=== PATIENT | female | born 1975 | race Caucasian/White ===

== ENCOUNTER 2017-04-05 15:36 | Inpatient (IN) | payer MEDICARE, MEDICAID ==
[2017-04-05 17:21] LABS: #Eosinphils 0.3 thou/uL (0.0-0.7); #Lymphocytes 1.7 thou/uL (1.20-3.40); #Monocytes 0.5 thou/uL (0.11-0.59); #Neutrophils 3.6 thou/uL (1.40-6.50); %Basophils 0.7 % (0.0-1.0); %Eosinophils 5.6 % (0.0-10.0); %Lymphocytes 27.2 % (21.0-51.0); %Neutrophils 58.5 % (42.0-75.0); Hemoglobin 10.1 g/dL (12.0-16.0); Mean Corpuscular HGB CONC 33.6 g/dL (32.0-36.0); Mean Corpuscular Volume 83.3 fl (81.0-99.0); Mean Platelet Volume 7.6 fL (7.4-10.4); Platelet Count 176 thou/uL (130-400); Red Blood Cell (RBC) Count 3.62 mill/uL (4.20-5.40); White Blood Cell (WBC) Count 6.2 thou/uL (4.8-10.8)
[2017-04-05 17:36] LABS: ALT (SGPT) 16 U/L (8-55); AST (SGOT) 27 U/L (5-34); Albumin 2.2 g/dL (3.5-5.0); Alcohol Less than 10 mg/dL (Less than 10); Alkaline Phosphatase 120 U/L (40-150); Anion Gap 14 mmol/L (10-20); BUN (Urea Nitrogen) 16 mg/dL (7.0-18.7); Bilirubin, Total 0.3 mg/dL (0.2-1.2); Calc. Creatinine Clearance 0 mL/min (70-130); Calcium 8.5 mg/dL (7.8-10.44); Carbon Dioxide 30 mmol/L (22-29); Chloride 96 mmol/L (98-107); Estimated GFR-MDRD 29; Globulin 3.2 g/dL (2.4-3.5); Glucose 334 mg/dL (70-105); Protein, Total 5.4 g/dL (6.0-8.3); Sodium 137 mmol/L (136-145)
[2017-04-05 17:37] LABS: BHCG - Serum Negative (NEGATIVE); Pregs Control Background? CLEAR/WHITE (CLR/WHITE); Pregs Control Bar Appear? YES (CONTROL BAR)
[2017-04-05 17:40] LABS: CKMB 5.4 ng/mL (0-6.6); Troponin I 0.031 ng/mL (< 0.028)
[2017-04-05 17:42] LABS: Potassium 2.5 mmol/L (3.5-5.1)
[2017-04-05 19:15] LABS: Acetaminophen Less than 6.0 mcg/mL (10.0-30.0); Alcohol Less than 10 mg/dL (Less than 10); Salicylate Less than 8.0 mg/dL (15.0-30.0)
[2017-04-05] MEDS ORDERED: Potassium Chloride 20 MEQ/100 ML PREMIX BAG ONE (19:17)
[2017-04-05] MEDS ORDERED: Magnesium Sulfate 2 GM/NS 0.9% 50 ML BAG ONE (19:17)
--- NOTE | 2017-04-05 19:24 | CT ---
CT THORACIC SPINE WITHOUT CONTRAST: Indication: Fall from standing. Back pain. FINDINGS: No acute fracture or subluxation is evident. There is mild multilevel disc degenerative disease of th e thoracic spine. Osseous central canal is preserved. IMPRESSION: No acute osseous abnormality. POS: [facility]
--- NOTE | 2017-04-05 20:31 | CT ---
CT BRAIN WITHOUT CONTRAST: Indication: Fall, hit back of head. Comparison: 08-14-16 FINDINGS: No acute intracranial hemorrhage or hydrocephalus is present. Septum pellucidum and third ventricle a re midline. Skull and extracranial soft tissues appear within normal limits. IMPRESSION: No intracranial abnormality. POS: [facility]
--- NOTE | 2017-04-05 20:33 | CT ---
CT OF THE CERVICAL SPINE WITHOUT CONTRAST: Indication: History of fall, neck pain. Comparison: 08-14-16 FINDINGS: No acute fracture or subluxation are present. Craniocervical junction is within normal limits. Prever tebral soft tissues are within normal limits. Lung apices are clear. IMPRESSION: No acute osseous abnormality. POS: [facility]
--- NOTE | 2017-04-05 20:37 | CT ---
CT LUMBAR SPINE WITHOUT CONTRAST: Indication: History of fall with back pain. FINDINGS: There is mild degenerative changes involving the SI joints, right greater than left. No acute fractur e or subluxation is evident involving the lumbar spine. There is partial visualization of a bicornate uterus. Visualized retroperitoneum appears within normal limits. IMPRESSION: No acute osseous abnormality. POS: [facility]
--- NOTE | 2017-04-05 20:39 | CT ---
CT PELVIS WITHOUT CONTRAST: Indication: Fall with pelvic pain. FINDINGS: No acute fracture or subluxation is evident. There is a bicornuate uterus. No free fluid is evident i n the pelvis. Unopacified small and large bowel appear within normal limits. There is mild diffuse an asarca. There are shoddy appearing lymph nodes within the inguinal region. IMPRESSION: No acute osseous abnormality. POS: [facility]
[2017-04-05 20:44] LABS: Bilirubin Negative (Negative); Blood, Urine Large (Negative); Clarity CLOUDY (Clear); Glucose, Urine (Dipstick) 250 mg/dL (Negative); Leukocyte Negative (Negative); Nitrite Negative (Negative); Protein, Urine (Dipstick) > or equal to 300 mg/dL (Neg-Trace); Specific Gravity, Urine 1.014 (1.002-1.036)
[2017-04-05 20:47] LABS: Bacteria/HPF 4+ HPF (None Seen); Hyaline Casts/LPF 7-10 HYALINE CAST LPF (0-3 Hyaline); Pathc Cast-AUWi Flag 1.62 (0-2.49); Yeast-AUWi Flag 199.8 (0-25.0)
[2017-04-05] MEDS ORDERED: Potassium Chloride 20 MEQ TAB ONE ×2 (20:48→23:25)
[2017-04-05 20:51] LABS: Amphetamine Not Detected (NotDetected); Barbiturates Screen Not Detected (NotDetected); Benzodiazepine Screen Not Detected (NotDetected); Cocaine Metabolite Screen Not Detected (NotDetected); Medtox Control Line Valid? VALID (VALID); Medtox Reader # READER 4; Methadone Not Detected (NotDetected); Methamphetamine Not Detected (NotDetected); Opiate Screen Not Detected (NotDetected); Oxycodone Screen Not Detected (NotDetected); Phencyclidine (PCP) Not Detected (NotDetected); THC/Cannabinoid Screen Not Detected (NotDetected); Tricyclic Screen Not Detected (NotDetected)
[2017-04-05 20:51] LABS: Troponin I 0.044 ng/mL (< 0.028)
[2017-04-05 20:54] LABS: RBC/HPF 21-50 HPF (0-3)
[2017-04-05] MEDS ORDERED: Dextrose 5% in Water 1,000 ML IV PRN (22:27)
[2017-04-05] MEDS ORDERED: HYDROcodone/Acetaminophen 5/325 mg Tablet PO PRN (22:27)
[2017-04-05] MEDS ORDERED: Acetaminophen 325 MG TAB PO PRN (22:27)
[2017-04-05] MEDS ORDERED: Calcium Carbonate 500 MG ChewTAB PO PRN (22:27)
[2017-04-05] MEDS ORDERED: HYDROcodone/Acetaminophen 10/325 mg Tablet PO PRN (22:27)
[2017-04-05] MEDS ORDERED: Dextrose 50% Abboject 50 ML SYRINGE SLOW IVP PRN (22:27)
[2017-04-05] MEDS ORDERED: Enoxaparin Sodium 40 MG/0.4 ML SYRINGE SC SCH (22:30)
[2017-04-05] MEDS ORDERED: Insulin Detemir 100 UNITS/ML 20 UNITS in Pre-Filled Syringe 1 EACH SC SCH (22:30)
[2017-04-05] MEDS ORDERED: Magnesium 2 GM/NS 0.9% 50 ML 2 GM in Premix Bag 1 BAG IVPB SCH (22:45)
[2017-04-05 23:04] LABS: Anion Gap 17 mmol/L (10-20); BUN (Urea Nitrogen) 16 mg/dL (7.0-18.7); Calc. Creatinine Clearance 0 mL/min (70-130); Calcium 8.9 mg/dL (7.8-10.44); Carbon Dioxide 29 mmol/L (22-29); Chloride 95 mmol/L (98-107); Estimated GFR-MDRD 28; Glucose 245 mg/dL (70-105); Sodium 139 mmol/L (136-145)
[2017-04-05 23:12] LABS: Potassium 2.3 mmol/L (3.5-5.1)
[2017-04-05] MEDS ORDERED: Acetaminophen 325 MG TAB ONE (23:25)
--- NOTE | 2017-04-05 23:48 | HP ---
PRIMARY CARE PHYSICIAN: Eric. DATE OF ADMISSION: 04/05/2017 TIME OF SERVICE: 2129. CHIEF COMPLAINT: Fall. HISTORY OF PRESENT ILLNESS: Ms. Snow is a 41-year-old obese female with history of diabetes and hypertension, who presents to the emergency department today after an episode where she fell. Per ER notes, family is at bedside said she actually lost consciousness. There are not currently at the bedside. She states that they told her she was out for about 30 minutes, but she does not think it was that long, but really cannot remember. When she fell, she did hit her head on the computer table, prompting her presentation here. Workup h ere showed no acute fracture, but she did have a potassium of 2.5 with a magnesium of 1.1 and a creat inine of 1.92. Review of her chart shows her baseline creatinine somewhere around 1.3 as of 09/2016. The patient states she was drinking last night for new years', and thinks on arrival here told the [facility] that she thought she might have to be drunk and passed out from that. No fevers or chills, no chest pain or shortness of breath, no nausea and vomiting, no diarrhea. PAST MEDICAL HISTORY: 1. Diabetes mellitus type 2 on insulin chronically and unsure of her control. 2. Hypertension. 3. Anxiety/depression. 4. Schizophrenia. 5. Bipolar disorder. 6. Hypothyroidism. PAST SURGICAL HISTORY: Include, 1. Cholecystectomy. 2. Tympanostomy tubes remotely. 3. x2. HOME MEDICATIONS: 1. Levothyroxine 100 mcg daily. 2. Lisinopril 2.5 mg daily. 3. Metformin 500 mg p.o. b.i.d. 4. Lantus or Levemir 20 units subcutaneous at bedtime, but she is not sure. 5. No short long-acting insulin. ALLERGIES: 1. PENICILLIN caused her face to swell, but she says she tolerated AMOXICILLIN fine. 2. ADHESIVE TAPE. FAMILY HISTORY: Negative for clotting or bleeding disorder, immune dysfunction. SOCIAL HISTORY: Negative for habits regularly. She does drink socially. No IV drug use or tobacco use. REVIEW OF SYSTEMS: A 10-point review of systems was performed, negative for all other systems except listed as per HPI. PHYSICAL EXAMINATION: VITAL SIGNS: Temperature 97.5, pulse 89, blood pressure 164/101 but down to 107/69 now, respiratory 18, and 95% on room air. GENERAL: She is awake. She is alert. She is oriented x3. She is an obese white female, appears to be in no distress. HEENT: She is normocephalic, atraumatic. Her pupils are equal and reactive to light bilaterally, mu cous membranes moist. She has no visible lesions or thrush. NECK: Supple. She has no lymphadenopathy, JVD, or thyromegaly. She had normal carotid upstrokes. There were no bruits. LUNGS: Clear to auscultation bilaterally. She has no wheezes, no rales, no rhonchi. She has good a ir movements. Symmetrical chest excursion. CARDIOVASCULAR: She is regular with normal rate. She has normal S1 and S2. No murmurs. ABDOMEN: Obese is nontender, nondistended. She has good bowel sounds. There are no rebound, rigidi ty, or guarding. EXTREMITIES: Show no cyanosis or clubbing and no edema. She has 2+ peripheral pulses in dorsalis pe dis, posterior tibial, and radial arteries bilaterally. SKIN: Warm and well perfused. She has no rashes or lesions. NEUROLOGIC: Cranial nerves II-XII are grossly intact. She has normal speech pattern, she has 5/5 st rength in all 4 extremities. She has normal sensation, no focal deficits. MUSCULOSKELETAL: She is normal to inspection. She has no inflamed joints. No palpable effusions. She does have a swelling over her left posterior neck and also put from her fall. It looks to be as subdermal hematoma. LABORATORY EVALUATION: Sodium 137, potassium on arrival 2.5, magnesium 1.1, chloride 196, bicarbonat e 30, BUN 16, creatinine 1.92 after her baseline at 1.3, calcium is 7.5, and glucose of 334. Total protein of 5.4 and albumin 2.2. CBC showed a white count of 6.2, hemoglobin 10.1, hematocrit o f 30.1, and platelet count 176,000. RADIOGRAPHIC STUDIES: She has CT of the cervical, thoracic, and lumbar spine, CT of the brain and pe lvis CT, all negative for fracture. ASSESSMENT AND PLAN: 1. Syncopal episode. Etiology not clear. She is significantly dehydrated enough to cause acute kid raegan injury and elevated lactate. We will check serial cardiac biomarkers and watch her on telemetry to make sure there is no other cardiac component. Her baseline troponin was 0.03 and 0.044. Her uri ne drug screen was negative for alcohol or any other illicit drugs, so I cannot say that was the caus e. She did say that when she sat up in bed early she got lightheaded, so I think she mostly maybe pr esyncopal. We will get orthostatics now and in the morning. She received 2 liters of IV fluids in [facility] emergency department as well as some electrolyte replacement. We will continue IV fluids at 150 m L per hour. 2. Diabetes mellitus, type 2, insulin-dependent. She is really unsure of her doses. We will start her on Levemir 20 units subcutaneous at bedtime, first dose now and sliding-scale insulin with low do se. We will follow her sugars and check morning A1c. 3. Hypertension on lisinopril. She is on 2.5 a day and has been on higher doses per the chart. We will hold for now in the setting of acute kidney injury and watch her blood pressure. 4. Anxiety/depression/schizophrenia/bipolar. She is not on any treatments. 5. Hypothyroidism on levothyroxine. I will check morning TSH. I suspect the patient has just got d ehydrated and has electrolyte depletion. We will work on replacing her potassium and magnesium. 6. Hypokalemia as above. 7. Hypomagnesemia as above.
[2017-04-05 23:53] LABS: CKMB 4.3 ng/mL (0-6.6); Troponin I 0.038 ng/mL (< 0.028)
[2017-04-06 04:47] LABS: #Eosinphils 0.3 thou/uL (0.0-0.7); #Lymphocytes 1.2 thou/uL (1.20-3.40); #Monocytes 0.3 thou/uL (0.11-0.59); #Neutrophils 3.1 thou/uL (1.40-6.50); %Basophils 0.3 % (0.0-1.0); %Eosinophils 5.3 % (0.0-10.0); %Lymphocytes 24.3 % (21.0-51.0); %Monocytes 5.6 % (0.0-10.0); %Neutrophils 64.4 % (42.0-75.0); Hemoglobin 9.1 g/dL (12.0-16.0); Mean Corpuscular HGB CONC 34.1 g/dL (32.0-36.0); Mean Corpuscular Hemoglobin 28.6 pg (27.0-31.0); Mean Corpuscular Volume 83.9 fl (81.0-99.0); Mean Platelet Volume 8.5 fL (7.4-10.4); Platelet Count 171 thou/uL (130-400); RBC Distribution Width 14.4 % (11.5-14.5); Red Blood Cell (RBC) Count 3.17 mill/uL (4.20-5.40); White Blood Cell (WBC) Count 4.9 thou/uL (4.8-10.8)
[2017-04-06 04:58] LABS: Hemoglobin A1c 10.3 % (4.0-6.0)
[2017-04-06 05:04] LABS: Anion Gap 14 mmol/L (10-20); BUN (Urea Nitrogen) 17 mg/dL (7.0-18.7); Calc. Creatinine Clearance 0 mL/min (70-130); Calcium 7.9 mg/dL (7.8-10.44); Carbon Dioxide 30 mmol/L (22-29); Chloride 95 mmol/L (98-107); Estimated GFR-MDRD 25; Glucose 357 mg/dL (70-105); Magnesium 1.9 mg/dL (1.6-2.6); Sodium 136 mmol/L (136-145)
[2017-04-06 05:05] LABS: Potassium 2.6 mmol/L (3.5-5.1)
[2017-04-06] MEDS ORDERED: Potassium Chloride 20 MEQ TAB ONE ×2 (05:21→09:12)
[2017-04-06 08:09] LABS: CKMB 2.7 ng/mL (0-6.6); Troponin I 0.022 ng/mL (< 0.028)
[2017-04-06] MEDS ORDERED: Enoxaparin Sodium 40 MG/0.4 ML SYRINGE ONE (09:12)
[2017-04-06] MEDS ORDERED: Famotidine 20 MG TAB ONE (09:12)
[2017-04-06] MEDS ORDERED: Insulin Regular 300 UNITS/3 ML VIAL ONE (09:26)
[2017-04-06] MEDS ORDERED: HYDROcodone/Acetaminophen 5/325 mg Tablet ONE (09:26)
[2017-04-06] MEDS ORDERED: Sodium Chloride 0.9% 1,000 ML IV SCH (12:49)
--- NOTE | 2017-04-06 13:01 | PDOC.PN ---
- Subjective Encounter Start Date: 04/06/17 Encounter Start Time: 12:59 c/o headache no cp no sob no n/v - Objective Resuscitation Status: Resuscitation Status FULL:Full Resuscitation MAR Reviewed: Yes Result Diagrams: 04/06/17 03:16 04/06/17 03:16 Additional Labs: Accuchecks 04/06/17 04/06/17 04/05/17 11:20 09:20 23:44 POC Glucose 258 H 214 H 366 H Phys Exam - Physical Examination Constitutional: NAD HEENT: PERRLA Neck: no JVD Respiratory: no wheezing Cardiovascular: no significant murmur Gastrointestinal: non-tender Musculoskeletal: pulses present e/o erythema of rt leg. some tenderness Neurological: moves all 4 limbs Psychiatric: A&O x 3 Dx/Plan (1) Nqukw-ed-jcdffnf kidney injury Code(s): N17.9 - ACUTE KIDNEY FAILURE, UNSPECIFIED; N18.9 - CHRONIC KIDNEY DISEASE, UNSPECIFIED Status: Acute Qualifiers: (2) Dehydration Code(s): E86.0 - DEHYDRATION Status: Acute (3) Hypertension Code(s): I10 - ESSENTIAL (PRIMARY) HYPERTENSION Status: Acute Qualifiers: (4) Diabetes mellitus type 2, insulin dependent Code(s): E11.9 - TYPE 2 DIABETES MELLITUS WITHOUT COMPLICATIONS; Z79.4 - HALF-WAY (CURRENT) USE OF INSULIN Status: Chronic (5) Dyslipidemia Code(s): E78.5 - HYPERLIPIDEMIA, UNSPECIFIED Status: Chronic (6) Hypothyroidism Code(s): E03.9 - HYPOTHYROIDISM, UNSPECIFIED Status: Chronic (7) Hypomagnesemia Code(s): E83.42 - HYPOMAGNESEMIA Status: Resolved (8) Syncope Code(s): R55 - SYNCOPE AND COLLAPSE Status: Acute (9) Hypokalemia Code(s): E87.6 - HYPOKALEMIA Status: Acute (10) Cellulitis Code(s): L03.90 - CELLULITIS, UNSPECIFIED Status: Acute Comment: rt dnun - Plan * .
[2017-04-06] MEDS ORDERED: Vancomycin HCl 1 GM in Premix Bag 1 BAG IVPB SCH (13:15)
--- NOTE | 2017-04-06 14:26 | ULT ---
ULTRASOUND WITH DOPPLER DUPLEX CAROTID: Date: 04-06-2017 History: 41-year-old female status post near syncope. Technique: Grayscale, color flow, and spectral analysis of major arteries of the neck. FINDINGS: Little or no plaque is identified in the carotid arteries. The vertebral artery flow is antegrade humberto aterally. The highest peak systolic velocities in the internal carotid arteries are 95 cm/s on the ri ght, and 110 cm/s on the left. The ICA/CCA ratios are bilaterally 0.9. IMPRESSION: No hemodynamically significant stenosis. POS: [facility]
--- NOTE | 2017-04-06 14:27 | ULT ---
ULTRASOUND RETROPERITONEUM COMPLETE: (RENAL) HISTORY: 41-year-old female with acute renal failure. FINDINGS: The right kidney measures 12 x 5 x 5 cm. The left kidney measures 11 x 5.5 x 5.5 cm. Both kidneys h ave normal cortical thickness and normal cortical echogenicity. There is no hydronephrosis. Cursory images of the urinary bladder demonstrate no gross abnormality. IMPRESSION: Normal jn POS: [facility]
[2017-04-06] MEDS ORDERED: Acetaminophen 325 MG TAB ONE (14:30)
[2017-04-06 17:33] LABS: CKMB 2.5 ng/mL (0-6.6); Troponin I 0.022 ng/mL (< 0.028)
[2017-04-06 17:56] VITALS: BMI 44.2
[2017-04-06] MEDS: Potassium Chloride 20 MEQ TAB PO SCH ×3 (21:48→22:57)
[2017-04-06] MEDS: Famotidine 20 MG TAB PO SCH ×2 (21:49→22:10)
[2017-04-06] MEDS: Enoxaparin Sodium 40 MG/0.4 ML SYRINGE SC SCH (21:49)
[2017-04-06] MEDS: Sodium Chloride 0.9% 1,000 ML IV SCH ×3 (21:52→22:57)
[2017-04-06] MEDS: Vancomycin HCl 1.75 GM in Sodium Chloride 0.9% 500 ML IVPB SCH (22:09)
[2017-04-06] MEDS: Insulin Detemir 100 UNITS/ML 20 UNITS in Pre-Filled Syringe 1 EACH SC SCH (22:10)
[2017-04-06] MEDS: HumaLOG 300 UNITS/3 ML VIAL SC PRN (22:11)
[2017-04-07 05:32] LABS: #Eosinphils 0.1 thou/uL (0.0-0.7); #Lymphocytes 0.9 thou/uL (1.20-3.40); #Monocytes 0.4 thou/uL (0.11-0.59); #Neutrophils 1.7 thou/uL (1.40-6.50); %Basophils 0.4 % (0.0-1.0); %Eosinophils 3.5 % (0.0-10.0); %Lymphocytes 29.4 % (21.0-51.0); %Monocytes 13.9 % (0.0-10.0); %Neutrophils 52.7 % (42.0-75.0); Hemoglobin 9.4 g/dL (12.0-16.0); Mean Corpuscular Hemoglobin 28.1 pg (27.0-31.0); Mean Corpuscular Volume 85.3 fl (81.0-99.0); Mean Platelet Volume 7.4 fL (7.4-10.4); Platelet Count 168 thou/uL (130-400); RBC Distribution Width 14.3 % (11.5-14.5); Red Blood Cell (RBC) Count 3.35 mill/uL (4.20-5.40); White Blood Cell (WBC) Count 3.2 thou/uL (4.8-10.8)
[2017-04-07 05:40] LABS: Albumin 2.2 g/dL (3.5-5.0); Anion Gap 10 mmol/L (10-20); BUN (Urea Nitrogen) 14 mg/dL (7.0-18.7); BUN/Creatinine Ratio 7.57; Calc. Creatinine Clearance 85 mL/min (70-130); Calcium 8.1 mg/dL (7.8-10.44); Carbon Dioxide 30 mmol/L (22-29); Chloride 101 mmol/L (98-107); Estimated GFR-MDRD 30; Glucose 200 mg/dL (70-105); Phosphorus 2.6 mg/dL (2.3-4.7); Potassium 3.1 mmol/L (3.5-5.1); Sodium 138 mmol/L (136-145)
[2017-04-07] MEDS: HumaLOG 300 UNITS/3 ML VIAL SC PRN ×3 (06:20→20:55)
[2017-04-07] MEDS: Ondansetron ODT 4 MG TAB PO PRN ×2 (09:09→18:00)
[2017-04-07] MEDS: Potassium Chloride 20 MEQ TAB PO SCH ×2 (09:10→17:59)
[2017-04-07] MEDS: Famotidine 20 MG TAB PO SCH ×2 (09:10→20:53)
[2017-04-07] MEDS: Enoxaparin Sodium 40 MG/0.4 ML SYRINGE SC SCH (09:10)
[2017-04-07] MEDS ORDERED: Promethazine HCl 25 MG SUPP PR PRN (10:13)
--- NOTE | 2017-04-07 16:54 | PDOC.PN ---
- Subjective Encounter Start Date: 04/07/17 Encounter Start Time: 16:52 c/o n/v no f/c no sob - Objective Resuscitation Status: Resuscitation Status FULL:Full Resuscitation MAR Reviewed: Yes Vital Signs & Weight: Vital Signs (12 hours) Temp Pulse Pulse Pulse Resp BP BP 04/07/17 15:20 97.7 F 77 18 04/07/17 13:55 76 82 176/108 H 178/106 H 04/07/17 11:25 98.7 F 80 20 04/07/17 07:25 99.2 F 85 20 BP Pulse Ox 04/07/17 15:20 95 04/07/17 13:55 04/07/17 11:25 156/87 H 96 04/07/17 07:25 161/85 H 96 I&O: 04/06/17 04/07/17 04/08/17 06:59 06:59 06:59 Intake Total 600 500 Balance 600 500 Result Diagrams: 04/07/17 05:11 04/07/17 05:11 Additional Labs: Accuchecks 04/07/17 04/06/17 05:11 21:50 POC Glucose 199 H 355 H Phys Exam - Physical Examination Constitutional: NAD HEENT: PERRLA Neck: no JVD Respiratory: no wheezing Cardiovascular: no significant murmur Gastrointestinal: non-tender Musculoskeletal: pulses present Neurological: moves all 4 limbs Psychiatric: A&O x 3 Dx/Plan (1) Iuxyc-go-vuzlfcn kidney injury Code(s): N17.9 - ACUTE KIDNEY FAILURE, UNSPECIFIED; N18.9 - CHRONIC KIDNEY DISEASE, UNSPECIFIED Status: Acute Qualifiers: (2) Dehydration Code(s): E86.0 - DEHYDRATION Status: Acute (3) Hypertension Code(s): I10 - ESSENTIAL (PRIMARY) HYPERTENSION Status: Acute Qualifiers: (4) Diabetes mellitus type 2, insulin dependent Code(s): E11.9 - TYPE 2 DIABETES MELLITUS WITHOUT COMPLICATIONS; Z79.4 - LONG-TERM (CURRENT) USE OF INSULIN Status: Chronic (5) Dyslipidemia Code(s): E78.5 - HYPERLIPIDEMIA, UNSPECIFIED Status: Chronic (6) Hypothyroidism Code(s): E03.9 - HYPOTHYROIDISM, UNSPECIFIED Status: Chronic (7) Hypomagnesemia Code(s): E83.42 - HYPOMAGNESEMIA Status: Resolved (8) Syncope Code(s): R55 - SYNCOPE AND COLLAPSE Status: Acute (9) Hypokalemia Code(s): E87.6 - HYPOKALEMIA Status: Acute (10) Cellulitis Code(s): L03.90 - CELLULITIS, UNSPECIFIED Status: Acute Comment: rt dunn - Plan * continue current care * d/c in am if clinically better * ef-60% * carotid dop - no hdss * replace potassium
[2017-04-07] MEDS: hydrALAZINE 20 MG/ML VIAL SLOW IVP PRN (20:54)
[2017-04-07] MEDS: Vancomycin HCl 1.75 GM in Sodium Chloride 0.9% 500 ML IVPB SCH (20:54)
[2017-04-07] MEDS: Insulin Detemir 100 UNITS/ML 20 UNITS in Pre-Filled Syringe 1 EACH SC SCH (20:55)
[2017-04-07] MEDS ORDERED: Pantoprazole 40 MG VIAL IVP SCH (21:00)
[2017-04-08 06:21] LABS: Albumin 1.9 g/dL (3.5-5.0); Anion Gap 12 mmol/L (10-20); BUN (Urea Nitrogen) 12 mg/dL (7.0-18.7); BUN/Creatinine Ratio 6.98; Calc. Creatinine Clearance 91 mL/min (70-130); Calcium 8.3 mg/dL (7.8-10.44); Carbon Dioxide 24 mmol/L (22-29); Chloride 106 mmol/L (98-107); Estimated GFR-MDRD 33; Glucose 232 mg/dL (70-105); Phosphorus 2.8 mg/dL (2.3-4.7); Potassium 3.5 mmol/L (3.5-5.1); Sodium 138 mmol/L (136-145)
[2017-04-08 06:33] LABS: Band 6 % (5-11); Eosinophils 10 % (0-10); Hemoglobin 9.4 g/dL (12.0-16.0); Lymphocytes 48 % (21-51); MDiff Complete? YES; Mean Corpuscular HGB CONC 32.3 g/dL (32.0-36.0); Mean Corpuscular Hemoglobin 27.9 pg (27.0-31.0); Mean Corpuscular Volume 86.3 fl (81.0-99.0); Mean Platelet Volume 8.5 fL (7.4-10.4); Monocytes 10 % (0-10); Neutrophil 26 % (42-75); Platelet Count 151 thou/uL (130-400); RBC Distribution Width 14.2 % (11.5-14.5); Red Blood Cell (RBC) Count 3.37 mill/uL (4.20-5.40); White Blood Cell (WBC) Count 3.2 thou/uL (4.8-10.8)
[2017-04-08] MEDS: Enoxaparin Sodium 40 MG/0.4 ML SYRINGE SC SCH (09:54)
[2017-04-08] MEDS: Potassium Chloride 20 MEQ TAB PO SCH ×2 (09:54→16:07)
[2017-04-08] MEDS: Famotidine 20 MG TAB PO SCH (09:54)
--- NOTE | 2017-04-08 11:24 | PDOC.PN ---
- Subjective Encounter Start Date: 04/08/17 Encounter Start Time: 11:22 Patient seen and examined. No new complaints. No overnight events - Objective Resuscitation Status: Resuscitation Status FULL:Full Resuscitation MAR Reviewed: Yes Vital Signs & Weight: Vital Signs (12 hours) Temp Pulse Resp BP Pulse Ox 04/08/17 08:18 97.9 F 76 18 142/69 H 96 04/08/17 04:00 98.1 F 80 20 164/79 H 96 04/08/17 00:00 99.2 F 76 16 98 I&O: 04/07/17 04/08/17 04/09/17 06:59 06:59 06:59 Intake Total 600 990 Balance 600 990 Result Diagrams: 04/08/17 04:38 04/08/17 04:38 Additional Labs: Accuchecks 04/08/17 04/07/17 04/07/17 06:16 20:52 16:30 POC Glucose 243 H 304 H 264 H Phys Exam - Physical Examination Constitutional: NAD HEENT: PERRLA Neck: no JVD Respiratory: no wheezing Cardiovascular: no significant murmur Gastrointestinal: non-tender Musculoskeletal: pulses present, edema present erythema resolved Neurological: moves all 4 limbs Psychiatric: A&O x 3 Dx/Plan (1) Hlckw-rd-tgjtdpp kidney injury Code(s): N17.9 - ACUTE KIDNEY FAILURE, UNSPECIFIED; N18.9 - CHRONIC KIDNEY DISEASE, UNSPECIFIED Status: Acute Qualifiers: (2) Dehydration Code(s): E86.0 - DEHYDRATION Status: Acute (3) Hypertension Code(s): I10 - ESSENTIAL (PRIMARY) HYPERTENSION Status: Acute Qualifiers: (4) Diabetes mellitus type 2, insulin dependent Code(s): E11.9 - TYPE 2 DIABETES MELLITUS WITHOUT COMPLICATIONS; 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
[2017-04-08] MEDS: Ondansetron ODT 4 MG TAB PO PRN (13:43)
[2017-04-08] MEDS: HumaLOG 300 UNITS/3 ML VIAL SC PRN ×2 (13:44→18:37)
[2017-04-08] MEDS ORDERED: Metoclopramide HCl 10 MG/2 ML VIAL IVP PRN (14:33)
[2017-04-08] MEDS: hydrALAZINE 20 MG/ML VIAL SLOW IVP PRN (16:41)
[2017-04-08 20:28] VITALS: BP 163/86; TEMP 97.4
--- NOTE | 2017-04-08 22:30 | DIS ---
DATE OF ADMISSION: 04/05/2017 DATE OF DISCHARGE: 04/08/2017 DISCHARGE DIAGNOSES: Syncopal episode, possibly secondary to dehydration, resolved. Diabetes mellit us, stable. Hypertension, stable. Acute renal failure on chronic kidney disease, stable. Anxiety, depression, schizophrenia, bipolar, stable. Hypothyroidism, stable. Hypokalemia, resolved. Hypomag nesemia, resolved. DISCHARGE MEDICATIONS: Include all home medications except lisinopril dose has been changed from 20 mg p.o. daily to 2.5 mg p.o. daily, metformin has been discontinued and she is going to be discharged on Metoprolol 25 mg p.o. daily. BRIEF HOSPITAL COURSE: This is a 41-year-old pleasant lady who as per family came into the hospital because of loss of consciousness. Please refer to the admitting physician's H&P for further details. The patient had multiple CT scans of the cervical, thoracic, lumbar spine and CT scan of the brain and pelvis all were negative for pathology and fracture. Orthostatics were done, which were normal. Echocardiogram showed EF of 60%. Carotid Doppler showed no hemodynamically significant stenosis. H er syncopal episode was thought to be secondary to dehydration caused by excessive alcohol intake, wh ich resolved with IV hydration. She was also found to be in acute renal failure on chronic kidney di sease, possibly secondary to combination of dehydration and superimposed with lisinopril use. The manoj barboza's lisinopril was stopped. She was gently hydrated. Kidney function started improving nicely. Renal ultrasound was done, which was normal. Right now, patient is doing much better. She is medic ally stable to be discharged with outpatient follow up with PCP. She is asked to stop taking pain me dications in the form of Levaquin and Advil and hydrate herself. She understands all this. She is a sked to come back to the emergency room in case symptoms recur. She is asked to have diet control fo r diabetes. She understands all this. Right now, she is medically stable to be discharged. Total time for this discharge took 35 minutes.
== END 2017-04-08 20:34 | disposition home or self-care (01) | DRG 683 ==
LOC: ERS 15:36 → ERHOLD 20:00 → 2SE 04-06 16:04 → 2NO 04-07 22:40
PROVIDERS: ADMIT Internal Medicine; ATTEND Internal Medicine
DX: N17.9 Acute kidney failure, unspecified (principal); L03.115 Cellulitis of right lower limb; E11.22 Type 2 diabetes mellitus with diabetic chronic kidney disease; E83.42 Hypomagnesemia; F20.9 Schizophrenia, unspecified; Z68.41 Body mass index [BMI] 40.0-44.9, adult; E86.0 Dehydration; Z79.4 Long term (current) use of insulin; W18.30XA Fall on same level, unspecified, initial encounter; Y92.019 Unspecified place in single-family (private) house as the place of occurrence of the external cause; F41.9 Anxiety disorder, unspecified; F32.9 Major depressive disorder, single episode, unspecified; F31.9 Bipolar disorder, unspecified; E03.9 Hypothyroidism, unspecified; Z88.0 Allergy status to penicillin; Z91.048 Other nonmedicinal substance allergy status; R55 Syncope and collapse; I12.9 Hypertensive chronic kidney disease with stage 1 through stage 4 chronic kidney disease, or unspecified chronic kidney disease; N18.9 Chronic kidney disease, unspecified; E87.6 Hypokalemia; E66.9 Obesity, unspecified; T46.4X5A Adverse effect of angiotensin-converting-enzyme inhibitors, initial encounter
CPT/HCPCS: 36415; 36416; 70450; 72125; 72128; 72131; 72192; 76770; 80048; 80053; 80069; 80306; 80307; 81003; 81015; 82553; 83036; 83735; 84484; 84703; 85025; 87040; 93005; 93306; 93880; 96361; 96365; 96366; 96367; 96368; 96372; A4216; C9113; G8978-GP-CJ; G8979-GP-CJ; G8980-GP-CJ; J0360; J1650; J1815; J2765; J3370; J3475; J3480; J7050; Q0162

== ENCOUNTER 2017-07-14 13:59 | Outpatient (CLI) | payer MEDICARE, OTHER ==
[~2017-07-14 13:59] MED LIST: Sodium Chloride 0.9% 15 ML NEB ONE
--- NOTE | 2017-07-15 20:28 | PRG ---
DATE OF SERVICE: 07/14/2017 HISTORY: Ms. Roxy Snow is a very pleasant 42-year-old who presents to the [facility] Center fo r evaluation of multiple ulcerations of the right and left lower legs. 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 The patient was administered a course of steroids afte r her biopsy returned leukocytoclastic vasculitis. Today, Ms. Snow presents to the Wound Center with her ulcerations open to air. The patient denies any fever or chills. PHYSICAL EXAMINATION: VITAL SIGNS: Temperature 97.5, pulse 98, respirations 18, blood pressure 131/76, Accu-Chek 197. EXTREMITIES: Multiple ulcerations are present over the right and left lower legs. No purulent drain age is associated with any of the wounds. No maceration of the skin of the periwound of any of the w ounds is noted. Edema of the right and left lower extremities is present on exam today. ASSESSMENT AND PLAN: 1. Chronic ulcerations of right and left lower extremities. 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 Dressing changes of Multidex powder followed by Mukul are to be performed on a daily basis after cleansing and irrigation. The patient will continue to perform her own dressing changes. I will see Ms. Snow again in two weeks. 2. Diabetes mellitus. The patient's Accu-Chek in clinic today is 197. The patient has been reminde d that for optimal wound healing, her blood glucoses should remain below 150. 2. Hypothyroidism. 3. Hypertension. 4. Migraine headaches. 5. Chronic kidney disease. 6. Carpal tunnel syndrome. 7. Anemia.
== END 2017-07-14 14:00 | disposition home or self-care (01) ==
LOC: WCC 13:59
PROVIDERS: ATTEND Family Medicine
DX: E11.622 Type 2 diabetes mellitus with other skin ulcer (principal); L97.819 Non-pressure chronic ulcer of other part of right lower leg with unspecified severity; L97.829 Non-pressure chronic ulcer of other part of left lower leg with unspecified severity; E11.22 Type 2 diabetes mellitus with diabetic chronic kidney disease; N18.9 Chronic kidney disease, unspecified; D63.1 Anemia in chronic kidney disease; E03.9 Hypothyroidism, unspecified; I10 Essential (primary) hypertension; G43.909 Migraine, unspecified, not intractable, without status migrainosus; G56.00 Carpal tunnel syndrome, unspecified upper limb
CPT/HCPCS: 82962; 87070; 87075; 87077; 87186; 87205; 97139; 97602; G0463; 36416; 99213; A4218

== ENCOUNTER 2018-03-30 21:01 | Inpatient (IN) | payer MEDICARE, MEDICAID ==
[2018-03-30 22:26] LABS: #Eosinphils 0.1 thou/uL (0.0-0.7); #Lymphocytes 0.8 thou/uL (1.20-3.40); #Neutrophils 11.5 thou/uL (1.40-6.50); %Basophils 0.3 % (0.0-1.0); %Eosinophils 0.8 % (0.0-10.0); %Lymphocytes 5.6 % (21.0-51.0); %Monocytes 7.5 % (0.0-10.0); %Neutrophils 85.8 % (42.0-75.0); Hemoglobin 7.9 g/dL (12.0-16.0); Mean Corpuscular HGB CONC 32.7 g/dL (32.0-36.0); Mean Corpuscular Hemoglobin 27.9 pg (27.0-31.0); Mean Corpuscular Volume 85.2 fL (78.0-98.0); Mean Platelet Volume 6.6 fL (7.4-10.4); Platelet Count 432 thou/uL (130-400); RBC Distribution Width 13.1 % (11.5-14.5); Red Blood Cell (RBC) Count 2.81 mill/uL (4.20-5.40); White Blood Cell (WBC) Count 13.4 thou/uL (4.8-10.8)
--- NOTE | 2018-03-30 22:27 | RAD ---
SINGLE VIEW OF THE CHEST: 03/30/18 COMPARISON: 08/14/16 HISTORY: Sepsis and cough. FINDINGS: Single view of the chest shows a normal sized cardiomediastinal silhouette. There is no evidence of c onsolidation, mass, or pleural effusion. The bones are unremarkable. IMPRESSION: No evidence of acute cardiopulmonary disease. POS: [facility]
--- NOTE | 2018-03-30 22:30 | RAD ---
THREE VIEWS OF THE LEFT FOOT: 03/30/18 COMPARISON: None. HISTORY: Sepsis. Necrotic ulcers. FINDINGS: Three views left foot shows a wound along the lateral aspect of the foot near the metatarsophalangeal joint region. Osteopenia is seen surrounding the metatarsophalangeal joints of the third, fourth, an d fifth fingers. There may also be a small amount of osteopenia surrounding the second metatarsophala ngeal joint. This osteopenia could potentially represent osteomyelitis. No wesley destruction of the b ones is seen in any of these locations. IMPRESSION: Osteopenia surrounding the metatarsophalangeal joints could potentially be secondary to osteomyelitis . POS: [facility]
[2018-03-30 22:47] LABS: ALT (SGPT) 8 U/L (8-55); AST (SGOT) 22 U/L (5-34); Albumin 2.7 g/dL (3.5-5.0); Alkaline Phosphatase 126 U/L (40-150); BUN (Urea Nitrogen) 87 mg/dL (7.0-18.7); Bilirubin, Total 0.3 mg/dL (0.2-1.2); Calc. Creatinine Clearance 0 mL/min (70-130); Calcium 9.3 mg/dL (7.8-10.44); Chloride 117 mmol/L (98-107); Estimated GFR-MDRD 8; Globulin 4.5 g/dL (2.4-3.5); Glucose 124 mg/dL (70-105); Protein, Total 7.2 g/dL (6.0-8.3); Sodium 133 mmol/L (136-145)
[2018-03-30 22:54] LABS: Carbon Dioxide Less than 8 mmol/L (22-29); Potassium 7.2 mmol/L (3.5-5.1)
--- NOTE | 2018-03-30 23:36 | CT ---
CT ABDOMEN AND PELVIS WITHOUT CONTRAST 03/30/18 COMPARISON: 09/11/16 HISTORY: Shortness of breath and cough. Abdominal pain with diarrhea. TECHNIQUE: Multiple contiguous axial images were obtained in a CT of the abdomen and pelvis without contrast. Co jessica reformats were performed. FINDINGS: The patient is status post cholecystectomy. The patient has a uterine didelphys. The liver, kidneys, adrenal glands, spleen, and pancreas are unremarkable although evaluation is limited without IV contr ast. No free air, free fluid, or stranding changes are seen in the abdomen or pelvis. The large and small bowel are unremarkable. The appendix is unremarkable. No abdominal or pelvic lymphadenopathy are seen . There are prominent bilateral inguinal lymph nodes. The osseous structures, visualized inferior thorax and abdominal wall soft tissues are unremarkable. IMPRESSION: 1. No evidence of acute intra-abdominal/pelvic abnormality. 2. Uterine didelphys. POS: [facility]
[2018-03-30] MEDS ORDERED: Albuterol Sulfate 2.5 mg/3 ml Neb ONE (23:52)
[2018-03-31 00:11] LABS: INR-International Normal Ratio 1.5; PTT 32.6 SEC (22.9-36.1); Prothrombin Time 18.5 SEC (12.0-14.7)
[2018-03-31] MEDS ORDERED: Calcium Gluc 4.6 MEQ/10 ML (100 MG/ML) ONE (00:11)
[2018-03-31] MEDS ORDERED: Sodium Bicarb 50 MEQ/50 ML VIAL ONE (00:11)
[2018-03-31] MEDS ORDERED: Dextrose 50% Abboject 50 ML SYRINGE ONE (00:19)
[2018-03-31] MEDS ORDERED: Insulin Regular 300 UNITS/3 ML VIAL ONE (00:19)
--- NOTE | 2018-03-31 00:35 | PDOC.FPRHP ---
- History of Present Illness Chief Complaint: foot wound History of Present Illness: Mrs. Snow presents to the ED with foot wounds The patient is somnolent and unable to answer questions appropriately, the following history has been obtained from medical records and EMS reports. who is present in room seems to have a poor undertanding of the situation. She has had these wounds for a long time and her reports that he has been telling her to go get them checked out, but has been unable to take her to the ED 2/2 working all the time. She has been treated by wound care in the past but has stopped going for quite a while now, her reports she will not ever take her shoes off. ER staff reports pt arrived covered in feces with very foul odor present. Pt has been admitted in the past with sepsis 2/2 cellulitis of foot wounds. ED Course: albuterol neb, 1 L NS, 3 amp NaHCO3, Calcium gluconate, D50W, novlin, cefepime and vanc PT/PTT/INR, CMP, CBC, LA, XRay foot, CT ab/pelv - Allergies/Adverse Reactions Allergies Allergy/AdvReac Type Severity Reaction Status Date / Time adhesive tape Allergy Mild Verified 09/12/16 04:35 Penicillins Allergy Verified 09/12/16 04:35 - Home Medications Medication Instructions Recorded Confirmed Type Fenofibrate 54 mg PO DAILY #30 tab 07/01/14 09/12/16 Rx Acetaminophen [Tylenol Regular 650 mg PO Q4H PRN #60 tab 08/15/16 04/06/17 Rx Strength] Clindamycin [Cleocin] 300 mg PO Q6H #24 cap 09/15/16 Rx Ferrous Sulfate [Feosol] 325 mg PO BID-WM #60 tab 09/15/16 Rx Insulin Glargine,Hum.Rec.Anlog 25 unit SQ QPM #1 pen 09/15/16 Rx [Lantus Solostar] Gabapentin [Neurontin] 300 mg PO BID 04/06/17 04/06/17 History Lisinopril [Zestril] 2.5 mg PO DAILY #30 tab 04/08/17 Rx Metoclopramide HCl [Reglan] 10 mg PO TID #30 tab 04/08/17 Rx Metoprolol Tartrate [Lopressor] 25 mg PO BID #60 tab 04/08/17 Rx Ondansetron [Zofran ODT] 4 mg PO Q6HR PRN #30 tab 04/08/17 Rx - History PMHx: CKDIII, DMII, HTN, leukocytoclastic vasculitis, PSHx: unknown FHx: unknown Social: lives at home with her - Review of Systems ROS unobtainable: due to mental status - Vital signs BP: 124/88 HR: 120 RR: 32 Tmax: 98 Pox: 100% on RA Wt: 104.33kg - Physical Exam Constitutional: other (somnolent, not answering questions appropriately) HEENT: normocephalic and atraumatic, grossly normal vision, grossly normal hearing, other (poor dentition) Neck: supple, trachea midline Chest: no-tender to palpation Heart: RRR, normal S1/S2 Lungs: CTAB, no respiratory distress Abdomen: soft, non-tender Musculoskeletal: normal structure, normal tone Neurological: no focal deficit, CN II-XII intact Skin: other (diffuse necrotic tissue on b/l LE, malodorous, maggot infested, erythema extending proximal to knee) Heme/Lymphatic: no unusual bruising or bleeding -Psychiatric: lacks judgement and insight into situation FMR H&P: Results - Labs Result Diagrams: 03/30/18 22:22 03/30/18 22:22 Lab results: WBC 13.4 thou/uL (4.8-10.8) H 03/30/18 22:22 Hgb 7.9 g/dL (12.0-16.0) L 03/30/18 22:22 Hct 24.0 % (36.0-47.0) L 03/30/18 22:22 MCV 85.2 fL (78.0-98.0) 03/30/18 22:22 Plt Count 432 thou/uL (130-400) H 03/30/18 22:22 Neutrophils % 85.8 % (42.0-75.0) H 03/30/18 22:22 Sodium 133 mmol/L (136-145) L 03/30/18 22:22 Potassium 7.2 mmol/L (3.5-5.1) H* 03/30/18 22:22 Chloride 117 mmol/L (98-107) H 03/30/18 22:22 Carbon Dioxide Less than 8 mmol/L (22-29) L* 03/30/18 22:22 BUN 87 mg/dL (7.0-18.7) H 03/30/18 22:22 Creatinine 5.75 mg/dL (0.6-1.1) H 03/30/18 22:22 Glucose 124 mg/dL (70-105) H 03/30/18 22:22 Lactic Acid 1.2 mmol/L (0.5-2.2) 03/30/18 22:22 Calcium 9.3 mg/dL (7.8-10.44) 03/30/18 22:22 Total Bilirubin 0.3 mg/dL (0.2-1.2) 03/30/18 22:22 AST 22 U/L (5-34) 03/30/18 22:22 ALT 8 U/L (8-55) 03/30/18 22:22 Alkaline Phosphatase 126 U/L (40-150) 03/30/18 22:22 Serum Total Protein 7.2 g/dL (6.0-8.3) 03/30/18 22:22 Albumin 2.7 g/dL (3.5-5.0) L 03/30/18 22:22 FMR H&P: A/P - Problem List (1) Sepsis due to cellulitis Current Visit: No Status: Acute Code(s): L03.90 - CELLULITIS, UNSPECIFIED; A41.9 - SEPSIS, UNSPECIFIED ORGANISM (2) Hyperkalemia Current Visit: Yes Status: Acute Code(s): E87.5 - HYPERKALEMIA (3) Wlwxb-wm-wievngi kidney injury Current Visit: No Status: Acute Code(s): N17.9 - ACUTE KIDNEY FAILURE, UNSPECIFIED; N18.9 - CHRONIC KIDNEY DISEASE, UNSPECIFIED Qualifiers: (4) Diabetes mellitus type 2, insulin dependent Current Visit: No Status: Chronic Code(s): E11.9 - TYPE 2 DIABETES MELLITUS WITHOUT COMPLICATIONS; Z79.4 - ALF (CURRENT) USE OF INSULIN (5) 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: Chronic Code(s): M31.0 - HYPERSENSITIVITY ANGIITIS - Plan Sepsis - WBC elevated, tachycardic, tachypneic in ED - potential source of leg wounds - cefepime and vanc given in ED - additional 30 ml/kg bolus ordered - continue broad spectrum abx - repeat CBC in AM hyperkalemia - K elevated in ED, EKG changes present - emergent dialysis - nephrology consulted appreciate recommendations - repeat CMP in AM SHERWIN on CKD - 5.75 cr on admission - IVF resuc, emergent dialysis Leukocytoclastic vasculitis - aware, possible initial insult to legs DMII - aware, continue home meds - mild SSI FMR H&P: Upper Level - Pertinent history 42F p/w to ED for bilateral foot wounds. EMS called for productive cough , abdominal pain, and diarrhea. Per EMS, the patient and her home were covered in feces upon their arrival. Patient unable to provide full history. Patient lives with . He cannot answer why he has not taken his to the doctor, but insinuates that this is a new problem and he is bringing her in now. When confronted with the fact this likely osteomyelitis is a chronic disease process, he has no explanantion for the situation. - Pertinent findings H/H: 7.9/24 WBC: 13.5 BUN/Cr: 87/5.75 Na: 133 K: 7.2 Chl: 117 bicarb: <8 Hep panel: negative EKG: sinus tachycardia with peaked T waves CT abd/pelvis: no acute abnormalities CXR: no acute cardiopulmonary disease Left foot XR: osteopenia of MTP joints possibly due to osteomyelitis - Plan Date/Time: 03/31/18 0034 IPankaj, have evaluated this patient and agree with findings/plan as outlined by sports marketing internship resident. Pertinent changes/additions are listed here. Sepsis 2/2 bilateral necrotic leg wounds/diabetic foot ulcer/possible osteomyelitis: -s/p 2L NS in ED with normal BP's but persistent tachycardia and tachypnea -pt afebrile but with leukocytosis -imaging concerning for possible osteomyelitis -recommend MRI tomorrow to confirm -hx of IDDM in the setting of foot ulcers -Vanc, cefepime, and flagyl to cover MRSA and Pseudomonas -consult would care in AM -has been seen by them in the past -admit to IMCU Hyperkalemia: -K of 7.2 -given temporizing treatments along with calcium gluconate -EKG with slightly peaked T waves -nephrology consulted from ED and patient is going for emergent dialysis -recheck after dialysis Acute renal failure: -Cr of 5.75, going for dialysis -continue IVF -Nephrology following Normocytic anemia: -appears to be close to patients baseline -mild depression likely 2/2 chronic inflammatory state
[2018-03-31] MEDS ORDERED: Cefepime 2 GM VIAL ONE (01:30)
[2018-03-31 01:43] LABS: HBSAB Concentration 1.12 mIU/mL; HBSAg Index 0.24 S/CO (0-0.99); Hep B Core Total Ab Non-Reactive (NonReactive); Hep B Core Total Index 0.12 S/CO (0-0.79); Hep B Surf AB Non-Reactive (NonReactive); Hep B Surf Ag Non-Reactive S/CO (NonReactive); Hep C IgG Ab Non-Reactive (NonReactive); Hep C Index 0.18 S/CO (0-0.79)
[2018-03-31] MEDS ORDERED: Dextrose 50% Abboject 50 ML SYRINGE SLOW IVP PRN (03:48)
[2018-03-31] MEDS ORDERED: Ondansetron ODT 4 MG TAB PO PRN (03:48)
[2018-03-31] MEDS ORDERED: HumaLOG 300 UNITS/3 ML VIAL SC PRN ×2 (03:48)
[2018-03-31] MEDS ORDERED: Ondansetron PF 4 MG/2 ML Vial IVP PRN (03:48)
[2018-03-31] MEDS ORDERED: Dextrose 5% in Water 1,000 ML IV PRN (03:48)
[2018-03-31] MEDS: Sodium Chloride 0.9% 1,000 ML IV SCH ×2 (05:02→06:10)
[2018-03-31] MEDS: metroNIDAZOLE 500 MG in Premix Bag 1 BAG IVPB SCH ×3 (06:54→21:51)
--- NOTE | 2018-03-31 07:51 | RAD ---
CHEST 1 VIEW: Date: 03/31/18 HISTORY: Hemodialysis catheter placement. COMPARISON: Radiograph dated 03/30/18. FINDINGS: Dialysis catheter tip sits at the inferior SVC. No pneumothorax. Calcified granulomas right mid lung. IMPRESSION: Uncomplicated placement of dialysis catheter. POS: PAULINE
[2018-03-31 08:16] LABS: Hemoglobin 5.8 g/dL (12.0-16.0)
[2018-03-31 08:38] LABS: Anion Gap 15 mmol/L (10-20); BUN (Urea Nitrogen) 43 mg/dL (7.0-18.7); Calc. Creatinine Clearance 41 mL/min (70-130); Calcium 7.7 mg/dL (7.8-10.44); Carbon Dioxide 17 mmol/L (22-29); Chloride 112 mmol/L (98-107); Estimated GFR-MDRD 17; Glucose 96 mg/dL (70-105); Potassium 3.9 mmol/L (3.5-5.1); Sodium 140 mmol/L (136-145)
[2018-03-31 09:13] LABS: #Eosinphils 0.1 thou/uL (0.0-0.7); #Lymphocytes 0.9 thou/uL (1.20-3.40); #Monocytes 0.7 thou/uL (0.11-0.59); #Neutrophils 5.3 thou/uL (1.40-6.50); %Basophils 0.1 % (0.0-1.0); %Eosinophils 1.8 % (0.0-10.0); %Lymphocytes 12.5 % (21.0-51.0); %Monocytes 10.4 % (0.0-10.0); %Neutrophils 75.3 % (42.0-75.0); Hemoglobin 5.9 g/dL (12.0-16.0); Mean Corpuscular HGB CONC 34.5 g/dL (32.0-36.0); Mean Corpuscular Hemoglobin 28.2 pg (27.0-31.0); Mean Corpuscular Volume 81.8 fL (78.0-98.0); Mean Platelet Volume 6.5 fL (7.4-10.4); Platelet Count 294 thou/uL (130-400); RBC Distribution Width 12.7 % (11.5-14.5); Red Blood Cell (RBC) Count 2.09 mill/uL (4.20-5.40); White Blood Cell (WBC) Count 7.1 thou/uL (4.8-10.8)
--- NOTE | 2018-03-31 10:14 | CON ---
DATE OF CONSULTATION: 03/30/2018 TIME OF SERVICE: 11:00 p.m. in the emergency room. REASON FOR CONSULTATION: Hyperkalemia. HISTORY OF PRESENT ILLNESS: This is a very pleasant 42-year-old female, who had a history of leg wound and a baseline creatinine anywhere from 1.5 to 2, presented to the hospital with a potassium of 7.2 and a creatinine of more than 5. The patient also had severe acidosis. The patient has not seen a proced tech and did not seek any emergency medical attention. The patient was given bicarbonate, insulin, D50, and antibiotic therapy was initiated. The patient was on an GRAHAM inhibitor. The patient did have EKG changes. PAST MEDICAL HISTORY: CKD, 2; diabetes mellitus; hypertension; vasculitis; and foot ulcers. PAST SURGICAL HISTORY: Unknown. FAMILY HISTORY: Unknown. SOCIAL HISTORY: No tobacco. no alcohol or drug use. FAMILY HISTORY: Negative for ESRD. REVIEW OF SYSTEMS: Fifteen-point review of systems was performed and negative, except for positives noted above. NECK: No swelling or lumps. NOSE: No epistaxis or discharge. EYES: No diplopia or pain. MUSCULOSKELETAL: No joint pain. NEUROPSYCHIATIC SYSTEMS: No suicidal ideation. No ideation. SKIN: Denies any rash or ulcer. CONSTITUTIONAL: No fever or chills. PHYSICAL EXAMINATION: CONSTITUTIONAL: The patient was awake, alert. VITAL SIGNS: Afebrile, pulse 120, blood pressure 124/88. GENERAL APPEARANCE AND MENTAL STATUS: Fair. HEAD/NECK: Normocephalic. Atraumatic. EYES: EOMI. No deformity. EARS: Clear. No ulcers. NOSE: Intact. No lesions. MOUTH: Clear. No discharge. THROAT: Clear. No exudate. LUNGS: Clear. No crackles. CARDIAC: S1, S2. No rub. ABDOMEN: Benign. Bowel sounds positive. GENITALIA/RECTUM: Olvera absent. BACK/EXTREMITIES: Edema 0+. Ulcers on bilateral lower extremities NEUROLOGICAL: Alert and motor intact. LABORATORY DATA: Labs show potassium 7.2, . ASSESSMENT AND RECOMMENDATIONS: 1. Acute kidney injury with chronic kidney disease. Plan urgent hemodialysis. 2. Hyperkalemia, plan dialysis . Risks versus benefits of dialysis were discussed and the patient agreed. Prognosis is poor. Job ID: [id number]
--- NOTE | 2018-03-31 10:29 | PDOC.FM ---
- Subjective Subjective: Had large melenotic bowel movement x1. Tachypneic and tachycardic on examination this morning. Protecting airway but mildly stuporous. - Objective MAR Reviewed: Yes Vital Signs & Weight: Vital Signs (12 hours) Temp Pulse Resp BP Pulse Ox 03/31/18 07:22 108 H 18 145/73 H 96 03/31/18 06:10 112 H 20 119/68 98 03/31/18 05:08 99.1 F 108 H 20 106/71 99 03/31/18 04:17 117 H 20 138/64 98 03/31/18 03:00 122 H 20 111/61 99 03/31/18 02:45 98.7 F 126 H 22 H 123/69 100 Weight Weight 107.955 kg I&O: 03/30/18 03/31/18 04/01/18 06:59 06:59 06:59 Intake Total 1999 Balance 1999 Result Diagrams: 03/31/18 08:40 03/31/18 07:59 Phys Exam - Physical Examination jaundiced, does not follow commands. awake but not alert Respiratory: clear to auscultation bilateral tachypneic tachycardic Gastrointestinal: soft Musculoskeletal: pulses present 3+ edema in BLE up to mid anterior dunn. Multiple necrotic foot ulcers erythematous & edemtaous swelling of feet, pulses palpable Deviation from normal: unable to obtain Dx/Plan (1) Symptomatic anemia Code(s): D64.9 - ANEMIA, UNSPECIFIED Status: Acute (2) Hyperkalemia Code(s): E87.5 - HYPERKALEMIA Status: Acute (3) SHERWIN (acute kidney injury) Code(s): N17.9 - ACUTE KIDNEY FAILURE, UNSPECIFIED Status: Acute (4) Sepsis due to cellulitis Code(s): L03.90 - CELLULITIS, UNSPECIFIED; A41.9 - SEPSIS, UNSPECIFIED ORGANISM Status: Acute (5) Diabetes mellitus type 2, insulin dependent Code(s): E11.9 - TYPE 2 DIABETES MELLITUS WITHOUT COMPLICATIONS; Z79.4 - PRISON (CURRENT) USE OF INSULIN Status: Chronic - Plan Plan: 42 yo F with sepsis 2/2 cellulitis vs. osteomyelitis; symptomatic anemia 2/2 upper GI bleed, SHERWIN Sepsis 2/2 lower extremity cellulitis vs. osteomyelitis -BLE MRI without contrast due to kidney fx -Continue empiric abx with vanc, cefepime, flagyl -Pending blood cultures -Trend WBC with AM labs -Currently afebrile, tylenol for fever -General surgery consulted for cellulitis/osteomyelitis-will remove tunnel cath and possibly place hemosplit Symptomatic anemia -tachycardic & tachypenic today -Hb 5.8 with melenetic stool -FOBT pending -PRBC x1, 3 more units in HD today -Consulted Dr. Mcmillan, recs appreciated -NPO for now, continuef luids SHERWIN -s/p HD yesterday due to hyperkalemia -electrolytes stable this AM, Cr improved 5-> 3 -Dr. Rivera following, plan for HD today IDDM2 -monitor with POC -sliding scale Dispo: HD today, EGD today. PRBC x1 now, x3 in HD today. Discussed w/ Dr. Milner Addendum - Attending - Attending Attestation Date/Time: 03/31/18 [id number] I personally evaluated the patient and discussed the management with Dr. Ambrocio I agree with the History, Examination, Assessment and Plan documented above with any addition or exceptions noted below -Patient sleepy but mumbles to tactile stimuli and localizes to pain. Afebrile P 108. A/P: 1) Diabetic, necrotic foot ulcers- continue IV abx; plan for MRI today. Consult surgery for debridement. 2) Acute on chronic kidney failure - s/p emergent dialysis last night. Plan for dialysis again today. Monitor urine output and lytes. 3) Hyperkalemia- resolved. 4) Anemia- melanotic stool today- will transfuse 1 unit pRBCs now and more with dialysis. GI consulted; plan for EGD tomorrow. 5) DM- monitor accuchecks. SSI.
--- NOTE | 2018-03-31 12:04 | PRG ---
DATE OF SERVICE: 03/31/2018 SUBJECTIVE: A 42-year-old female, being seen for end-stage renal disease. The patient denies any nausea, vomiting, or chest pain. OBJECTIVE: CONSTITUTIONAL: Awake, alert, in no acute distress. VITAL SIGNS: Afebrile. Pulse 73, breathing is 18, blood pressure is 119/68. GENERAL APPEARANCE AND MENTAL STATUS: Fair. HEAD/NECK: Normocephalic. Atraumatic. EYES: EOMI. No deformity. EARS: Clear. No ulcers. NOSE: Intact. No lesions. MOUTH: Clear. No discharge. THROAT: Clear. No exudate. LUNGS: Clear. No crackles. CARDIAC: S1, S2. No rub. ABDOMEN: Benign. Bowel sounds positive. GENITALIA/RECTUM: Olvera absent. BACK/EXTREMITIES: Edema 0+. NEUROLOGICAL: Alert and motor intact. LABORATORY DATA: Hemoglobin is 5.9. Potassium is 3.9. ASSESSMENT AND RECOMMENDATION: 1. Acute kidney injury with chronic kidney disease, plan dialysis. 2. Metabolic acidosis, plan dialysis. 3. Hyperkalemia, improved. 4. Anemia, would recommend three units of packed red blood cells transfusion. Job ID: [id number]
--- NOTE | 2018-03-31 13:08 | MRI ---
MRI LEFT FOOT WITHOUT CONTRAST: HISTORY: Osteomyelitis. COMPARISON: Foot radiographs from the prior day. FINDINGS: BONES: There is loss of normal marrow signal of the 5th metatarsal head and neck, which would indica te osteomyelitis. The 2nd, 3rd, 4th, and 1st metatarsal heads and necks are intact. The proximal ph alanx bone marrow signal is normal. Midfoot signal is without marrow signal replacement. MUSCLES: Extensive T2 signal hyperintensity, suggesting diabetic myopathy. SOFT TISSUES: Moderate dorsal edema of the midfoot. There appears to be a soft tissue ulcer adjacent to the 5th metatarsal head. IMPRESSION: Osteomyelitis of the small toe metatarsal head with adjacent underlying ulcer. POS: JAMAAL
--- NOTE | 2018-03-31 13:50 | HP ---
HISTORY OF PRESENT ILLNESS: Roxy Snow is a 42-year-old female, who is brought in and admitted to [facility]. I have been asked by Dr. Rivera to see her. Unfortunately, she has had a Trialysis catheter placed in her right IJ and antecubital IV in her left arm. The patient apparently is poorly kept, poor hygiene, and was found to have open wounds, venous stasis ulcers, and diabetic foot ulcers, feet and lower legs and these had been cleaned of stool and other debris. She was noted to have hyperkalemia, osteomyelitis, dyspnea, poor hygiene. The patient's hemoglobin this morning is 5.5. It was felt she might have a GI bleed. She is going to dialysis. The patient has necrotic heel ulcers, multiple wounds over both feet with necrotic tissue. Plan at this time is to transfuse her today, dialyze her, GI consult and Dr. Castaneda tomorrow (I will be out of town). We will plan placement of a hemodialysis catheter, central line, and debridement of foot and leg ulcers. It is possible the next week, she may need a primary fistula that I can place. We will obtain ultrasound vein mapping in both arms and save her veins for dialysis access. On admission, the patient had a CAT scan of the abdomen and pelvis without abnormalities. Chest x-ray without acute disease. Left foot x-ray revealing osteopenia around the metatarsophalangeal joints and subsequently has had MRI results pending. ALLERGIES: ADHESIVE TAPES AND PENICILLINS. SOCIAL HISTORY: Tobacco, reportedly none. Alcohol, none. I cannot get a history from the patient. MEDICATIONS: Current medications include cefepime and vancomycin. Home medications are listed as; 1. Zofran. 2. Metoprolol. 3. Reglan. 4. Lisinopril. 5. Insulin. 6. Gabapentin. 7. Ferrous sulfate. 8. Fenofibrate. 9. Clindamycin. 10. Acetaminophen. Medications listed as outpatient on previous admission, 1. Levothyroxine. 2. Lisinopril. 3. Metformin. 4. Lantus insulin. PAST MEDICAL HISTORY: Diabetes mellitus type 2, hypertension, anxiety, schizophrenia, bipolar illness, hypothyroidism. PAST SURGICAL HISTORY: Cholecystectomy, tympanoplasty, . PHYSICAL EXAMINATION: VITAL SIGNS: Height 5 feet 6 inches, 238 pounds, 38 BMI, 99.9 degrees, respiratory rate 14, and blood pressure 131/73. GENERAL: The patient does not communicate with me. LUNGS: Clear to auscultation. CARDIAC: Regular rate and rhythm without murmur or gallop. ABDOMEN: Soft, obese, nontender. Dressings, foot to knee. Pictures reviewed of her lower extremities revealing necrotic heel ulcers, necrotic wounds in both feet and ankles with venous stasis ulcers and diabetic wounds on feet. Dressings just placed by wound care and they were not taken down. Right IJ Trialysis catheter and antecubital left IV, which was taken out. LABORATORY DATA: White count 7, hemoglobin 5.9, after admission hemoglobin 7.9 yesterday. Sodium 140, potassium 3.9, BUN 43, creatinine 3. ASSESSMENT AND PLAN: 1. Acute renal failure, possibly end-stage renal disease. Plan, placement of cuffed dialysis catheter. We will remove the IJ Trialysis catheter, which is inappropriately placed. Dr. Castaneda will place hemodialysis catheter and central line, debride the foot and leg ulcers and wounds tomorrow. We will see if she needs further dialysis access in the future pending her clinical course. 2. Diabetes mellitus. 3. Hypertension. 4. Schizophrenia. 5. Bipolar illness. 6. Poor hygiene. Job ID: [id number]
[2018-03-31] MEDS: Dicyclomine 10 MG CAP PO SCH ×4 (14:31→21:52)
[2018-03-31] MEDS: Cefepime 1 GM in Sodium Chloride 0.9% 100 ML IVPB SCH (14:51)
[2018-03-31] MEDS ORDERED: Heparin 1,000 UNITS/ML VIAL ONE ×2 (15:00)
[2018-03-31] MEDS ORDERED: Pantoprazole 40 MG VIAL IVP SCH (15:15)
[2018-03-31 16:07] LABS: CO2 Tension (PvCO2) 16.9 mmHg (41.0-51.0); pH (Venous) 7.029 (7.35-7.45)
[2018-03-31 16:08] LABS: Base Excess-Venous -24.3 mmol/L (0 (+/- 2.5)); Bicarbonate (HCO3v) 4.5 mmol/L (22.0-29.0)
[2018-03-31 16:09] LABS: Hemoglobin - Calc 7.6 g/dL (12.0-18.0)
[2018-03-31 16:10] LABS: Calcium, Ionized 1.38 mmol/L (1.12-1.32); T. Carbon Dioxide Less than 5.0 mmol/L (1.0-85.0)
[2018-03-31 16:11] LABS: vO2 Saturation-calc 82.8 % (94-98)
[2018-03-31 16:16] LABS: Potassium 7.6 mmol/L (3.4-4.7)
--- NOTE | 2018-03-31 16:37 | CON ---
DATE OF CONSULTATION: HISTORY OF PRESENT ILLNESS: Roxy Snow is a 42-year-old morbidly obese female, 5 feet 6 inches, 238 pounds, BMI 38, was admitted to the hospital yesterday on MICU associated care. is at bedside, who states that ever since the patient's mother six months ago, she has been depressed, has not been doing any kind of activity. She presented to the ER with cough, sputum production, abdominal pain, diarrhea, profuse sores involving both legs. No fever or chills. An emergency chest x-ray was ordered by me, which shows no acute infiltrates. She has a dialysis access catheter, right IJ. Former smoker, none recently. Severe limitation to activity because of chronic stasis, but she can walk 30 feet without getting markedly short of breath. PAST MEDICAL HISTORY: Diabetes, hypertension, hypothyroidism, and chronic pain. PAST SURGICAL HISTORY: Cholecystectomy and . ALCOHOL: None. HOME MEDICATIONS: 1. Lopressor 25 b.i.d. 2. Reglan 10 t.i.d. 3. Zestril 2.5. 4. Insulin 25. 5. Neurontin 300. 6. Iron. 7. Tylenol. ALLERGIES: PENICILLIN. SOCIAL HISTORY: She is presently disabled, drives a bus. As noted, no alcohol or tobacco at this time. REVIEW OF SYSTEMS: Ten-point negative. PHYSICAL EXAMINATION: GENERAL: Foul smelling odor in the room from her extensive necrotic ulcerative lesion on the leg. An MRI of the leg was ordered as noted. She has evidence of osteomyelitis. She has been dialyzed. VITAL SIGNS: Saturations are 99% on room air, respirations 14, temperature 99, blood pressure 140/73. CHEST: No wheezing or crackles. CARDIAC: Normal S1 and S2. No gallops. ABDOMEN: No masses. EXTREMITIES: Edema. Multiple ulceration. LABORATORY DATA: Creatinine is 3, BUN is 43, white count is 7000, hemoglobin and hematocrit are 5 and 17. She has received 2 units of packed cells. IMPRESSION: 1. Extensive cellulitis, osteomyelitis, multiple leg ulceration. 2. Renal failure with diabetes. 3. Morbid obesity. 4. She will be started on broad-spectrum antibiotics including Maxipime, Flagyl, Levaquin, and vancomycin. I would deescalate once we have cultures back. PLAN: She is to go to surgery for debridement of her ulcers and wound along with the treatment of her gangrenous toes. Pulmonary will follow while in the MICU. Aggressive PT and supportive Care. Consultation note, 70 minutes, 50% direct patient care. Job ID: [id number]
--- NOTE | 2018-03-31 19:09 | ULT ---
BILATERAL UPPER EXTREMITY VENOUS ULTRASOUND: 03/31/18 HISTORY: Dialysis patient with renal failure. Vein mapping for dialysis access. TECHNIQUE: Multiplanar doherty scale and color doppler images were obtained in a bilateral upper extremity venous u ltrasound. Spectral analysis of the doppler waveforms were performed. FINDINGS: Both subclavian veins are patent without evidence of thrombus. The internal jugular veins cannot be a ssessed secondary to bandages and the patient's neck. The right brachial, radial and ulnar arteries m easure 4.1, 1.8 and 1.8 mm in size respectively. The left brachial, radial and ulnar arteries measure 4.6, 1.9, and 1.7 mm in size, respectively. RIGHT UPPER EXTREMITY CEPHALIC VEIN Shoulder: 4.2 mm Upper Arm: 3.6 mm Mid Upper Arm: Not visualized Just proximal to elbow: Not visualized Just distal to elbow: 3.3 mm Mid Forearm: 4.4 mm Wrist: 3.8 mm BASILIC VEIN Shoulder: 3.6 mm Upper Arm: 4.1 mm Mid Upper Arm: 4.9 mm Just proximal to elbow: 4.0 mm Just distal to elbow: 2.7 mm Mid Forearm: 2.1 mm Wrist: 1.9 mm LEFT UPPER EXTREMITY CEPHALIC VEIN Shoulder: 4.9 mm Upper Arm: 3.0 mm Mid Upper Arm: 4.2 mm Just proximal to elbow: 3.1 mm Just distal to elbow: 3.8 mm Mid Forearm: 3.7 mm Wrist: 2.8 mm BASILIC VEIN Shoulder: 4.3 mm Upper Arm: 5.0 mm Mid Upper Arm: 5.2 mm Just proximal to elbow: 5.1 mm Just distal to elbow: 2.3 mm Mid Forearm: 2.3 mm Wrist: 1.5 mm IMPRESSION: Vein mapping for dialysis access as above. POS: [facility]
[2018-03-31] MEDS: Acetaminophen 325 MG TAB PO PRN (19:55)
[2018-03-31 20:11] LABS: Hemoglobin 9.1 g/dL (12.0-16.0)
[2018-03-31] MEDS: Pantoprazole 40 MG VIAL IVP SCH (21:50)
[2018-03-31] MEDS ORDERED: Vancomycin HCl 1.5 GM in Premix Bag 1 BAG IVPB SCH (23:00)
[2018-03-31] MEDS ORDERED: Vancomycin HCl 1 GM in Premix Bag 1 BAG IVPB SCH (23:00)
[2018-03-31] MEDS: Vancomycin HCl 1.5 GM in Sodium Chloride 0.9% 250 ML 300 ML IVPB SCH (23:26)
[2018-04-01] MEDS ORDERED: Lorazepam 2 MG/ML VIAL SLOW IVP PRN (00:29)
[2018-04-01] MEDS ORDERED: Morphine 4 MG/ML VIAL SLOW IVP SCH (02:00)
--- NOTE | 2018-04-01 05:25 | CON ---
DATE OF CONSULTATION: 03/31/2018 REASON FOR CONSULTATION: Possible melena/upper GI bleed. CONSULTING PHYSICIAN: Mary Ambrocio MD HISTORY OF PRESENT ILLNESS: The patient is a 42-year-old female with past medical history of chronic kidney disease stage 3, diabetes, hypertension, leukocytoclastic vasculitis, schizophrenia, hypothyroidism, and nonhealing leg wounds, who was initially brought to the hospital for altered mental status and somnolence. On initial evaluation here in the hospital, she was noted to have nonhealing wounds on her bilateral legs with necrotic tissue on her legs as well as her heels and toes. She was initially diagnosed with sepsis and possible septic shock secondary to cellulitis of her foot wounds. She was ultimately placed on antibiotic therapy and has been improving in terms of her clinical status and mental status over the last few days. When she was initially admitted to the hospital, she was noted to have a modest anemia that dropped even further with IV fluid administration to a hemoglobin of 5.8. During this period of time, the patient exhibited increased black semisolid stools concerning for melena and a possible upper GI bleed. Upon interview the patient tonight, the patient is doing better in terms of her mental status and was alert and oriented x3 with sometimes tangential thought processes, but answered questions appropriately. She states that she has been having approximately 1 to 2 semi-solid bowel movements per day over the last 2 months that have been black in coloration since starting iron supplementation. Given her multiple medical comorbidities and these nonhealing ulcerations, she was told by her primary care physician that she was anemic and placed on iron supplementation by her as an outpatient. During this time period, she was not taking anything for pain including NSAIDs. However, during this admission she was noted to have a melenic type stool earlier today per nursing staff in the IMCU, but with repeat H and H consistent with the infusion of 3 units of PRBCs. Currently, she denies any nausea, vomiting, fevers, chills, shortness of breath, hematemesis, hematochezia, dysphagia, or odynophagia. REVIEW OF SYSTEMS: A 10-category review of systems was obtained with all responses negative except for the pertinent positives as listed in the HPI. PAST MEDICAL HISTORY: As per HPI. PAST SURGICAL HISTORY: Cholecystectomy, bilateral tubal ligation, and x2. FAMILY HISTORY: Denies any GI malignancy. SOCIAL HISTORY: Denies any tobacco, alcohol, or illicit drug use. OUTPATIENT MEDICATIONS: Reviewed. ALLERGIES: 1. ADHESIVE TAPE. 2. PENICILLIN. PHYSICAL EXAMINATION: VITAL SIGNS: Temperature 98.7, pulse 103, blood pressure 159/85, respiratory rate 23, saturating 96% on room air. GENERAL: The patient was lying in bed, in no acute distress. Alert and oriented x3. HEENT: Normocephalic, atraumatic. NECK: Supple. No JVD noted. CARDIOVASCULAR: Tachycardic rate, but regular rhythm. No discernible murmurs, gallops, or rubs. RESPIRATORY: Clear to auscultation bilaterally with no discernible wheezes or rales. ABDOMEN: Normoactive bowel sounds. Soft and nondistended. No tenderness to palpation. EXTREMITIES: Her bilateral lower extremities were currently wrapped in dressing up to about mid thigh with further evaluation not undertaken. LABORATORY DATA: CBC with a white blood cell count of 7.1, hemoglobin 5.9, hematocrit 17.1, platelets 294. INR 1.5. Chemistry with a sodium of 140, potassium 3.9, chloride 112, CO2 of 17, BUN 43, creatinine 3.03, glucose 96. AST 22, ALT 8, alkaline phosphatase 126, total bilirubin 0.3, albumin 2.7. IMAGING DATA: CT of the abdomen and pelvis obtained on March 30, 2018, showed that the patient was status post cholecystectomy and the patient has uterine didelphys. The liver, kidneys, spleen, and pancreas were unremarkable without any presence of free air, free fluid, or stranding changes in the abdomen or pelvis. However, there were prominent bilateral inguinal lymph nodes noted. ASSESSMENT AND PLAN: The patient is a 42-year-old female with past medical history of chronic kidney disease, diabetes, hypertension, leukocytoclastic vasculitis, schizophrenia, hypothyroidism, and nonhealing ulceration to the bilateral lower extremities, presenting with anemia and melenic type stools concerning for possible upper gastrointestinal bleed. Melena/upper gastrointestinal bleedin. The patient states that she has been having semi-solid black stools that have been present from the last 1 to 2 months after being placed on iron supplementation as an outpatient in line with her anemia. On admission, she was noted to be moderately anemic with a hemoglobin of approximately 8, that decreased to 5.8 over the course of 9 hours, and that was accompanied with the appearance of black semi-solid stools consistent with melena per nursing staff. She was subsequently transfused approximately 3 units of PRBCs and has over responded to the transfusion thus far. She did have one additional episode of melenic type stool earlier today per nursing staff again, but has not had any additional episodes since. Based on her current other medical comorbidities, our plans to take the patient tomorrow for debridement and washout of her bilateral lower extremities nonhealing wounds. At this time, the patient has had an elevated white blood cell count on admission concerning for sepsis and possible septic shock given the likelihood of lower extremity cellulitis, and while she did not exhibit any hypotension per chart review, currently has a poor clinical status. Given her stable H and H at the current point in time and the only one episode of melenic type stools which could be confounded with iron administration as an outpatient, monitoring her H and H over the next 24 hours would be prudent. If she continues to drop, then endoscopic evaluation may be indicated at this time with differential including esophagitis, gastritis, duodenitis, arteriovenous malformation, Dieulafoy lesion, peptic ulcer disease and/or gastrointestinal neoplasm (less likely). Recommendations: 1. Would continue to trend H and H and transfuse as necessary to maintain H and H of 7/. 2. Continue to monitor clinically for signs of gastrointestinal bleeding (melena). 3. We will confer with General Surgery service about timing of possible upper endoscopy in light of debridement/washout of the lower extremity wounds. 4. We will plan for upper endoscopy when the patient is more stable or unless the patient exhibits significant worsening of her H and H requiring more urgent evaluation. We will continue to follow. Please call with any questions. Job ID: [id number]
[2018-04-01 05:46] LABS: #Eosinphils 0.2 thou/uL (0.0-0.7); #Lymphocytes 0.8 thou/uL (1.20-3.40); #Neutrophils 6.3 thou/uL (1.40-6.50); %Basophils 0.5 % (0.0-1.0); %Lymphocytes 10.1 % (21.0-51.0); %Monocytes 11.9 % (0.0-10.0); %Neutrophils 75.6 % (42.0-75.0); Mean Corpuscular HGB CONC 33.5 g/dL (32.0-36.0); Mean Corpuscular Hemoglobin 28.6 pg (27.0-31.0); Mean Corpuscular Volume 85.4 fL (78.0-98.0); Mean Platelet Volume 6.3 fL (7.4-10.4); Platelet Count 255 thou/uL (130-400); RBC Distribution Width 13.1 % (11.5-14.5); Red Blood Cell (RBC) Count 3.14 mill/uL (4.20-5.40); White Blood Cell (WBC) Count 8.3 thou/uL (4.8-10.8)
[2018-04-01 06:12] LABS: ALT (SGPT) 7 U/L (8-55); AST (SGOT) 21 U/L (5-34); Alkaline Phosphatase 121 U/L (40-150); Anion Gap 11 mmol/L (10-20); BUN (Urea Nitrogen) 25 mg/dL (7.0-18.7); Bilirubin, Total 0.5 mg/dL (0.2-1.2); Calc. Creatinine Clearance 48 mL/min (70-130); Carbon Dioxide 27 mmol/L (22-29); Chloride 107 mmol/L (98-107); Estimated GFR-MDRD 20; Globulin 3.3 g/dL (2.4-3.5); Glucose 103 mg/dL (70-105); Potassium 4.3 mmol/L (3.5-5.1); Protein, Total 5.3 g/dL (6.0-8.3); Sodium 141 mmol/L (136-145)
[2018-04-01] MEDS: metroNIDAZOLE 500 MG in Premix Bag 1 BAG IVPB SCH ×3 (06:32→22:01)
[2018-04-01] MEDS ORDERED: Pantoprazole 40 MG VIAL IVP SCH (09:00)
--- NOTE | 2018-04-01 09:11 | PDOC.FM ---
- Subjective Subjective: Pt reported emesis x1 this AM with no blood. Endorses feeling better, mildly depressed. Difficult to obtain information since patient did not want to engage. However, A&O x3. No melena or blood in stool. - Objective MAR Reviewed: Yes Vital Signs & Weight: Vital Signs (12 hours) Temp Pulse Resp BP Pulse Ox 04/01/18 07:59 97 04/01/18 07:32 98.8 F 92 23 H 159/82 H 96 04/01/18 04:00 99.1 F 87 26 H 149/85 H 96 04/01/18 00:00 98.7 F 103 H 23 H 159/85 H 96 Weight Admit Weight 107.955 kg Weight 107.955 kg I&O: 03/31/18 04/01/18 04/02/18 06:59 06:59 06:59 Intake Total 1999 2400 Output Total 1575 Balance 1999 825 Result Diagrams: 04/01/18 05:30 04/01/18 03:30 Phys Exam - Physical Examination Constitutional: NAD HEENT: moist MMs trialysis in place in R neck Respiratory: no wheezing, no rales, no rhonchi Cardiovascular: RRR, no significant murmur Gastrointestinal: soft, no distention Psychiatric: A&O x 3 Deviation from normal: depressed affect Deviation from normal: BLE: warmth, erythema, edema, necrotic ulcers bandaged. Dx/Plan (1) Symptomatic anemia Code(s): D64.9 - ANEMIA, UNSPECIFIED Status: Acute (2) Hyperkalemia Code(s): E87.5 - HYPERKALEMIA Status: Acute (3) SHERWIN (acute kidney injury) Code(s): N17.9 - ACUTE KIDNEY FAILURE, UNSPECIFIED Status: Acute (4) Sepsis due to cellulitis Code(s): L03.90 - CELLULITIS, UNSPECIFIED; A41.9 - SEPSIS, UNSPECIFIED ORGANISM Status: Acute (5) Diabetes mellitus type 2, insulin dependent Code(s): E11.9 - TYPE 2 DIABETES MELLITUS WITHOUT COMPLICATIONS; Z79.4 - HOUSEKEEPING AID (CURRENT) USE OF INSULIN Status: Chronic - Plan Plan: 42 yo F with sepsis 2/2 osteomyelitis; symptomatic anemia 2/2 upper GI bleed, SHERWIN Sepsis 2/2 LLE osteomyelitis -LLE MRI positive for osteomyelitis -Trend WBC with AM labs -Currently afebrile, tylenol for fever -Plan for lower extremity debridement and washout this afternoon -UO appropriate, rod in place -Continue current abx regimen until cultures finalize. Can consider desescalation -General surgery following -Consulted Dr. Metcalf, recs much appreciated MSSA bacteremia -Positive blood cx 1/2 -Continue vanc, renally dosed, trough 04/01 -Pending S/S Symptomatic anemia 2/2 suspected UGB -tachycardia resolved s/p PRBC x3 -H/H stable at 9 -Continue to monitor for GI bleeds -Dr. Mcmillan following SHERWIN -Improved s/p bedside HD on 03/31 -Cr improved from 3.05-> 2.57 -Electrolytes stable -R Trialysis cath in place -Dr. Rivera following IDDM2 -monitor with POC -sliding scale Dispo: Stable. Washout and debridement with central line placement this afternoon. Need to med rec. Discussed w/ Dr. Milner Addendum - Attending - Attending Attestation Date/Time: 04/01/18 1154 I personally evaluated the patient and discussed the management with Dr. Ambrocio I agree with the History, Examination, Assessment and Plan documented above with any addition or exceptions noted below- Patient c/o TONY today. Afebrile VSS. A/P: 1) Osteomyelitis left foot - plan for debridement of leg today with surgery; continue abx. Appreciate surgery, ID recommendations. 2) Acute on chronic renal failure - improving; continue to monitor appreciate nephrology assistance. 3) DM- stable; continue to monitor. 4) Anemia- stable; monitor serial H/Hs; appreciate GI assistance.
[2018-04-01] MEDS: Dicyclomine 10 MG CAP PO SCH ×4 (09:22→21:57)
[2018-04-01] MEDS: Pantoprazole 40 MG VIAL IVP SCH ×2 (09:26→22:00)
--- NOTE | 2018-04-01 09:38 | PRG ---
DATE OF SERVICE: 04/01/2018 SUBJECTIVE: This morning, she is moaning and groaning from pain. OBJECTIVE: VITAL SIGNS: Saturations are 96% on room air, respiration 23, temperature 98, and blood pressure 159/82. GENERAL: She is awake and responsive. CHEST: Decreased breath sounds. No wheezing. CARDIAC: Sinus tach. ABDOMEN: No masses. EXTREMITIES: Foul-smelling ulcers, gangrenous toes. LABORATORY DATA: White count 8000, hemoglobin and hematocrit of 9 and 26, platelet count is normal. Creatinine 2.57. Blood cultures growing Staph aureus. IMPRESSION: Cellulitis, diabetes, severe deconditioning, and renal failure. PLAN: Continue antibiotics. Continue supportive care. Surgery to do debridement of her multiple ulcers. Pulmonary will follow while in the MICU. Job ID: [id number]
[2018-04-01] MEDS ORDERED: metroNIDAZOLE 500 MG/100 ML BAG ONE (13:42)
[2018-04-01] MEDS: Cefepime 1 GM in Sodium Chloride 0.9% 100 ML IVPB SCH (15:38)
--- NOTE | 2018-04-01 15:48 | EKG ---
Test Reason : Blood Pressure : / mmHG Vent. Rate : 118 BPM Atrial Rate : 119 BPM P-R Int : 162 ms QRS Dur : 080 ms QT Int : 304 ms P-R-T Axes : 044 022 084 degrees QTc Int : 426 ms Sinus tachycardia Septal infarct , age undetermined Abnormal ECG Confirmed by MARIE LOCKE DO ([id number]), book or script editor ALFREDO CRUZ ([id number] on 04/01/2018 3:48:03 PM Referred By: Confirmed By:MARIE LOCKE DO
[2018-04-01] MEDS ORDERED: Fentanyl 100 MCG/2 ML VIAL ONE (16:46)
[2018-04-01] MEDS ORDERED: Heparin 10,000 UNITS/1 ML VIAL ONE (17:05)
[2018-04-01] MEDS ORDERED: Lidocaine 2% PF 5 ML VIAL ONE ×2 (17:05→17:16)
[2018-04-01] MEDS ORDERED: Sodium Chloride 0.9% 0 ML ONE (17:05)
[2018-04-01] MEDS ORDERED: Bupivacaine/Epinephrine 0.25% 30 ML VIAL ONE (17:05)
[2018-04-01] MEDS ORDERED: Heparin 0 ML ONE (17:05)
[2018-04-01] MEDS ORDERED: PHENYLEPHRINE-NS 100 MCG/ML 10 ML SYRINGE ONE ×2 (19:44→20:24)
[2018-04-01] MEDS ORDERED: Bacitracin Zinc Ointment 30 gm TUBE ONE (20:11)
[2018-04-01] MEDS ORDERED: Promethazine HCl 25 MG/ML VIAL SLOW IVP PRN (20:16)
[2018-04-01] MEDS ORDERED: Promethazine HCl 25 MG/ML VIAL IM PRN (20:16)
[2018-04-01] MEDS ORDERED: Ondansetron HCl/PF 4 MG/2 ML Vial IVP PRN (20:16)
[2018-04-01] MEDS ORDERED: Sterile Water 10 ML VIAL ONE (20:24)
[2018-04-01] MEDS ORDERED: PROPOFOL 200 MG/20 ML VIAL ONE (20:24)
[2018-04-01] MEDS ORDERED: Ondansetron PF 4 MG/2 ML Vial ONE (20:24)
[2018-04-01] MEDS ORDERED: Vecuronium 10 MG VIAL ONE (20:24)
[2018-04-01] MEDS ORDERED: Lidocaine 1% PF 5 ML VIAL ONE (20:24)
[2018-04-01] MEDS ORDERED: Promethazine HCl 25 MG/ML VIAL ONE (20:37)
--- NOTE | 2018-04-01 21:24 | RAD ---
CHEST ONE VIEW: 04/01/18 COMPARISON: 11/01/14, 03/31/18. HISTORY: Status post hemodialysis catheter placement. FINDINGS: There is evidence of a right sided hemosplit dialysis catheter with the distal tip projecting over th e superior vena cava. There is also evidence of a left sided central venous catheter which also appea rs to terminate over the region of the superior vena cava. There is no pneumothorax. Heart size is wi thin normal limits. There is mild pulmonary vascular and interstitial prominence. There is opacificat ion of the left lung base which obscures the left hemidiaphragm due to pleural effusion and parenchym al changes. IMPRESSION: 1. Vascular catheters as above. No pneumothorax. 2. Findings suggesting volume overload with interstitial and vascular prominence. 3. Left sided pleural effusion with parenchymal changes as suspected. POS: PAULINE
[2018-04-01 23:00] LABS: Vancomycin, Trough 24.6 ug/mL
[2018-04-01] MEDS: Vancomycin HCl 1.5 GM in Sodium Chloride 0.9% 250 ML 300 ML IVPB SCH (23:41)
--- NOTE | 2018-04-02 00:25 | PRG ---
DATE OF SERVICE: 04/01/2018 REASON FOR CONSULTATION: Possible melena/upper GI bleed. SUBJECTIVE: The patient was not in the room at the time of evaluation with the patient downstairs in the operating room for debridement and possible amputation of elements of her bilateral lower extremities due to nonhealing foot ulcers and establishment of gangrene. Per nursing staff, she did not have any additional melenic type bowel movements today and has not exhibited any signs of overt GI bleeding contributing to blood loss. OBJECTIVE: VITAL SIGNS: Temperature 97, pulse 105, blood pressure 165/73, respiratory rate 18 and saturating 93% on room air. PHYSICAL EXAMINATION: The remainder of the physical examination could not be performed due to the patient being in the operating room at the time of this evaluation. LABORATORY DATA: CBC with a white blood cell count of 8.3, hemoglobin 9, hematocrit 26.8, platelets 255. Chemistry with a sodium of 141, potassium 4.3, chloride 107, CO2 27, BUN 25, creatinine 2.57, glucose 103, AST 21, ALT 7, alkaline phosphatase 121, and total bilirubin 0.5. IMAGING DATA: No current GI imaging is available for review. ASSESSMENT AND PLAN: The patient is a 42-year-old female with past medical history of chronic kidney disease, diabetes, hypertension, leukocytoclastic vasculitis, schizophrenia, hypothyroidism and nonhealing ulcerations to the bilateral lower extremities, presenting with anemia and darker colored stools concerning for an upper gastrointestinal bleed. 1. Melena/upper gastrointestinal bleed. The patient initially presented with complaints of semi solid black stools that have been present almost daily for the last 1 to 2 months after being placed on iron supplementation as an outpatient. On admission, she was noted to be moderately anemic with a hemoglobin of approximately 8 and it decreased to 5.8 over the course of the next 9 hours. Around the same time, the patient was seen to have a semi-solid black/possible melenic stool and did have one yesterday as well, but no evidence of melena today nor has she had a decrease in her H and H consistent with active GI bleeding. At this time, based on her current clinical status and the current labs we have available, she has many different reasons to be anemic, but has some additional reasons for her to have black stools concerning for an upper GI bleed including recent administration of iron supplementation as an outpatient. However, that has a working diagnosis at this time and cannot be proven until upper endoscopy is performed. At this point, her clinical status may be stabilized enough to tolerate upper endoscopy for further evaluation, but we will monitor patient and decide on that in the morning. RECOMMENDATIONS: 1. Would continue to trend H and H and transfuse as necessary to maintain an H and H of 10/23. 2. Continue to monitor clinically for signs of active GI bleeding. 3. We will hold on upper endoscopy at this point, given appropriate resuscitation with 3 units of PRBCs and no further episodes of melena consistent with active GI bleeding. We will continue to follow. Dr. Ferreira will be covering this weekend to review her case. Please call with any questions. Job ID: [id number] [facility] CENTERBhargavi
[2018-04-02] MEDS: Morphine 4 MG/ML VIAL SLOW IVP PRN ×2 (04:47→17:31)
[2018-04-02 05:40] LABS: #Eosinphils 0.3 thou/uL (0.0-0.7); #Lymphocytes 0.9 thou/uL (1.20-3.40); #Monocytes 0.8 thou/uL (0.11-0.59); #Neutrophils 7.1 thou/uL (1.40-6.50); %Basophils 0.4 % (0.0-1.0); %Eosinophils 3.4 % (0.0-10.0); %Lymphocytes 10.2 % (21.0-51.0); %Monocytes 8.6 % (0.0-10.0); %Neutrophils 77.4 % (42.0-75.0); Hemoglobin 8.9 g/dL (12.0-16.0); Mean Corpuscular Hemoglobin 28.7 pg (27.0-31.0); Mean Platelet Volume 6.4 fL (7.4-10.4); Platelet Count 263 thou/uL (130-400); RBC Distribution Width 12.8 % (11.5-14.5); Red Blood Cell (RBC) Count 3.09 mill/uL (4.20-5.40); White Blood Cell (WBC) Count 9.2 thou/uL (4.8-10.8)
[2018-04-02] MEDS: metroNIDAZOLE 500 MG in Premix Bag 1 BAG IVPB SCH (06:06)
[2018-04-02] MEDS: Levothyroxine Sodium 125 MCG TAB PO SCH (06:09)
[2018-04-02 06:10] LABS: Anion Gap 14 mmol/L (10-20); BUN (Urea Nitrogen) 32 mg/dL (7.0-18.7); Calc. Creatinine Clearance 40 mL/min (70-130); Calcium 8.1 mg/dL (7.8-10.44); Carbon Dioxide 22 mmol/L (22-29); Chloride 108 mmol/L (98-107); Estimated GFR-MDRD 16; Glucose 85 mg/dL (70-105); Sodium 140 mmol/L (136-145)
--- NOTE | 2018-04-02 06:24 | PDOC.FM ---
- Subjective Subjective: Left foot 5th digit removal. Complains of headache this morning. No other complaints at this time. - Objective MAR Reviewed: Yes Vital Signs & Weight: Vital Signs (12 hours) Temp Pulse Resp BP Pulse Ox 04/02/18 03:55 99.5 F 85 16 157/77 H 97 04/02/18 00:00 98.0 F 87 20 171/82 H 99 04/01/18 21:10 97 F L 105 H 18 165/73 H 93 L Weight Admit Weight 107.955 kg Weight 110.5 kg I&O: 03/31/18 04/01/18 04/02/18 06:59 06:59 06:59 Intake Total 1999 2400 1510 Output Total 1575 250 Balance 1999 825 1260 Result Diagrams: 04/02/18 05:25 04/02/18 05:25 Phys Exam - Physical Examination difficult to obtain answers, not wanting to engage central line in place Respiratory: no wheezing, clear to auscultation bilateral Cardiovascular: RRR, no significant murmur Gastrointestinal: soft, non-tender BLE feet bandaged, blood. Neurological: moves all 4 limbs Psychiatric: A&O x 3 Deviation from normal: depressed affect Dx/Plan (1) Symptomatic anemia Code(s): D64.9 - ANEMIA, UNSPECIFIED Status: Acute (2) Hyperkalemia Code(s): E87.5 - HYPERKALEMIA Status: Acute (3) SHERWIN (acute kidney injury) Code(s): N17.9 - ACUTE KIDNEY FAILURE, UNSPECIFIED Status: Acute (4) Sepsis due to cellulitis Code(s): L03.90 - CELLULITIS, UNSPECIFIED; A41.9 - SEPSIS, UNSPECIFIED ORGANISM Status: Acute (5) Diabetes mellitus type 2, insulin dependent Code(s): E11.9 - TYPE 2 DIABETES MELLITUS WITHOUT COMPLICATIONS; Z79.4 - BEAN SNIPPER (CURRENT) USE OF INSULIN Status: Chronic (6) Hypokalemia Code(s): E87.6 - HYPOKALEMIA Status: Resolved - Plan Plan: 42 yo F with sepsis 2/2 osteomyelitis; symptomatic anemia 2/2 suspected upper GI bleed, SHERWIN Sepsis 2/2 LLE osteomyelitis -LLE MRI positive for osteomyelitis, s/p debridement & washout on 04/01 -Toe wound & bone cultures pending -Currently afebrile, tylenol for fever. White count resolved. -Wound care plans to place wound vac on RLE -UO appropriate, rod in place -D/c flagyl on 04/02 -Continue vanc & cefepime -General surgery following -Consulted Dr. Metcalf, recs much appreciated MSSA bacteremia -Positive blood cx 1/2 -Continue vanc, renally dosed, trough 04/01 -Pending S/S Symptomatic anemia 2/2 suspected UGB -s/p PRBC x3 -H/H stable at 9 -Continue to monitor for GI bleeds -Continue protonix -Dr. Deyanira almonte SHERWIN -Cr worsened today 3.05-> 2.57 -> 3.10 -Electrolytes stable -R Trialysis cath in place -Dr. Miguel almonte, assistance appreciated Hx of DM2 -monitor with POC, all stable -sliding scale Malnourishment -Albumin 2.0 -Vladimir & nepro supplements added -Diet restarted -Albumin monitoring Q2day Dispo: Stable. Need to screen for psychiatric conditions since inconsistent med rec with documented history. Discussed w/ Dr. Millan Addendum - Attending - Attending Attestation Date/Time: 04/02/18 9375 I personally evaluated the patient and discussed the management with Dr. Ambrocio I agree with the History, Examination, Assessment and Plan documented above with any addition or exceptions noted below. Note Proteus in wound and stool with Pseudomonas review AB coverage de-escalate accordingly POD # 1 patient with good progress wound care consulted for wound vac placement. Will continue trend H/H,RFT dialysis prn appreciate rec from consultants.
[2018-04-02] MEDS: Pantoprazole 40 MG VIAL IVP SCH ×2 (08:53→20:32)
[2018-04-02] MEDS: Amlodipine 5 MG TAB PO SCH (08:54)
[2018-04-02] MEDS: Dicyclomine 10 MG CAP PO SCH ×4 (08:54→20:32)
[2018-04-02] MEDS: Acetaminophen 325 MG TAB PO PRN (10:46)
[2018-04-02] MEDS ORDERED: Heparin 1,000 UNITS/ML VIAL ONE (11:11)
--- NOTE | 2018-04-02 11:22 | PRG ---
DATE OF SERVICE: 04/02/2018 SUBJECTIVE: A 42-year-old lady, being seen for acute kidney injury. The patient denied any nausea, vomiting, or chest pain. OBJECTIVE: CONSTITUTIONAL: On examination, the patient is awake, alert. VITAL SIGNS: Afebrile, pulse 84, breathing 16, and blood pressure 169/89. GENERAL APPEARANCE AND MENTAL STATUS: Fair. HEAD/NECK: Normocephalic. Atraumatic. EYES: EOMI. No deformity. EARS: Clear. No ulcers. NOSE: Intact. No lesions. MOUTH: Clear. No discharge. THROAT: Clear. No exudate. LUNGS: Clear. No crackles. CARDIAC: S1, S2. No rub. ABDOMEN: Benign. Bowel sounds positive. GENITALIA/RECTUM: Olvera absent. BACK/EXTREMITIES: Edema 0+. NEUROLOGICAL: Alert and motor intact. LABORATORY DATA: Labs show hemoglobin 8.9. Creatinine 3.1. ASSESSMENT AND PLAN: 1. Acute kidney injury, progressive rise in creatinine. We will plan dialysis. 2. Hypertension, stable. 3. Anemia, stable. 4. Medications based on glomerular filtration rate are appropriate. Job ID: [id number]
[2018-04-02 11:25] LABS: Hemoglobin A1c 4.8 % (4.0-6.0)
[2018-04-02] MEDS: Cefepime 1 GM in Sodium Chloride 0.9% 100 ML IVPB SCH (13:00)
[2018-04-02 14:21] LABS: Bilirubin Small (Negative); Blood, Urine Large (Negative); Clarity CLOUDY (Clear); Glucose, Urine (Dipstick) 100 mg/dL (Negative); Leukocyte Trace (Negative); Nitrite Negative (Negative); Protein, Urine (Dipstick) 300 mg/dL (Neg-Trace); Specific Gravity, Urine 1.019 (1.002-1.036)
[2018-04-02 14:22] LABS: Bacteria/HPF None Seen HPF (None Seen)
[2018-04-02 14:24] LABS: Pathc Cast-AUWi Flag 5.37 (0-2.49); Yeast-AUWi Flag 1737.1 (0-25.0)
[2018-04-02 14:36] LABS: Hyaline Casts/LPF 0-3 HYALINE CAST LPF (0-3 Hyaline); Other Casts/LPF None Seen LPF (0-3 Hyaline); Yeast-All Forms 4+ HPF (None Seen)
[2018-04-02 14:37] LABS: Transitional Epithelial 0-3 HPF (0-3)
--- NOTE | 2018-04-02 15:14 | PRG ---
DATE OF SERVICE: 04/01/2018 SUBJECTIVE: A 42-year-old female being seen for acute kidney injury. The patient denied nausea, vomiting, or chest pain. OBJECTIVE: VITAL SIGNS: , breathing 16, blood pressure 150/83. GENERAL APPEARANCE AND MENTAL STATUS: Fair. HEAD/NECK: Normocephalic. Atraumatic. EYES: EOMI. No deformity. EARS: Clear. No ulcers. NOSE: Intact. No lesions. MOUTH: Clear. No discharge. THROAT: Clear. No exudate. LUNGS: Clear. No crackles. CARDIAC: S1, S2. No rub. ABDOMEN: Benign. Bowel sounds positive. GENITALIA/RECTUM: Olvera absent. BACK/EXTREMITIES: Edema 0+. NEUROLOGICAL: Alert and motor intact. LABORATORY DATA: Hemoglobin 9. Creatinine 2.5. ASSESSMENT AND PLAN: 1. Acute kidney injury, chronic kidney disease, nonoliguric . 2. Hypertension, stable. 3. Hyperkalemia, stable. 4. Medication based on GFR appropriate. No urgent indication for dialysis today. We will follow closely with you. Job ID: [id number]
--- NOTE | 2018-04-02 17:30 | PRG ---
DATE OF SERVICE: 04/02/2018 SERVICE: Pulmonary Medicine. INTERVAL HISTORY: The patient is doing fine from respiratory standpoint. She is progressing just fine. Denies any current chest pain, fevers, chills, nausea, or vomiting. Otherwise, there has been no interval change to her condition. Nursing reports no overnight events. Her pain is under better control today. PHYSICAL EXAMINATION: VITAL SIGNS: Afebrile, pulse 90, blood pressure 139/68, respirations 20, saturation 96% on 1 L nasal cannula. GENERAL: The patient is awake and alert, in no apparent distress. LUNGS: Decent air entry. There is no prolonged expiratory phase or wheezing present. HEART: Normal rate and regular. ABDOMEN: Soft, nontender, and nondistended. Bowel sounds are positive. MUSCULOSKELETAL: No cyanosis or clubbing. There is diffuse pitting throughout. NEUROLOGIC: Grossly nonfocal. LABORATORY DATA: WBC 9.2 and stable, hemoglobin 8.9 and stable, platelets 263,000. Creatinine 3.10. Basic metabolic profile is otherwise unremarkable. CK is normal. Calcium 8.1. Left toe is growing Proteus. Stool cultures growing Pseudomonas, and Staph aureus is growing in 1 out of 2 blood cultures. C. diff antigen and toxin is unremarkable. IMAGING: Chest x-ray demonstrates tunneled right IJ vascular catheter is in good position. Minimal volume overload is noted with pulmonary vascular congestion. Left-sided pleural effusion is likely present. ASSESSMENT: 1. Severe sepsis. 2. Cellulitis. 3. Type 2 diabetes mellitus. 4. Acute kidney injury on chronic kidney disease. 5. Deconditioning. DISCUSSION AND PLAN: Supportive measures will be continued including antibiotics and dialysis. At this point, she has a very high nursing requirement. As such, we will keep her in the IMCU. Pulmonary will continue to follow. We will wean away oxygen as tolerated. Job ID: [id number]
--- NOTE | 2018-04-02 20:59 | CON ---
DATE OF CONSULTATION: 04/02/2018 REASON FOR CONSULTATION: Bacteremia, inflammatory process, lower extremities; acute renal failure. HISTORY OF PRESENT ILLNESS: A 42-year-old who has a history of type 2 diabetes mellitus, chronic renal insufficiency, hypertension, neuropathy, and previous admissions to [facility] for complications related to her chronic illnesses. She has had UTIs, uncontrolled hyperglycemia, episodes of fall associated with myopathy, probably related to neuropathy. She has had gluteal ulcerations from mobility impairment. In 2016, she had an episode of ulcerations in the lower extremities, which were biopsied and reportedly diagnosis of leukocytoclastic vasculitis was made. The patient was seen pretty much every month during 2016 to manage the lower extremity ulcerations, and the notes from Dr. Howard, it is stated that the patient had a biopsy-proven diagnosis of leukocytoclastic vasculitis, she has never been able to be referred to Rheumatology because of insurance issues and it is not clear if she was ever treated with corticosteroids for this diagnosis. Over the course of 2015 and 2016, there was a progressive improvement of the ulcerations with granulation tissue development. The last admission in the record was at the beginning of April 2017, when she presented with syncopal event, felt to be due to volume depletion. She had hypomagnesemia associated with it. Renal function improved after IV fluids. This time she presented with multiple foot wounds, somnolent, and acute renal failure. The patient had stopped going to wound care for a while and nobody had reviewed the status of her feet for quite a while because reportedly she would not let anybody to remove her shoes. Upon arrival, she was unkept and had disheveled appearance with feces and full of foul odor in the perineal area and lower extremities. Initial BP 120/80, heart rate 120, temperature 98, pulse ox 100, and she appeared somnolent. The lungs appeared clear to auscultation. Heart exam is normal, and the abdomen is soft, not tender. There was a pressure ulceration unstageable in the left heel region with the appearance of necrotic bullae. There was evidence of erythema with maggot infestation in the wounds below the left leg. There is circumferential erythema below the knee all the way to the foot. Erythema in the presacral and gluteal region. There is some early deep tissue injury in the right heel, but no necrosis. There are thick hyperkeratotic scales at the calf region, right and left side and ankles as well. Initial labs, white cell count 13.4, hemoglobin 7.9, platelets 242, with 85% neutrophils. Admit creatinine was 5.75, carbon dioxide less than 8, potassium 7.2, AST 22, ALT 8, and alkaline phosphatase 126 with albumin 2.7. Urinalysis with 4 to 6 wbc's. Hepatitis serology nonreactive. Thus far, we have one set of blood cultures obtained on admission with Staphylococcus aureus, which was methicillin-susceptible, Proteus species from the left small toe and from stool cultures, C diff antigen, and toxin was negative. Currently, Ms. Snow is drowsy. She understands my questions, but is not very willing to answer them. She does not want to be examined. Her is in the room with her. According to the nurse, she has not complained of headaches, has not have much respiratory symptoms. Some loose stools intermittently. The patient had a Olvera catheter inserted on admission. 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 PAST SURGICAL HISTORY: Includes cholecystectomy, tympanostomy tube, x2. ALLERGIES: PENICILLIN WITH RASH. MEDICATIONS: Currently receiving, 1. Tylenol. 2. Norvasc. 3. Cefepime. 4. Dextrose. 5. Dicyclomine. 6. Bentyl. 7. Levofloxacin. 8. Pantoprazole. 9. Vancomycin. FAMILY HISTORY: Includes type 2 diabetes. SOCIAL HISTORY: Former smoker. No alcoholic beverage use or other illicit drug use. PHYSICAL EXAMINATION: VITAL SIGNS: Temperature max 100.3. She is currently 98.4, blood pressure 140/60, pulse 82, respirations 16, O2 saturation 98% on nasal cannula O2. SKIN: Skin exam with a presacral and gluteal erythema with this round 1 cm ulceration in the left side, shallow. She has areas of hyperkeratotic plaques in the lower extremities, right and left sides with hypertrophic scars in the lower extremities from prior ulcerations that had been managed by Wound Care. She has a nonstageable necrotic deep tissue injury in the left heel area and early deep tissue injury in the right heel region, erythema encompassing the left foot all the way to the distal ankle. Necrotic ulcer measuring about 1 cm at the medial aspect of the left MPJ. Skin site, onycholysis is noted. She has a right tunneled hemodialysis catheter in the IJ position and the left triple-lumen catheter for IV access and a Olvera catheter. Urinary output has been 875 mL over the past 24 hours and now 250 thus far. HEENT: Ocular movements are conjugate. Pupils are equal. Oral cavity with no new [place] teeth remaining in place. Oral mucosa appears normal and it is moist. No jugular vein distention. LUNGS: Symmetric, clear breath sounds. S1 and S2. Regular rate. Diminished heart sounds. ABDOMEN: Mildly distended. No ascites. No bladder distention. No organomegaly noted. No joint inflammatory activity. EXTREMITIES: Pulses are 1+ in popliteal, right and left side. I could not check the dorsalis pedis pulses at this time. NEUROLOGIC: She did not cooperate with a neurological examination. She seems to be drowsy, but arousable. She knows her name and knows where she is. LABORATORY DATA: White cell count is down to 9.2, hemoglobin 8.9, MCV 87, platelets 263. Sodium 140, creatinine 3.10, bilirubin was 0.5, AST 21, ALT 8, and alkaline phosphatase 121, albumin 2.7 and now 2.0, globulin was 4.5 and now 3.3, TSH 5.19. INR was 1.5. Urinalysis has been discussed above as well as the serology. RADIOLOGY REPORTS: We have an abdomen and pelvis CT scan from admission with no acute intraabdominal pelvic abnormality. She has a foot x-ray with some osteoporosis in distal aspect of toes, and MRI of the foot with osteomyelitis of the small toe metatarsal head with adjacent underlying ulcer. Looks like she had a resection of the left 5th toe, but I did not note yet that effect. Chest x-ray from yesterday with volume overload and left-sided pleural effusion and some early parenchymal changes. Microbiology as noted above. ASSESSMENT: 1. Type 2 diabetes. 2. Myopathy, neuropathy. 3. Chronic ulcers in lower extremities, which had been previously biopsied. I do not have a copy of the pathology report, but according to Dr. Howard's notes, it included the diagnosis of leukocytoclastic vasculitis. It is not clear that she ever was treated with corticosteroids for it, but it seem to have healed at this point in time. 4. Poor self-care with inappropriate foot care and footwear and injury to the right and left feet pressure areas which have resulted in the lesions described above. 5. Staphylococcus aureus bacteremia, likely due to the above inflammatory process. 6. Acute renal failure in the aftermath of the infectious process with bacteremia. Other sites of involvement including spine, lungs, heart, other joints not apparent at this point in time. We will have to wait for the surgical report regarding the amputation of the left fifth toe. If the margin is cleared, then we will have to concentrate on continuation of treatment for the cellulitis and bacteremia. I would advise at least 4 weeks of intravenous Rocephin in view of the Staphylococcus aureus bacteremia. She is immunosuppressed and probably had been bacteremic for a few days before arrival in the hospital. She is at high risk for recurrence of complications related to the Staphylococcus aureus bacteremia. We could treat this via dialysis if her kidneys do not improve, but we will see in the next few days, she may need IV access depending on the course of her kidney function. If her kidneys do not improve, I will advise a vancomycin sliding scale with a trough around 15 mcg. If they do improve, then we will have to see if she would be a candidate for PICC line or not. Formal vascular evaluation of the left lower extremity is recommended regarding the left heel, but she has a non-stageable pressure ulceration that may progress, may need debridement. The onset of the whole set of problems that led to this admission is the poor social personal care conditions that have led to the complications noted above. She will be at risk for catheter-associated bacteremia and fungemia as usual, and she will also be at risk for invasive urinary tract infections until the urinary catheter is eligible for removal. Job ID: [id number]
--- NOTE | 2018-04-02 21:45 | PDOC.GSPN ---
Surgery Progress Note: Subj - Subjective Narrative: Saw patient today with wound care team. VAC dressings were placed to the wounds on her left foot which are stable. The patient is complaining of some stiffness and pain in her neck. This was not present immediately after the operation but has been present for most of the day today. She states that it hurts to turn her head too much in either direction. Central line and tunneled catheters are in place without evidence of hematoma or cellulitis. I expect that the neck stiffness is simply soreness from having catheters on both side and I encouraged the patient to slowly increase her neck turning to work the stiffness out. The patient was also encouraged to keep her calves up on pillows to keep her heels off the bed. Due to her diabetes and neuropathy she is a very high risk for continued pressure ulceration. Surgery Progress Note: Obj - Vital signs Vital signs: Vital Signs - Most Recent Temp Pulse Resp BP Pulse Ox 98.7 F 85 24 H 143/74 H 98 04/02/18 19:46 04/02/18 19:46 04/02/18 19:46 04/02/18 19:46 04/02/18 19:46 Surgery Progress Note: Results - Labs Result Diagrams: 04/08/18 05:22 04/08/18 03:30 Lab results: Laboratory Results - last 24 hr 04/02/18 04/02/18 04/02/18 05:25 05:25 10:57 POC Glucose 103 Hemoglobin A1c 4.8 Creatine Kinase 123 Urine Color Urine Clarity Urine pH Ur Specific [place] Urine Protein Urine Glucose (UA) Urine Ketones Urine Blood Urine Nitrite Urine Bilirubin Urine Urobilinogen Ur Leukocyte Esterase Urine RBC Urine WBC Ur Squamous Epith Cells Ur Transition Epith Cell Urine Bacteria Hyaline Casts Other Casts Urine Yeast 04/02/18 04/02/18 04/02/18 13:41 17:13 20:15 POC Glucose 103 117 H Hemoglobin A1c Creatine Kinase Urine Color YELLOW Urine Clarity CLOUDY Urine pH 6.0 Ur Specific [place] 1.019 Urine Protein 300 H Urine Glucose (UA) 100 H Urine Ketones 15 H Urine Blood Large H Urine Nitrite Negative Urine Bilirubin Small H Urine Urobilinogen 1.0 Ur Leukocyte Esterase Trace H Urine RBC 4-6 Urine WBC 4-6 H Ur Squamous Epith Cells 4-6 H Ur Transition Epith Cell 0-3 Urine Bacteria None Seen Hyaline Casts 0-3 HYALINE CAST Other Casts None Seen Urine Yeast 4+ H
[2018-04-02] MEDS: Vancomycin HCl 1.5 GM in Sodium Chloride 0.9% 250 ML 300 ML IVPB SCH (23:34)
[2018-04-03 05:24] LABS: #Eosinphils 0.6 thou/uL (0.0-0.7); #Lymphocytes 1.1 thou/uL (1.20-3.40); #Monocytes 0.8 thou/uL (0.11-0.59); #Neutrophils 6.2 thou/uL (1.40-6.50); %Eosinophils 6.7 % (0.0-10.0); %Lymphocytes 12.4 % (21.0-51.0); %Monocytes 8.7 % (0.0-10.0); %Neutrophils 72.2 % (42.0-75.0); Hemoglobin 8.6 g/dL (12.0-16.0); Mean Corpuscular HGB CONC 32.9 g/dL (32.0-36.0); Mean Corpuscular Hemoglobin 28.4 pg (27.0-31.0); Mean Corpuscular Volume 86.4 fL (78.0-98.0); Mean Platelet Volume 6.1 fL (7.4-10.4); Platelet Count 208 thou/uL (130-400); RBC Distribution Width 12.4 % (11.5-14.5); Red Blood Cell (RBC) Count 3.03 mill/uL (4.20-5.40); White Blood Cell (WBC) Count 8.6 thou/uL (4.8-10.8)
[2018-04-03 05:50] LABS: Albumin 1.8 g/dL (3.5-5.0); Anion Gap 12 mmol/L (10-20); BUN (Urea Nitrogen) 25 mg/dL (7.0-18.7); Calc. Creatinine Clearance 48 mL/min (70-130); Carbon Dioxide 24 mmol/L (22-29); Chloride 105 mmol/L (98-107); Estimated GFR-MDRD 20; Glucose 94 mg/dL (70-105); Potassium 3.9 mmol/L (3.5-5.1); Sodium 137 mmol/L (136-145)
[2018-04-03] MEDS: Levothyroxine Sodium 125 MCG TAB PO SCH (06:37)
--- NOTE | 2018-04-03 07:58 | PDOC.FM ---
- Subjective Subjective: No acute events overnight. Complains of neck pain, somewhat improved. HD yesterday. Denies s/s of bipolar disorder, anxiety, depression - Objective MAR Reviewed: Yes Vital Signs & Weight: Vital Signs (12 hours) Temp Pulse Resp BP Pulse Ox 04/03/18 07:29 98.2 F 88 16 125/64 96 04/03/18 04:00 98.4 F 83 20 130/67 98 04/03/18 00:00 98.3 F 80 21 H 138/80 97 Weight Admit Weight 107.955 kg Weight 110.5 kg I&O: 04/02/18 04/03/18 04/04/18 06:59 06:59 06:59 Intake Total 1510 1600 Output Total 250 3500 Balance 1260 -1900 Result Diagrams: 04/03/18 05:22 04/03/18 05:22 Phys Exam - Physical Examination Constitutional: NAD mildly dry mucosal membranes JVD, no signs of hematoma at line sites Respiratory: no wheezing, clear to auscultation bilateral Cardiovascular: RRR, no significant murmur Gastrointestinal: soft Neurological: non-focal, moves all 4 limbs Psychiatric: A&O x 3 Deviation from normal: bandaged BLE with wound vac of left foot Dx/Plan (1) SHERWIN (acute kidney injury) Code(s): N17.9 - ACUTE KIDNEY FAILURE, UNSPECIFIED Status: Acute (2) Sepsis due to cellulitis Code(s): L03.90 - CELLULITIS, UNSPECIFIED; A41.9 - SEPSIS, UNSPECIFIED ORGANISM Status: Acute (3) Symptomatic anemia Code(s): D64.9 - ANEMIA, UNSPECIFIED Status: Acute (4) Hyperkalemia Code(s): E87.5 - HYPERKALEMIA Status: Resolved (5) Diabetes mellitus type 2, insulin dependent Code(s): E11.9 - TYPE 2 DIABETES MELLITUS WITHOUT COMPLICATIONS; Z79.4 - SKILLED NURSING (CURRENT) USE OF INSULIN Status: Chronic (6) Osteomyelitis Code(s): M86.9 - OSTEOMYELITIS, UNSPECIFIED Status: Acute - Plan Plan: 42 yo F with sepsis 2/2 osteomyelitis; symptomatic anemia 2/2 suspected upper GI bleed, SHERWIN Sepsis 2/2 LLE osteomyelitis s/p left foot 5th digit amputation -LLE MRI positive for osteomyelitis, s/p debridement & washout on 04/01 -Proteus positive wound cultures, covered with cefepime -Currently afebrile, tylenol for fever. White count resolved. -Wound care plans to place wound vac on LLE -UO appropriate, rod in place -D/c flagyl on 04/02 -Continue vanc & cefepime -Float heels, wound care -General surgery following, appreciate recs SHERWIN on CKD -Cr improved at 2.65 after HD yesterday -Electrolytes stable -R temporary catheter in place -Dr. Rivera following, further recs appreciated MSSA bacteremia -Positive blood cx 1/2 -Continue vanc, renally dosed, adjust trough for goal of 15 -Dr. Metcalf on board HTN -Stable, continue amlodipine Symptomatic anemia 2/2 suspected UGB -s/p PRBC x3 -H/H stable at 9 -Continue to monitor for GI bleeds -Continue protonix -Dr. Mcmillan following Hx of DM2 -monitor with POC, all stable -A1c 4.8 -sliding scale Malnourishment -Albumin 2.0 -Vladimir & nepro supplements added -Diet restarted -Albumin monitoring Q2day Dispo: Stable. Continue IMCU care due to high requirement for nursing help. Continue management of chronic conditions. Appreciate specialist recs. Discussed w/ Dr. Millan Addendum - Attending - Attending Attestation Date/Time: 04/03/18 1200 I personally evaluated the patient and discussed the management with Dr. Ambrocio I agree with the History, Examination, Assessment and Plan documented above with any addition or exceptions noted below. Patient with daily progress ok to transfer to lower level of care. senior living will need to address her current living situation.
[2018-04-03] MEDS: Dicyclomine 10 MG CAP PO SCH (09:10)
[2018-04-03] MEDS: Amlodipine 5 MG TAB PO SCH (09:10)
[2018-04-03] MEDS: Pantoprazole 40 MG VIAL IVP SCH ×2 (09:10→20:26)
[2018-04-03] MEDS: Morphine 4 MG/ML VIAL SLOW IVP PRN (09:32)
--- NOTE | 2018-04-03 11:32 | PRG ---
DATE OF SERVICE: 04/03/2018 SERVICE: Pulmonary Medicine. INTERVAL HISTORY: The patient is doing really well from respiratory standpoint. She is breathing comfortably. She has no complaints of chest pain, fevers, or chills. Otherwise, there has been no interval change to her condition. OBJECTIVE: VITAL SIGNS: Afebrile, pulse 88, blood pressure 125/64, respirations 16, and saturation 96% on room air. GENERAL: The patient is awake and alert, in no apparent distress. LUNGS: Decent air entry. There is no prolonged expiratory phase or wheezing appreciated. HEART: Normal rate, regular. ABDOMEN: Soft, nontender, and nondistended. Bowel sounds are positive. MUSCULOSKELETAL: No cyanosis or clubbing. There is no pitting with bilateral lower extremities. They are wrapped. : No Olvera. NEUROLOGIC: Grossly nonfocal. LABORATORY DATA: WBC 8.6, hemoglobin 8.6, platelets 208,000. Basic metabolic profile is essentially unremarkable except for creatinine of 2.65, which is downtrending with dialysis. Albumin 1.8, magnesium 1.2. Different cultures are growing multiple things. She has Pseudomonas in her stool; Proteus in her left toe, which is pansensitive; and Staph aureus in her one of two blood cultures, which is also pansensitive. ASSESSMENT: 1. Severe sepsis. 2. Cellulitis. 3. Bacteremia secondary to methicillin-susceptible Staphylococcus aureus. 4. Type 2 diabetes mellitus. 5. Acute kidney injury on chronic kidney disease. 6. Deconditioning. 7. History of myopathy, neuropathy. 8. History of biopsy-proven leukocytoclastic vasculitis. DISCUSSION AND PLAN: The patient is doing fine from respiratory standpoint. At this point, she is stable for transition out of the IMCU to the medical unit. Magnesium will be replaced today. Pulmonary will follow along, intermittently for the duration of the hospital stay. If the patient gets any difficulties, please give us a phone call sooner. Job ID: [id number]
[2018-04-03] MEDS ORDERED: Magnesium Sulfate 4 GM in Sodium Chloride 0.9% 250 ML 250 ML IVPB SCH (11:45)
--- NOTE | 2018-04-03 14:03 | PRG ---
DATE OF SERVICE: 04/03/2018 SUBJECTIVE: A 42-year-old female being seen for acute kidney injury. The patient denies any nausea, vomiting, or chest pain. OBJECTIVE: CONSTITUTIONAL: The patient is awake and alert. VITAL SIGNS: Afebrile, pulse 95, breathing 16, and blood pressure 125/64. GENERAL APPEARANCE AND MENTAL STATUS: Fair. HEAD/NECK: Normocephalic. Atraumatic. EYES: EOMI. No deformity. EARS: Clear. No ulcers. NOSE: Intact. No lesions. MOUTH: Clear. No discharge. THROAT: Clear. No exudate. LUNGS: Clear. No crackles. CARDIAC: S1, S2. No rub. ABDOMEN: Benign. Bowel sounds positive. GENITALIA/RECTUM: Olvera absent. BACK/EXTREMITIES: Edema 0+. NEUROLOGICAL: Alert and motor intact. LABORATORY DATA: Lab showed hemoglobin 8.6, creatinine 2.6. ASSESSMENT: 1. Chronic kidney disease, stage 5 with acute kidney injury, dialysis dependent. We will hold off on dialysis today. 2. Anemia, stable. 3. Medication based on GFR appropriate. The patient remains anuric. Job ID: [id number]
[2018-04-03] MEDS: Cefepime 1 GM in Sodium Chloride 0.9% 100 ML IVPB SCH (14:48)
--- NOTE | 2018-04-03 20:51 | PRG ---
DATE OF SERVICE: 04/03/2018 SUBJECTIVE: Ms. Snow is now on the telemetry floor (transferred earlier today from the intermediate care unit). She had operative procedure performed by Dr. Castaneda yesterday, which involved toe amputation of the left fifth toe and dialysis catheter placement. She has a VAC dressing on the left foot. She has no complaints today. On examination, she is afebrile. Pulse is 83, blood pressure 160/64. Dialysis catheter site, right neck and chest were clean. VAC is intact on the left foot. ASSESSMENT: Doing well following recent toe amputation and dialysis catheter placement. She will continue with hemodialysis and wound care. We will follow up with her in a few days. Please contact if any problems prior to then. Job ID: [id number]
[2018-04-04] MEDS: Levothyroxine Sodium 125 MCG TAB PO SCH (05:29)
[2018-04-04 05:43] LABS: #Eosinphils 0.8 thou/uL (0.0-0.7); #Lymphocytes 1.2 thou/uL (1.20-3.40); #Monocytes 0.9 thou/uL (0.11-0.59); #Neutrophils 6.9 thou/uL (1.40-6.50); %Basophils 0.1 % (0.0-1.0); %Eosinophils 8.6 % (0.0-10.0); %Lymphocytes 12.2 % (21.0-51.0); %Monocytes 8.7 % (0.0-10.0); %Neutrophils 70.4 % (42.0-75.0); Hemoglobin 9.2 g/dL (12.0-16.0); Mean Corpuscular HGB CONC 32.9 g/dL (32.0-36.0); Mean Corpuscular Hemoglobin 28.5 pg (27.0-31.0); Mean Corpuscular Volume 86.6 fL (78.0-98.0); Mean Platelet Volume 6.7 fL (7.4-10.4); Platelet Count 233 thou/uL (130-400); RBC Distribution Width 12.3 % (11.5-14.5); Red Blood Cell (RBC) Count 3.21 mill/uL (4.20-5.40); White Blood Cell (WBC) Count 9.8 thou/uL (4.8-10.8)
[2018-04-04 05:58] LABS: Anion Gap 13 mmol/L (10-20); BUN (Urea Nitrogen) 29 mg/dL (7.0-18.7); Calc. Creatinine Clearance 43 mL/min (70-130); Calcium 7.9 mg/dL (7.8-10.44); Carbon Dioxide 24 mmol/L (22-29); Chloride 103 mmol/L (98-107); Estimated GFR-MDRD 17; Glucose 113 mg/dL (70-105); Magnesium 1.9 mg/dL (1.6-2.6); Potassium 3.9 mmol/L (3.5-5.1); Sodium 136 mmol/L (136-145)
--- NOTE | 2018-04-04 07:28 | PDOC.FM ---
- Subjective Subjective: NAEO. Still complaints of neck soreness - Objective MAR Reviewed: Yes Vital Signs & Weight: Vital Signs (12 hours) Temp Pulse Resp BP Pulse Ox 04/04/18 03:40 98.9 F 81 12 156/74 H 92 L 04/04/18 00:00 98.1 F 80 14 146/69 H 95 04/03/18 20:00 93 L 04/03/18 19:30 98.3 F 83 16 160/64 H 94 L Weight Admit Weight 107.955 kg Weight 110.631 kg I&O: 04/03/18 04/04/18 04/05/18 06:59 06:59 06:59 Intake Total 1600 1090 Output Total 3500 800 Balance -1900 290 Result Diagrams: 04/04/18 05:13 04/04/18 05:13 Phys Exam - Physical Examination Constitutional: NAD HEENT: moist MMs limited ROM, no hematoma or fluid collection Respiratory: no wheezing, clear to auscultation bilateral Gastrointestinal: soft, non-tender Neurological: non-focal, moves all 4 limbs Psychiatric: normal affect, A&O x 3 Deviation from normal: presence of R trialysis HD cath, L IJ central line Dx/Plan (1) SHERWIN (acute kidney injury) Code(s): N17.9 - ACUTE KIDNEY FAILURE, UNSPECIFIED Status: Acute (2) Sepsis due to cellulitis Code(s): L03.90 - CELLULITIS, UNSPECIFIED; A41.9 - SEPSIS, UNSPECIFIED ORGANISM Status: Acute (3) Symptomatic anemia Code(s): D64.9 - ANEMIA, UNSPECIFIED Status: Acute (4) Hyperkalemia Code(s): E87.5 - HYPERKALEMIA Status: Resolved (5) Diabetes mellitus type 2, insulin dependent Code(s): E11.9 - TYPE 2 DIABETES MELLITUS WITHOUT COMPLICATIONS; Z79.4 - [employer] (CURRENT) USE OF INSULIN Status: Chronic (6) Osteomyelitis Code(s): M86.9 - OSTEOMYELITIS, UNSPECIFIED Status: Acute - Plan Plan: 42 yo F with sepsis 2/2 osteomyelitis; symptomatic anemia 2/2 suspected upper GI bleed, SHERWIN Sepsis 2/2 LLE osteomyelitis s/p left foot 5th digit amputation -LLE MRI positive for osteomyelitis, s/p debridement & washout on 04/01 -Proteus positive wound cultures, covered with cefepime -Currently afebrile, tylenol for fever. White count resolved. -Wound care plans to place wound vac on LLE -Will try rod clamp/voiding trial -D/c flagyl on 04/02 -Float heels, wound care -General surgery following, appreciate recs SHERWIN on CKD -Cr improved at 2.95 -Electrolytes stable -R temporary catheter in place -Dr. Rivera following, further recs appreciated MSSA bacteremia -Positive blood cx / -Vancomycin discontinued, trough on 04/04 HTN -Stable, continue amlodipine Symptomatic anemia 2/2 suspected UGB -s/p PRBC x3 -H/H stable at 9 -Continue to monitor for GI bleeds -Continue protonix -Dr. Mcmillan following Hx of DM2 -monitor with POC, all stable -A1c 4.8 -sliding scale Malnourishment -Albumin 2.0 -Vladimir & nepro supplements added -Diet restarted -Albumin monitoring Q2day DVT ppx: contraindicated Dispo: Stable. Continue cefepime for MSSA bacteremia, psuedomonas stool, proteus wound. Continue management of chronic conditions. Appreciate specialist recs. Discussed w/ Dr. Millan Addendum - Attending - Attending Attestation Date/Time: 04/04/18 6837 I personally evaluated the patient and discussed the management with Dr. Ambrocio I agree with the History, Examination, Assessment and Plan documented above with any addition or exceptions noted below. Noted de-escalation antibiotic with bladder train increase activity . Significant nausea with pain meds . Patient seems overmedicated at present will adjust appreciate need for pain control with wound changes.
[2018-04-04] MEDS: Morphine 4 MG/ML VIAL SLOW IVP PRN ×2 (08:08→23:29)
--- NOTE | 2018-04-04 08:33 | PRG ---
DATE OF SERVICE: 04/03/2018 SUBJECTIVE: Ms. Snow is much more alert. She looks around and is able to reply to questions. She is oriented, better mood than previously, little bit of cough. No abdominal pain. Pain in the lower extremities as previously noted. OBJECTIVE: VITAL SIGNS: Essentially normal. GENERAL: She still has a Olvera catheter, output is picking up. She has the dialysis catheter in the right side and a triple-lumen in the left side. HEENT: Ocular movements conjugate. LUNGS: Symmetric air entry. HEART: S1 and S2, regular rate. ABDOMEN: Soft. Not distended or tender. EXTREMITIES: Lower extremities with bulky dressing, which was not removed. NEUROLOGIC: She is awake, follows commands. LABORATORY DATA: White cell count 8.6, hemoglobin 8.6, and platelets are 208 with 72% neutrophils. Creatinine is at 2.65. Microbiology with Proteus mirabilis, toe, amputated toe, Staph aureus in venous sample. ASSESSMENT AND DISCUSSION: 1. Type 2 diabetes; myopathy; neuropathy; chronic ulcers, lower extremities with previous diagnosis of leukocytoclastic vasculitis, although it seems that the patient never received prednisone and they improved with wound care only. Then, poor self-care with inappropriate foot care and footwear, injury to right and left feet pressure areas are quite serious left heel pressure blister with evidence of least superficial necrosis. 2. Staphylococcus aureus bacteremia, methicillin-susceptible secondary to the above inflammatory process and acute renal failure in the aftermath of the above infectious process. It looks like she will steadily improve in her renal function and the subsequent care will require continuation of complex wound care and nutritional input. Hopefully, eventually will be able to discontinue dialysis and remove the catheters, will need continuation of staphylococcal antimicrobial therapy given intravenously and while she is on dialysis, this can be administered using a sliding scale vancomycin after that, then she would need venous access such as a PICC line. Job ID: [id number] [facility]
[2018-04-04] MEDS: Pantoprazole 40 MG VIAL IVP SCH (09:16)
[2018-04-04] MEDS: Amlodipine 5 MG TAB PO SCH (09:16)
--- NOTE | 2018-04-04 10:03 | PRG ---
DATE OF SERVICE: 04/04/2018 SUBJECTIVE: A 42-year-old female, being seen for acute kidney injury. The patient denies any nausea, vomiting, or chest pain. OBJECTIVE: GENERAL: The patient is awake and alert. VITAL SIGNS: Afebrile, pulse 81, breathing 16, blood pressure 156/74. GENERAL APPEARANCE AND MENTAL STATUS: Fair. HEAD/NECK: Normocephalic. Atraumatic. EYES: EOMI. No deformity. EARS: Clear. No ulcers. NOSE: Intact. No lesions. MOUTH: Clear. No discharge. THROAT: Clear. No exudate. LUNGS: Clear. No crackles. CARDIAC: S1, S2. No rub. ABDOMEN: Benign. Bowel sounds positive. GENITALIA/RECTUM: Olvera absent. BACK/EXTREMITIES: Edema 0+. NEUROLOGICAL: Alert and motor intact. SKIN: LYMPHATICS: LABORATORY DATA: Labs show hemoglobin 9.2. Creatinine is 2.9. ASSESSMENT AND PLAN: 1. Chronic kidney disease, stage 6. Plan dialysis per schedule. 2. Edema, plan dialysis. 3. Hypertension, stable. 4. Anemia, stable. Job ID: [id number]
[2018-04-04] MEDS: Cefepime 1 GM in Sodium Chloride 0.9% 100 ML IVPB SCH (13:40)
[2018-04-04] MEDS ORDERED: Amlodipine 5 MG TAB PO SCH (14:00)
--- NOTE | 2018-04-04 14:56 | PRG ---
DATE OF SERVICE: 04/02/2018 This is a cross coverage for Dr. Eugenio Mcmillan. SUBJECTIVE: Ms. Roxy Snow is a very pleasant 42-year-old female with acute kidney injury, anemia, history of black tarry stool; however, the stool test came back negative for fecal occult blood. She has anemia, mostly anemia of chronic disease. She has been transfused. Her blood count is stable. She has no abdominal pain. No nausea or vomiting. The patient had been seen by Dr. Reynaga in the past and she has had debridement of the leg infection, cellulitis recently. The patient is on IV antibiotics. The patient's blood count has remained stable. Today, hemoglobin is around 8.9 and 26.9, yesterday it was 9 and 27.5, drop for the last 48 hours. On 03/31, had hemoglobin of 9.1 and hematocrit 26.6. Chemistry panel; BUN is slightly high at 32, creatinine 3.10, glucose is 108, potassium 4. She had a stool for occult blood, came back negative. PHYSICAL EXAMINATION: GENERAL: Appears comfortable. VITAL SIGNS: Stable. Afebrile. Pulse is 90, blood pressure 120/60. CVS, RS_- within normal limits. ABDOMEN: Soft. No organomegaly. No tenderness. No masses. Anemia, mostly multifactorial. Mostly, she has anemia of chronic disease, possibly because of renal insufficiency. She has no overt GI bleeding. We will sign off from today and if there is any problem, please call us back. Job ID: [id number] MTDD
--- NOTE | 2018-04-05 05:44 | PDOC.FM ---
- Subjective Subjective: No acute events overnight. Patient did was not able to void with rod trial yesterday. Will attempt again today after PT sees her. - Objective MAR Reviewed: Yes Vital Signs & Weight: Vital Signs (12 hours) Temp Pulse Resp BP Pulse Ox 04/05/18 04:00 98.5 F 77 14 134/66 96 04/05/18 00:00 98.3 F 83 20 143/73 H 04/04/18 20:00 99.5 F 81 20 137/64 95 Weight Admit Weight 107.955 kg Weight 110.631 kg I&O: 04/03/18 04/04/18 04/05/18 06:59 06:59 06:59 Intake Total 1600 1090 Output Total 3500 800 425 Balance -1900 290 -425 Result Diagrams: 04/05/18 08:05 04/05/18 08:05 Phys Exam - Physical Examination Constitutional: NAD HEENT: PERRLA, sclera anicteric Cardiovascular: RRR, no significant murmur Gastrointestinal: soft, non-tender, positive bowel sounds BLE wounds bandaged Neurological: non-focal, moves all 4 limbs Psychiatric: A&O x 3 Dx/Plan (1) SHERWIN (acute kidney injury) Code(s): N17.9 - ACUTE KIDNEY FAILURE, UNSPECIFIED Status: Acute (2) Sepsis due to cellulitis Code(s): L03.90 - CELLULITIS, UNSPECIFIED; A41.9 - SEPSIS, UNSPECIFIED ORGANISM Status: Acute (3) Symptomatic anemia Code(s): D64.9 - ANEMIA, UNSPECIFIED Status: Acute (4) Hyperkalemia Code(s): E87.5 - HYPERKALEMIA Status: Resolved (5) Diabetes mellitus type 2, insulin dependent Code(s): E11.9 - TYPE 2 DIABETES MELLITUS WITHOUT COMPLICATIONS; Z79.4 - PRISON (CURRENT) USE OF INSULIN Status: Chronic (6) Osteomyelitis Code(s): M86.9 - OSTEOMYELITIS, UNSPECIFIED Status: Acute - Plan Plan: 42 yo F with sepsis 2/2 osteomyelitis; symptomatic anemia 2/2 suspected upper GI bleed, SHERWIN Sepsis 2/2 LLE osteomyelitis s/p left foot 5th digit amputation -LLE MRI positive for osteomyelitis, s/p debridement & washout on 04/01 -Currently afebrile, tylenol for fever. White count resolved. -BLE dressings with LLE wound vac, float heels, wound care -General surgery following, appreciate recs -Toe bone cultures positive for proteus, b fragilis, will discuss adding anaerobic coverage -Will try rod clamp/voiding trial later today SHERWIN on CKD -Cr improved at 2.95 -Electrolytes stable -R temporary catheter in place -Dr. Rivera following, further recs appreciated MSSA bacteremia -Positive blood cx 04/06 -Trough 04/04 high at 36, Vancomycin discontinued 04/03 HTN -Stable, continue amlodipine Symptomatic anemia 2/2 suspected UGB -s/p PRBC x3 -H/H stable at 9 -Continue to monitor for GI bleeds -Continue protonix -Dr. Mcmillan following Hx of DM2 -monitor with POC, all stable -A1c 4.8 -sliding scale Malnourishment -Albumin 2.0 -Vladimir & nepro supplements added -Diet restarted -Albumin monitoring Q2day Physical deconditioning -PT/OT consulted, pending recs DVT ppx: contraindicated Dispo: Stable. Continue cefepime for MSSA bacteremia, psuedomonas stool, proteus wound. Add flagyl for b. fragilis. Monitor renal function, may need outpt HD, pending specialist recs. Working with CM for placement for appropriate care. Discussed w/ Dr. Millan Addendum - Attending - Attending Attestation Date/Time: 04/05/18 3148 I personally evaluated the patient and discussed the management with Dr. Ambrocio I agree with the History, Examination, Assessment and Plan documented above with any addition or exceptions noted below.
[2018-04-05] MEDS: Levothyroxine Sodium 125 MCG TAB PO SCH (05:53)
[2018-04-05 08:22] LABS: #Eosinphils 1.2 thou/uL (0.0-0.7); #Lymphocytes 1.5 thou/uL (1.20-3.40); #Neutrophils 7.6 thou/uL (1.40-6.50); %Basophils 0.2 % (0.0-1.0); %Lymphocytes 13.2 % (21.0-51.0); %Monocytes 8.9 % (0.0-10.0); %Neutrophils 66.8 % (42.0-75.0); Hemoglobin 8.7 g/dL (12.0-16.0); Mean Corpuscular HGB CONC 34.1 g/dL (32.0-36.0); Mean Corpuscular Hemoglobin 29.3 pg (27.0-31.0); Mean Corpuscular Volume 86.1 fL (78.0-98.0); Mean Platelet Volume 6.9 fL (7.4-10.4); Platelet Count 240 thou/uL (130-400); RBC Distribution Width 12.1 % (11.5-14.5); Red Blood Cell (RBC) Count 2.95 mill/uL (4.20-5.40); White Blood Cell (WBC) Count 11.3 thou/uL (4.8-10.8)
[2018-04-05 08:40] LABS: Magnesium 1.5 mg/dL (1.6-2.6); Phosphorus 4.3 mg/dL (2.3-4.7)
[2018-04-05 08:42] LABS: Anion Gap 11 mmol/L (10-20); BUN (Urea Nitrogen) 32 mg/dL (7.0-18.7); Calc. Creatinine Clearance 44 mL/min (70-130); Calcium 7.9 mg/dL (7.8-10.44); Carbon Dioxide 23 mmol/L (22-29); Chloride 101 mmol/L (98-107); Estimated GFR-MDRD 17; Glucose 106 mg/dL (70-105); Potassium 3.9 mmol/L (3.5-5.1); Sodium 131 mmol/L (136-145)
[2018-04-05] MEDS ORDERED: Clindamycin 150 MG CAP PO SCH (09:00)
[2018-04-05] MEDS: Amlodipine 10 MG TAB PO SCH (10:08)
[2018-04-05] MEDS: Senokot S 8.6-50 MG TAB PO SCH ×2 (10:08→22:05)
[2018-04-05] MEDS: Morphine 4 MG/ML VIAL SLOW IVP PRN (10:10)
[2018-04-05] MEDS ORDERED: Cyclobenzaprine 10 MG TAB PO PRN (10:29)
--- NOTE | 2018-04-05 12:22 | PRG ---
DATE OF SERVICE: 04/05/2018 SUBJECTIVE: A 42-year-old female, being seen for acute kidney injury. The patient denies any nausea, vomiting, or chest pain. OBJECTIVE: See above. CONSTITUTIONAL: The patient is awake and alert, in no acute distress. VITAL SIGNS: Afebrile. Pulse 70, breathing 16, blood pressure 153/73. GENERAL APPEARANCE AND MENTAL STATUS: Fair. HEAD/NECK: Normocephalic. Atraumatic. EYES: EOMI. No deformity. EARS: Clear. No ulcers. NOSE: Intact. No lesions. MOUTH: Clear. No discharge. THROAT: Clear. No exudate. LUNGS: Clear. No crackles. CARDIAC: S1, S2. No rub. ABDOMEN: Benign. Bowel sounds positive. GENITALIA/RECTUM: Olvera absent. BACK/EXTREMITIES: Edema 0+. NEUROLOGICAL: Alert and motor intact. SKIN: LYMPHATICS: LABORATORY DATA: Lab showed hemoglobin 8.7. Creatinine 2.9. ASSESSMENT AND PLAN: 1. Chronic kidney disease stage 4 with acute kidney injury, nonoliguric. No urgent indication for dialysis. 2. Edema. Start Lasix 40 mg IV. 3. Hypertension, stable. Medication based on GFR as appropriate. We will follow renal function closely. Job ID: [id number]
[2018-04-05] MEDS ORDERED: Furosemide 40 MG/4 ML VIAL SLOW IVP SCH (12:30)
[2018-04-05] MEDS: cefTRIAXone\\ROCEPHIN 2 GM in Sodium Chloride 0.9% 100 ML IVPB SCH (12:49)
[2018-04-05] MEDS: Acetaminophen 325 MG TAB PO PRN (12:50)
[2018-04-05] MEDS: metroNIDAZOLE 500 MG in Premix Bag 1 BAG IVPB SCH ×2 (14:30→22:04)
[2018-04-05] MEDS: Magnesium Chloride 64 MG TAB PO SCH (22:05)
[2018-04-06] MEDS: Levothyroxine Sodium 125 MCG TAB PO SCH (05:44)
[2018-04-06] MEDS: metroNIDAZOLE 500 MG in Premix Bag 1 BAG IVPB SCH ×3 (05:44→21:37)
[2018-04-06] MEDS: Morphine 4 MG/ML VIAL SLOW IVP PRN (05:47)
[2018-04-06 07:46] LABS: #Eosinphils 0.9 thou/uL (0.0-0.7); #Lymphocytes 1.1 thou/uL (1.20-3.40); #Monocytes 1.1 thou/uL (0.11-0.59); %Basophils 0.1 % (0.0-1.0); %Eosinophils 8.9 % (0.0-10.0); %Lymphocytes 11.2 % (21.0-51.0); %Monocytes 10.8 % (0.0-10.0); %Neutrophils 68.9 % (42.0-75.0); Hemoglobin 8.5 g/dL (12.0-16.0); Mean Corpuscular HGB CONC 32.9 g/dL (32.0-36.0); Mean Corpuscular Hemoglobin 28.2 pg (27.0-31.0); Mean Corpuscular Volume 85.8 fL (78.0-98.0); Platelet Count 251 thou/uL (130-400); RBC Distribution Width 12.2 % (11.5-14.5); Red Blood Cell (RBC) Count 3.02 mill/uL (4.20-5.40); White Blood Cell (WBC) Count 10.1 thou/uL (4.8-10.8)
[2018-04-06 08:04] LABS: Anion Gap 11 mmol/L (10-20); BUN (Urea Nitrogen) 35 mg/dL (7.0-18.7); Calc. Creatinine Clearance 41 mL/min (70-130); Calcium 8.3 mg/dL (7.8-10.44); Carbon Dioxide 24 mmol/L (22-29); Chloride 103 mmol/L (98-107); Estimated GFR-MDRD 16; Glucose 111 mg/dL (70-105); Magnesium 1.3 mg/dL (1.6-2.6); Potassium 3.8 mmol/L (3.5-5.1); Sodium 134 mmol/L (136-145)
--- NOTE | 2018-04-06 08:04 | PDOC.FM ---
- Subjective Subjective: No acute events overnight. - Objective MAR Reviewed: Yes Vital Signs & Weight: Vital Signs (12 hours) Temp Pulse Resp BP Pulse Ox 04/06/18 04:00 98.8 F 74 20 130/60 93 L 04/06/18 00:00 18 Weight Admit Weight 107.955 kg Weight 112.945 kg I&O: 04/05/18 04/06/18 04/07/18 06:59 06:59 06:59 Intake Total 500 621 Output Total 850 2009 Balance -550 -1386 Result Diagrams: 04/06/18 07:35 04/06/18 07:35 Phys Exam - Physical Examination Constitutional: NAD difficult to perform exam due to patient non-compliance HEENT: moist MMs limited ROM of neck due to pain. no nuchal rigidity Respiratory: no wheezing Cardiovascular: RRR, no significant murmur Gastrointestinal: soft, non-tender edema, bandaged BLE from surgery Neurological: non-focal, moves all 4 limbs Psychiatric: A&O x 3 Deviation from normal: R HD port in place, L IJ central line -: Rod in Dx/Plan (1) SHERWIN (acute kidney injury) Code(s): N17.9 - ACUTE KIDNEY FAILURE, UNSPECIFIED Status: Acute (2) Sepsis due to cellulitis Code(s): L03.90 - CELLULITIS, UNSPECIFIED; A41.9 - SEPSIS, UNSPECIFIED ORGANISM Status: Acute (3) Osteomyelitis Code(s): M86.9 - OSTEOMYELITIS, UNSPECIFIED Status: Acute (4) MSSA bacteremia Code(s): R78.81 - BACTEREMIA Status: Acute (5) Proteus infection Code(s): A49.8 - OTHER BACTERIAL INFECTIONS OF UNSPECIFIED SITE Status: Acute (6) Bacillus fragilis infection Code(s): B96.6 - BACTEROIDES FRAGILIS THE CAUSE OF DISEASES CLASSD ELSWHR Status: Acute (7) Hypomagnesemia Code(s): E83.42 - HYPOMAGNESEMIA Status: Resolved (8) Hypokalemia Code(s): E87.6 - HYPOKALEMIA Status: Resolved (9) Diabetes mellitus type 2, insulin dependent Code(s): E11.9 - TYPE 2 DIABETES MELLITUS WITHOUT COMPLICATIONS; Z79.4 - GLASSWARE FINISHER (CURRENT) USE OF INSULIN Status: Chronic (10) Hyperkalemia Code(s): E87.5 - HYPERKALEMIA Status: Resolved (11) Symptomatic anemia Code(s): D64.9 - ANEMIA, UNSPECIFIED Status: Resolved - Plan Plan: 42 yo F with sepsis 2/2 proteus & b.fragilis osteomyelitis; symptomatic anemia 2 /2 suspected upper GI bleed, SHERWIN on CKD, MSSA bacteremia Sepsis 2/2 LLE osteomyelitis s/p left foot 5th digit amputation -LLE MRI positive for osteomyelitis, s/p debridement & washout on 04/01 -Currently afebrile, tylenol for fever. White count resolved. -Ceftriaxone & flagyl for proteus and pseudomonas coverage -BLE dressings with LLE wound vac, float heels, wound care -Toe bone cultures positive for proteus, b fragilis, will discuss adding anaerobic coverage -Continue rod since surgery today SHERWIN on CKD 6 -Cr stable -Electrolytes stable -Having surgery for fistula placement 04/06/18 -Dr. Rivera following MSSA bacteremia -Positive blood cx 04/06 -Trough 04/04 high at 36, Vancomycin discontinued 04/03 L neck muscle spasm -PT work with ROM -flexeril Constipation -DARYN senekot BID -will try for BM today -deescalate morhpine -If no BM today, will add miralax HTN -Stable, continue amlodipine Symptomatic anemia 2/2 suspected UGB -s/p PRBC x3 -H/H stable at 9 -Continue to monitor for GI bleeds -Continue protonix -Dr. Mcmillan following Hx of DM2 -monitor with POC, all stable -A1c 4.8 -sliding scale Malnourishment -Albumin 2.0 -Vladimir & nepro supplements added -Diet restarted -Albumin monitoring Q2day Physical deconditioning -PT/OT consulted, pending recs DVT ppx: contraindicated Dispo: Stable. Continue ceftriaxone for MSSA bacteremia, psuedomonas stool, proteus wound. Add flagyl for b. fragilis. Graft today with Dr. Reynaga. Working with CM for placement for inpt. rehab at [facility]. Deescalate pain medications. Will try for BM today. Discussed w/ Dr. Millan Addendum - Attending - Attending Attestation Date/Time: 04/06/18 1042 I personally evaluated the patient and discussed the management with Dr. Ambrocio I agree with the History, Examination, Assessment and Plan documented above with any addition or exceptions noted below.Patient for fistula today consider d /c central line when peripheral access available and discussed need for VTE prophylaxis verse GI bleed risk.
[2018-04-06] MEDS ORDERED: Morphine 4 MG/ML VIAL SLOW IVP PRN ×2 (08:17→15:52)
[2018-04-06] MEDS ORDERED: Ondansetron PF 4 MG/2 ML Vial ONE ×2 (09:47→20:55)
[2018-04-06] MEDS ORDERED: Fentanyl 100 MCG/2 ML VIAL ONE ×2 (09:55→12:10)
[2018-04-06] MEDS ORDERED: Midazolam HCl 2 mg/2 ml Vial ONE (09:55)
[2018-04-06] MEDS ORDERED: Furosemide 40 MG/4 ML VIAL SLOW IVP SCH (10:00)
[2018-04-06] MEDS ORDERED: Lidocaine 2% PF 5 ML VIAL ONE (10:01)
[2018-04-06] MEDS ORDERED: Protamine Sulfate 250 MG/25 ML VIAL ONE (10:01)
[2018-04-06] MEDS ORDERED: Bupivacaine HCl 0.5%/Epinephrine 1:200,000/PF 30 ml Vial ONE (10:01)
[2018-04-06] MEDS ORDERED: Heparin 10,000 UNITS/1 ML VIAL ONE (10:01)
[2018-04-06] MEDS ORDERED: Protamine Sulfate 50 MG/5 ML VIAL ONE (10:40)
--- NOTE | 2018-04-06 11:26 | PRG ---
DATE OF SERVICE: 04/06/2018 SUBJECTIVE: A 42-year-old female, being seen for end-stage renal disease. The patient denies any nausea, vomiting, or chest pain. OBJECTIVE: CONSTITUTIONAL: The patient is awake, alert. VITAL SIGNS: Afebrile. Pulse 95, breathing is 16, blood pressure is 130/60. GENERAL APPEARANCE AND MENTAL STATUS: Fair. HEAD/NECK: Normocephalic. Atraumatic. EYES: EOMI. No deformity. EARS: Clear. No ulcers. NOSE: Intact. No lesions. MOUTH: Clear. No discharge. THROAT: Clear. No exudate. LUNGS: Clear. No crackles. CARDIAC: S1, S2. No rub. ABDOMEN: Benign. Bowel sounds positive. GENITALIA/RECTUM: Olvera absent. BACK/EXTREMITIES: Lower extremities have 4+ edema and multiple skin ulcers. NEUROLOGICAL: Alert and motor intact. SKIN: LYMPHATICS: LABORATORY DATA: Labs show hemoglobin of 8.5. Creatinine 3.1. ASSESSMENT: 1. Acute kidney injury with chronic kidney disease, stage 5. We will plan dialysis. 2. Hypomagnesemia. Recommend 1 g of Mag sulfate. 3. Anemia stable. We will hold off on dialysis today and evaluate labs in the morning. Job ID: [id number]
[2018-04-06] MEDS ORDERED: traMADol HCl 50 MG TAB PO PRN (11:33)
[2018-04-06] MEDS ORDERED: Acetaminophen 500 MG TAB PO PRN (11:33)
[2018-04-06] MEDS ORDERED: Ondansetron HCl/PF 4 MG/2 ML Vial IVP PRN (11:40)
[2018-04-06] MEDS ORDERED: Promethazine HCl 25 MG/ML VIAL SLOW IVP PRN (11:40)
[2018-04-06] MEDS ORDERED: Promethazine HCl 25 MG/ML VIAL IM PRN (11:40)
[2018-04-06] MEDS ORDERED: Promethazine HCl 25 MG/ML VIAL ONE (11:55)
--- NOTE | 2018-04-06 12:23 | OP ---
DATE OF PROCEDURE: 04/06/2018 PREOPERATIVE DIAGNOSES: 1. End-stage renal disease. 2. Morbid obesity. POSTOPERATIVE DIAGNOSES: 1. End-stage renal disease. 2. Morbid obesity. PROCEDURE: Left arm primary arteriovenous fistula, perforating branch of the antecubital vein to the proximal radial artery cephalic vein and upper arm. ANESTHESIA: General (the patient refused regional), local of 0.5% Marcaine with epinephrine 30 mL mixed with 2% Xylocaine 10 mL mixture used. DESCRIPTION OF PROCEDURE: The patient was taken to the operating room, where under general anesthesia, left upper extremity was prepared with ChloraPrep and draped in routine fashion. Local anesthetic was infiltrated in the skin and subcutaneous tissue about the operative site. A longitudinal incision was made below the antecubital fossa on the proximal volar forearm, carried down through the skin, subcutaneous tissue, identifying the cephalic vein, dissecting the antecubital vein perforating branch and proximal radial artery. The patient was given 6000 units of heparin intravenously. The perforating branch of the antecubital vein was dissected free, branches were divided between clips and 4-0 silk ties and spatulated over branch points and interrogated with coronary dilators from a 2 mm to a 3.5 mm coronary dilator cephalic vein outflow without obstruction. The proximal radial artery was clamped proximally and distally. Longitudinal arteriotomy was made sharply for a 2.5 cm anastomosis between the end of the perforating branch of the antecubital vein to the proximal artery with continuous suture of 6-0 Prolene used for the anastomosis. After completing the anastomosis, vascular clamps were released, and there was a good Doppler signal in the cephalic vein outflow. Good hemostasis was noted. Subcutaneous tissue was approximated with 3-0 Monocryl, skin with subdermal 4-0 Monocryl, and [place] glue applied. The patient tolerated the procedure well. Job ID: [id number]
[2018-04-06] MEDS: Senokot S 8.6-50 MG TAB PO SCH ×2 (12:33→21:40)
[2018-04-06] MEDS: Magnesium Chloride 64 MG TAB PO SCH ×2 (12:34→21:37)
[2018-04-06] MEDS: Magnesium Oxide 400 MG TAB PO SCH ×2 (12:34→21:39)
[2018-04-06] MEDS: Amlodipine 10 MG TAB PO SCH (12:34)
[2018-04-06 12:44] VITALS: BMI 40.1
[2018-04-06] MEDS: cefTRIAXone\\ROCEPHIN 2 GM in Sodium Chloride 0.9% 100 ML IVPB SCH (13:09)
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
[2018-04-06] MEDS ORDERED: Polyethylene Glycol 3350 17 GM Packet PO PRN (14:36)
[2018-04-06] MEDS: HYDROcodone/Acetaminophen 5/325 mg Tablet PO PRN ×2 (15:52→21:39)
[2018-04-06] MEDS ORDERED: Morphine 4 MG/ML VIAL SLOW IVP SCH (16:00)
[2018-04-06] MEDS ORDERED: Glycopyrrolate 0.2 MG/ML 5 ML SYRINGE ONE (20:55)
[2018-04-06] MEDS ORDERED: PROPOFOL 200 MG/20 ML VIAL ONE (20:55)
[2018-04-06] MEDS ORDERED: Heparin 10,000 UNITS/ 10 ML VIAL ONE (20:55)
[2018-04-06] MEDS ORDERED: Dexamethasone 20 MG/5 ML VIAL ONE (20:55)
[2018-04-06] MEDS ORDERED: Lidocaine 1% PF 5 ML VIAL ONE (20:55)
[2018-04-07 04:13] LABS: #Eosinphils 0.5 thou/uL (0.0-0.7); #Lymphocytes 1.1 thou/uL (1.20-3.40); #Monocytes 0.9 thou/uL (0.11-0.59); #Neutrophils 9.7 thou/uL (1.40-6.50); %Basophils 0.3 % (0.0-1.0); %Eosinophils 4.3 % (0.0-10.0); %Monocytes 7.1 % (0.0-10.0); %Neutrophils 79.2 % (42.0-75.0); Hemoglobin 9.1 g/dL (12.0-16.0); Mean Corpuscular HGB CONC 33.6 g/dL (32.0-36.0); Mean Corpuscular Hemoglobin 28.8 pg (27.0-31.0); Mean Corpuscular Volume 85.8 fL (78.0-98.0); Mean Platelet Volume 7.2 fL (7.4-10.4); Platelet Count 274 thou/uL (130-400); RBC Distribution Width 12.1 % (11.5-14.5); Red Blood Cell (RBC) Count 3.17 mill/uL (4.20-5.40); White Blood Cell (WBC) Count 12.2 thou/uL (4.8-10.8)
[2018-04-07] MEDS: traMADol HCl 50 MG TAB PO PRN (04:15)
[2018-04-07 04:27] LABS: Anion Gap 13 mmol/L (10-20); BUN (Urea Nitrogen) 37 mg/dL (7.0-18.7); Calc. Creatinine Clearance 42 mL/min (70-130); Calcium 8.1 mg/dL (7.8-10.44); Carbon Dioxide 22 mmol/L (22-29); Chloride 103 mmol/L (98-107); Estimated GFR-MDRD 17; Glucose 122 mg/dL (70-105); Potassium 4.1 mmol/L (3.5-5.1); Sodium 134 mmol/L (136-145)
[2018-04-07] MEDS: Levothyroxine Sodium 125 MCG TAB PO SCH (05:50)
[2018-04-07] MEDS: metroNIDAZOLE 500 MG in Premix Bag 1 BAG IVPB SCH ×3 (05:50→21:00)
--- NOTE | 2018-04-07 08:25 | PDOC.FM ---
- Subjective Subjective: Pt reports decent rest overnight, no new problems. complains of continued L neck discomfort and no BM. no fever/chills, no cp no palpitations - Objective MAR Reviewed: Yes Vital Signs & Weight: Vital Signs (12 hours) Temp Pulse Resp BP Pulse Ox 04/07/18 08:00 98.4 F 80 12 145/81 H 96 04/07/18 04:50 98.6 F 80 18 125/74 96 04/07/18 00:00 98.4 F 83 19 137/74 95 Weight Admit Weight 107.955 kg Weight 112.945 kg I&O: 04/06/18 04/07/18 04/08/18 06:59 06:59 06:59 Intake Total 62 1925 Output Total 2009 Balance -1389 1375 Result Diagrams: 04/07/18 04:00 04/07/18 04:00 Phys Exam - Physical Examination Constitutional: NAD HEENT: moist MMs, sclera anicteric Neck: no JVD, supple Respiratory: no wheezing, clear to auscultation bilateral Cardiovascular: RRR, no significant murmur Gastrointestinal: soft, non-tender Musculoskeletal: pulses present Neurological: moves all 4 limbs Psychiatric: normal affect, A&O x 3 Skin: no rash, normal turgor Dx/Plan (1) Osteomyelitis Code(s): M86.9 - OSTEOMYELITIS, UNSPECIFIED Status: Acute (2) Bacillus fragilis infection Code(s): B96.6 - BACTEROIDES FRAGILIS THE CAUSE OF DISEASES CLASSD ELSWHR Status: Acute (3) MSSA bacteremia Code(s): R78.81 - BACTEREMIA Status: Acute (4) Proteus infection Code(s): A49.8 - OTHER BACTERIAL INFECTIONS OF UNSPECIFIED SITE Status: Acute (5) Symptomatic anemia Code(s): D64.9 - ANEMIA, UNSPECIFIED Status: Resolved (6) Rwvsz-wo-dgezgal kidney injury Code(s): N17.9 - ACUTE KIDNEY FAILURE, UNSPECIFIED; N18.9 - CHRONIC KIDNEY DISEASE, UNSPECIFIED Status: Acute Qualifiers: (7) Hypertension Code(s): I10 - ESSENTIAL (PRIMARY) HYPERTENSION Status: Acute Qualifiers: - Plan Plan: 42 yo F with sepsis 2/2 proteus & b.fragilis osteomyelitis; symptomatic anemia 2 /2 suspected upper GI bleed, SHERWIN on CKD, MSSA bacteremia Sepsis 2/2 LLE osteomyelitis s/p left foot 5th digit amputation A-s/p debridement & washout on 04/01. Remains afebrile, White count resolved. Toe bone cultures positive for proteus, b fragilis P-Ceftriaxone & flagyl for proteus per Dr. Metcalf recs -wound care -f/u ID recs SHERWIN on CKD 6 A- Cr stable, electrolytes stable. s/p hemodialysis with Dr. Rivera following. P- f/u on nephro recs MSSA bacteremia A- Positive blood cx 04/06. Trough 04/04 high at 36, Vancomycin discontinued 04/03 P- continue ABX as listed above L neck muscle spasm A- PT work with ROM, continue flexeril Constipation A- DARYN senekot BID P- de-escalate morhpine -miralax this AM HTN -Stable, continue amlodipine Symptomatic anemia 2/2 suspected UGB A- s/p PRBC x3. H/H stable. P-Continue to monitor for GI bleeds -Continue protonix -Dr. Mcmillan following, appreciate recs Hx of DM2 A- monitor with POC, all stable. A1c 4.8 P- sliding scale insulin Malnourishment -Albumin 2.0 -Vladimir & nepro supplements added -Albumin monitoring Q2day Physical deconditioning -PT/OT consulted, pending recs DVT ppx: will consider adding heparin with caution considering hx of melanotic stool. Pt is at risk for DVT Addendum - Attending - Attending Attestation Date/Time: 04/07/18 4697 I personally evaluated the patient and discussed the management with Dr. Blackmon I agree with the History, Examination, Assessment and Plan documented above with any addition or exceptions noted below.POD 1 s/p fistula LUE for HD will rec heparin for VTE prophylaxis watch S/S GI blled, work on compliance with treatment rec and need to increase activity!
[2018-04-07] MEDS: HYDROcodone/Acetaminophen 5/325 mg Tablet PO PRN (08:59)
[2018-04-07] MEDS: Amlodipine 10 MG TAB PO SCH (09:00)
[2018-04-07] MEDS: Magnesium Oxide 400 MG TAB PO SCH ×2 (09:00→20:16)
[2018-04-07] MEDS: Senokot S 8.6-50 MG TAB PO SCH ×2 (09:01→20:16)
[2018-04-07] MEDS: Magnesium Chloride 64 MG TAB PO SCH ×2 (09:01→20:15)
[2018-04-07] MEDS ORDERED: Furosemide 40 MG/4 ML VIAL SLOW IVP SCH (12:00)
--- NOTE | 2018-04-07 12:17 | PRG ---
DATE OF SERVICE: 04/07/2018 SUBJECTIVE: A 42-year-old female, being seen for acute kidney injury. The patient denies any nausea, vomiting, or chest pain. OBJECTIVE: CONSTITUTIONAL: The patient is awake, alert. VITAL SIGNS: Afebrile. Pulse 80, breathing 16, and blood pressure 125/74. GENERAL APPEARANCE AND MENTAL STATUS: Fair. HEAD/NECK: Normocephalic. Atraumatic. EYES: EOMI. No deformity. EARS: Clear. No ulcers. NOSE: Intact. No lesions. MOUTH: Clear. No discharge. THROAT: Clear. No exudate. LUNGS: Clear. No crackles. CARDIAC: S1, S2. No rub. ABDOMEN: Benign. Bowel sounds positive. GENITALIA/RECTUM: Olvera absent. BACK/EXTREMITIES: Edema 0+. NEUROLOGICAL: Alert and motor intact. SKIN: LYMPHATICS: LABORATORY DATA: Hemoglobin 9.1, creatinine 3.06. ASSESSMENT AND PLAN: 1. Chronic kidney disease stage 4 with acute kidney injury. We will hold off on dialysis. Continue Lasix. 2. Edema, improved. 3. Hypertension, stable. 4. Medication based on GFR appropriate. 5. No indication for dialysis today. Job ID: [id number]
[2018-04-07] MEDS: cefTRIAXone\\ROCEPHIN 2 GM in Sodium Chloride 0.9% 100 ML IVPB SCH (13:04)
[2018-04-07] MEDS: Heparin 5,000 UNITS/ML VIAL SC SCH ×2 (15:08→20:15)
[2018-04-08] MEDS: Levothyroxine Sodium 125 MCG TAB PO SCH (05:23)
[2018-04-08] MEDS: metroNIDAZOLE 500 MG in Premix Bag 1 BAG IVPB SCH ×2 (05:23→13:05)
[2018-04-08 05:33] LABS: #Eosinphils 0.5 thou/uL (0.0-0.7); #Lymphocytes 1.2 thou/uL (1.20-3.40); #Monocytes 0.9 thou/uL (0.11-0.59); %Basophils 0.3 % (0.0-1.0); %Eosinophils 5.8 % (0.0-10.0); Hemoglobin 8.8 g/dL (12.0-16.0); Mean Corpuscular HGB CONC 32.4 g/dL (32.0-36.0); Mean Corpuscular Hemoglobin 28.2 pg (27.0-31.0); Mean Platelet Volume 6.9 fL (7.4-10.4); Platelet Count 265 thou/uL (130-400); RBC Distribution Width 12.3 % (11.5-14.5); Red Blood Cell (RBC) Count 3.12 mill/uL (4.20-5.40); White Blood Cell (WBC) Count 8.6 thou/uL (4.8-10.8)
[2018-04-08 05:54] LABS: Anion Gap 12 mmol/L (10-20); BUN (Urea Nitrogen) 39 mg/dL (7.0-18.7); Calc. Creatinine Clearance 42 mL/min (70-130); Calcium 8.1 mg/dL (7.8-10.44); Carbon Dioxide 24 mmol/L (22-29); Chloride 102 mmol/L (98-107); Estimated GFR-MDRD 16; Glucose 86 mg/dL (70-105); Potassium 4.1 mmol/L (3.5-5.1); Sodium 134 mmol/L (136-145)
[2018-04-08] MEDS ORDERED: Furosemide 40 MG/4 ML VIAL SLOW IVP SCH (09:00)
[2018-04-08] MEDS: Magnesium Chloride 64 MG TAB PO SCH (10:06)
[2018-04-08] MEDS: HYDROcodone/Acetaminophen 5/325 mg Tablet PO PRN (10:06)
[2018-04-08] MEDS: Magnesium Oxide 400 MG TAB PO SCH (10:07)
[2018-04-08] MEDS: Senokot S 8.6-50 MG TAB PO SCH (10:07)
[2018-04-08] MEDS: Amlodipine 10 MG TAB PO SCH (10:08)
[2018-04-08] MEDS: Heparin 5,000 UNITS/ML VIAL SC SCH ×2 (10:08→15:49)
[2018-04-08 11:54] VITALS: TEMP 98.4
--- NOTE | 2018-04-08 11:58 | PDOC.FM ---
- Subjective Subjective: Pt reports continued neck discomfort and L arm discomfort. Otherwise she reports 2 BMs overnight that were loose and dark green but not bloody or melanotic. Pt has some associated abdominal discomfort. no fever/chills, no cp no sob - Objective MAR Reviewed: Yes Vital Signs & Weight: Vital Signs (12 hours) Temp Pulse Resp BP Pulse Ox 04/08/18 11:17 98.4 F 79 20 132/79 95 04/08/18 10:08 76 04/08/18 07:40 98.3 F 76 20 123/78 95 04/08/18 05:09 98.0 F 74 20 136/79 96 04/08/18 00:42 98.0 F 74 20 132/77 96 Weight Admit Weight 107.955 kg Weight 112.945 kg I&O: 04/07/18 04/08/18 04/09/18 06:59 06:59 06:59 Intake Total 1925 1250 Output Total 550 2000 Balance 1375 -750 Result Diagrams: 04/08/18 05:22 04/08/18 03:30 Phys Exam - Physical Examination Constitutional: NAD HEENT: moist MMs, sclera anicteric Neck: no JVD, supple Respiratory: no wheezing, clear to auscultation bilateral Cardiovascular: RRR, no significant murmur Gastrointestinal: soft, non-tender Musculoskeletal: pulses present Neurological: non-focal, normal sensation Psychiatric: normal affect, A&O x 3 Skin: no rash, normal turgor Dx/Plan (1) Osteomyelitis Code(s): M86.9 - OSTEOMYELITIS, UNSPECIFIED Status: Acute (2) Bacillus fragilis infection Code(s): B96.6 - BACTEROIDES FRAGILIS THE CAUSE OF DISEASES CLASSD ELSWHR Status: Acute (3) MSSA bacteremia Code(s): R78.81 - BACTEREMIA Status: Acute (4) Proteus infection Code(s): A49.8 - OTHER BACTERIAL INFECTIONS OF UNSPECIFIED SITE Status: Acute (5) Symptomatic anemia Code(s): D64.9 - ANEMIA, UNSPECIFIED Status: Resolved (6) Froia-jh-erbpnsq kidney injury Code(s): N17.9 - ACUTE KIDNEY FAILURE, UNSPECIFIED; N18.9 - CHRONIC KIDNEY DISEASE, UNSPECIFIED Status: Acute Qualifiers: (7) Hypertension Code(s): I10 - ESSENTIAL (PRIMARY) HYPERTENSION Status: Acute Qualifiers: - Plan Plan: 42 yo F with sepsis 2/2 proteus & b.fragilis osteomyelitis; symptomatic anemia 2 /2 suspected upper GI bleed, SHERWIN on CKD, MSSA bacteremia Sepsis 2/2 LLE osteomyelitis s/p left foot 5th digit amputation A-s/p debridement & washout on 04/01. Remains afebrile, White count resolved. Toe bone cultures positive for proteus, b fragilis P-Ceftriaxone & flagyl for proteus per Dr. Metcalf recs -wound care SHERWIN on CKD 6 A- Cr stable, electrolytes stable. s/p hemodialysis with Dr. Rivera following. P- f/u on nephro recs MSSA bacteremia A- Positive blood cx 04/06. Trough 04/04 high at 36, Vancomycin discontinued 04/03 P- continue ABX as listed above L neck muscle spasm A- PT work with ROM, continue flexeril Constipation A- DARYN senekot BID P- de-escalate morhpine -miralax prn - will de-escalate bowel regimen with descalation of opiates HTN -Stable, continue amlodipine Symptomatic anemia 2/2 suspected UGB A- s/p PRBC x3. H/H stable. P-Continue to monitor for GI bleeds -Continue protonix -Dr. Mcmillan following, appreciate recs Hx of DM2 A- monitor with POC, all stable. A1c 4.8 P- sliding scale insulin Malnourishment -Albumin 2.0 -Vladimir & nepro supplements added -Albumin monitoring Q2day Physical deconditioning -PT/OT consulted, pending recs DVT ppx: heparin Addendum - Attending - Attending Attestation Date/Time: 04/08/18 1242 I personally evaluated the patient and discussed the management with I agree with the History, Examination, Assessment and Plan documented above with any addition or exceptions noted below. Patient with fistula EDWARD for HD fci should be ok to dismiss to lower level of care will need to coordinate care with Nephrology.
--- NOTE | 2018-04-08 12:37 | PRG ---
DATE OF SERVICE: 04/08/2018 SUBJECTIVE: Awake, still a little bit drowsy, but more oriented than previously. Still with pain in the lower extremities intermittently. No respiratory symptoms. No abdominal pain and she still has an indwelling Olvera catheter. OBJECTIVE: LUNGS: Symmetric air entry. HEART: S1 and S2, regular rate. ABDOMEN: Nondistended. No bladder distention. EXTREMITIES: Lower extremities are dressed, and the last wound photo note is about 4 days ago with lateral left foot ulcer with necrotic base, which has not much improved from prior evaluations. She also has a heel ulceration on the left side, which has an unstageable base necrotic tissue covering pretty much 100% of the area. VITAL SIGNS: Temperature 98. Other vital signs are not remarkable. LABORATORY DATA: White cell count is down to 8.6, hemoglobin 8.8, platelets 265. Chemistry with sodium 134, creatinine is stable at 3.10. Microbiology data: We have the amputation cultures with polymicrobial aramis with anaerobes, Streptococci, and fairly sensitive strain of Proteus mirabilis. In addition to that, there is a one set of blood cultures on admission with Staphylococcus aureus. The patient is currently receiving ceftriaxone and Flagyl, which would cover all the organisms retrieved. The pathology results from the amputation specimen showed an ischemic ulceration, acute osteomyelitis with margins appearing viable at the amputation site. ASSESSMENT AND DISCUSSION: Type 2 diabetes; myopathy; neuropathy; chronic ulcers of lower extremities with peripheral vascular disease; history of leukocytoclastic vasculitis, which is not well documented; now with Staph aureus bacteremia, gangrene, ischemic necrosis of the left fifth toe status post amputation with apparent viability at the amputation margin. The renal function is still suffering and we do have not seen much improvement of late. Still being dialyzed. Overall, a very high barrier to functional improvements. She probably will end up in a retirement with continuation of wound care. She is at risk for amputation of particularly the left lower extremity at the BKA level. She will continue receiving Rocephin and oral Flagyl for a protracted period of time. End date of therapy is calculated around the end of April. Job ID: [id number]
[2018-04-08] MEDS: cefTRIAXone\\ROCEPHIN 2 GM in Sodium Chloride 0.9% 100 ML IVPB SCH (13:04)
[2018-04-08] MEDS ORDERED: Morphine 4 MG/ML VIAL SLOW IVP SCH (13:45)
[2018-04-08 16:18] VITALS: BP 124/76
--- NOTE | 2018-04-08 17:27 | PRG ---
DATE OF SERVICE: 04/08/2018 SUBJECTIVE: A 42-year-old female, being seen for acute kidney injury. The patient denies nausea, vomiting, or chest pain. OBJECTIVE: CONSTITUTIONAL: The patient was awake and alert. VITAL SIGNS: Afebrile. Pulse 79, breathing 16, and blood pressure 132/79. GENERAL APPEARANCE AND MENTAL STATUS: Fair. HEAD/NECK: Normocephalic. Atraumatic. EYES: EOMI. No deformity. EARS: Clear. No ulcers. NOSE: Intact. No lesions. MOUTH: Clear. No discharge. THROAT: Clear. No exudate. LUNGS: Clear. No crackles. CARDIAC: S1, S2. No rub. ABDOMEN: Benign. Bowel sounds positive. GENITALIA/RECTUM: Olvera absent. BACK/EXTREMITIES: Edema 0+. NEUROLOGICAL: Alert and motor intact. SKIN: LYMPHATICS: LABORATORY DATA: Lab showed hemoglobin 8.8. Creatinine 3.1. ASSESSMENT: 1. Stage 4 chronic kidney disease, stable. 2. Hypertension, stable. 3. Anemia, stable. 4. Medication based on GFR appropriate. Job ID: [id number]
[2018-04-08] MEDS: traMADol HCl 50 MG TAB PO PRN (17:52)
[2018-04-08] MEDS: Acetaminophen 325 MG TAB PO PRN (17:53)
--- NOTE | 2018-04-08 19:14 | PRG ---
DATE OF SERVICE: 04/08/2018 Roxy Snow is doing fairly well today. She has a heel ulcer left that has slough and wound care had asked me to look at this. Her AV fistula left arm has a good thrill and bruit. She has quite a bit of pain, but she has a warm hand and good hand movement. Evaluation of her left plantar heel reveals a large open wound extending down to the calcaneus. MRI on 03/31/2018 of the left foot reveals osteomyelitis of small toe metatarsal. No evidence of calcaneal osteomyelitis. At the bedside, this slough was debrided sharply as able, but she had too much pain and was discontinued. There was healthy granulating bleeding tissue under the slough. I have recommended the wound care, they adjust the dressings and obtain dressing changes will tend to this, they should continue either wound VAC or enzymatic debridement mechanical at this time. We will view the wound next week. She should keep her weight off the heel. The patient has renal failure and the patients with chronic kidney disease and end-stage renal disease should not have PICC lines and I have discontinued PICC line orders for this patient. We will continue to use her central line. If she needs outpatient antibiotics, we would need to place a Munoz catheter in the OR and avoid subclavian vein access and plan Munoz catheter placement IJ access in OR under sedation. The patient has at risk for losing her left leg. She has severe chronic venous stasis changes and large ulceration of her plantar heel and diabetic wound left foot for amputation of her toe due to osteomyelitis and diabetic ulceration. She has combination of problems and overall prognosis is poor. We will see her as needed this weekend. We will view her wound on Wednesday during dressing changes. She has exaggerated pain response and her wound in left arm looks good. This fistula will take a while to mature and she may even need a transposition due to her morbid obesity, 5 feet 6 inches, 249 pounds, and 40 BMI. She will need to follow up in my office as an outpatient in about 3 to 4 weeks. Job ID: [id number]
--- NOTE | 2018-04-11 08:10 | DIS ---
DATE OF ADMISSION: 03/31/2018 DATE OF DISCHARGE: 04/08/2018 RESIDENT: Troy Blackmon MD DISCHARGE ATTENDING: Dr. Compa Millan. CONSULTS: 1. Gastroenterology, Dr. Osei. 2. General Surgery, Ronnell Good. 3. Infectious Disease, Dr. Keith Metcalf. 4. Nephrology, Dr. Chad Rivera. 5. Pulmonology, Dr. Deshaun Clemons. 6. Wound Care. PROCEDURES: No significant procedures or new imaging since the transition of care notes as signed by Dr. Mary Ambrocio, on 04/06/2018. PRIMARY DIAGNOSIS: Sepsis secondary to osteomyelitis of left lower extremity digit. SECONDARY DIAGNOSES: 1. Acute kidney injury on chronic kidney disease. 2. Anemia. 3. Constipation. 4. Methicillin-sensitive Staphylococcus aureus bacteremia. 5. Type 2 diabetes. 6. Hypertension. DISCHARGE MEDICATIONS: 1. Ranitidine 150 mg p.o. b.i.d. p.r.n. 2. Humalog 10 units subcutaneous t.i.d. with meals. 3. Levothyroxine 125 mcg p.o. daily. 4. Ferrous sulfate 325 mg p.o. b.i.d. 5. Furosemide 120 mg p.o. daily. 6. Tylenol 1000 mg p.o. q.6 hours p.r.n. 7. Amlodipine 10 mg p.o. daily. 8. Rocephin 2 mg IV q. 24 hours. 9. Flexeril 10 mg p.o. t.i.d. p.r.n. 10. Magnesium chloride 64 mg p.o. b.i.d. 11. Magnesium oxide 400 mg p.o. b.i.d. 12. Pantoprazole 40 mg p.o. q.12 hours. 13. MiraLAX 17 g packet p.o. daily p.r.n. 14. Tramadol 100 mg p.o. q.6 hours p.r.n. 15. Tramadol 50 mg p.o. q. 6 hours p.r.n. 16. Metronidazole 500 mg p.o. q.8 hours. DISCONTINUED MEDICATIONS: 1. Lisinopril 20 mg p.o. daily. 2. Gabapentin 300 mg p.o. b.i.d. HISTORY OF PRESENT ILLNESS AND HOSPITAL COURSE: Please refer to Dr. Mary Ambrocio's transition of care note on 04/06/2018 for the majority of details regarding this patient's medical care. I assumed service of her care on the 07 of April on which date until discharge, the patient was stable on current medications and antibiotics were continued per Dr. Metcalf' recommendations and as the patient showed improvement with physical therapy and placement was made with inpatient rehab, the patient was discharged to inpatient rehab on April 08, 2018 with plans for continuing Rocephin and Flagyl for osteomyelitis, for followup with Dr. Metcalf regarding osteomyelitis, follow up with Dr. Rivera regarding her kidney disease and will follow up with General Surgery regarding her wounds/amputation DISPOSITION: Stable. DISCHARGE INSTRUCTIONS: Location: Inpatient rehab, [facility]. Diet: Diabetic diet, renal diet. ACTIVITY: As tolerated. Ambulate with assist. Recommended follow up with Dr. Zhou Reynaga in 3-4 weeks, with Dr. Chad Rivera in 3 days, with Dr. Rose Castellon in [address] Metcalf in two weeks. Job ID: [id number] [facility]
--- NOTE | 2018-04-15 16:36 | PDOC.OP ---
Operative Note - Operative Note Operative Note: PROCEDURE: Placement of right internal jugular tunneled hemodialysis catheter with ultrasound and fluoroscopic guidance, placement of left internal jugular central venous catheter with ultrasound and fluoroscopic guidance, debridement of left heel and first metatarsal head eschars and multiple superficial wounds of both feet and left fifth toe ray amputation. SURGEON: Ariel Castaneda M.D. DATE OF PROCEDURE: 04/01/2018 PREOPERATIVE DIAGNOSIS: Renal failure, poor peripheral IV access, osteomyelitis of the left fifth toe and multiple wounds of both feet. POSTOPERATIVE DIAGNOSIS: Renal failure, poor peripheral IV access, osteomyelitis of the left fifth toe and multiple wounds of both feet. HISTORY: Patient who presented in renal failure and has been undergoing hemodialysis via a trial dialysis catheter in the right internal jugular vein which has since been removed. 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 She also has a left diabetic foot infection with osteomyelitis of the left fifth toe and cellulitis of the entire foot, and several full-thickness eschars of the left foot with partial thickness or unstageable wounds and chronic open wounds of both legs. PROCEDURE: After informed consent was obtained and appropriate preoperative antibiotics were administered, the patient was taken to the Operating Room, placed in the supine position and monitored anesthesia care was administered. The neck and chest were prepped and draped in a standard sterile fashion and the patient placed in Trendelenburg position. A sterile ultrasound probe was used to identify the patent compressible right IJ vein which was accessed under direct ultrasound guidance. A wire was threaded through the needle and confirmed by ultrasound to be within the patent compressible vessel with the tip in the vena cava by fluoroscopy. Local anesthesia was infused to the skin and subcutaneous tissues of the right neck and chest. An infraclavicular incision was made and a catheter tunneled from the infraclavicular to the right IJ access site. The right IJ was sequentially dilated over the wire following which a dilator and sheath were placed over the wire and the dilator and wire removed leaving the sheath in place. The catheter was tunneled through the sheath which was then split and removed leaving the catheter in place. This was confirmed by fluoroscopy to be in good position in the superior vena cava with no kinking of the course of the catheter. Both ports easily aspirated dark venous nonpulsatile blood and easily flushed without resistance. Heparin was instilled to the quantity specified on the hub, and the hub was secured to the skin with 3-0 nylon sutures. The skin incision at the neck was closed in two layers with 4-0 Monocryl suture and Dermabond dressings were placed. The skin at the exit site was snugged up around the catheter with 4-0 Monocryl suture and Dermabond was placed there as well. Once the Dermabond was dry, a Biopatch and Tegaderm dressing was placed at the exit site. Attention was then turned to placement of the left internal jugular central venous catheter.A sterile ultrasound probe was used to identify the patent compressible left IJ vein which was accessed under direct ultrasound guidance. A wire was threaded through the needle and confirmed by ultrasound to be within the patent compressible vessel with the tip in the vena cava by fluoroscopy. Local anesthesia was infused to the skin and subcutaneous tissues of the left neck and chest. The left IJ was dilated over the wire following which a dilator and sheath were placed over the wire and the dilator and wire removed leaving the sheath in place. The catheter was tunneled through the sheath which was then split and removed leaving the catheter in place. This was confirmed by fluoroscopy to be in good position in the superior vena cava with no kinking of the course of the catheter. This was secured to the skin in 2 locations and all 3 ports easily aspirated dark venous nonpulsatile blood and easily flushed without resistance. A Biopatch and Tegaderm dressing was placed at the exit site and attention turned to debridement of bilateral feet and left fifth toe amputation. Both legs were prepped and draped circumferentially and local anesthesia infused around the base of the left fifth toe. A paddle incision was made and dissection carried down to the left fifth toe. This was transected and debridement carried down to the mid metatarsal level using the rongeur. At this level the bone appeared to be healthy with normal consistency. Bone chips were sent for bone culture. Swabs of the adjacent soft tissue ulcer were also sent for culture. The wound was debrided back to healthy appearing subcutaneous tissues circumferentially and hemostasis obtained using Bovie electrocautery. Attention was then turned to the full thickness eschars on the left medial first metatarsal head and the left heel. These eschars were sharply excised down to potentially viable appearing subcutaneous tissues. The resulting left heel wound was 5 x 4 cm and the first metatarsal head wound was 1.5 x 1 cm. The heel wound was down to the level of the periosteum, and some muscle and tendon were also debrided, but no bone. The metatarsal ulcer involved only the skin and subcutaneous tissues. There was no odor or purulence encountered. The patient had several partial thickness or unstageable ulcerations of both legs specifically involving the posterior calf and the right heel, as well as many chronic open wounds. Excess skin was debrided using curettes down to more healthy appearing skin at all of the superficial and unstageable wounds were dressed with antibiotic ointment and gauze. The left heel, metatarsal head and toe wounds were dressed by the wound care team with VAC dressings and the patient was extubated and taken to recovery in good condition. The patient was taken to Recovery in good condition. Estimated blood loss was minimal. There were no complications. Specimens are left fifth toe, bone and soft tissue cultures.
== END 2018-04-08 20:50 | DRG 853 ==
LOC: ERS 21:01 → IMCU/EMU 03-31 00:06 → 2NO 04-03 11:24 → SURG A 04-06 12:44
PROVIDERS: ADMIT Family Medicine; ATTEND Family Medicine
PROC: 30233N1 Transfusion of Nonautologous Red Blood Cells into Peripheral Vein, Percutaneous Approach (ICD-10-PCS; 2018-03-31)
PROC: 0Y6Y0Z0 Detachment at Left 5th Toe, Complete, Open Approach (ICD-10-PCS; principal; 2018-04-01)
PROC: 05HM33Z Insertion of Infusion Device into Right Internal Jugular Vein, Percutaneous Approach (ICD-10-PCS; 2018-04-01)
PROC: 031C0ZF Bypass Left Radial Artery to Lower Arm Vein, Open Approach (ICD-10-PCS; 2018-04-06)
DX: A41.59 Other Gram-negative sepsis (principal); N18.6 End stage renal disease; N17.9 Acute kidney failure, unspecified; E11.52 Type 2 diabetes mellitus with diabetic peripheral angiopathy with gangrene; I96 Gangrene, not elsewhere classified; M86.9 Osteomyelitis, unspecified; E87.2 Acidosis; L03.90 Cellulitis, unspecified; K92.2 Gastrointestinal hemorrhage, unspecified; I12.0 Hypertensive chronic kidney disease with stage 5 chronic kidney disease or end stage renal disease; E46 Unspecified protein-calorie malnutrition; Z99.2 Dependence on renal dialysis; E11.621 Type 2 diabetes mellitus with foot ulcer; E87.5 Hyperkalemia; I77.6 Arteritis, unspecified; L89.612 Pressure ulcer of right heel, stage 2; L89.300 Pressure ulcer of unspecified buttock, unstageable; F20.9 Schizophrenia, unspecified; F31.9 Bipolar disorder, unspecified; Z88.0 Allergy status to penicillin; Z91.048 Other nonmedicinal substance allergy status; Z79.899 Other long term (current) drug therapy; Z79.4 Long term (current) use of insulin; Z79.2 Long term (current) use of antibiotics; Z79.84 Long term (current) use of oral hypoglycemic drugs; F41.9 Anxiety disorder, unspecified; E03.9 Hypothyroidism, unspecified; E66.01 Morbid (severe) obesity due to excess calories; Z68.38 Body mass index [BMI] 38.0-38.9, adult; E83.42 Hypomagnesemia; D64.9 Anemia, unspecified; K59.00 Constipation, unspecified; R33.9 Retention of urine, unspecified
CPT/HCPCS: 36415; 36416; 36430; 36556; 71045; 74176; 80048; 80053; 80202; 81001; 82040; 82274; 82330; 82550; 82803; 83036; 83605; 83735; 83874; 84100; 84443; 85014; 85018; 85025; 85610; 85730; 86704; 86706; 86803; 86850; 86900; 86901; 87040; 87045; 87046; 87070; 87076; 87077; 87149; 87186; 87205; 87324; 87340; 87449; 87899; 88305; 88311; 90935; 93005; 93970; 94640; 96361; 96365; 96367; 96375; A4216; C1752; C1769; C9113; G0257; G0365; J0670; J0692; J0696; J1100; J1644; J1815; J1940; J2001; J2060; J2250; J2270; J2405; J2550; J2704; J2720; J3010; J3370; J3475; J3490; J7050; J7611; P9016; Q0162

== ENCOUNTER 2018-06-08 21:33 | Inpatient (IN) | payer MEDICARE, MEDICAID ==
--- NOTE | 2018-06-08 22:43 | RAD ---
LEFT FOOT THREE VIEWS: 06/08/18 HISTORY: Evaluate for infection. Status post surgery. COMPARISON: 03/30/18. FINDINGS: There is soft tissue swelling. Lisfranc alignment is maintained. Joint spaces are preserved. There i s amputation of the fifth digit at the level of the mid metatarsal. No erosive or destructive changes . IMPRESSION: Soft tissue swelling. Correlate for cellulitis. Amputation of the fifth digit due to surgery. POS: PAULINE
[2018-06-08 22:59] LABS: #Basophils 0.1 thou/uL (0.0-0.2); #Eosinphils 0.2 thou/uL (0.0-0.7); #Lymphocytes 1.1 thou/uL (1.20-3.40); #Monocytes 0.6 thou/uL (0.11-0.59); #Neutrophils 3.9 thou/uL (1.40-6.50); %Basophils 0.9 % (0.0-1.0); %Eosinophils 4.1 % (0.0-10.0); %Lymphocytes 18.8 % (21.0-51.0); %Monocytes 9.9 % (0.0-10.0); %Neutrophils 66.2 % (42.0-75.0); Hemoglobin 10.2 g/dL (12.0-16.0); Mean Corpuscular HGB CONC 33.8 g/dL (32.0-36.0); Mean Corpuscular Hemoglobin 27.7 pg (27.0-31.0); Mean Corpuscular Volume 81.9 fL (78.0-98.0); Mean Platelet Volume 6.6 fL (7.4-10.4); Platelet Count 439 thou/uL (130-400); RBC Distribution Width 14.2 % (11.5-14.5); Red Blood Cell (RBC) Count 3.69 mill/uL (4.20-5.40); White Blood Cell (WBC) Count 5.9 thou/uL (4.8-10.8)
[2018-06-08 23:00] LABS: ALT (SGPT) Less than 7 U/L (8-55); AST (SGOT) 12 U/L (5-34); Albumin 2.5 g/dL (3.5-5.0); Alkaline Phosphatase 299 U/L (40-150); Anion Gap 17 mmol/L (10-20); BUN (Urea Nitrogen) 47 mg/dL (7.0-18.7); Bilirubin, Total 0.3 mg/dL (0.2-1.2); Calc. Creatinine Clearance 0 mL/min (70-130); Calcium 8.8 mg/dL (7.8-10.44); Carbon Dioxide 17 mmol/L (22-29); Chloride 108 mmol/L (98-107); Estimated GFR-MDRD 11; Globulin 3.7 g/dL (2.4-3.5); Glucose 135 mg/dL (70-105); Potassium 4.5 mmol/L (3.5-5.1); Protein, Total 6.2 g/dL (6.0-8.3); Sodium 137 mmol/L (136-145)
[2018-06-08 23:17] LABS: PTT 81.7 SEC (22.9-36.1); Prothrombin Time 41.2 SEC (12.0-14.7)
[2018-06-08 23:19] LABS: INR-International Normal Ratio 4.3
[2018-06-08] MEDS ORDERED: Clindamycin/D5W 600 mg/50 ml Premix Bag ONE (23:21)
--- NOTE | 2018-06-09 02:10 | HP ---
PRIMARY CARE PHYSICIAN: Eric Arenas. REASON FOR ADMISSION: Bilateral lower extremity cellulitis. HISTORY OF PRESENT ILLNESS: A 43-year-old female who has underlying history of diabetes, hypertension, hypothyroidism, chronic venous insufficiency as well as chronic kidney disease. The patient came to emergency room for evaluation of bilateral lower extremity wound which was draining. The patient reports that she was recently hospitalized at [facility] and released. The patient was admitted there for wound infection. The patient reports that after discharge, the patient was having home health and wound care, but the patient's wound was not improving and it was gradually draining more and more serous fluid. The patient was having more and more pain in her both lower extremities. Her wound was getting worse, that is why she decided to come to emergency room for evaluation. The patient denies any fever or chills. She denies any UTI symptoms. She denies any constipation or diarrhea. The patient also temporarily kept on dialysis and she does have a hemodialysis catheter in place. REVIEW OF SYSTEMS: CONSTITUTIONAL: Negative for weight loss or gain, ability to conduct usual activities. SKIN: Negative for rash, itching. EYES: Negative for double vision, pain. ENT/MOUTH: Negative for nose bleeding, neck stiffness, pain, tenderness. CARDIOVASCULAR: Negative for palpitations, dyspnea on exertion, orthopnea. RESPIRATORY: Negative for shortness of breath, wheezing, cough, hemoptysis, fever or night sweats. GASTROINTESTINAL: Negative for poor appetite, abdominal pain, heartburn, nausea, vomiting, constipation, or diarrhea. GENITOURINARY: Negative for urgency, frequency, dysuria, nocturia. MUSCULOSKELETAL: Negative for pain, swelling. NEUROLOGIC/PSYCHIATRIC: Negative for anxiety, depression. ALLERGY/IMMUNOLOGIC: Negative for skin rash, bleeding tendency. Please see my HPI for pertinent positives and negatives. All other review of systems reviewed and negative except as mentioned in HPI. PAST MEDICAL HISTORY: Diabetes type 2, hypertension, hypothyroidism, chronic venous insufficiency, chronic stasis dermatitis, lymphedema of lower extremity. PAST SURGICAL HISTORY: Cholecystectomy, tympanostomy tube placement, x2. PAST PSYCHIATRIC HISTORY: Anxiety, depression, bipolar disorder, schizophrenia. CURRENT HOME MEDICATIONS: The patient does not have any medication with her at this point, but the patient was discharged from our hospital recently and the patient is on: 1. Ferrous sulfate 325 mg p.o. daily. 2. Lasix 120 mg p.o. daily. 3. Levothyroxine 125 mcg p.o. daily. 4. Humalog 10 units subcu t.i.d. 5. Ranitidine 150 mg b.i.d. 6. Protonix 40 mg daily. 7. Amlodipine 10 mg daily. 8. Flexeril 10 mg t.i.d. p.r.n. 9. Magnesium oxide 400 mg p.o. daily. 10. MiraLAX 17 g p.o. daily. 11. Tramadol p.r.n. basis. ALLERGIES: PENICILLIN, ADHESIVE TAPE. FAMILY HISTORY: No strong family history of premature coronary artery disease, stroke, or cancer. SOCIAL HISTORY: The patient lives at home. No history of tobacco, alcohol, or illicit drug abuse. EMERGENCY ROOM COURSE: The patient has received levofloxacin, clindamycin, IV fluid. PHYSICAL EXAMINATION: VITAL SIGNS: Currently, blood pressure 167/89, pulse 109, respiratory rate 20, temperature 98.8, saturation 100% on room air, weight 104.3 kg. GENERAL: The patient is currently alert, awake, chronically ill, hypertensive. No obvious acute distress. Poor general hygiene. HEENT: Normocephalic, atraumatic. Eyes; pupils are round, reactive to light. Extraocular muscle intact. ENT, oropharynx within normal limits. Moist mucous membranes. No oral lesion. No pharyngeal erythema. No exudate. NECK: Supple. No JVD. No thyromegaly. No carotid bruit. LUNGS: Clear to auscultation without any rhonchi or rales. CARDIAC: S1 and S2 regular. Tachycardia. No murmur. No gallop. No rub. ABDOMEN: Obesity present. Bowel sounds present. Nontender. Nondistended. No organomegaly. No mass. No suprapubic tenderness. BACK: Unremarkable. No CVA tenderness. EXTREMITIES: Upper extremity, left upper extremity AV fistula hemodialysis catheter in place. Lower extremity, bilateral lower extremity wound noted. The patient does have weeping and foul-smelling discharge coming through the wound, chronic venous stasis changes and lymphedema. NEUROLOGIC: Nonfocal. SKIN: The patient does have chronic lymphedema and chronic venous stasis changes in both lower extremities with venous ulcer. PSYCHIATRIC: Normal affect. SIGNIFICANT LABORATORY DATA: X-ray of lower extremity showing no evidence of osteomyelitis. CBC: WBC 5.9, hemoglobin 10.2, platelets 439. INR 4.3. BMP: Sodium 137, potassium 4.5, chloride 108, carbon dioxide 17, BUN 47, creatinine 4.23, glucose 135, calcium 8.8, lactic acid 1.0. LFT: AST 12, ALT less than 7, alkaline phosphatase 299, albumin 2.5. ASSESSMENT AND PLAN: 1. Bilateral lower extremity cellulitis with chronic venous insufficiency with venous stasis ulcer with lymphedema. The patient will need broad-spectrum antibiotic therapy with Levaquin and clindamycin. The patient will need ID consultation. Wound Care Team will be consulted. 2. Supratherapeutic INR, uncertain etiology. We will obtain the patient's home medication to verify whether the patient is taking any blood thinner medicine. At this point, the patient is not bleeding from any site. 3. Acute on chronic kidney failure. Nephrology will be consulted. The patient has tunneled hemodialysis catheter which needs to be removed. 4. Anemia of renal disease. Procrit will defer to Nephrology. We will continue with Nephro-Sabino one tablet p.o. daily. 5. Hypothyroidism. We will continue Synthroid as per home dosage. 6. Diabetes type 2. We will continue insulin as per sliding scale protocol. Diabetic diet will be given. 7. Gastroesophageal reflux disease. Pepcid 20 mg p.o. daily. 8. Morbid obesity. Dietary education given. Weight loss education given. Healthy lifestyle measure discussed with the patient. 9. Deep venous thrombosis prophylaxis. No Lovenox because of supratherapeutic INR. 10. Gastrointestinal prophylaxis, Pepcid 20 mg p.o. daily. CODE STATUS: The patient is full code. DISPOSITION PLAN: Based on clinical course, we are expecting the patient's stay in hospital more than 2 midnights. Plan of care discussed with the patient in detail. Job ID: [id number]
[2018-06-09] MEDS ORDERED: Loperamide HCl 2 MG CAP PO PRN (02:28)
[2018-06-09] MEDS ORDERED: Dextrose 50% Abboject 50 ML SYRINGE SLOW IVP PRN (02:28)
[2018-06-09] MEDS ORDERED: HumaLOG 300 UNITS/3 ML VIAL SC PRN ×2 (02:28)
[2018-06-09] MEDS ORDERED: Eucerin (Mineral Oil/Petrolatum,White) 30 gm Jar TOP PRN (02:28)
[2018-06-09] MEDS ORDERED: Bisacodyl 10 MG SUPP PR PRN (02:28)
[2018-06-09] MEDS ORDERED: Cepastat Lozenges 1 LOZ PO PRN (02:28)
[2018-06-09] MEDS ORDERED: Senokot S 8.6-50 MG TAB PO PRN (02:28)
[2018-06-09] MEDS ORDERED: hydrALAZINE 20 MG/ML VIAL SLOW IVP PRN (02:28)
[2018-06-09] MEDS ORDERED: Loratadine 10 MG TAB PO PRN (02:28)
[2018-06-09] MEDS ORDERED: Dextrose 5% in Water 1,000 ML IV PRN (02:28)
[2018-06-09] MEDS ORDERED: Sodium Chloride 0.65% Nasal 44 ML BOT EA NARE PRN (02:28)
[2018-06-09] MEDS ORDERED: Bisacodyl 5 MG TAB PO PRN (02:28)
[2018-06-09] MEDS ORDERED: Zolpidem Tartrate 5 MG TAB PO PRN (02:28)
[2018-06-09] MEDS ORDERED: Calcium Carbonate 500 MG ChewTAB PO PRN (02:28)
[2018-06-09] MEDS ORDERED: HYDROcodone/Acetaminophen 5/325 mg Tablet PO PRN (02:28)
[2018-06-09] MEDS ORDERED: Artificial Tears 18 DROP/0.9 ML EA EYE PRN (02:28)
[2018-06-09 03:40] VITALS: BMI 32.3
[2018-06-09] MEDS: Clindamycin/D5W 600 MG in Premix Bag 1 BAG IVPB SCH ×2 (05:19→13:28)
[2018-06-09] MEDS: Saccharomyces boulardii 250 MG CAP PO SCH (08:54)
[2018-06-09] MEDS: Folic Acid/Vit B Comp W-C PO SCH (08:54)
[2018-06-09] MEDS: Famotidine 20 MG TAB PO SCH (08:55)
[2018-06-09 09:24] LABS: #Basophils 0.1 thou/uL (0.0-0.2); #Eosinphils 0.3 thou/uL (0.0-0.7); #Lymphocytes 0.9 thou/uL (1.20-3.40); #Monocytes 0.7 thou/uL (0.11-0.59); #Neutrophils 4.5 thou/uL (1.40-6.50); %Basophils 0.9 % (0.0-1.0); %Monocytes 11.1 % (0.0-10.0); %Neutrophils 70.1 % (42.0-75.0); Hemoglobin 9.1 g/dL (12.0-16.0); Mean Corpuscular HGB CONC 32.3 g/dL (32.0-36.0); Mean Corpuscular Hemoglobin 26.4 pg (27.0-31.0); Mean Corpuscular Volume 81.8 fL (78.0-98.0); Mean Platelet Volume 6.7 fL (7.4-10.4); Platelet Count 360 thou/uL (130-400); RBC Distribution Width 14.3 % (11.5-14.5); Red Blood Cell (RBC) Count 3.45 mill/uL (4.20-5.40); White Blood Cell (WBC) Count 6.4 thou/uL (4.8-10.8)
[2018-06-09] MEDS ORDERED: Lidocaine 1% w/Epinephrine 1:100K 20 ML VIAL ONE (11:03)
--- NOTE | 2018-06-09 14:15 | PDOC.PN ---
- Subjective Encounter Start Date: 06/09/18 Encounter Start Time: 08:45 Subjective: is nauseous, no leg pain - Objective Resuscitation Status - Order Detail: 06/09/18 01:36 Resuscitation Status Routine Resuscitation Status: FULL: Full Resuscitation MAR Reviewed: Yes Vital Signs & Weight: Vital Signs (12 hours) Temp Pulse Resp BP BP Pulse Ox 06/09/18 11:13 98.8 F 92 18 165/91 H 92 L 06/09/18 08:00 90 L 06/09/18 04:00 98.4 F 102 H 18 171/93 H 90 L 06/09/18 03:20 105 H 180/109 H 06/09/18 02:25 98.4 F 105 H 18 180/109 H 97 Weight Weight 218 lb 9.6 oz I&O: 06/08/18 06/09/18 06/10/18 06:59 06:59 06:59 Intake Total 250 240 Balance 250 240 Result Diagrams: 06/09/18 09:08 06/08/18 22:28 Additional Labs: Accuchecks 06/09/18 06/09/18 11:13 04:52 POC Glucose 144 H 102 Phys Exam - Physical Examination HEENT: PERRLA, moist MMs Neck: no JVD, supple Respiratory: no wheezing, no rales Cardiovascular: RRR, no significant murmur Gastrointestinal: soft, non-tender, positive bowel sounds Musculoskeletal: pulses present, edema present Neurological: non-focal, moves all 4 limbs Psychiatric: A&O x 3 Dx/Plan (1) Stasis dermatitis Code(s): I87.2 - VENOUS INSUFFICIENCY (CHRONIC) (PERIPHERAL) Status: Acute Qualifiers: Laterality: bilateral Qualified Code(s): I87.2 - Venous insufficiency ( chronic) (peripheral) Comment: with sec bacterial infection (2) [id number] kidney injury Code(s): N17.9 - ACUTE KIDNEY FAILURE, UNSPECIFIED; N18.9 - CHRONIC KIDNEY DISEASE, UNSPECIFIED Status: Acute Qualifiers: Chronic kidney disease stage: stage 4 (severe) (3) Anemia of chronic disease Code(s): D63.8 - ANEMIA IN OTHER CHRONIC DISEASES CLASSIFIED ELSEWHERE Status : Chronic (4) Hypertension Code(s): I10 - ESSENTIAL (PRIMARY) HYPERTENSION Status: Chronic Qualifiers: Hypertension type: essential hypertension (5) Diabetes mellitus type 2, insulin dependent Code(s): E11.9 - TYPE 2 DIABETES MELLITUS WITHOUT COMPLICATIONS; Z79.4 - DAY CARE PROVIDER (CURRENT) USE OF INSULIN Status: Chronic (6) Diabetic neuropathy Code(s): E11.40 - TYPE 2 DIABETES MELLITUS WITH DIABETIC NEUROPATHY, UNSP Status: Chronic Qualifiers: Diabetes mellitus type: type 2 (7) Dyslipidemia Code(s): E78.5 - HYPERLIPIDEMIA, UNSPECIFIED Status: Chronic (8) Hypothyroidism Code(s): E03.9 - HYPOTHYROIDISM, UNSPECIFIED Status: Chronic Qualifiers: Hypothyroidism type: unspecified Qualified Code(s): E03.9 - Hypothyroidism , unspecified - Plan hemostable. PT to mobilize as tolerated -: wound care, is on clinda and levaquin -: recent h/o osteomyelitis and recurrent hospitalization -: will need skilled placement for wounds to heal -: hold coumadin today and tomorrow * . Review of Systems - Medications/Allergies Allergies/Adverse Reactions: Allergies Allergy/AdvReac Type Severity Reaction Status Date / Time adhesive tape Allergy Mild Verified 09/12/16 04:35 Penicillins Allergy Verified 09/12/16 04:35 Medications: Current Medications Acetaminophen (Tylenol) 650 mg PO Q4H PRN PRN Reason: Headache/Fever/Mild Pain (1-3) Hydrocodone Bitart/Acetaminophen ([place] 5/325) 1 tab PO Q4H PRN PRN Reason: Moderate Pain (4-6) Artificial Tears (Tears Naturale) 2 drop EA EYE PRN PRN PRN Reason: Dry Eyes Bisacodyl (Dulcolax) 10 mg PO DAILYPRN PRN PRN Reason: Constipation Bisacodyl (Dulcolax) 10 mg MA DAILYPRN PRN PRN Reason: Constipation Calcium Carbonate (Tums) 1,000 mg PO Q4H PRN PRN Reason: Heartburn or Indigestion Dextrose/Water (Dextrose 50%) 25 gm SLOW IVP PRN PRN PRN Reason: Hypoglycemia Famotidine (Pepcid) 20 mg PO DAILY DARYN Last Admin: 06/09/18 08:55 Dose: 20 mg Glucagon (Glucagon) 1 mg IM PRN PRN PRN Reason: Hypoglycemia Guaifenesin (Robitussin Sf) 200 mg PO Q4H PRN PRN Reason: Cough Hydralazine HCl (Apresoline) 10 mg SLOW IVP Q4H PRN PRN Reason: SBP > 180 and HR < 70 Last Admin: 06/09/18 03:20 Dose: 10 mg Levofloxacin 750 mg/ Device 150 mls @ 100 mls/hr IVPB Q2DAYS [facility] Clindamycin Phosphate/Dextrose (600 mg/ Device) 50 mls @ 100 mls/hr IVPB Q8HR [facility] Last Admin: 06/09/18 13:28 Dose: 50 mls Dextrose/Water (D5w) 1,000 mls @ 0 mls/hr IV .Q0M PRN PRN Reason: Hypoglycemia Insulin Human Lispro (Humalog) 0 units SC .MODERATE SLIDING SC PRN PRN Reason: Moderate Correctional Scale Insulin Human Lispro (Humalog) 0 units SC .BEDTIME SLIDING SC PRN PRN Reason: Bedtime Correctional Scale Loperamide HCl (Imodium) 2 mg PO PRN PRN PRN Reason: Diarrhea/Loose Stools Loratadine (Claritin) 10 mg PO DAILYPRN PRN PRN Reason: Sinus Symptoms Mineral Oil/White Petrolatum (Eucerin Cream) 0 gm TOP BIDPRN PRN PRN Reason: Dry Skin Saccharomyces Boulardii (Florastor) 250 mg PO DAILY [facility] Last Admin: 06/09/18 08:54 Dose: 250 mg Senna/Docusate Sodium (Senokot S) 2 tab PO BID PRN PRN Reason: Constipation Sodium Chloride ([place] Nasal [place] 0.65%) 0 ml EA NARE QIDPRN PRN PRN Reason: Nasal Congestion Sodium Chloride (Flush - Normal Saline) 10 ml IVF Q12HR [facility] Last Admin: 06/09/18 08:55 Dose: 10 ml Sodium Chloride (Flush - Normal Saline) 10 ml IVF PRN PRN PRN Reason: Saline Flush Throat Lozenges (Cepastat Lozenges) 1 reymundo PO Q2H PRN PRN Reason: Sore Throat Vitamin B Complex/Vit C/Folic Acid (Nephro-Sabino Tablet) 1 tab PO DAILY [facility] Last Admin: 06/09/18 08:54 Dose: 1 tab Zolpidem Tartrate (Ambien) 5 mg PO HSPRN PRN PRN Reason: Insomnia
[2018-06-09] MEDS: Sulfameth/Trimethoprim DS 800-160mg TAB PO SCH (20:26)
[2018-06-09] MEDS: Ciprofloxacin 500 MG TAB PO SCH (20:26)
--- NOTE | 2018-06-09 20:47 | HP ---
HISTORY OF PRESENT ILLNESS: Roxy Snow is a 43-year-old female, seen by me on 03/31/2018, end-stage renal disease, where before I saw her, she had a Trialysis catheter placed in the right IJ and antecubital IV in her left arm. These were immediately removed and she was taken for right IJ cuffed tunneled dialysis catheter. She had a left arm fistula placed and did not follow up with me, and this is since thrombosed. Apparently, her kidney function improved and she has not dialyzed since March. Her hemodialysis catheter IJ has not been flushed or maintained, or dressed since that time. She was discharged home on previous admission in March with instructions to follow up with me, but did not. I have been asked to see her regarding removal of her hemodialysis catheter. She will need dialysis in the future, and Dr. Juan has asked me to see her regarding placement of a fistula. When I saw her in her room today, she had an antecubital IV in her right arm. It was immediately removed. I have evaluated her hemodialysis catheter, and one of the ports aspirated and flushed well, but the other one is occluded. This is such a senescent catheter that we will remove it today. I would recommend outpatient surgery for a right arm fistula or graft to June 24, 2018. We will remove her hemodialysis catheter. ALLERGIES: ADHESIVE TAPE AND PENICILLIN. HABITS: Tobacco, none. Alcohol, none. PAST SURGICAL HISTORY: Cholecystectomy, tympanoplasty, , hemodialysis catheters placement. PAST MEDICAL HISTORY: Diabetes mellitus type 2, morbid obesity, hypertension, anxiety, schizophrenia, bipolar illness, hypothyroidism. PHYSICAL EXAMINATION: VITAL SIGNS: Height 5 feet 9 inches, weight 218 pounds, 32 BMI, temperature 99.2, pulse 86, blood pressure 173/97. Her antecubital IV, right arm. Left arm fistula thrombosed. No thrill or bruit. LUNGS: Clear to auscultation. CARDIAC: Regular and rhythm without murmur or gallop. ABDOMEN: Soft, obese, nontender. EXTREMITIES: Unremarkable. Dressings on lower extremities not removed. LABORATORY DATA: GFR 11. ASSESSMENT/PLAN: 1. Right antecubital IV removed immediately. We will plan placement of right arm fistula or graft in the future, orders to not place an IV in her right arm. The patient is very emotional and even touching her, talking to her results in emotional response and teary eyes. 2. Schizophrenia, bipolar illness. 3. Allergies to penicillin. 4. Chronic kidney disease, will need dialysis soon. Job ID: [id number]
--- NOTE | 2018-06-09 23:27 | CON ---
DATE OF CONSULTATION: REASON FOR CONSULTATION: Extremity wounds. HISTORY OF PRESENT ILLNESS: This is a 43-year-old patient with history of type 2 diabetes mellitus and chronic renal insufficiency with hypertension, neuropathy , and multiple prior admissions to [facility] for complications related to her chronic illnesses including urinary tract infections, uncontrolled hyperglycemia , falls associated with myopathy, neuropathy. Also gluteal ulcerations from mobility impairment. In 2015, she had ulcerations in the lower extremities. The biopsies demonstrated leukocytoclastic vasculitis. She continues to receive wound care from Dr. Howard and I could not find any biopsy results, it is just reported in Dr. Howard's notes. She was never seen by Rheumatology because of lack of insurance, and it is not clear she ever was treated with corticosteroids. The ulcerations improved over and , and granulation tissue developed. On 04/22, she had a syncopal event due to volume depletion with hypomagnesemia and then in March , she presented with multiple foot wounds, somnolence, and acute renal failure. The impression then was type 2 diabetes, myopathy, neuropathy, chronic ulcers, which with previous diagnosis of leukocytoclastic vasculitis with improvement, poor self-care with pressure areas in the feet, Staphylococcus aureus bacteremia due to the foot lesions, acute renal failure following the bacteremia. She developed evidence of ischemic necrosis of the left fifth toe and had amputation of that toe with apparent viability at the amputation margin. She required hemodialysis for the acute renal insufficiency and had a tunneled catheter placed in the right IJ location. She was discharged on Flagyl and Rocephin and she never came for follow up in the clinic, looks like she did finish her course of IV antimicrobial therapy treatment. At this time, she presents with evaluation of lower extremity wound, which we will have to do drainage. Reportedly was admitted to the hospital in [place] and released recently, but she did not perceive improvement in the wound appearance and she came to this hospital. She also refers to upper respiratory symptoms and apparently, there is some upper respiratory illness going on in her family. No headaches. No visual symptoms, sore throat, odynophagia, or dysphagia. No dyspnea or chest pain. No abdominal pain. The hemodialysis catheter was just removed and apparently, she did not have any dialysis after leaving the hospital last time. PAST MEDICAL HISTORY: Type 2 diabetes, hypertension, hypothyroidism, renal insufficiency stage 3 and then acute on chronic renal insufficiency requiring dialysis catheter placement, lymphedema in lower extremities, chronic foot ulcers, pressure ulcerations, mobility impairment, neuropathy, myopathy. PAST SURGICAL HISTORY: Tympanostomy tube placement, cholecystectomy, . ALLERGIES: PENICILLIN AND ADHESIVE TAPE. FAMILY HISTORY: Noncontributory. SOCIAL HISTORY: Lives in [place]. Former smoker. No illicit drug use or alcoholic beverage use. CURRENT MEDICATIONS: 1. [place]. 2. Dulcolax. 3. Tums. 4. Cipro. 5. Glucagon. 6. Loperamide. 7. Imodium. 8. Bactrim. PHYSICAL EXAMINATION: VITAL SIGNS: T-max 98.4, blood pressure 160/91, pulse 92, respirations 18, O2 saturation 99% to 92%. SKIN: Shows areas of bruising and shallow maceration of the skin of the gluteal region bilaterally. Some superficial tissue damage. She has bilateral lymphedema of the lower extremities. Hypertrophic scars from previous ulcers. There is pink erythema in the left leg mid aspect with an ulcerated triangular-shaped ulcer along the lateral aspect of mid left leg. Another triangular-shaped smaller ulceration at the juncture of the leg with the foot. Those pink lesions are not really suggestive of cellulitis, more of a sort of hypertrophic granulation tissue. There is a lot of hyperkeratosis surrounding this area with some brownish pigmentation. The fifth toe amputation site has a dark eschar at the base, but no inflammatory changes surrounding it, there is a little bit of undermining. The underside of the toes has some debris and some hyperkeratosis, brownish pigmentation. There is an ulcer at the bottom aspect of the left heel with about 50% yellow tissue and 50% red hypergranulation tissue. There is no lymphadenopathy. The patient has a peripheral IV access. Previously noted hemodialysis catheter has been removed and she is voiding in the bedside commode. HEENT: Ocular movements conjugate. Pupils are equal. Oral cavity with no tuscarora teeth remaining in place. NECK: Supple. No jugular venous distention or carotid bruits. LUNGS: Symmetric air entry. HEART: S1 and S2, regular rate. No S3 or S4. ABDOMEN: Soft. Not distended or tender. No ascites. No bladder distention. MUSCULOSKELETAL: No joint inflammatory activity. I could not feel pulses due to the dressing which was not removed. She moves extremities on command. NEURO: She is awake, oriented. Follows commands. LABORATORY DATA: White cell count 5.9 and 6.4, hemoglobin 10, MCV 81 with platelets 360 and 70% neutrophils. INR 4.3, potassium 4.5, creatinine 4.23, which is a little higher than her baseline of 3.03. Transaminases normal, alkaline phosphatase 299. CRP 5.92, albumin 2.5, globulin 3.7. Two sets of blood cultures are pending at this time. Imaging include a foot x-ray. This is the left foot with soft tissue swelling, amputation of 5th digit. No destructive changes noted. Previous MRI of the lower extremity in March with osteomyelitis of the small toe metatarsal head with adjacent underlying ulcer. ASSESSMENT: 1. Type 2 diabetes, stage 5 renal insufficiency with recent dialysis access which has been removed because the patient is not going to require dialysis for the time being. 2. Chronic lymphedema, chronic ulcers in lower extremities, previously identified as secondary to leukocytoclastic vasculitis. Those have for the most part healed and now just left with hypertrophic scars from the previous ulcerations. She has a couple of ulcers in the left leg and a large ulcer in the heel area, left side. The depth of penetration of those ulcers is unclear because the base is covered by dark eschar. I think she had a vascular evaluation of lower extremities in the past. DISCUSSION: At this point, I do not see evidence to suggest cellulitis of the lower extremities. She does have those ulcers that need to be either chemically debrided or surgically debrided. Repeat MRI of the left foot particularly to evaluate the distal 5th ray as well as the heel area for signs of osteomyelitis would be useful. I will order arterial duplex ultrasound to evaluate vascular supply to lower extremities. Job ID: [id number] [facility]
--- NOTE | 2018-06-10 04:35 | CON ---
DATE OF CONSULTATION: 06/09/2018 CONSULTING PHYSICIAN: Brett Jackman M.D. REASON FOR CONSULT: Acute kidney injury. REASON FOR ADMISSION: Cellulitis. HISTORY OF PRESENT ILLNESS: This is a 43-year-old female with morbid obesity, type 2 diabetes, hypertension, hypothyroidism, came to the hospital with above complaints. Nephrology consulted for acute kidney injury. She was seen by Dr. Rivera in the past and was even on dialysis who went home with a tunneled dialysis catheter without much followup. The patient denies any nausea, vomiting, shortness of breath. She has this tunnelled catheter, which is not taken care of and wants to remove it. She was recently hospitalized at the [place]. The patient was admitted for cellulitis. PAST MEDICAL HISTORY: Positive for diabetes type 2, hypertension, hypothyroidism, lymphedema. PAST SURGICAL HISTORY: Cholecystectomy and . HOME MEDICATIONS: 1. Ferrous sulfate. 2. Lasix. 3. Levothyroxine. 4. Humalog. 5. Ranitidine. 6. Protonix. 7. Amlodipine. 8. Flexeril. 9. Magnesium oxide. 10. MiraLAX. 11. Tramadol. ALLERGIES: ADHESIVE TAPE, ALLERGIES: ADHESIVE TAPE, PENICILLIN. SOCIAL HISTORY: No smoking, alcohol or illicit drugs. FAMILY HISTORY: No history of any kidney disease. REVIEW OF SYSTEMS: CONSTITUTIONAL: Negative for weight loss or gain, ability to conduct usual activities. SKIN: Negative for rash, itching. EYES: Negative for double vision, pain. ENT/MOUTH: Negative for nose bleeding, neck stiffness, pain, tenderness. CARDIOVASCULAR: Negative for palpitations, dyspnea on exertion, orthopnea. RESPIRATORY: Negative for shortness of breath, wheezing, cough, hemoptysis, fever or night sweats. GASTROINTESTINAL: Negative for poor appetite, abdominal pain, heartburn, nausea, vomiting, constipation, or diarrhea. GENITOURINARY: Negative for urgency, frequency, dysuria, nocturia. MUSCULOSKELETAL: Negative for pain, swelling. NEUROLOGIC/PSYCHIATRIC: Negative for anxiety, depression. ALLERGY/IMMUNOLOGIC: Negative for skin rash, bleeding tendency. PHYSICAL EXAMINATION: GENERAL: Reveals a morbidly obese female, in no apparent distress. VITAL SIGNS: Temperature is 98.4, pulse 102, respirations 18, blood pressure 170/93. HEENT: Atraumatic and normocephalic. Oral mucosa is moist. NECK: Supple. CVS: S1 and S2 heard. Regular rate and rhythm. RESPIRATORY: Clear. GASTROINTESTINAL: Abdomen is soft. MUSCULOSKELETAL: 1+ edema. DERMATOLOGIC: No skin rash. NEUROLOGIC: Alert and awake. PSYCHIATRIC: Mood and affect normal. LABORATORY DATA: Hemoglobin is 9.1, potassium is 4.5. BUN is 47, creatinine 4.2. ASSESSMENT AND PLAN: 1. Acute kidney injury on chronic kidney disease stage 4, repeat labs. the patient wants to remove the tunnelled dialysis catheter. We will follow. 2. Metabolic acidosis. 3. Edema. 4. Anemia, chronic and agree with iron deficiency. Check serum iron for iron deficiency. 5. . We will continue close monitoring. We will follow. Job ID: [id number]
[2018-06-10] MEDS: Ciprofloxacin 500 MG TAB PO SCH ×2 (06:21→20:06)
[2018-06-10 07:09] LABS: Anion Gap 12 mmol/L (10-20); BUN (Urea Nitrogen) 41 mg/dL (7.0-18.7); BUN/Creatinine Ratio 11.42; Calc. Creatinine Clearance 31 mL/min (70-130); Calcium 8.6 mg/dL (7.8-10.44); Carbon Dioxide 18 mmol/L (22-29); Chloride 109 mmol/L (98-107); Estimated GFR-MDRD 14; Glucose 88 mg/dL (70-105); Iron 24 ug/dL (50-170); Iron Binding Capacity, Total 96 mcg/dL (265-497); Phosphorus 5.6 mg/dL (2.3-4.7); Potassium 4.3 mmol/L (3.5-5.1); Sodium 135 mmol/L (136-145)
[2018-06-10] MEDS: Folic Acid/Vit B Comp W-C PO SCH (10:08)
[2018-06-10] MEDS: Sulfameth/Trimethoprim DS 800-160mg TAB PO SCH ×2 (10:09→20:06)
[2018-06-10] MEDS: Saccharomyces boulardii 250 MG CAP PO SCH (10:09)
[2018-06-10] MEDS: Famotidine 20 MG TAB PO SCH (10:09)
--- NOTE | 2018-06-10 10:46 | OP ---
DATE OF PROCEDURE: 06/09/2018 PREOPERATIVE DIAGNOSIS: Senescent right IJ catheter and need for removal, right antecubital IV immediately removed. She will need dialysis access right arm in the future with a left arm thrombosed fistula. Morbid obesity. POSTOPERATIVE DIAGNOSIS: Senescent right IJ catheter and need for removal, right antecubital IV immediately removed. She will need dialysis access right arm in the future with a left arm thrombosed fistula. Morbid obesity. PROCEDURE PERFORMED: Removal of right IJ cuffed tunneled dialysis catheter. ANESTHESIA: 1% Xylocaine with epinephrine. DESCRIPTION OF PROCEDURE: With the patient was at bedside, after alcohol prep, the catheter exit site was anesthetized with local anesthetic and catheter and cuff freed and removed and pressure held until hemostatic. Patient tolerated the procedure well. Job ID: [id number]
--- NOTE | 2018-06-10 12:17 | PRG ---
DATE OF SERVICE: 06/10/2018 SUBJECTIVE: Patient was seen and examined at bedside and overnight events noted. Patient denies any shortness of breath or chest pain or palpitation. No history of nausea or vomiting or diarrhea or fever or chills or cramps. OBJECTIVE: GENERAL: This is an obese female, in no apparent distress. VITAL SIGNS: Temperature 98.5. Heart rate 73. Respiratory rate 18. Blood pressure 156/89. HEENT: Atraumatic, normocephalic. Oral mucosa is moist NECK: Supple. CARDIOVASCULAR: S1, S2 heard. Rate and rhythm regular. RESPIRATORY: Clear to auscultation. GASTROINTESTINAL: Abdomen is soft. MUSCULOSKELETAL: No tenderness. No edema. DERMATOLOGIC: No skin rash. NEUROLOGIC: Alert and awake and oriented X3. No focal neurologic deficits. Moving all the extremities. PSYCHIATRIC: Mood and affect normal. LABORATORY DATA: Potassium is 4.3, BUN is 41, and creatinine is 3.5. ASSESSMENT AND PLAN: 1. Acute kidney injury on chronic kidney disease, stage 5. Slight improvement in renal function. 2. Metabolic acidosis. We will follow. 3. Anemia. 4. Edema, controlled. 5. Hypertension, stable. 6. Obesity. 7. Hypoalbuminemia. We will check for proteinuria. 8. Prognosis, guarded. No acute indication for dialysis. Dialysis catheter removed. Appreciate help from Dr. Reynaga. We will follow. Job ID: [id number]
--- NOTE | 2018-06-10 13:57 | MRI ---
MRI LEFT HINDFOOT WITHOUT CONTRAST: Date: 06/10/18 HISTORY: Osteomyelitis. Heel ulcer. COMPARISON: MRI dated 03/11/18. FINDINGS: Bones: There is loss of normal T1 marrow signal of the posterior process of the calcaneus with an adjacent s ubcortical insufficiency fracture. From the cortex, the signal abnormality extends for a length of 1. 5 cm. There is mild edema, reactive, throughout the calcaneal body. There are some reactive marrow changes of the distal fibula posteriorly. There is extensive tenosynovitis of the flexor tendons, including the tibialis posterior, flexor digi torum, flexor hallucis longus, as well as the peroneal tendons. Achilles tendon is intact. Moderate r etrocalcaneal bursa effusion. There is extensive superficial soft tissue swelling. There is extensive midfoot swelling. Mild edema throughout the intrinsic musculature of the visualized portion of the m id foot. There is fluid surrounding the fifth metatarsal, incompletely evaluated on this forefoot exam with so me reactive marrow edema. IMPRESSION: 1. Large soft tissue ulcer of the posterior process of the calcaneus with underlying osteomyelitis f or a length of 1.5 cm from the cortex. There is abnormal appearance of the lateral band of the planta r fascia concerning for tracking of infection along the lateral band. 2. Extensive soft tissue swelling throughout the hindfoot and ankle with abnormal tenosynovial fluid of the extensor flexure and peroneal tendons. This may be sequelae of tenosynovitis as well as cellu litis of the superficial soft tissues. POS: CET
--- NOTE | 2018-06-10 14:18 | PDOC.PN ---
- Subjective Encounter Start Date: 06/10/18 Encounter Start Time: 08:50 Subjective: no nausea or abd pain this am -: feels better - Objective Resuscitation Status - Order Detail: 06/09/18 01:36 Resuscitation Status Routine Resuscitation Status: FULL: Full Resuscitation MAR Reviewed: Yes Vital Signs & Weight: Vital Signs (12 hours) Temp Pulse Resp BP BP Pulse Ox 06/10/18 11:22 98.5 F 73 18 156/89 H 93 L 06/10/18 08:00 97 06/10/18 04:00 98.7 F 76 18 161/84 H 97 Weight Weight 218 lb 9.6 oz I&O: 06/09/18 06/10/18 06/11/18 06:59 06:59 06:59 Intake Total 250 1020 600 Balance 250 1020 600 Result Diagrams: 06/09/18 09:08 06/10/18 06:10 Additional Labs: Accuchecks 06/10/18 06/10/18 06/09/18 11:23 04:50 19:17 POC Glucose 113 H 105 100 06/09/18 17:00 POC Glucose 113 H Phys Exam - Physical Examination HEENT: PERRLA, moist MMs Neck: no JVD, supple Respiratory: no wheezing, no rales Cardiovascular: RRR, no significant murmur Gastrointestinal: soft, non-tender, positive bowel sounds Musculoskeletal: pulses present, edema present Neurological: non-focal, moves all 4 limbs Psychiatric: normal affect, A&O x 3 Dx/Plan (1) Stasis dermatitis Code(s): I87.2 - VENOUS INSUFFICIENCY (CHRONIC) (PERIPHERAL) Status: Acute Qualifiers: Laterality: bilateral Qualified Code(s): I87.2 - Venous insufficiency ( chronic) (peripheral) Comment: with sec bacterial infection (2) [id number] kidney injury Code(s): N17.9 - ACUTE KIDNEY FAILURE, UNSPECIFIED; N18.9 - CHRONIC KIDNEY DISEASE, UNSPECIFIED Status: Acute Qualifiers: Chronic kidney disease stage: stage 4 (severe) (3) Anemia of chronic disease Code(s): D63.8 - ANEMIA IN OTHER CHRONIC DISEASES CLASSIFIED ELSEWHERE Status : Chronic (4) Hypertension Code(s): I10 - ESSENTIAL (PRIMARY) HYPERTENSION Status: Chronic Qualifiers: Hypertension type: essential hypertension (5) Diabetes mellitus type 2, insulin dependent Code(s): E11.9 - TYPE 2 DIABETES MELLITUS WITHOUT COMPLICATIONS; Z79.4 - AUTHOR (CURRENT) USE OF INSULIN Status: Chronic (6) Diabetic neuropathy Code(s): E11.40 - TYPE 2 DIABETES MELLITUS WITH DIABETIC NEUROPATHY, UNSP Status: Chronic Qualifiers: Diabetes mellitus type: type 2 (7) Dyslipidemia Code(s): E78.5 - HYPERLIPIDEMIA, UNSPECIFIED Status: Chronic (8) Hypothyroidism Code(s): E03.9 - HYPOTHYROIDISM, UNSPECIFIED Status: Chronic Qualifiers: Hypothyroidism type: unspecified Qualified Code(s): E03.9 - Hypothyroidism , unspecified - Plan MRI shows findings of osteomyelitis -: will likely need bone biopsy for cultures -: await and Ronnell's opinion -: currently on bactrim and cipro per -: to amb as tolerated * . Review of Systems - Medications/Allergies Allergies/Adverse Reactions: Allergies Allergy/AdvReac Type Severity Reaction Status Date / Time adhesive tape Allergy Mild Verified 09/12/16 04:35 Penicillins Allergy Verified 09/12/16 04:35 Medications: Current Medications Acetaminophen (Tylenol) 650 mg PO Q4H PRN PRN Reason: Headache/Fever/Mild Pain (1-3) Hydrocodone Bitart/Acetaminophen ([place] 5/325) 1 tab PO Q4H PRN PRN Reason: Moderate Pain (4-6) Artificial Tears (Tears Naturale) 2 drop EA EYE PRN PRN PRN Reason: Dry Eyes Bisacodyl (Dulcolax) 10 mg PO DAILYPRN PRN PRN Reason: Constipation Bisacodyl (Dulcolax) 10 mg [place] DAILYPRN PRN PRN Reason: Constipation Calcium Carbonate (Tums) 1,000 mg PO Q4H PRN PRN Reason: Heartburn or Indigestion Ciprofloxacin (Cipro) 500 mg PO 0600,1999 [facility] Last Admin: 06/10/18 06:21 Dose: 500 mg Dextrose/Water (Dextrose 50%) 25 gm SLOW IVP PRN PRN PRN Reason: Hypoglycemia Famotidine (Pepcid) 20 mg PO DAILY [facility] Last Admin: 06/10/18 10:09 Dose: 20 mg Glucagon (Glucagon) 1 mg IM PRN PRN PRN Reason: Hypoglycemia Guaifenesin (Robitussin Sf) 200 mg PO Q4H PRN PRN Reason: Cough Hydralazine HCl (Apresoline) 10 mg SLOW IVP Q4H PRN PRN Reason: SBP > 180 and HR < 70 Last Admin: 06/09/18 03:20 Dose: 10 mg Dextrose/Water (D5w) 1,000 mls @ 0 mls/hr IV .Q0M PRN PRN Reason: Hypoglycemia Insulin Human Lispro (Humalog) 0 units SC .MODERATE SLIDING SC PRN PRN Reason: Moderate Correctional Scale Insulin Human Lispro (Humalog) 0 units SC .BEDTIME SLIDING SC PRN PRN Reason: Bedtime Correctional Scale Loperamide HCl (Imodium) 2 mg PO PRN PRN PRN Reason: Diarrhea/Loose Stools Loratadine (Claritin) 10 mg PO DAILYPRN PRN PRN Reason: Sinus Symptoms Mineral Oil/White Petrolatum (Eucerin Cream) 0 gm TOP BIDPRN PRN PRN Reason: Dry Skin Saccharomyces Boulardii (Florastor) 250 mg PO DAILY [facility] Last Admin: 06/10/18 10:09 Dose: 250 mg Senna/Docusate Sodium (Senokot S) 2 tab PO BID PRN PRN Reason: Constipation Sodium Chloride ([place] Nasal [place] 0.65%) 0 ml EA NARE QIDPRN PRN PRN Reason: Nasal Congestion Sodium Chloride (Flush - Normal Saline) 10 ml IVF Q12HR [facility] Last Admin: 06/10/18 10:09 Dose: 10 ml Sodium Chloride (Flush - Normal Saline) 10 ml IVF PRN PRN PRN Reason: Saline Flush Throat Lozenges (Cepastat Lozenges) 1 reymundo PO Q2H PRN PRN Reason: Sore Throat Trimethoprim/Sulfamethoxazole (Bactrim Ds) 1 tab PO BID [facility] Last Admin: 06/10/18 10:09 Dose: 1 tab Vitamin B Complex/Vit C/Folic Acid (Nephro-Sabino Tablet) 1 tab PO DAILY [facility] Last Admin: 06/10/18 10:08 Dose: 1 tab Zolpidem Tartrate (Ambien) 5 mg PO HSPRN PRN PRN Reason: Insomnia
[2018-06-10] MEDS: Ondansetron ODT 4 MG TAB PO PRN (20:06)
[2018-06-10 23:24] LABS: Creatinine, Urine 69.33 mg/dL (47-110)
[2018-06-11] MEDS: Ciprofloxacin 500 MG TAB PO SCH ×2 (05:52→20:08)
[2018-06-11] MEDS: Ondansetron ODT 4 MG TAB PO PRN ×2 (08:46→19:09)
[2018-06-11 09:14] LABS: Albumin 2.3 g/dL (3.5-5.0); Anion Gap 13 mmol/L (10-20); BUN (Urea Nitrogen) 38 mg/dL (7.0-18.7); Calc. Creatinine Clearance 30 mL/min (70-130); Calcium 8.8 mg/dL (7.8-10.44); Carbon Dioxide 18 mmol/L (22-29); Chloride 109 mmol/L (98-107); Estimated GFR-MDRD 13; Glucose 92 mg/dL (70-105); Phosphorus 5.5 mg/dL (2.3-4.7); Potassium 4.7 mmol/L (3.5-5.1); Sodium 135 mmol/L (136-145)
--- NOTE | 2018-06-11 09:26 | PRG ---
DATE OF SERVICE: 06/11/2018 SUBJECTIVE: Patient was seen and examined at bedside and overnight events noted. Patient denies any shortness of breath or chest pain or palpitation. No history of nausea or vomiting or diarrhea or fever or chills or cramps. OBJECTIVE: GENERAL: This is an obese female, in no apparent distress. VITAL SIGNS: Temperature 98.4. Heart rate 82. Respiratory rate 18. Blood pressure 118/72. HEENT: Atraumatic, normocephalic. Oral mucosa is moist NECK: Supple. CARDIOVASCULAR: S1, S2 heard. Rate and rhythm regular. RESPIRATORY: Clear to auscultation. GASTROINTESTINAL: Abdomen is soft. MUSCULOSKELETAL: No tenderness. No edema. DERMATOLOGIC: No skin rash. NEUROLOGIC: Alert and awake and oriented X3. No focal neurologic deficits. Moving all the extremities. PSYCHIATRIC: Mood and affect normal. LABORATORY DATA: Not done today. ASSESSMENT AND PLAN: 1. Acute kidney injury on chronic kidney disease, stage 4 with improvement. Recheck labs. 2. Metabolic acidosis. We will monitor. 3. Edema. 4. Hypertension. 5. Obesity. Plan is to continue and monitor labs. Job ID: [id number]
[2018-06-11] MEDS: Sulfameth/Trimethoprim DS 800-160mg TAB PO SCH ×2 (12:22→20:08)
[2018-06-11] MEDS: Famotidine 20 MG TAB PO SCH (12:23)
[2018-06-11] MEDS: Folic Acid/Vit B Comp W-C PO SCH (12:23)
[2018-06-11] MEDS: Saccharomyces boulardii 250 MG CAP PO SCH (12:24)
--- NOTE | 2018-06-11 15:44 | PDOC.PN ---
- Subjective Encounter Start Date: 06/11/18 Encounter Start Time: 11:35 Subjective: was nauseous last night none now -: feels better -: is amb in room - Objective Resuscitation Status - Order Detail: 06/09/18 01:36 Resuscitation Status Routine Resuscitation Status: FULL: Full Resuscitation MAR Reviewed: Yes Vital Signs & Weight: Vital Signs (12 hours) Temp Pulse Resp BP Pulse Ox 06/11/18 08:00 95 06/11/18 07:39 98.4 F 82 18 118/72 95 06/11/18 04:00 98.3 F 75 18 155/85 H 92 L Weight Weight 218 lb 9.6 oz I&O: 06/10/18 06/11/18 06/12/18 06:59 06:59 07:59 Intake Total 1020 1340 Output Total 300 Balance 1020 1040 Result Diagrams: 06/09/18 09:08 06/11/18 08:21 Additional Labs: Accuchecks 06/11/18 06/11/18 06/10/18 11:42 04:26 19:15 POC Glucose 117 H 99 107 06/10/18 16:05 POC Glucose 122 H Phys Exam - Physical Examination HEENT: PERRLA, moist MMs Neck: no JVD, supple Respiratory: no wheezing, no rales Cardiovascular: RRR, no significant murmur Gastrointestinal: soft, non-tender, positive bowel sounds Musculoskeletal: pulses present, edema present Neurological: non-focal, moves all 4 limbs Psychiatric: normal affect, A&O x 3 Dx/Plan (1) Stasis dermatitis Code(s): I87.2 - VENOUS INSUFFICIENCY (CHRONIC) (PERIPHERAL) Status: Acute Qualifiers: Laterality: bilateral Qualified Code(s): I87.2 - Venous insufficiency ( chronic) (peripheral) Comment: with sec bacterial infection (2) [id number] kidney injury Code(s): N17.9 - ACUTE KIDNEY FAILURE, UNSPECIFIED; N18.9 - CHRONIC KIDNEY DISEASE, UNSPECIFIED Status: Acute Qualifiers: Chronic kidney disease stage: stage 4 (severe) (3) Anemia of chronic disease Code(s): D63.8 - ANEMIA IN OTHER CHRONIC DISEASES CLASSIFIED ELSEWHERE Status : Chronic (4) Hypertension Code(s): I10 - ESSENTIAL (PRIMARY) HYPERTENSION Status: Chronic Qualifiers: Hypertension type: essential hypertension (5) Diabetes mellitus type 2, insulin dependent Code(s): E11.9 - TYPE 2 DIABETES MELLITUS WITHOUT COMPLICATIONS; Z79.4 - DETENTION (CURRENT) USE OF INSULIN Status: Chronic (6) Diabetic neuropathy Code(s): E11.40 - TYPE 2 DIABETES MELLITUS WITH DIABETIC NEUROPATHY, UNSP Status: Chronic Qualifiers: Diabetes mellitus type: type 2 (7) Dyslipidemia Code(s): E78.5 - HYPERLIPIDEMIA, UNSPECIFIED Status: Chronic (8) Hypothyroidism Code(s): E03.9 - HYPOTHYROIDISM, UNSPECIFIED Status: Chronic Qualifiers: Hypothyroidism type: unspecified Qualified Code(s): E03.9 - Hypothyroidism , unspecified - Plan is on cipro and bactrim -: humalog coverage -: norco prn -: to amb as tolerated -: dc plan per adv * . Review of Systems - Medications/Allergies Allergies/Adverse Reactions: Allergies Allergy/AdvReac Type Severity Reaction Status Date / Time adhesive tape Allergy Mild Verified 09/12/16 04:35 Penicillins Allergy Verified 09/12/16 04:35 Medications: Current Medications Acetaminophen (Tylenol) 650 mg PO Q4H PRN PRN Reason: Headache/Fever/Mild Pain (1-3) Hydrocodone Bitart/Acetaminophen ([place] 5/325) 1 tab PO Q4H PRN PRN Reason: Moderate Pain (4-6) Artificial Tears (Tears Naturale) 2 drop EA EYE PRN PRN PRN Reason: Dry Eyes Bisacodyl (Dulcolax) 10 mg PO DAILYPRN PRN PRN Reason: Constipation Bisacodyl (Dulcolax) 10 mg [place] DAILYPRN PRN PRN Reason: Constipation Calcium Carbonate (Tums) 1,000 mg PO Q4H PRN PRN Reason: Heartburn or Indigestion Ciprofloxacin (Cipro) 500 mg PO 0600,1999 [facility] Last Admin: 06/11/18 05:52 Dose: 500 mg Dextrose/Water (Dextrose 50%) 25 gm SLOW IVP PRN PRN PRN Reason: Hypoglycemia Famotidine (Pepcid) 20 mg PO DAILY [facility] Last Admin: 06/11/18 12:23 Dose: 20 mg Glucagon (Glucagon) 1 mg IM PRN PRN PRN Reason: Hypoglycemia Guaifenesin (Robitussin Sf) 200 mg PO Q4H PRN PRN Reason: Cough Hydralazine HCl (Apresoline) 10 mg SLOW IVP Q4H PRN PRN Reason: SBP > 180 and HR < 70 Last Admin: 06/09/18 03:20 Dose: 10 mg Dextrose/Water (D5w) 1,000 mls @ 0 mls/hr IV .Q0M PRN PRN Reason: Hypoglycemia Insulin Human Lispro (Humalog) 0 units SC .MODERATE SLIDING SC PRN PRN Reason: Moderate Correctional Scale Insulin Human Lispro (Humalog) 0 units SC .BEDTIME SLIDING SC PRN PRN Reason: Bedtime Correctional Scale Loperamide HCl (Imodium) 2 mg PO PRN PRN PRN Reason: Diarrhea/Loose Stools Loratadine (Claritin) 10 mg PO DAILYPRN PRN PRN Reason: Sinus Symptoms Mineral Oil/White Petrolatum (Eucerin Cream) 0 gm TOP BIDPRN PRN PRN Reason: Dry Skin Ondansetron HCl (Zofran Odt) 4 mg PO Q6H PRN PRN Reason: Nausea/Vomiting Last Admin: 06/11/18 08:46 Dose: 4 mg Saccharomyces Boulardii (Florastor) 250 mg PO DAILY [facility] Last Admin: 06/11/18 12:24 Dose: 250 mg Senna/Docusate Sodium (Senokot S) 2 tab PO BID PRN PRN Reason: Constipation Sodium Chloride ([place] Nasal [place] 0.65%) 0 ml EA NARE QIDPRN PRN PRN Reason: Nasal Congestion Sodium Chloride (Flush - Normal Saline) 10 ml IVF Q12HR [facility] Last Admin: 06/11/18 12:24 Dose: Not Given Sodium Chloride (Flush - Normal Saline) 10 ml IVF PRN PRN PRN Reason: Saline Flush Throat Lozenges (Cepastat Lozenges) 1 reymundo PO Q2H PRN PRN Reason: Sore Throat Trimethoprim/Sulfamethoxazole (Bactrim Ds) 1 tab PO BID [facility] Last Admin: 06/11/18 12:22 Dose: 1 tab Vitamin B Complex/Vit C/Folic Acid (Nephro-Sabino Tablet) 1 tab PO DAILY [facility] Last Admin: 06/11/18 12:23 Dose: 1 tab Zolpidem Tartrate (Ambien) 5 mg PO HSPRN PRN PRN Reason: Insomnia
[2018-06-11] MEDS: Acetaminophen 325 MG TAB PO PRN (20:07)
[2018-06-11] MEDS: Diabetic Tussin 200 MG/10 ML UDCUP PO PRN (20:08)
[2018-06-12] MEDS: Ciprofloxacin 500 MG TAB PO SCH (05:00)
[2018-06-12 06:54] LABS: Albumin 2.1 g/dL (3.5-5.0); Anion Gap 12 mmol/L (10-20); BUN (Urea Nitrogen) 39 mg/dL (7.0-18.7); BUN/Creatinine Ratio 9.85; Calc. Creatinine Clearance 28 mL/min (70-130); Calcium 8.4 mg/dL (7.8-10.44); Carbon Dioxide 18 mmol/L (22-29); Chloride 108 mmol/L (98-107); Estimated GFR-MDRD 12; Glucose 119 mg/dL (70-105); Sodium 133 mmol/L (136-145)
[2018-06-12] MEDS: Folic Acid/Vit B Comp W-C PO SCH ×2 (09:54→14:38)
[2018-06-12] MEDS: Saccharomyces boulardii 250 MG CAP PO SCH ×2 (09:54→14:39)
[2018-06-12] MEDS: Famotidine 20 MG TAB PO SCH ×2 (09:54→14:38)
--- NOTE | 2018-06-12 14:19 | PRG ---
DATE OF SERVICE: 06/12/2018 SUBJECTIVE: She was little bit nauseated overnight, but better at this time. No respiratory symptoms. No diarrhea. Not much pain in lower extremities from neuropathy. OBJECTIVE: VITAL SIGNS: T-max 99.1, BP 120/78, pulse 81, respirations 18-26. SKIN: Exam, unchanged. LUNGS: Symmetric air entry. HEART: S1, S2. Regular rate. ABDOMEN: Soft, not distended. Previous right IJ tunneled catheter has been removed. LABORATORY DATA: Sodium 133, creatinine 3.96, which is a little bit higher than before. White cell count 6.4, hemoglobin 9.1, has not been repeated. Platelets 360. Blood cultures no growth at 48 hours. C diff antigen toxin negative. MRI of the extremity demonstrates a large soft tissue ulcer, left calcaneus with osteomyelitis for length of 1.5 cm from the cortex. There is abnormal appearance of the lateral band of the plantar fascia concerning for tracking of infection along the lateral band. Extensive soft tissue swelling throughout the hind foot and ankle with abnormal tenosynovial fluid. ASSESSMENT AND DISCUSSION: Type 2 diabetes with stage 4-5 renal insufficiency with previous senescent hemodialysis catheter has been removed. The patient to remain off dialysis for now. She has chronic lymphedema with previous chronic ulcers in lower extremities with prior diagnosis of leukocytoclastic vasculitis. This appears to have resolved. Now she has a hypertrophic healing scars throughout the right and left lower extremities. The main concern in her case is the evidence of osteomyelitis of the left calcaneus. This is quite extensive area of osteomyelitis and does not appear to me that this would be salvageable. Surgical debridement can be attempted but I doubt that it would be successful. She is currently receiving ciprofloxacin and Dr. Reynaga will have to discuss with the patient what her options are, if she wants a limited debridement with protracted antimicrobial therapy or a foot amputation. Job ID: [id number]
[2018-06-12] MEDS: Diabetic Tussin 200 MG/10 ML UDCUP PO PRN ×2 (14:42→19:56)
--- NOTE | 2018-06-12 14:56 | PDOC.PN ---
- Subjective Encounter Start Date: 06/12/18 Encounter Start Time: 12:15 Subjective: no pain in extremities -: is amb in hallway -: no nausea, wants to rest now - Objective Resuscitation Status - Order Detail: 06/09/18 01:36 Resuscitation Status Routine Resuscitation Status: FULL: Full Resuscitation MAR Reviewed: Yes Vital Signs & Weight: Vital Signs (12 hours) Temp Pulse Resp BP Pulse Ox 06/12/18 07:43 98.7 F 81 18 128/78 93 L 06/12/18 04:11 98.8 F 80 26 H 162/82 H 93 L Weight Weight 218 lb 9.6 oz I&O: 06/11/18 06/12/18 06/13/18 05:59 06:59 06:59 Intake Total Output Total Balance Result Diagrams: 06/09/18 09:08 06/12/18 05:58 Additional Labs: Accuchecks 06/12/18 06/12/18 06/11/18 11:51 05:02 19:53 POC Glucose 132 H 117 H 128 H 06/11/18 16:54 POC Glucose 121 H Phys Exam - Physical Examination HEENT: PERRLA, moist MMs Neck: no JVD, supple Respiratory: no wheezing, no rales Cardiovascular: RRR, no significant murmur Gastrointestinal: soft, non-tender, positive bowel sounds Musculoskeletal: pulses present, edema present Neurological: non-focal, moves all 4 limbs Psychiatric: normal affect, A&O x 3 Dx/Plan (1) Osteomyelitis Code(s): M86.9 - OSTEOMYELITIS, UNSPECIFIED Status: Acute Qualifiers: Laterality: left Comment: calcaneus with tenosynovitis (2) Stasis dermatitis Code(s): I87.2 - VENOUS INSUFFICIENCY (CHRONIC) (PERIPHERAL) Status: Acute Qualifiers: Laterality: bilateral Qualified Code(s): I87.2 - Venous insufficiency ( chronic) (peripheral) Comment: with sec bacterial infection (3) [id number] kidney injury Code(s): N17.9 - ACUTE KIDNEY FAILURE, UNSPECIFIED; N18.9 - CHRONIC KIDNEY DISEASE, UNSPECIFIED Status: Acute Qualifiers: Chronic kidney disease stage: stage 4 (severe) (4) Anemia of chronic disease Code(s): D63.8 - ANEMIA IN OTHER CHRONIC DISEASES CLASSIFIED ELSEWHERE Status : Chronic (5) Hypertension Code(s): I10 - ESSENTIAL (PRIMARY) HYPERTENSION Status: Chronic Qualifiers: Hypertension type: essential hypertension (6) Diabetes mellitus type 2, insulin dependent Code(s): E11.9 - TYPE 2 DIABETES MELLITUS WITHOUT COMPLICATIONS; Z79.4 - RESIDENTIAL (CURRENT) USE OF INSULIN Status: Chronic (7) Diabetic neuropathy Code(s): E11.40 - TYPE 2 DIABETES MELLITUS WITH DIABETIC NEUROPATHY, UNSP Status: Chronic Qualifiers: Diabetes mellitus type: type 2 (8) Dyslipidemia Code(s): E78.5 - HYPERLIPIDEMIA, UNSPECIFIED Status: Chronic (9) Hypothyroidism Code(s): E03.9 - HYPOTHYROIDISM, UNSPECIFIED Status: Chronic Qualifiers: Hypothyroidism type: unspecified Qualified Code(s): E03.9 - Hypothyroidism , unspecified - Plan is on cipro, bactrim is discontinued due to increasing creatinine & K -: antibiotics per -: /Cornelio to see pt in am for debridement/bone biopsy for cultures -: continue narco, pepcid and florastor * . Review of Systems - Medications/Allergies Allergies/Adverse Reactions: Allergies Allergy/AdvReac Type Severity Reaction Status Date / Time adhesive tape Allergy Mild Verified 09/12/16 04:35 Penicillins Allergy Verified 09/12/16 04:35 Medications: Current Medications Acetaminophen (Tylenol) 650 mg PO Q4H PRN PRN Reason: Headache/Fever/Mild Pain (1-3) Last Admin: 06/11/18 20:07 Dose: 650 mg Hydrocodone Bitart/Acetaminophen ([place] 5/325) 1 tab PO Q4H PRN PRN Reason: Moderate Pain (4-6) Artificial Tears (Tears Naturale) 2 drop EA EYE PRN PRN PRN Reason: Dry Eyes Bisacodyl (Dulcolax) 10 mg PO DAILYPRN PRN PRN Reason: Constipation Bisacodyl (Dulcolax) 10 mg [place] DAILYPRN PRN PRN Reason: Constipation Calcium Carbonate (Tums) 1,000 mg PO Q4H PRN PRN Reason: Heartburn or Indigestion Ciprofloxacin (Cipro) 250 mg PO 0600,2000 [facility] Dextrose/Water (Dextrose 50%) 25 gm SLOW IVP PRN PRN PRN Reason: Hypoglycemia Famotidine (Pepcid) 20 mg PO DAILY [facility] Last Admin: 06/12/18 14:38 Dose: 20 mg Glucagon (Glucagon) 1 mg IM PRN PRN PRN Reason: Hypoglycemia Guaifenesin (Robitussin Sf) 200 mg PO Q4H PRN PRN Reason: Cough Last Admin: 06/12/18 14:42 Dose: 200 mg Hydralazine HCl (Apresoline) 10 mg SLOW IVP Q4H PRN PRN Reason: SBP > 180 and HR < 70 Last Admin: 06/09/18 03:20 Dose: 10 mg Dextrose/Water (D5w) 1,000 mls @ 0 mls/hr IV .Q0M PRN PRN Reason: Hypoglycemia Insulin Human Lispro (Humalog) 0 units SC .MODERATE SLIDING SC PRN PRN Reason: Moderate Correctional Scale Insulin Human Lispro (Humalog) 0 units SC .BEDTIME SLIDING SC PRN PRN Reason: Bedtime Correctional Scale Loperamide HCl (Imodium) 2 mg PO PRN PRN PRN Reason: Diarrhea/Loose Stools Loratadine (Claritin) 10 mg PO DAILYPRN PRN PRN Reason: Sinus Symptoms Mineral Oil/White Petrolatum (Eucerin Cream) 0 gm TOP BIDPRN PRN PRN Reason: Dry Skin Ondansetron HCl (Zofran Odt) 4 mg PO Q6H PRN PRN Reason: Nausea/Vomiting Last Admin: 06/11/18 19:09 Dose: 4 mg Saccharomyces Boulardii (Florastor) 250 mg PO DAILY [facility] Last Admin: 06/12/18 14:39 Dose: 250 mg Senna/Docusate Sodium (Senokot S) 2 tab PO BID PRN PRN Reason: Constipation Sodium Chloride ([place] Nasal [place] 0.65%) 0 ml EA NARE QIDPRN PRN PRN Reason: Nasal Congestion Sodium Chloride (Flush - Normal Saline) 10 ml IVF Q12HR [facility] Last Admin: 06/12/18 14:40 Dose: Not Given Sodium Chloride (Flush - Normal Saline) 10 ml IVF PRN PRN PRN Reason: Saline Flush Throat Lozenges (Cepastat Lozenges) 1 reymundo PO Q2H PRN PRN Reason: Sore Throat Vitamin B Complex/Vit C/Folic Acid (Nephro-Sabino Tablet) 1 tab PO DAILY [facility] Last Admin: 06/12/18 14:38 Dose: 1 tab Zolpidem Tartrate (Ambien) 5 mg PO HSPRN PRN PRN Reason: Insomnia
--- NOTE | 2018-06-12 17:04 | PRG ---
DATE OF SERVICE: 06/12/2018 SUBJECTIVE: Patient was seen and examined at bedside and overnight events noted. Patient denies any shortness of breath or chest pain or palpitation. No history of nausea or vomiting or diarrhea or fever or chills or cramps. OBJECTIVE: GENERAL: This is an obese female, in no apparent distress. VITAL SIGNS: Temperature 98.7. Heart rate 81. Respiratory rate 18. Blood pressure 128/70. HEENT: Atraumatic, normocephalic. Oral mucosa is moist NECK: Supple. CARDIOVASCULAR: S1, S2 heard. Rate and rhythm regular. RESPIRATORY: Clear to auscultation. GASTROINTESTINAL: Abdomen is soft. MUSCULOSKELETAL: No tenderness. No edema. DERMATOLOGIC: No skin rash. NEUROLOGIC: Alert and awake and oriented X3. No focal neurologic deficits. Moving all the extremities. PSYCHIATRIC: Mood and affect normal. LABORATORY DATA: Potassium is 5.0, BUN is 39, and creatinine is 3.9. ASSESSMENT AND PLAN: 1. Acute kidney injury on chronic kidney disease, stage 4 worsening, but we will stop Bactrim and recheck labs. 2. Metabolic acidosis, stable. 3. Edema, controlled. 4. Hypertension. 5. Obesity. 6. We will stop Bactrim. 7. Hyperkalemia, limit potassium intake and stop Bactrim. Plan is to stop Bactrim and monitor renal function. Job ID: [id number]
[2018-06-12] MEDS: Cipro 250 MG TAB PO SCH (19:54)
[2018-06-13] MEDS ORDERED: Promethazine HCl 25 MG in Sodium Chloride 0.9% 50 ML IVPB SCH (00:45)
[2018-06-13] MEDS: Cipro 250 MG TAB PO SCH ×2 (05:24→20:47)
[2018-06-13 09:35] LABS: Albumin 2.1 g/dL (3.5-5.0); Anion Gap 13 mmol/L (10-20); BUN (Urea Nitrogen) 39 mg/dL (7.0-18.7); BUN/Creatinine Ratio 9.15; Calc. Creatinine Clearance 26 mL/min (70-130); Calcium 8.6 mg/dL (7.8-10.44); Carbon Dioxide 18 mmol/L (22-29); Chloride 110 mmol/L (98-107); Estimated GFR-MDRD 11; Glucose 100 mg/dL (70-105); Phosphorus 5.5 mg/dL (2.3-4.7); Potassium 5.1 mmol/L (3.5-5.1); Sodium 136 mmol/L (136-145)
[2018-06-13] MEDS: Famotidine 20 MG TAB PO SCH (12:19)
[2018-06-13] MEDS: Folic Acid/Vit B Comp W-C PO SCH (12:19)
[2018-06-13] MEDS: Saccharomyces boulardii 250 MG CAP PO SCH (12:19)
--- NOTE | 2018-06-13 13:09 | PRG ---
DATE OF SERVICE: 06/13/2018 SUBJECTIVE: A 43-year-old female being seen for acute kidney injury. The patient denies any nausea, vomiting, and chest pain. OBJECTIVE: CONSTITUTIONAL: On examination, the patient is awake, alert. VITAL SIGNS: Afebrile, pulse 96, breathing 16, and blood pressure 155/83. GENERAL APPEARANCE AND MENTAL STATUS: Fair. HEAD/NECK: Normocephalic. Atraumatic. EYES: EOMI. No deformity. EARS: Clear. No ulcers. NOSE: Intact. No lesions. MOUTH: Clear. No discharge. THROAT: Clear. No exudate. LUNGS: Clear. No crackles. CARDIAC: S1, S2. No rub. ABDOMEN: Benign. Bowel sounds positive. GENITALIA/RECTUM: Olvera absent. BACK/EXTREMITIES: Edema 0+. NEUROLOGICAL: Alert and motor intact. LABORATORY DATA: Reviewed. ASSESSMENT AND PLAN: 1. Stage 5 chronic kidney disease with acute kidney injury. Progressive rise in creatinine. No urgent indication for dialysis. 2. Hyperkalemia, stable. 3. Metabolic acidosis. Recommended starting sodium bicarbonate. The patient has declined dialysis at this time. If the need is there, I will readdress this issue. Job ID: [id number]
--- NOTE | 2018-06-13 20:17 | PDOC.PN ---
- Subjective Encounter Start Date: 06/13/18 Encounter Start Time: 20:15 Subjective: continued wound drainage - Objective Resuscitation Status - Order Detail: 06/09/18 01:36 Resuscitation Status Routine Resuscitation Status: FULL: Full Resuscitation Vital Signs & Weight: Vital Signs (12 hours) Temp Pulse Resp BP Pulse Ox 06/13/18 18:17 94 145/85 H 06/13/18 16:48 98.5 F 94 16 178/104 H 98 06/13/18 11:45 98.4 F 96 16 173/105 H 96 Weight Weight 218 lb 9.6 oz I&O: 06/12/18 06/13/18 06/14/18 06:59 06:59 06:59 Intake Total 711 600 Balance 711 600 Result Diagrams: 06/09/18 09:08 06/13/18 08:07 Additional Labs: Accuchecks 06/13/18 06/13/18 06/13/18 16:56 11:45 05:34 POC Glucose 148 H 118 H 113 H 06/12/18 19:50 POC Glucose 145 H Phys Exam - Physical Examination HEENT: PERRLA, moist MMs, sclera anicteric, TM's clear, oral pharynx no lesions , 2+ tonsils Neck: no nodes, no JVD, supple, full ROM Respiratory: no wheezing, no rales, no rhonchi, clear to auscultation bilateral Cardiovascular: RRR, no significant murmur, no rub Gastrointestinal: soft, non-tender, no distention, positive bowel sounds Musculoskeletal: edema present both foot covered in dressing, + bad smell Neurological: non-focal, normal sensation, moves all 4 limbs Psychiatric: normal affect, A&O x 3 Deviation from normal: chronic veno stasis changes of LE with no healing ulcer of the left foot Dx/Plan (1) Stasis dermatitis Code(s): I87.2 - VENOUS INSUFFICIENCY (CHRONIC) (PERIPHERAL) Status: Acute Qualifiers: Laterality: bilateral Qualified Code(s): I87.2 - Venous insufficiency ( chronic) (peripheral) Comment: with sec bacterial infection (2) Vduao-ey-yuetepl kidney injury Code(s): N17.9 - ACUTE KIDNEY FAILURE, UNSPECIFIED; N18.9 - CHRONIC KIDNEY DISEASE, UNSPECIFIED Status: Acute Qualifiers: Chronic kidney disease stage: stage 4 (severe) Comment: discontinued dialysis catheter, continue to monitor renal function, dialysis to be restarted in future if required (3) Osteomyelitis Code(s): M86.9 - OSTEOMYELITIS, UNSPECIFIED Status: Acute Qualifiers: Laterality: left Comment: calcaneus osteo with tenosynovitis: Continue Cipra, may need amputation (4) Anemia of chronic disease Code(s): D63.8 - ANEMIA IN OTHER CHRONIC DISEASES CLASSIFIED ELSEWHERE Status : Chronic (5) Diabetes mellitus type 2, insulin dependent Code(s): E11.9 - TYPE 2 DIABETES MELLITUS WITHOUT COMPLICATIONS; Z79.4 - LONGTERM (CURRENT) USE OF INSULIN Status: Chronic (6) Diabetic neuropathy Code(s): E11.40 - TYPE 2 DIABETES MELLITUS WITH DIABETIC NEUROPATHY, UNSP Status: Chronic Qualifiers: Diabetes mellitus type: type 2 Comment: ss insulin with accucheck (7) Dyslipidemia Code(s): E78.5 - HYPERLIPIDEMIA, UNSPECIFIED Status: Chronic (8) Hypertension Code(s): I10 - ESSENTIAL (PRIMARY) HYPERTENSION Status: Chronic Qualifiers: Hypertension type: essential hypertension - Plan cont current plan of care, continue antibiotics continue local wound care * .
[2018-06-13] MEDS: Sodium Bicarbonate Tab 325 MG TAB PO SCH (20:47)
[2018-06-13] MEDS: Acetaminophen 325 MG TAB PO PRN (20:48)
[2018-06-14] MEDS: Cipro 250 MG TAB PO SCH ×2 (05:22→19:50)
[2018-06-14 09:11] LABS: Hemoglobin 8.5 g/dL (12.0-16.0)
[2018-06-14] MEDS: Sodium Bicarbonate Tab 325 MG TAB PO SCH ×3 (09:18→19:49)
[2018-06-14 09:33] LABS: Anion Gap 9 mmol/L (10-20); BUN (Urea Nitrogen) 42 mg/dL (7.0-18.7); Calc. Creatinine Clearance 27 mL/min (70-130); Calcium 8.4 mg/dL (7.8-10.44); Carbon Dioxide 20 mmol/L (22-29); Chloride 110 mmol/L (98-107); Estimated GFR-MDRD 11; Glucose 119 mg/dL (70-105); Potassium 5.4 mmol/L (3.5-5.1); Sodium 134 mmol/L (136-145)
--- NOTE | 2018-06-14 10:05 | PRG ---
DATE OF SERVICE: 06/14/2018 SUBJECTIVE: A 43-year-old lady, being seen for acute kidney injury. The patient denies any nausea, vomiting, or chest pain. OBJECTIVE: GENERAL: The patient is awake and alert. VITAL SIGNS: Afebrile, pulse 82, breathing 16, blood pressure GENERAL APPEARANCE AND MENTAL STATUS: Fair. HEAD/NECK: Normocephalic. Atraumatic. EYES: EOMI. No deformity. EARS: Clear. No ulcers. NOSE: Intact. No lesions. MOUTH: Clear. No discharge. THROAT: Clear. No exudate. LUNGS: Clear. No crackles. CARDIAC: S1, S2. No rub. ABDOMEN: Benign. Bowel sounds positive. GENITALIA/RECTUM: Olvera absent. BACK/EXTREMITIES: Edema 0+. NEUROLOGICAL: Alert and motor intact. SKIN: LYMPHATICS: LABORATORY DATA: Labs show hemoglobin 8.5. Creatinine is pending. ASSESSMENT AND RECOMMENDATIONS: 1. Stage 5 chronic kidney disease. We will recheck labs. 2. Hypertension, stable. 3. Anemia, stable. 4. Medication based on GFR, appropriate. . Job ID: [id number]
[2018-06-14] MEDS: Famotidine 20 MG TAB PO SCH (12:25)
[2018-06-14] MEDS: Saccharomyces boulardii 250 MG CAP PO SCH (12:25)
[2018-06-14] MEDS: Folic Acid/Vit B Comp W-C PO SCH (12:25)
--- NOTE | 2018-06-14 15:36 | PDOC.PN ---
- Subjective Encounter Start Date: 06/14/18 Encounter Start Time: 15:34 Subjective: sleepy, no complains - Objective Resuscitation Status - Order Detail: 06/09/18 01:36 Resuscitation Status Routine Resuscitation Status: FULL: Full Resuscitation Vital Signs & Weight: Vital Signs (12 hours) Temp Pulse Resp BP Pulse Ox 06/14/18 11:18 97.9 F 81 16 158/91 H 96 06/14/18 08:00 94 L 06/14/18 07:47 98.5 F 88 18 163/90 H 94 L Weight Weight 218 lb 9.6 oz I&O: 06/13/18 06/14/18 06/15/18 06:59 06:59 06:59 Intake Total 711 1100 Balance 711 1100 Result Diagrams: 06/14/18 08:46 06/14/18 08:46 Additional Labs: Accuchecks 06/14/18 06/14/18 06/13/18 11:21 04:35 20:47 POC Glucose 117 H 128 H 166 H 06/13/18 16:56 POC Glucose 148 H Phys Exam - Physical Examination HEENT: PERRLA, moist MMs, sclera anicteric, TM's clear, oral pharynx no lesions , 2+ tonsils Neck: no nodes, no JVD, supple, full ROM Respiratory: no wheezing, no rales, no rhonchi Cardiovascular: RRR, no significant murmur, no rub Gastrointestinal: soft, non-tender, no distention, positive bowel sounds LLE ulcer in the calcaneal area Neurological: non-focal, normal sensation Psychiatric: normal affect, A&O x 3 Deviation from normal: EXTENSIVE changes with lymphedema in the lower extremities Dx/Plan (1) Stasis dermatitis Code(s): I87.2 - VENOUS INSUFFICIENCY (CHRONIC) (PERIPHERAL) Status: Acute Qualifiers: Laterality: bilateral Qualified Code(s): I87.2 - Venous insufficiency ( chronic) (peripheral) Comment: with sec bacterial infection, continue cipro (2) Eqbkp-he-qjoessh kidney injury Code(s): N17.9 - ACUTE KIDNEY FAILURE, UNSPECIFIED; N18.9 - CHRONIC KIDNEY DISEASE, UNSPECIFIED Status: Acute Qualifiers: Chronic kidney disease stage: stage 4 (severe) Comment: discontinued dialysis catheter, continue to monitor renal function, dialysis to be restarted in future if required (3) Osteomyelitis Code(s): M86.9 - OSTEOMYELITIS, UNSPECIFIED Status: Acute Qualifiers: Laterality: left Comment: calcaneus osteo with tenosynovitis: Continue Cipro, may need amputation (4) Anemia of chronic disease Code(s): D63.8 - ANEMIA IN OTHER CHRONIC DISEASES CLASSIFIED ELSEWHERE Status : Chronic (5) Diabetes mellitus type 2, insulin dependent Code(s): E11.9 - TYPE 2 DIABETES MELLITUS WITHOUT COMPLICATIONS; Z79.4 - SNF (CURRENT) USE OF INSULIN Status: Chronic (6) Diabetic neuropathy Code(s): E11.40 - TYPE 2 DIABETES MELLITUS WITH DIABETIC NEUROPATHY, UNSP Status: Chronic Qualifiers: Diabetes mellitus type: type 2 Comment: ss insulin with accucheck (7) Dyslipidemia Code(s): E78.5 - HYPERLIPIDEMIA, UNSPECIFIED Status: Chronic (8) Hypertension Code(s): I10 - ESSENTIAL (PRIMARY) HYPERTENSION Status: Chronic Qualifiers: Hypertension type: essential hypertension - Plan cont current plan of care * .
[2018-06-14] MEDS ORDERED: Furosemide 40 MG/4 ML VIAL SLOW IVP SCH (15:45)
[2018-06-14] MEDS ORDERED: Furosemide 80 MG TAB PO SCH (16:15)
[2018-06-14] MEDS ORDERED: Nystatin Powder 15 GM BOT TOP PRN (16:16)
[2018-06-14 17:33] LABS: Anion Gap 9 mmol/L (10-20); BUN (Urea Nitrogen) 44 mg/dL (7.0-18.7); Calc. Creatinine Clearance 27 mL/min (70-130); Carbon Dioxide 21 mmol/L (22-29); Chloride 110 mmol/L (98-107); Estimated GFR-MDRD 11; Glucose 116 mg/dL (70-105); Potassium 5.6 mmol/L (3.5-5.1); Sodium 134 mmol/L (136-145)
[2018-06-14] MEDS: Acetaminophen 325 MG TAB PO PRN (19:50)
[2018-06-14 20:18] LABS: Potassium - ABG Lab 5.53 mmol/L (3.70-5.30)
[2018-06-14 21:24] LABS: Potassium - ABG Lab 5.24 mmol/L (3.70-5.30)
[2018-06-15] MEDS: Cipro 250 MG TAB PO SCH ×2 (05:03→20:01)
[2018-06-15 06:16] LABS: ALT (SGPT) 18 U/L (8-55); AST (SGOT) 38 U/L (5-34); Albumin 2.2 g/dL (3.5-5.0); Alkaline Phosphatase 280 U/L (40-150); Anion Gap 11 mmol/L (10-20); BUN (Urea Nitrogen) 44 mg/dL (7.0-18.7); Bilirubin, Total Less than 0.2 mg/dL (0.2-1.2); Calc. Creatinine Clearance 26 mL/min (70-130); Calcium 8.5 mg/dL (7.8-10.44); Carbon Dioxide 20 mmol/L (22-29); Chloride 111 mmol/L (98-107); Estimated GFR-MDRD 11; Glucose 135 mg/dL (70-105); Potassium 4.3 mmol/L (3.5-5.1); Protein, Total 5.2 g/dL (6.0-8.3); Sodium 138 mmol/L (136-145)
[2018-06-15] MEDS: Saccharomyces boulardii 250 MG CAP PO SCH (08:46)
[2018-06-15] MEDS: Famotidine 20 MG TAB PO SCH (08:46)
[2018-06-15] MEDS: Sodium Bicarbonate Tab 325 MG TAB PO SCH ×3 (08:46→20:01)
[2018-06-15] MEDS: Folic Acid/Vit B Comp W-C PO SCH (08:46)
[2018-06-15] MEDS ORDERED: Metolazone 2.5 MG TAB PO SCH (11:00)
--- NOTE | 2018-06-15 12:07 | PRG ---
DATE OF SERVICE: 06/15/2018 SUBJECTIVE: A 43-year-old female, being seen for acute kidney injury. The patient denied nausea, vomiting, and chest pain. PHYSICAL EXAMINATION: The patient is awake and alert. VITAL SIGNS: Pulse 91, breathing 16, blood pressure 177/103. GENERAL APPEARANCE AND MENTAL STATUS: Fair. HEAD/NECK: Normocephalic. Atraumatic. EYES: EOMI. No deformity. EARS: Clear. No ulcers. NOSE: Intact. No lesions. MOUTH: Clear. No discharge. THROAT: Clear. No exudate. LUNGS: Clear. No crackles. CARDIAC: S1, S2. No rub. ABDOMEN: Benign. Bowel sounds positive. GENITALIA/RECTUM: Olvera absent. BACK/EXTREMITIES: Lower extremities have 4+ edema. NEUROLOGICAL: Alert and motor intact. SKIN: LYMPHATICS: LABORATORY DATA: Labs show hemoglobin 8.5. Creatinine 4.3. IMPRESSION AND PLAN: 1. Chronic kidney disease stage 5. No urgent indication for dialysis. 2. Hyperkalemia, improved. 3. Metabolic acidosis, stable. 4. Edema. Start metolazone and Lasix. Job ID: [id number]
--- NOTE | 2018-06-15 19:17 | PDOC.PN ---
- Subjective Encounter Start Date: 06/15/18 Encounter Start Time: 19:16 Subjective: Seen and no new complaint - Objective Resuscitation Status - Order Detail: 06/09/18 01:36 Resuscitation Status Routine Resuscitation Status: FULL: Full Resuscitation Vital Signs & Weight: Vital Signs (12 hours) Temp Pulse Resp BP Pulse Ox 06/15/18 16:00 99.0 F 103 H 18 168/98 H 97 06/15/18 11:24 97.0 F L 96 16 163/83 H 96 06/15/18 08:51 97 06/15/18 07:38 97.9 F 91 16 177/103 H 97 Weight Admit Weight 218 lb 9.6 oz Weight 218 lb 9.6 oz I&O: 06/14/18 06/15/18 06/16/18 06:59 06:59 06:59 Intake Total 8649 690 5776 Output Total 2000 Balance 1100 860 -950 Result Diagrams: 06/14/18 08:46 06/15/18 05:37 Additional Labs: Accuchecks 06/15/18 06/15/18 06/15/18 15:26 11:23 05:03 POC Glucose 117 H 173 H 141 H 06/14/18 19:47 POC Glucose 125 H Phys Exam - Physical Examination Constitutional: NAD HEENT: PERRLA, moist MMs, sclera anicteric, TM's clear, oral pharynx no lesions Neck: supple, full ROM Respiratory: no wheezing, no rales, no rhonchi, clear to auscultation bilateral Cardiovascular: RRR, no significant murmur, no rub Gastrointestinal: soft, non-tender, no distention, positive bowel sounds Musculoskeletal: pulses present Dx/Plan (1) Stasis dermatitis Code(s): I87.2 - VENOUS INSUFFICIENCY (CHRONIC) (PERIPHERAL) Status: Acute Qualifiers: Laterality: bilateral Qualified Code(s): I87.2 - Venous insufficiency ( chronic) (peripheral) Comment: with sec bacterial infection, continue cipro (2) SHERWIN (acute kidney injury) Code(s): N17.9 - ACUTE KIDNEY FAILURE, UNSPECIFIED Status: Acute (3) Jande-of-jtiqkbr kidney injury Code(s): N17.9 - ACUTE KIDNEY FAILURE, UNSPECIFIED; N18.9 - CHRONIC KIDNEY DISEASE, UNSPECIFIED Status: Acute Qualifiers: Chronic kidney disease stage: stage 4 (severe) Comment: discontinued dialysis catheter, continue to monitor renal function, dialysis to be restarted in future if required (4) Bacillus fragilis infection Code(s): B96.6 - BACTEROIDES FRAGILIS THE CAUSE OF DISEASES CLASSD ELSWHR Status: Acute (5) Dehydration Code(s): E86.0 - DEHYDRATION Status: Acute (6) MSSA bacteremia Code(s): R78.81 - BACTEREMIA Status: Acute (7) Osteomyelitis Code(s): M86.9 - OSTEOMYELITIS, UNSPECIFIED Status: Acute Qualifiers: Laterality: left Comment: calcaneus osteo with tenosynovitis: Continue Cipro, may need amputation - Plan continue antibiotics, PT/OT, social problems specialist Home with Home health---doesnt want SNF -: Too late for D/c tonight-possible D/c tommorrow * .
[2018-06-15] MEDS: Acetaminophen 325 MG TAB PO PRN (20:02)
[2018-06-16] MEDS: Cipro 250 MG TAB PO SCH (05:43)
[2018-06-16] MEDS: Furosemide 80 MG TAB PO SCH (09:55)
[2018-06-16] MEDS: Saccharomyces boulardii 250 MG CAP PO SCH (09:56)
[2018-06-16] MEDS: Folic Acid/Vit B Comp W-C PO SCH (09:56)
[2018-06-16] MEDS: Famotidine 20 MG TAB PO SCH (09:56)
[2018-06-16] MEDS: Sodium Bicarbonate Tab 325 MG TAB PO SCH ×3 (09:58→21:13)
--- NOTE | 2018-06-16 12:28 | PRG ---
DATE OF SERVICE: 06/16/2018 SUBJECTIVE: A 43-year-old female, being seen for end-stage renal disease. The patient denies any nausea, vomiting, or chest pain. OBJECTIVE: GENERAL: The patient is awake and alert. VITAL SIGNS: Afebrile, pulse 87, breathing 16, and blood pressure . GENERAL APPEARANCE AND MENTAL STATUS: Fair. HEAD/NECK: Normocephalic. Atraumatic. EYES: EOMI. No deformity. EARS: Clear. No ulcers. NOSE: Intact. No lesions. MOUTH: Clear. No discharge. THROAT: Clear. No exudate. LUNGS: Clear. No crackles. CARDIAC: S1, S2. No rub. ABDOMEN: Benign. Bowel sounds positive. GENITALIA/RECTUM: Olvera absent. BACK/EXTREMITIES: Edema 0+. NEUROLOGICAL: Alert and motor intact. SKIN: LYMPHATICS: LABORATORY DATA: Lab show hemoglobin 8.5. Creatinine IMPRESSION AND PLAN: 1. Stage 5 chronic kidney disease. No indication for dialysis. 2. Hypertension, stable. 3. Anemia, stable. 4. Hyperkalemia, stable. Job ID: [id number]
--- NOTE | 2018-06-16 15:39 | ULT ---
DOPPLER ARTERIAL ULTRASOUND LEFT LOWER EXTREMITY WITH SPECTRAL ANALYSIS: INDICATION: Diminished pulses left lower extremity, peripheral vascular disease. FINDINGS: Within the common femoral artery of the left lower extremity, there is a triphasic waveform. The jose ged profunda femoris artery demonstrates triphasic waveform. There is a triphasic waveform of the pr oximal aspect of the superficial femoral artery. The mid to distal superficial femoral artery demons trates a monophasic waveform. Monophasic waveform is elicited from the popliteal region and subseque ntly, within the left leg, overlying bandaging precludes visualization of distal arterial branches. Peak systolic velocity of the left lower extremity is at the level of the proximal aspect of the supe rficial femoral artery, 155 cm/s. Incidental note of a lymph node at the left inguinal region, incompletely assessed. IMPRESSION: Evidence of peripheral vascular disease notably from the level of the mid thigh, distally. Incomplet e assessment of the left leg due to overlying bandaging. POS: PAULINE
--- NOTE | 2018-06-16 15:56 | PRG ---
DATE OF SERVICE: 06/16/2018 SUBJECTIVE: Ms. Snow has declined any surgical intervention to the heel. She denies any respiratory symptoms or abdominal pain. OBJECTIVE: VITAL SIGNS: T-max 99 to 99.2, blood pressure 170/89, pulse 87, respirations 17, and O2 saturation 100%. SKIN: Unchanged. LUNGS: Clear. HEART: S1 and S2, regular rate. ABDOMEN: Soft, not distended. LABORATORY DATA: White cell count is 6.4, hemoglobin is down to 8.5. Creatinine 4.30. Nephrology has seen the patient and has not recommended any intervention at this point in time. She will need a dialysis access placed such as a fistula for down the road. Since she has declined debridement of the left heel, then I do not have a lot of options. I have ordered an arterial duplex ultrasound as a baseline for future interventions if she changes her mind. In the meantime, we could give her a combination of doxycycline and Augmentin for discharge planning maybe for 4 to 6 weeks. Job ID: [id number]
[2018-06-16] MEDS: Amoxicillin/Potassium Clav 250 MG TAB PO SCH ×2 (16:20→17:21)
[2018-06-16] MEDS ORDERED: Amoxicillin/Potassium Clav 500 MG TAB PO SCH (21:00)
[2018-06-16] MEDS: Clindamycin 150 MG CAP PO SCH (21:08)
--- NOTE | 2018-06-16 21:19 | PDOC.PN ---
- Subjective Encounter Start Date: 06/16/18 Encounter Start Time: 10:30 Patient seen and examined for Osteomyelitis. No new complaints. No overnight events - Objective Resuscitation Status - Order Detail: 06/09/18 01:36 Resuscitation Status Routine Resuscitation Status: FULL: Full Resuscitation MAR Reviewed: Yes Vital Signs & Weight: Vital Signs (12 hours) Temp Pulse Resp BP Pulse Ox 06/16/18 19:44 98.7 F 97 16 176/100 H 97 06/16/18 15:28 98.8 F 93 19 150/93 H 96 06/16/18 11:43 98.8 F 87 17 173/89 H 100 06/16/18 10:02 97 Weight Admit Weight 218 lb 9.6 oz Weight 218 lb 9.6 oz I&O: 06/15/18 06/16/18 06/17/18 06:59 06:59 06:59 Intake Total 860 1550 720 Output Total 2000 Balance 860 -450 720 Result Diagrams: 06/14/18 08:46 06/15/18 05:37 Additional Labs: Accuchecks 06/16/18 06/16/18 06/16/18 19:36 15:39 11:42 POC Glucose 125 H 131 H 139 H 06/16/18 06/15/18 05:52 21:05 POC Glucose 131 H 157 H Phys Exam - Physical Examination Constitutional: NAD Respiratory: no wheezing, no rhonchi Cardiovascular: RRR, no rub Gastrointestinal: soft, positive bowel sounds Neurological: moves all 4 limbs B/L LE dressing+ Dx/Plan - Plan 1. Left foot osteomyelitis 2. DM2 3. CKD 5 4. Obesity BMI 32.3 5. Chronic Venous statis with ulcerations 6. Other issues per previous notes PLAN: DC Cipro per ID Arterial doppler LLE per ID Cont current meds as below Refusing surgical intervention - understands the risk not limited to losing limb Review of Systems - Review of Systems Respiratory: negative: Cough, Dry, Shortness of Breath, Hemoptysis, SOB with Excertion, Pleuritic Pain, Sputum, Wheezing Cardiovascular: negative: chest pain, palpitations, orthopnea, paroxysmal nocturnal dyspnea, edema, light headedness, other - Medications/Allergies Allergies/Adverse Reactions: Allergies Allergy/AdvReac Type Severity Reaction Status Date / Time adhesive tape Allergy Mild Verified 09/12/16 04:35 Penicillins Allergy Verified 09/12/16 04:35 Medications: Current Medications Acetaminophen (Tylenol) 650 mg PO Q4H PRN PRN Reason: Headache/Fever/Mild Pain (1-3) Last Admin: 06/15/18 20:02 Dose: 650 mg Hydrocodone Bitart/Acetaminophen ([place] 5/325) 1 tab PO Q4H PRN PRN Reason: Moderate Pain (4-6) Artificial Tears (Tears Naturale) 2 drop EA EYE PRN PRN PRN Reason: Dry Eyes Bisacodyl (Dulcolax) 10 mg PO DAILYPRN PRN PRN Reason: Constipation Bisacodyl (Dulcolax) 10 mg GA DAILYPRN PRN PRN Reason: Constipation Calcium Carbonate (Tums) 1,000 mg PO Q4H PRN PRN Reason: Heartburn or Indigestion Last Admin: 06/12/18 19:56 Dose: 1,000 mg Clindamycin HCl (Cleocin) 300 mg PO QID [facility] Last Admin: 06/16/18 21:08 Dose: 300 mg Dextrose/Water (Dextrose 50%) 25 gm SLOW IVP PRN PRN PRN Reason: Hypoglycemia Doxycycline Hyclate (Vibramycin) 100 mg PO BID [facility] Famotidine (Pepcid) 20 mg PO DAILY [facility] Last Admin: 06/16/18 09:56 Dose: 20 mg Furosemide (Lasix) 80 mg PO DAILY-[facility] Last Admin: 06/16/18 09:55 Dose: 80 mg Glucagon (Glucagon) 1 mg IM PRN PRN PRN Reason: Hypoglycemia Guaifenesin (Robitussin Sf) 200 mg PO Q4H PRN PRN Reason: Cough Last Admin: 06/12/18 19:56 Dose: 200 mg Hydralazine HCl (Apresoline) 10 mg SLOW IVP Q4H PRN PRN Reason: SBP > 180 and HR < 70 Last Admin: 06/09/18 03:20 Dose: 10 mg Dextrose/Water (D5w) 1,000 mls @ 0 mls/hr IV .Q0M PRN PRN Reason: Hypoglycemia Insulin Human Lispro (Humalog) 0 units SC .MODERATE SLIDING SC PRN PRN Reason: Moderate Correctional Scale Insulin Human Lispro (Humalog) 0 units SC .BEDTIME SLIDING SC PRN PRN Reason: Bedtime Correctional Scale Loperamide HCl (Imodium) 2 mg PO PRN PRN PRN Reason: Diarrhea/Loose Stools Loratadine (Claritin) 10 mg PO DAILYPRN PRN PRN Reason: Sinus Symptoms Mineral Oil/White Petrolatum (Eucerin Cream) 0 gm TOP BIDPRN PRN PRN Reason: Dry Skin Nystatin (Mycostatin Powder) 0 gm TOP PRN PRN PRN Reason: . Ondansetron HCl (Zofran Odt) 4 mg PO Q6H PRN PRN Reason: Nausea/Vomiting Last Admin: 06/11/18 19:09 Dose: 4 mg Saccharomyces Boulardii (Florastor) 250 mg PO DAILY [facility] Last Admin: 06/16/18 09:56 Dose: 250 mg Senna/Docusate Sodium (Senokot S) 2 tab PO BID PRN PRN Reason: Constipation Sodium Bicarbonate (Bicarbonate, Sodium) 975 mg PO TID [facility] Last Admin: 06/16/18 21:13 Dose: 975 mg Sodium Chloride ([place] Nasal [place] 0.65%) 0 ml EA NARE QIDPRN PRN PRN Reason: Nasal Congestion Sodium Chloride (Flush - Normal Saline) 10 ml IVF Q12HR [facility] Last Admin: 06/16/18 21:08 Dose: Not Given Sodium Chloride (Flush - Normal Saline) 10 ml IVF PRN PRN PRN Reason: Saline Flush Throat Lozenges (Cepastat Lozenges) 1 reymundo PO Q2H PRN PRN Reason: Sore Throat Vitamin B Complex/Vit C/Folic Acid (Nephro-Sabino Tablet) 1 tab PO DAILY [facility] Last Admin: 06/16/18 09:56 Dose: 1 tab Zolpidem Tartrate (Ambien) 5 mg PO HSPRN PRN PRN Reason: Insomnia
[2018-06-17] MEDS: Clindamycin 150 MG CAP PO SCH (08:49)
[2018-06-17] MEDS: Famotidine 20 MG TAB PO SCH (08:49)
[2018-06-17] MEDS: Sodium Bicarbonate Tab 325 MG TAB PO SCH ×3 (08:49→20:01)
[2018-06-17] MEDS: Furosemide 80 MG TAB PO SCH (08:49)
[2018-06-17] MEDS: Folic Acid/Vit B Comp W-C PO SCH (08:49)
[2018-06-17] MEDS: Doxycycline 100 MG CAP PO SCH ×2 (08:49→20:01)
[2018-06-17] MEDS: Saccharomyces boulardii 250 MG CAP PO SCH (08:49)
[2018-06-17 09:09] LABS: Anion Gap 10 mmol/L (10-20); BUN (Urea Nitrogen) 42 mg/dL (7.0-18.7); Calc. Creatinine Clearance 29 mL/min (70-130); Calcium 8.6 mg/dL (7.8-10.44); Carbon Dioxide 21 mmol/L (22-29); Chloride 110 mmol/L (98-107); Estimated GFR-MDRD 13; Glucose 132 mg/dL (70-105); Potassium 3.8 mmol/L (3.5-5.1); Sodium 137 mmol/L (136-145)
[2018-06-17 12:34] LABS: INR-International Normal Ratio 1.3; Prothrombin Time 15.8 SEC (12.0-14.7)
[2018-06-17 13:25] LABS: PTT 34.5 SEC (22.9-36.1)
[2018-06-17] MEDS ORDERED: Warfarin Sodium 3 MG TAB PO SCH (17:00)
--- NOTE | 2018-06-17 17:05 | PRG ---
DATE OF SERVICE: 06/17/2018 SUBJECTIVE: A 43-year-old female, being seen for acute kidney injury. The patient denies any nausea, vomiting, or chest pain. OBJECTIVE: GENERAL: The patient is awake and alert. VITAL SIGNS: Afebrile, pulse 75, breathing 16, blood pressure was 165/80. GENERAL APPEARANCE AND MENTAL STATUS: Fair. HEAD/NECK: Normocephalic. Atraumatic. EYES: EOMI. No deformity. EARS: Clear. No ulcers. NOSE: Intact. No lesions. MOUTH: Clear. No discharge. THROAT: Clear. No exudate. LUNGS: Clear. No crackles. CARDIAC: S1, S2. No rub. ABDOMEN: Benign. Bowel sounds positive. GENITALIA/RECTUM: Olvera absent. BACK/EXTREMITIES: Edema 0+. NEUROLOGICAL: Alert and motor intact. SKIN: LYMPHATICS: LABORATORY DATA: Reviewed. ASSESSMENT AND RECOMMENDATIONS: 1. Stage 5 chronic kidney disease, stable. 2. Acute kidney injury, improving. 3. Hypertension, stable. 4. Hyperkalemia, stable. No indication for dialysis. The patient will follow up in 1 week to see me. Job ID: [id number]
[2018-06-17 17:09] VITALS: BP 172/93; TEMP 98.7
--- NOTE | 2018-06-19 02:44 | DIS ---
DATE OF ADMISSION: 06/09/2018 DATE OF DISCHARGE: 06/17/2018 DISCHARGE DISPOSITION: Home. FOLLOWUP: 1. Follow up with primary care physician at [facility]. 2. Follow up with General Surgery, Dr. Reynaga, Infectious Disease, Dr. Metcalf as well as Nephrology, Dr. Juan as scheduled. ALLERGIES: THE PATIENT IS ALLERGIC TO PENICILLIN. THE PATIENT WAS SEEN AND EXAMINED ON THE DAY OF DISCHARGE. DENIES ANY NEW COMPLAINTS. NO CHEST PAIN, SHORTNESS OF BREATH, FEVERS, OR CHILLS REPORTED. DISCHARGE MEDICATIONS: 1. Doxycycline 100 mg b.i.d. for 2 months. 2. Lasix 80 mg daily. 3. Metolazone 2.5 mg on Wednesday, Wednesday, and Wednesday per Nephrology. 4. Sodium bicarbonate 650 mg three times a day. 5. Coumadin as directed. 6. Amlodipine 10 mg daily. 7. Toprol-XL 50 mg daily. 8. Levothyroxine 125 mcg daily. 9. Ferrous sulfate 325 mg b.i.d. 10. Pepcid 20 mg daily. 11. Tramadol as needed. 12. MiraLAX as needed. BRIEF HOSPITAL COURSE: The patient is a 43-year-old female who presented to the hospital with bilateral lower extremity swelling. Workup was consistent with bilateral lower extremity cellulitis. She underwent an MRI of left lower extremity that was consistent with osteomyelitis involving the left calcaneus along with possible tenosynovitis. The patient was seen by Infectious Disease, Dr. Metaclf who recommended doxycycline for 2 months. Please note that dialysis catheter was removed this admission. The patient also declined any form of surgical intervention. She understands the risks, not limited to limb loss. She was evaluated by General Surgery, Dr. Reynaga for removal of the dialysis catheter. She was advised to follow up with Podiatry as an outpatient if she decides on surgical intervention. Left lower extremity Doppler also showed evidence of peripheral vascular disease notable at the level of the mid thigh. The exam was incomplete due to overlying bandage in the left leg. The patient will benefit from repeat electrolytes as an outpatient. INR on the day of discharge was 1.3. Warfarin was discontinued on admission due to INR of 4.3. When I assumed care of this patient on 06/16/2018, she was off warfarin. I will restart it today. It is unclear why the patient is on warfarin. The patient is a poor historian. FINAL DIAGNOSES: 1. Left foot osteomyelitis with bilateral lower extremity cellulitis. 2. Chronic kidney disease, stage 5. 3. Diabetes mellitus type 2. 4. Obesity with a BMI of 32.3. 5. Chronic venous stasis with ulceration. 6. Anemia, secondary to renal disease. 7. Hypothyroidism. 8. Supratherapeutic INR on admission. 9. Gastroesophageal reflux disease. 10. Hyperkalemia, resolved. 11. Metabolic acidosis, resolved. 12. Moderate protein-calorie malnutrition. PLAN: Plan of care was discussed with the patient in detail. She stated understanding. Please note, the patient declined any form of surgical intervention. Job ID: [id number]
== END 2018-06-17 20:21 | disposition home or self-care (01) | DRG 299 ==
LOC: ERS 21:33 → T4-B 06-09 01:36
PROVIDERS: ADMIT Internal Medicine; ATTEND Internal Medicine
PROC: 02PYX3Z Removal of Infusion Device from Great Vessel, External Approach (ICD-10-PCS; principal; 2018-06-09)
DX: I87.2 Venous insufficiency (chronic) (peripheral) (principal); N18.6 End stage renal disease; I12.0 Hypertensive chronic kidney disease with stage 5 chronic kidney disease or end stage renal disease; E87.2 Acidosis; L03.116 Cellulitis of left lower limb; L03.115 Cellulitis of right lower limb; E44.0 Moderate protein-calorie malnutrition; N17.9 Acute kidney failure, unspecified; M86.172 Other acute osteomyelitis, left ankle and foot; E11.69 Type 2 diabetes mellitus with other specified complication; Z88.0 Allergy status to penicillin; F20.9 Schizophrenia, unspecified; Z88.8 Allergy status to other drugs, medicaments and biological substances; E11.22 Type 2 diabetes mellitus with diabetic chronic kidney disease; E03.9 Hypothyroidism, unspecified; F31.9 Bipolar disorder, unspecified; F41.9 Anxiety disorder, unspecified; Z79.899 Other long term (current) drug therapy; R79.1 Abnormal coagulation profile; K21.9 Gastro-esophageal reflux disease without esophagitis; E66.01 Morbid (severe) obesity due to excess calories; E87.5 Hyperkalemia; D63.1 Anemia in chronic kidney disease; E88.09 Other disorders of plasma-protein metabolism, not elsewhere classified; M65.9 Synovitis and tenosynovitis, unspecified; I73.9 Peripheral vascular disease, unspecified; Z68.32 Body mass index [BMI] 32.0-32.9, adult; Z79.4 Long term (current) use of insulin; E11.40 Type 2 diabetes mellitus with diabetic neuropathy, unspecified
CPT/HCPCS: 36415; 36416; 80048; 80053; 80069; 82570; 82728; 82805; 83540; 83550; 83605; 83880; 83970; 84156; 85014; 85018; 85025; 85610; 85652; 85730; 86140; 87040; 93923; 96365; 96367; J0360; J1940; J2001; J2550; J3490; J7050; Q0162

== ENCOUNTER 2018-07-27 08:34 | Outpatient (CLI) | payer MEDICARE, MEDICAID ==
--- NOTE | 2018-07-27 09:59 | PRG ---
DATE OF SERVICE: 07/27/2018 HISTORY: Ms. Roxy Snow is a very pleasant 43-year-old who presents to the [facility]ound Center for evaluation of multiple ulcerations of the right and left feet. The patient after her most recent hospital stay at [facility] was discharged to [facility] and from there Ms. Snow was discharged to [facility] in [place]. The patient states that she completed the prescribed course of IV antibiotics for osteomyelitis. The patient is now receiving dressing changes of calcium alginate with the assistance of Home Health 3 times per week. PHYSICAL EXAMINATION: VITAL SIGNS: Temperature 97.7, pulse 109, respirations 17, blood pressure 185/82. EXTREMITIES: An ulceration is present over the plantar surface of the right forefoot which measures approximately 2.5 x 1.8 cm. Bone is palpable with the wooden end of a cotton-tipped applicator, but does not appear to be exposed. Granulation tissue is present within the wound margins. No purulent drainage is associated with the wound. No cellulitis of the right foot is appreciated. No maceration of the skin of the periwound is noted. A dorsalis pedis pulse is palpable on the right. No significant edema of the right foot is present on exam today. Two ulcerations are present over the plantar surface of the left foot, one over the left lateral forefoot and another over the left heel. These measure approximately 5.8 x 2.7 cm and 3.1 x 2.7 cm respectively. Granulation tissue is present within the margins of each wound. Necrotic and nonviable tissue present within the margins of each wound was debrided with an excisional full-thickness debridement with the use of scissors. No purulent drainage is associated with either wound. No cellulitis of the left foot is appreciated. No maceration of the skin of the periwound of either wound is noted. A dorsalis pedis pulse is palpable on the left. No significant edema of the left foot is present on exam today. Fascia is exposed within the margins of the left lateral forefoot plantar wound. ASSESSMENT AND PLAN: 1. Ulcerations of right and left feet as described above. I have recommended negative pressure therapy to Ms. Snow with dressing changes of the wound VAC 3 times per week with the assistance of Home Health. The patient declines negative pressure therapy, therefore, dressing changes of Medihoney will be initiated today. These dressing changes are to be performed 3 times per week after cleansing and irrigation with the assistance of Home Health 4x4s, ABDs, Kerlix, and Dion bandages will be utilized as secondary dressings. I will see Ms. Snow again in 2 weeks. I have asked her to consider the initiation of negative pressure therapy before she presents to clinic again. 2. Diabetes mellitus. Accu-Cheks will be obtained at the time of the patient's clinic visits. The patient has been reminded that for optimal wound healing her blood glucoses should remain below 150. 3. Hypothyroidism. 4. Hypertension. 5. Migraine headaches. 6. Chronic kidney disease. 7. Carpal tunnel syndrome. 8. Anemia. Job ID: [id number]
[2018-07-27] MEDS ORDERED: Lidocaine 2% Jelly 5 ML TUBE ONE (14:50)
[2018-07-27] MEDS ORDERED: Sodium Chloride 0.9% 15 ML NEB ONE (14:50)
== END 2018-07-27 08:35 | disposition home or self-care (01) ==
LOC: WCC 08:34
PROVIDERS: ATTEND Family Medicine
DX: E11.621 Type 2 diabetes mellitus with foot ulcer (principal); E03.9 Hypothyroidism, unspecified; I12.9 Hypertensive chronic kidney disease with stage 1 through stage 4 chronic kidney disease, or unspecified chronic kidney disease; G43.909 Migraine, unspecified, not intractable, without status migrainosus; N18.9 Chronic kidney disease, unspecified; D63.1 Anemia in chronic kidney disease; L97.529 Non-pressure chronic ulcer of other part of left foot with unspecified severity; L97.519 Non-pressure chronic ulcer of other part of right foot with unspecified severity
CPT/HCPCS: 11042; 11045; 99214; A4218; G0463

== ENCOUNTER 2018-08-09 09:52 | Inpatient (IN) | payer MEDICARE, MEDICAID ==
[2018-08-09 12:28] LABS: #Basophils 0.1 thou/uL (0.0-0.2); #Eosinphils 0.3 thou/uL (0.0-0.7); #Lymphocytes 1.5 thou/uL (1.20-3.40); #Monocytes 0.4 thou/uL (0.11-0.59); #Neutrophils 4.9 thou/uL (1.40-6.50); %Basophils 0.9 % (0.0-1.0); %Eosinophils 4.8 % (0.0-10.0); %Lymphocytes 20.7 % (21.0-51.0); %Monocytes 5.7 % (0.0-10.0); Mean Corpuscular HGB CONC 33.5 g/dL (32.0-36.0); Mean Corpuscular Hemoglobin 27.7 pg (27.0-31.0); Mean Corpuscular Volume 82.5 fL (78.0-98.0); Mean Platelet Volume 7.6 fL (7.4-10.4); Platelet Count 332 thou/uL (130-400); RBC Distribution Width 14.5 % (11.5-14.5); Red Blood Cell (RBC) Count 3.27 mill/uL (4.20-5.40); White Blood Cell (WBC) Count 7.2 thou/uL (4.8-10.8)
[2018-08-09] MEDS ORDERED: Cefepime 2 GM VIAL ONE (12:43)
[2018-08-09] MEDS ORDERED: Sodium Chloride 0.9% 100 ML ONE (12:44)
[2018-08-09 12:48] LABS: ALT (SGPT) 8 U/L (8-55); AST (SGOT) 13 U/L (5-34); Alkaline Phosphatase 215 U/L (40-150); Anion Gap 16 mmol/L (10-20); BUN (Urea Nitrogen) 47 mg/dL (7.0-18.7); Bilirubin, Total 0.3 mg/dL (0.2-1.2); CK (CPK) 115 U/L (29-168); CRP (Inflammatory) 4.01 mg/dL (= or < 0.5); Calc. Creatinine Clearance 0 mL/min (70-130); Calcium 9.7 mg/dL (7.8-10.44); Carbon Dioxide 20 mmol/L (22-29); Chloride 108 mmol/L (98-107); Estimated GFR-MDRD 13; Globulin 3.9 g/dL (2.4-3.5); Glucose 121 mg/dL (70-105); Protein, Total 6.9 g/dL (6.0-8.3); Sodium 141 mmol/L (136-145)
[2018-08-09 18:02] VITALS: BMI 29.2
[2018-08-09] MEDS ORDERED: HumaLOG 300 UNITS/3 ML VIAL SC PRN ×2 (18:50)
[2018-08-09] MEDS ORDERED: cloNIDine 0.1 MG TAB PO PRN (18:50)
[2018-08-09] MEDS ORDERED: Dextrose 5% in Water 1,000 ML IV PRN (18:50)
[2018-08-09] MEDS ORDERED: Acetaminophen 500 MG TAB PO PRN (18:50)
[2018-08-09] MEDS ORDERED: Dextrose 50% Abboject 50 ML SYRINGE SLOW IVP PRN (18:50)
[2018-08-09] MEDS ORDERED: Ondansetron PF 4 MG/2 ML Vial IVP PRN (18:50)
[2018-08-09] MEDS ORDERED: hydrALAZINE 20 MG/ML VIAL SLOW IVP PRN (18:50)
[2018-08-09] MEDS ORDERED: Ondansetron ODT 4 MG TAB PO PRN (18:50)
[2018-08-09] MEDS ORDERED: Potassium Chloride 20 MEQ TAB PO SCH (19:15)
[2018-08-09] MEDS: cefTRIAXone\\ROCEPHIN 2 GM in Sodium Chloride 0.9% 100 ML IVPB SCH (22:05)
[2018-08-09] MEDS: Famotidine 20 MG TAB PO SCH (22:05)
[2018-08-09] MEDS: Ciprofloxacin 0.3% Ophth Drops 2.5 ml Bottle L EYE SCH (22:07)
--- NOTE | 2018-08-10 01:47 | HP ---
PRIMARY CARE PROVIDER: [facility]. CHIEF COMPLAINT: Left foot ulcer. HISTORY OF PRESENT ILLNESS: This is a 43-year-old female, who presents to [facility] Emergency Department after being directed to seek medical care after a recent left foot x-ray was performed on 08/08/2018, showing evidence of osteomyelitis at the head of the 4th metatarsal. The patient with a known history of prior osteomyelitis and recent admission to [facility], 06/09/2018 through 06/17/2018, for left foot osteomyelitis and cellulitis requiring 6 weeks of IV antibiotic therapy at [place]. The patient states she completed oral antibiotic therapy approximately 4 weeks ago, but was not restarted on any antibiotic coverage. The patient has been attending outpatient Wound Care Services for local care and was seen within the last 24 hours with radiographic evaluation of the left foot performed. The patient states she was told by her Home Health Services through guardian that the wound looked improved; however, after radiographic imaging was obtained, osteomyelitis was identified and the patient was referred for admission. The patient denies any documented fever or chills, and has been using a surgical shoe for ambulation. In the emergency room, the patient received IV vancomycin and cefepime and was referred to the Hospitalist Service for admission. PAST MEDICAL HISTORY: 1. Diabetic left foot with osteomyelitis. 2. 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 3. Hypothyroidism. 4. Hypertension. 5. Chronic kidney disease stage 5. 6. Chronic venous stasis of the lower extremities. 7. Anemia of chronic kidney disease. 8. Gastroesophageal reflux disease. PAST SURGICAL HISTORY: 1. Status post cholecystectomy. 2. Status post tympanostomy tube placement. 3. Status post section x2. 4. Status post tunneled hemodialysis catheter placement with subsequent removal. 5. 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 CURRENT MEDICATIONS: 1. Pepcid 20 mg p.o. daily. 2. Ferrous sulfate 325 mg p.o. b.i.d. 3. Levothyroxine 125 mcg p.o. daily. 4. Metoprolol succinate 50 mg p.o. daily. 5. Coumadin 3 mg p.o. daily. 6. Amlodipine 10 mg p.o. daily. 7. Sodium bicarbonate 650 mg p.o. t.i.d. 8. Tramadol 50 mg p.o. q.6 hours p.r.n. pain. ALLERGIES: TO ADHESIVE TAPE AND PENICILLIN. FAMILY HISTORY: Positive for diabetes mellitus. SOCIAL HISTORY: The patient resides in [place], [place]. Disabled. No alcohol, tobacco, or illicit drug use. Ambulates with a rolling walker. REVIEW OF SYSTEMS: CONSTITUTIONAL: Negative for weight loss or gain, ability to conduct usual activities. SKIN: Negative for rash, itching. EYES: Negative for double vision, pain. ENT/MOUTH: Negative for nose bleeding, neck stiffness, pain, tenderness. CARDIOVASCULAR: Negative for palpitations, dyspnea on exertion, orthopnea. RESPIRATORY: Negative for shortness of breath, wheezing, cough, hemoptysis, fever or night sweats. GASTROINTESTINAL: Negative for poor appetite, abdominal pain, heartburn, nausea, vomiting, constipation, or diarrhea. GENITOURINARY: Negative for urgency, frequency, dysuria, nocturia. MUSCULOSKELETAL: Negative for pain, swelling. NEUROLOGIC/PSYCHIATRIC: Negative for anxiety, depression. ALLERGY/IMMUNOLOGIC: Negative for skin rash, bleeding tendency. Otherwise, negative except as stated per HPI. PHYSICAL EXAMINATION: VITAL SIGNS: On admission, blood pressure 131/83, pulse 105, respiratory rate is 16, temperature 97.7 degrees Fahrenheit, O2 saturation 100% on room air. GENERAL APPEARANCE: This is a 43-year-old female, alert and oriented x3, pleasant, in no acute distress. HEENT: Pupils are equal, round, reactive to light and accommodation. Extraocular muscles are intact. Left conjunctival injection. No scleral icterus. Nares patent. OP is clear. NECK: Supple. No cervical adenopathy. No thyromegaly. No carotid bruits. No JVD appreciated. Cervical spine with full active and passive range of motion. No meningeal signs noted. CHEST: Lungs are clear to auscultation bilaterally. CARDIOVASCULAR: S1 and S2, without noted murmur, rub, or gallop. ABDOMEN: Obese, soft, nontender, and nondistended. Bowel sounds are positive in all 4 quadrants. There is no hepatosplenomegaly. No abdominal bruits. No rebound or guarding appreciated. EXTREMITIES: Left foot with ulceration of the plantar surface over the distal 4th metatarsal. Positive purulence and malodorous drainage. Positive tenderness to palpation with edema on the dorsal aspect of the foot. Pulses are palpable distally at the dorsalis pedis and posterior tibial arteries. NEUROLOGIC: Cranial nerves 2 through 12 are grossly intact. No focal or lateralizing signs appreciated. PERTINENT LAB AND X-RAY FINDINGS: Sodium 141, potassium 3.0, chloride 108, CO2 of 20, BUN 47, creatinine 3.89, estimated GFR of 13, glucose 121, lactic acid level 1.4, calcium 9.7. LFTs within normal limits. AST and ALT within normal limits. Alkaline phosphatase 215. CRP 4.01, previously noted 5.92 on 06/09/2018. CBC showed a white blood cell count of 7.2, hemoglobin 9, hematocrit 27, platelet count with 68% neutrophils. ESR 76. Three views of the left foot dated 08/08/2018, showed prominent lytic changes at the head of the 4th metatarsal consistent with osteomyelitis. ASSESSMENT AND PLAN: 1. Diabetic left foot osteomyelitis of the 4th metatarsal head. The patient will be admitted to the medical floor. Continue vancomycin 1 g IV daily. Continue Rocephin 2 g IV q.24 hours. Consult Podiatry Service in the a.m. for assessment and debridement. Consult Infectious Disease Service for further recommendations and planning for outpatient antibiotic therapy. Consult Wound Care Service for local care. Pain control as clinically indicated. 2. Chronic kidney disease stage 5. Avoid nephrotoxic agents and limit contrast exposure. Renally dose medications. Repeat creatinine in the a.m. 3. Hypokalemia. Potassium chloride supplementation with 40 mEq p.o. x1 dose now. Repeat potassium level in the a.m. 4. 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 Insulin sliding scale for reflexive coverage. Resume home diabetic regimen. Serial Accu-Cheks before meals and at bedtime. 5. Chronic normocytic anemia secondary to chronic kidney disease. Stable currently. No evidence to suggest acute blood loss. Repeat CBC in the a.m. 6. Prophylaxis. SCDs while in bed. Pepcid 20 mg p.o. b.i.d. Wound Care consult. CODE STATUS: Full. Surrogate medical decision maker is the patient's spouse. Job ID: [id number]
[2018-08-10 06:39] LABS: Anion Gap 14 mmol/L (10-20); BUN (Urea Nitrogen) 42 mg/dL (7.0-18.7); Calc. Creatinine Clearance 27 mL/min (70-130); Calcium 8.6 mg/dL (7.8-10.44); Carbon Dioxide 17 mmol/L (22-29); Chloride 109 mmol/L (98-107); Estimated GFR-MDRD 13; Glucose 84 mg/dL (70-105); Hemoglobin 7.5 g/dL (12.0-16.0); Mean Corpuscular HGB CONC 33.5 g/dL (32.0-36.0); Mean Corpuscular Volume 83.8 fL (78.0-98.0); Mean Platelet Volume 7.7 fL (7.4-10.4); Platelet Count 284 thou/uL (130-400); Potassium 3.1 mmol/L (3.5-5.1); RBC Distribution Width 14.7 % (11.5-14.5); Red Blood Cell (RBC) Count 2.67 mill/uL (4.20-5.40); Sodium 137 mmol/L (136-145); White Blood Cell (WBC) Count 7.9 thou/uL (4.8-10.8)
[2018-08-10 06:41] LABS: Eosinophils 2 % (0-10); Hypochromia SLIGHT = 6-15 cells (100X) (0-5/hpf); Lymphocytes 11 % (21-51); MDiff Complete? YES; Monocytes 2 % (0-10); Neutrophil 85 % (42-75); Platelet Morphology Comment Appears Adequate
[2018-08-10] MEDS ORDERED: Vancomycin HCl 1 GM in Premix Bag 1 BAG IVPB SCH ×2 (09:00→13:45)
--- NOTE | 2018-08-10 12:40 | RAD ---
LEFT FOOT THREE VIEWS: 08/10/2018 HISTORY: Patient with foot ulcer. COMPARISON: 08/08/2018 FINDINGS: AP, lateral, and oblique views of the left foot are obtained and demonstrate previous distal left 5th metatarsal resection. Areas of lucency are present at the distal aspect of the 4th left metatarsal. This is compatible with changes of osteomyelitis. No acute fractures are seen. No significant interval changes noted since the previous radiograph fro m two days earlier. POS: [facility]
--- NOTE | 2018-08-10 12:42 | RAD ---
RIGHT FOOT THREE VIEWS: HISTORY: Ulcer to left foot. COMPARISON: 08/08/2018 FINDINGS: There appears to be some soft tissue swelling laterally. Minimal bony demineralization of the 5th to e at the metatarsophalangeal joint, nonspecific. Prominent vascular calcifications. Given ulcer, fo llow-up MRI is recommended to evaluate for the possibility of osteomyelitis. POS: [facility]
[2018-08-10] MEDS ORDERED: Vancomycin HCl 750 MG in Sodium Chloride 0.9% 250 ML 250 ML IVPB SCH (13:45)
[2018-08-10] MEDS ORDERED: Vancomycin HCl 1.25 GM in Sodium Chloride 0.9% 250 ML 250 ML IVPB SCH (13:45)
[2018-08-10] MEDS ORDERED: Vancomycin Sliding Scale 1 EACH FS SCH (13:45)
[2018-08-10] MEDS ORDERED: HOLD VANCOMYCIN FOR LEVEL >20 FS SCH (13:45)
[2018-08-10] MEDS ORDERED: Vancomycin HCl 500 MG in Sodium Chloride 0.9% 100 ML IVPB SCH (13:45)
[2018-08-10] MEDS ORDERED: HumaLOG 300 UNITS/3 ML VIAL SC PRN (15:02)
--- NOTE | 2018-08-10 15:05 | PDOC.PN ---
- Subjective Encounter Start Date: 08/10/18 Encounter Start Time: 14:00 Patient seen and examined for Osteomyelitis/nonhealing diabetic foot infection. Feels better. No fever/chills. Pain controlled. No new complaints. No overnight events - Objective Resuscitation Status - Order Detail: 08/09/18 18:42 Resuscitation Status Routine Resuscitation Status: FULL: Full Resuscitation MAR Reviewed: Yes Vital Signs & Weight: Vital Signs (12 hours) Temp Pulse Resp BP Pulse Ox 08/10/18 08:09 98.6 F 78 16 161/79 H 98 08/10/18 08:00 98 08/10/18 05:07 99.0 F 89 16 176/91 H 99 Weight Admit Weight 198 lb 6.4 oz Weight 198 lb 6.4 oz Result Diagrams: 08/10/18 05:20 08/10/18 05:20 Additional Labs: Accuchecks 08/10/18 08/10/18 11:36 05:12 POC Glucose 109 98 Radiology Reviewed by me: Yes (L foot XR - Osteomyelitis) Phys Exam - Physical Examination Constitutional: NAD Neck: no JVD Respiratory: no wheezing, no rales, no rhonchi Symmetrical Cardiovascular: RRR, no rub no heaves/pulsations Gastrointestinal: soft, non-tender, no distention, positive bowel sounds Musculoskeletal: no edema B/L feet dressing+ Neurological: non-focal, moves all 4 limbs Lymphatic: no nodes (neck) Psychiatric: normal affect, A&O x 3 Skin: no rash, normal turgor Dx/Plan - Plan 1. Left foot osteomyelitis/nonhealing diabetic foot infection 2. DM2 with diabetic nephropathy/neuropathy 3. CKD 5 4. Hypokalemia 5. Chronic Venous statis with ulcerations 6. Anemia due to renal insufficiency 7. Med noncompliance 8. PVD PLAN: Cont IV Vancomycin/Ceftriaxone Monitor Vancomycin level Cont Wound care Change sliding scale to mild Replace Potassium Await ID/Podiatry input AM labs No Heparin/Lovenox due to Anemia Review of Systems - Review of Systems Respiratory: negative: Cough, Dry, Shortness of Breath, Hemoptysis, SOB with Excertion, Pleuritic Pain, Sputum, Wheezing Cardiovascular: negative: chest pain, palpitations, orthopnea, paroxysmal nocturnal dyspnea, edema, light headedness, other Gastrointestinal: negative: Nausea, Vomiting, Abdominal Pain, Diarrhea, Constipation, Melena, Hematochezia, Other - Medications/Allergies Allergies/Adverse Reactions: Allergies Allergy/AdvReac Type Severity Reaction Status Date / Time adhesive tape Allergy Mild Verified 09/12/16 04:35 Penicillins Allergy Verified 09/12/16 04:35 Medications: Current Medications Acetaminophen (Tylenol) 1,000 mg PO Q6H PRN PRN Reason: Mild Pain (1-3) Hydrocodone Bitart/Acetaminophen ([place] 5/325) 1 tab PO Q4H PRN PRN Reason: Moderate Pain (4-6) Ciprofloxacin (Ciprofloxacin Hcl) 1 drop L EYE TID [facility] Clonidine (Catapres) 0.1 mg PO Q4H PRN PRN Reason: SBP Greater Than 180 Dextrose/Water (Dextrose 50%) 25 gm SLOW IVP PRN PRN PRN Reason: Hypoglycemia Famotidine (Pepcid) 20 mg PO QPM [facility] Last Admin: 08/09/18 22:05 Dose: 20 mg Gabapentin (Neurontin) 100 mg PO BID [facility] Glucagon (Glucagon) 1 mg IM PRN PRN PRN Reason: Hypoglycemia Hydralazine HCl (Apresoline) 10 mg SLOW IVP Q4H PRN PRN Reason: SBP > 180 and HR < 70 Dextrose/Water (D5w) 1,000 mls @ 0 mls/hr IV .Q0M PRN PRN Reason: Hypoglycemia Ceftriaxone Sodium 2 gm/ (Sodium Chloride) 100 mls @ 200 mls/hr IVPB Q24HR [facility] Last Admin: 08/09/18 22:05 Dose: 100 mls Vancomycin HCl 1.25 gm/ Sodium (Chloride) 250 mls @ 166.667 mls/hr IVPB WILLCALL [facility] Vancomycin HCl 1 gm/ Device 200 mls @ 200 mls/hr IVPB WILLCALL [facility] Vancomycin HCl 750 mg/ Sodium (Chloride) 250 mls @ 250 mls/hr IVPB WILLCALL [facility] Vancomycin HCl 500 mg/ Sodium (Chloride) 100 mls @ 100 mls/hr IVPB WILLCALL [facility] Insulin Human Lispro (Humalog) 0 units SC .BEDTIME SLIDING SC PRN PRN Reason: Bedtime Correctional Scale Insulin Human Lispro (Humalog) 0 units SC .MILD SLIDING SCALE PRN PRN Reason: Mild Correctional Scale Levothyroxine Sodium (Synthroid) 125 mcg PO 0600 DARYN Miscellaneous Medication (Pharmacy To Dose) 1 each IVPB ASDIR DARYN Miscellaneous Medication (Vancomycin Sliding Scale) 1 each FS ASDIR DARYN Hold Vancomycin For (Level >20) 0 each FS .AT DIALYSIS DARYN Ondansetron HCl (Zofran Odt) 4 mg PO Q6H PRN PRN Reason: Nausea/Vomiting Ondansetron HCl (Zofran) 4 mg IVP Q6H PRN PRN Reason: Nausea/Vomiting Saccharomyces Boulardii (Florastor) 250 mg PO DAILY D[facility] Sodium Chloride (Flush - Normal Saline) 10 ml IVF Q12HR DARYN Sodium Chloride (Flush - Normal Saline) 10 ml IVF PRN PRN PRN Reason: Saline Flush
[2018-08-10] MEDS ORDERED: Potassium Chloride 20 MEQ TAB PO SCH (17:00)
[2018-08-10] MEDS: Ciprofloxacin 0.3% Ophth Drops 2.5 ml Bottle L EYE SCH (18:14)
[2018-08-10] MEDS: Famotidine 20 MG TAB PO SCH (20:44)
[2018-08-10] MEDS: Gabapentin 100 MG CAP PO SCH (20:44)
[2018-08-10] MEDS: cefTRIAXone\\ROCEPHIN 2 GM in Sodium Chloride 0.9% 100 ML IVPB SCH (20:48)
[2018-08-11] MEDS: Levothyroxine Sodium 125 MCG TAB PO SCH (05:34)
[2018-08-11 05:57] LABS: #Eosinphils 0.3 thou/uL (0.0-0.7); #Lymphocytes 1.5 thou/uL (1.20-3.40); #Monocytes 0.6 thou/uL (0.11-0.59); #Neutrophils 3.2 thou/uL (1.40-6.50); %Basophils 0.3 % (0.0-1.0); %Eosinophils 6.1 % (0.0-10.0); %Lymphocytes 26.6 % (21.0-51.0); %Monocytes 10.1 % (0.0-10.0); %Neutrophils 56.8 % (42.0-75.0); Mean Corpuscular HGB CONC 34.2 g/dL (32.0-36.0); Mean Corpuscular Hemoglobin 28.7 pg (27.0-31.0); Mean Corpuscular Volume 84.1 fL (78.0-98.0); Mean Platelet Volume 7.8 fL (7.4-10.4); Platelet Count 247 thou/uL (130-400); RBC Distribution Width 14.5 % (11.5-14.5); Red Blood Cell (RBC) Count 2.43 mill/uL (4.20-5.40); White Blood Cell (WBC) Count 5.6 thou/uL (4.8-10.8)
[2018-08-11 06:28] LABS: Anion Gap 13 mmol/L (10-20); BUN (Urea Nitrogen) 37 mg/dL (7.0-18.7); Calc. Creatinine Clearance 27 mL/min (70-130); Calcium 8.6 mg/dL (7.8-10.44); Carbon Dioxide 18 mmol/L (22-29); Chloride 110 mmol/L (98-107); Estimated GFR-MDRD 13; Glucose 111 mg/dL (70-105); Magnesium 1.1 mg/dL (1.6-2.6); Sodium 138 mmol/L (136-145)
[2018-08-11 06:31] LABS: Potassium 2.9 mmol/L (3.5-5.1)
[2018-08-11] MEDS ORDERED: Potassium Chloride 20 MEQ TAB PO SCH ×2 (07:00→10:00)
[2018-08-11] MEDS: Saccharomyces boulardii 250 MG CAP PO SCH (07:56)
[2018-08-11] MEDS: Gabapentin 100 MG CAP PO SCH (07:56)
--- NOTE | 2018-08-11 09:46 | PRG ---
DATE OF SERVICE: 08/11/2018 SUBJECTIVE: The patient is seen and examined at the bedside. She complains about some soreness of her left eye and lack of appetite. OBJECTIVE: VITAL SIGNS: Blood pressure is 149/79, pulse is 74, temperature is 98.4, respirations 16, O2 saturation is 98% on room air. HEENT: Head is atraumatic and normocephalic. The left eye shows some irritation of her conjunctiva. Oral mucosa is moist. NECK: Supple. LUNGS: Clear. HEART: S1 and S2 normal. No S3. No S4. ABDOMEN: Soft and nontender. Bowel sounds are present. No organomegaly. EXTREMITIES: Right lower extremity shows 2 open areas with cellulitis around. Also, there is some cellulitis on the left side approximately at the same level, slightly above the ankle area. NEUROLOGICAL: She is alert and oriented x4. There are no any motor deficits. I suspect significant peripheral neuropathy since she does not have any pain in her legs. LABORATORY DATA: White count of 5.6, hemoglobin 7.0, hematocrit 20.4, platelet count 247,000. Sodium of 138, potassium 2.9, chloride 110, CO2 of 18, BUN 37, creatinine 3.75. Glycemia is ranging from 98 to 121. Magnesium 1.1. IMPRESSION: 1. Left eye conjunctivitis, on Cipro eyedrops. 2. Left foot osteomyelitis/nonhealing diabetic foot infection. 3. Diabetes mellitus type 2, controlled. 4. Diabetic nephropathy/neuropathy. 5. Hypomagnesemia, severe. 6. Hypokalemia, severe. 7. Chronic kidney disease stage 5. 8. Chronic venous stasis with ulcerations. 9. Anemia due to renal insufficiency. 10. Medical noncompliance. 11. Peripheral vascular disease. PLAN: Plan is to continue her vancomycin and ceftriaxone. ID is consulted. [employer] is following. Wound Care is following. She is supposed to have MRI done on her leg this morning. We will replace her magnesium and replace her potassium. We will consult Nephrology, Dr. Rivera. Job ID: [id number]
[2018-08-11 12:43] LABS: Anion Gap 14 mmol/L (10-20); BUN (Urea Nitrogen) 35 mg/dL (7.0-18.7); Calc. Creatinine Clearance 28 mL/min (70-130); Calcium 8.9 mg/dL (7.8-10.44); Carbon Dioxide 17 mmol/L (22-29); Chloride 110 mmol/L (98-107); Estimated GFR-MDRD 14; Glucose 160 mg/dL (70-105); Potassium 3.1 mmol/L (3.5-5.1); Sodium 138 mmol/L (136-145)
--- NOTE | 2018-08-11 13:34 | MRI ---
MRI LEFT FOOT WITHOUT IV CONTRAST: INDICATION: History of left foot ulcers. Concern for osteomyelitis. COMPARISON: Radiograph dated 08/10/2018 and MRI left foot dated 06/10/2018. FINDINGS: There is post surgical change of a partial ray resection involving the 5th metatarsal. There is diff use abnormal marrow signal involving the 5th metatarsal shaft. There is a pathologic fracture involving the head and neck region of the 4th metatarsal with diffuse abnormal marrow signal intensit y of the head and neck region, as well as the 4th metatarsal shaft. There is abnormal marrow signal intensity involving the base of the proximal phalanx of the 4th digit. There is also some abn ormal marrow signal and cortical osteolysis involving the lateral head of the 3rd digit metatarsal, suspicious for osteomyelitis. There is full-thickness ulceration along the plantar and lateral aspec t of the posterior tuberosity of the calcaneus, suspicious for a large full-thickness ulceration. There is cortical osteolysis and abnormal signal involving portions of the posterior tuberosity of th e calcaneus consistent with changes of osteomyelitis. There is diffuse edema involving the soft tissues of the foot, suspicious for either lymphedema or cellulitis. There is diffuse abnormal incre ased T2 signal involving the intrinsic foot musculature, possibly related to denervation or myositis. IMPRESSION: 1. Findings of osteomyelitis involving the calcaneus, 3rd, 4th, and 5th digits, as detailed above. 2. Lymphedema versus cellulitis of the left foot. 3. Muscular edema versus denervation changes. Transcribed Date/Time: 08/11/2018 2:14 PM
--- NOTE | 2018-08-11 14:35 | MRI ---
MRI RIGHT FOOT WITHOUT IV CONTRAST: HISTORY: Ulcer, right foot. COMPARISON: Right foot x-ray from 08/10/2018. FINDINGS: Abnormal T2 and STIR hyperintensity and T1 hypointensity involving the distal 5th metatarsal, evidenc e for osteomyelitis. There is also some abnormal STIR and T2 hyperintensity involving the proximal p halanx of the 5th toe, with mild T1 hypointensity, evidence for osteomyelitis/nonspecific osteitis of the phalanges of the 5th toe. No evidence for an associated drainable abscess. There is a plantar ulcer at the level of the distal 5th metatarsal head. Prominent STIR hyperintensity involving the in trinsic muscles of the foot, nonspecific, but this can be seen in patients with diabetes mellitus. IMPRESSION: 1. Osteomyelitis involving the distal 5th metatarsal and metatarsal head and probable septic arthrit is of the 5th metatarsophalangeal joint with abnormal signal changes within the phalanges of the righ t 5th toe, evidence for early osteomyelitis or nonspecific osteitis. No evidence for a drainable abs cess. 2. Prominent T2 and STIR hyperintensity of the intrinsic muscles of the foot, nonspecific. Motion a rtifact lowers the sensitivity of this study. POS: [facility]
[2018-08-11] MEDS ORDERED: Lidocaine 1% PF 5 ML VIAL ONE (14:52)
[2018-08-11] MEDS ORDERED: Rocuronium Bromide 10 MG/ML (10ML VIAL) ONE (14:52)
[2018-08-11] MEDS ORDERED: PHENYLEPHRINE-NS 100 MCG/ML 10 ML SYRINGE ONE (14:52)
[2018-08-11] MEDS ORDERED: PROPOFOL 200 MG/20 ML VIAL ONE (14:52)
[2018-08-11] MEDS ORDERED: Ondansetron PF 4 MG/2 ML Vial ONE (14:52)
[2018-08-11] MEDS ORDERED: ePHEDrine 50 MG/ML VIAL ONE (14:52)
--- NOTE | 2018-08-11 19:06 | CON ---
DATE OF CONSULTATION: REASON FOR CONSULTATION: Elevated creatinine. HISTORY OF PRESENT ILLNESS: This is a very pleasant 43-year-old female, who is admitted repeatedly for multiple episodes of acute kidney injury. The patient denies any nausea, vomiting, or chest pain. The patient was admitted for foot ulcer. Her creatinine has risen. PAST MEDICAL HISTORY: Diabetes mellitus, hypertension, hypothyroidism, stage 5 chronic kidney disease, multiple episodes of acute kidney injury, venous ulcers, chronic edema, GERD, cholecystectomy, , tunneled dialysis catheter, history of amputation. MEDICATIONS: Home medication list reviewed. Hospital medications reviewed. ALLERGIES: REVIEWED. REVIEW OF SYSTEMS: A 15-point review of systems was performed and negative except for positives noted above. GENERAL: HEAD: NECK: No swelling or lumps. NOSE: No epistaxis or discharge. EYES: No diplopia or pain. RESPIRATORY: CARDIOVASCULAR: GASTROINTESTINAL: /BULK FOLDER: MUSCULOSKELETAL: No joint pain. NEUROPSYCHIATIC SYSTEMS: No suicidal ideation. No ideation. SKIN: Denies any rash or ulcer. CONSTITUTIONAL: No fever or chills. PHYSICAL EXAMINATION: CONSTITUTIONAL: The patient is awake and alert. VITAL SIGNS: Afebrile, pulse 80, breathing 16, blood pressure 149/75. GENERAL APPEARANCE AND MENTAL STATUS: Fair. HEAD/NECK: Normocephalic. Atraumatic. EYES: EOMI. No deformity. EARS: Clear. No ulcers. NOSE: Intact. No lesions. MOUTH: Clear. No discharge. THROAT: Clear. No exudate. LUNGS: Clear. No crackles. CARDIAC: S1, S2. No rub. ABDOMEN: Benign. Bowel sounds positive. GENITALIA/RECTUM: Olvera absent. BACK/EXTREMITIES: Lower extremities showed edema. NEUROLOGICAL: Alert and motor intact. SKIN: LYMPHATICS: LABORATORY DATA: Labs showed hemoglobin 7. Potassium was 2.9. ASSESSMENT AND RECOMMENDATION: 1. Acute kidney injury with chronic kidney disease, stage 5, due to ATN and progressive diabetic disease. Continue gentle hydration. 2. Hypokalemia. Agree with p.o. potassium replacement. 3. Medication based on GFR appropriate. No indication for dialysis at this time. Job ID: [id number]
[2018-08-11] MEDS ORDERED: Fentanyl 100 MCG/2 ML VIAL ONE (21:08)
[2018-08-11] MEDS ORDERED: Midazolam HCl 2 mg/2 ml Vial ONE (21:08)
[2018-08-11] MEDS ORDERED: Sodium Chloride 0.9% 100 ML ONE (21:29)
[2018-08-11] MEDS ORDERED: cefTRIAXone\\ROCEPHIN 2 GM VIAL ONE (21:29)
[2018-08-11] MEDS ORDERED: Bupivacaine PF 0.5% 30 ML VIAL ONE (22:30)
[2018-08-11] MEDS ORDERED: Sodium Chloride 0.9% 60 ML ONE (22:44)
[2018-08-11] MEDS ORDERED: Thrombin 5000 UNITS/5 ML VIAL ONE (22:46)
--- NOTE | 2018-08-12 00:05 | CON ---
DATE OF CONSULTATION: REASON FOR CONSULTATION: Foot ulcers with osteomyelitis. HISTORY OF PRESENT ILLNESS: A 43-year-old whom I had seen in June and has a history of type 2 diabetes, renal insufficiency, hypertension, neuropathy, and multiple admissions with various complications including UTIs, uncontrolled hyperglycemia, myopathy, neuropathy, and various ulcers in the dependent areas of the body. She has had a previous episode of leukocytoclastic vasculitis and now she is admitted with exacerbation of ulcers in the right and left feet. Apparently , she was directed by the visiting nurse to go to the emergency room because the nurse felt that her feet wounds did not look right. The patient herself did not have any symptoms. X-rays here in the emergency room showed findings concerning for osteomyelitis and she is admitted and had an MRI with the findings noted below. She is scheduled for surgical debridement, I believe tomorrow. Denies headaches. No visual symptoms, sore throat, odynophagia, or dysphagia. No chest pain or dyspnea. No abdominal pain. She is urinating at the bedside commode. PAST MEDICAL HISTORY: Type 2 diabetes, left foot osteomyelitis with fifth ray amputation, neuropathy, nephropathy, hypothyroidism, hypertension, venous stasis in the lower extremities, and GERD. PAST SURGICAL HISTORY: Cholecystectomy, tympanostomy tube placement, , hemodialysis catheter placement with removal after improvement of renal function , amputation of left fifth ray. ALLERGIES: PENICILLIN AND TAPE. FAMILY HISTORY: Type 2 diabetes. SOCIAL HISTORY: Lives in [place], [facility]. Ambulates with a rolling walker. Never smoker. CURRENT MEDICATIONS: 1. Ceftriaxone. 2. Cipro. 3. Clonidine. 4. Glucagon. 5. Vancomycin. PHYSICAL EXAMINATION: VITAL SIGNS: T-max 100.2, BP 170/80, pulse 80, respirations 16, and O2 saturation 98%. SKIN: Shows the ulcer in the right foot fifth MPJ skin site, measuring about 1.5 cm with a central area of darkened scab and blistering around that area region, and a thin rim of erythema around it. Gluteal skin erythema, mild; some areas of flakiness of the skin and more extensive area of ulceration measuring 6 cm with sort of a [id number] in the lateral aspect of the left foot. The more proximal round area with pretty much 100% yellow necrotic slough. The more distal area with about 40% necrotic slough. No erythema surrounding this area noted. I was not able to probe any exposed bone, but I did not remove the slough. She has a peripheral IV access and no lymphadenopathy. HEENT: Ocular movements are conjugate. Sclerae white. Pupils are equal. Oral cavity with no nez perce teeth left. NECK: Supple. No jugular venous distention. No thyromegaly. LUNGS: Symmetric. Clear breath sounds. HEART: S1 and S2. Regular rate. No S3 or S4. ABDOMEN: Soft, not distended or tender. No ascites. No bladder distention. NEUROLOGIC: She is diffusely weak, but is able to lift her knees from the bed, awake, oriented, follows commands. Speech normal. Recollection is fairly decent. LABORATORY DATA: White cell count 7.2 and 5.6, hemoglobin 9 and now 7, MCV 84, platelets 247 with a normal differential except for mild monocytosis. Sodium 138, creatinine is at 3.65, which is close to her baseline. AST 13, ALT 8, and alkaline phosphatase 215. C-reactive protein 4.01, albumin 3.0. Microbiology, 2 sets of blood cultures, no growth. Foot wound with MRSA from the superficial culture. Previous cultures from the left toe with P. mirabilis, viridans strep. She also has had bacteroides. MRI of right and left feet with osteomyelitis of 3rd, 4th, and 5th digits as well as calcaneus lymphedema cellulitis left foot, most likely lymphedema and MRI of the right foot with 5th metatarsal osteomyelitis, probable septic arthritis as well. ASSESSMENT: Type 2 diabetes, neuropathy, myopathy, nephropathy, stage 4-5 chronic lymphedema, and chronic ulcers in the feet, mostly pressure-induced, status post previous left 5th ray amputation, now with more extensive involvement in the left side with 3rd and 4th involvement and the calcaneus as well, and on the right side with the fifth ray involved as well. The left foot is at risk for a BK level amputation. She probably will end up with a transmetatarsal on the left side, but the heel ulceration is concerning for the presence of osteomyelitis. The right side amputation is certainly going to be more limited. It is just the fifth ray, but we are probably going to continue seeing these complications and we will eventually end up with a below-knee amputation at least on the left side. In terms of antimicrobial therapy, we will discontinue the ciprofloxacin and add some anaerobic coverage with Flagyl instead. Continue ceftriaxone and vancomycin. The duration of therapy to be determined by the clearance of the surgical margin after debridement/amputation. She may need transfer to a halfway place for IV antimicrobial therapy administration, but we will try to avoid that. Hopefully, samples for culture will be submitted from the surgical specimen. Job ID: [id number] MTDD
[2018-08-12] MEDS ORDERED: Thrombin 5000 UNITS/5 ML VIAL ONE (00:27)
[2018-08-12] MEDS ORDERED: Ondansetron HCl/PF 4 MG/2 ML Vial IVP PRN (01:07)
[2018-08-12] MEDS ORDERED: Promethazine HCl 25 MG/ML VIAL IM PRN (01:07)
[2018-08-12] MEDS ORDERED: Promethazine HCl 25 MG/ML VIAL SLOW IVP PRN (01:07)
[2018-08-12] MEDS: cefTRIAXone\\ROCEPHIN 2 GM in Sodium Chloride 0.9% 100 ML IVPB SCH ×2 (01:19→23:12)
[2018-08-12] MEDS ORDERED: Fentanyl 100 MCG/2 ML VIAL ONE (01:21)
[2018-08-12] MEDS: metroNIDAZOLE 250 MG in Admixture Fee 2 EACH IVPB SCH ×4 (01:59→22:35)
[2018-08-12] MEDS: Famotidine 20 MG TAB PO SCH ×2 (02:00→21:01)
[2018-08-12] MEDS: Gabapentin 100 MG CAP PO SCH ×3 (02:00→21:02)
[2018-08-12] MEDS: Levothyroxine Sodium 125 MCG TAB PO SCH (05:48)
[2018-08-12] MEDS: Saccharomyces boulardii 250 MG CAP PO SCH (08:10)
[2018-08-12 08:59] LABS: #Eosinphils 0.3 thou/uL (0.0-0.7); #Lymphocytes 1.6 thou/uL (1.20-3.40); #Monocytes 0.6 thou/uL (0.11-0.59); #Neutrophils 4.4 thou/uL (1.40-6.50); %Basophils 0.4 % (0.0-1.0); %Eosinophils 4.1 % (0.0-10.0); %Lymphocytes 22.5 % (21.0-51.0); %Monocytes 8.8 % (0.0-10.0); %Neutrophils 64.2 % (42.0-75.0); Hemoglobin 6.1 g/dL (12.0-16.0); Mean Corpuscular HGB CONC 32.7 g/dL (32.0-36.0); Mean Corpuscular Hemoglobin 28.1 pg (27.0-31.0); Mean Corpuscular Volume 85.9 fL (78.0-98.0); Mean Platelet Volume 7.4 fL (7.4-10.4); Platelet Count 243 thou/uL (130-400); RBC Distribution Width 14.6 % (11.5-14.5); Red Blood Cell (RBC) Count 2.18 mill/uL (4.20-5.40); White Blood Cell (WBC) Count 6.9 thou/uL (4.8-10.8)
[2018-08-12] MEDS ORDERED: Vancomycin HCl 500 MG in Sodium Chloride 0.9% 100 ML IVPB SCH (09:00)
[2018-08-12 09:13] LABS: Vancomycin, Random 22.8 ug/mL (See Comment)
[2018-08-12 09:15] LABS: Anion Gap 12 mmol/L (10-20); BUN (Urea Nitrogen) 32 mg/dL (7.0-18.7); Calc. Creatinine Clearance 27 mL/min (70-130); Calcium 8.1 mg/dL (7.8-10.44); Carbon Dioxide 17 mmol/L (22-29); Chloride 110 mmol/L (98-107); Estimated GFR-MDRD 13; Glucose 100 mg/dL (70-105); Potassium 3.1 mmol/L (3.5-5.1); Sodium 136 mmol/L (136-145)
--- NOTE | 2018-08-12 09:46 | OP ---
DATE OF PROCEDURE: 08/11/2018 PREOPERATIVE DIAGNOSES: 1. Chronic nonhealing ulcers, bilateral feet. 2. Osteomyelitis of fifth metatarsal head, right foot; third and fourth metatarsal heads, left foot; bases of fourth proximal phalanx, left foot; and calcaneus, left foot. POSTOPERATIVE DIAGNOSES: 1. Chronic nonhealing ulcers, bilateral feet. 2. Osteomyelitis of fifth metatarsal head, right foot; third and fourth metatarsal heads, left foot; bases of fourth proximal phalanx, left foot; and calcaneus, left foot. PROCEDURES PERFORMED: 1. Resection of metatarsal heads 3 and 4, left foot. 2. Resection of metatarsal head 5, right foot. 3. Partial resection of calcaneus, left foot. 4. Debridement of full-thickness ulcerations, plantar foot, bilateral. INJECTABLES: 30 mL of 0.5% Marcaine plain. ANESTHESIA: General with local foot block. HEMOSTASIS: Pneumatic calf tourniquet at 350 mmHg bilaterally. ESTIMATED BLOOD LOSS: 150 mL. MATERIALS: 3-0 Vicryl, 4-0 Vicryl, and 3-0 Prolene. DESCRIPTION OF PROCEDURE: The patient was brought into the operating room and placed on the operating table in a supine position. Well-padded pneumatic calf tourniquet was placed about the patient's left calf. Following administration of anesthesia, the foot was then scrubbed, prepped, and draped in usual aseptic manner. The patient was positioned in a semi-lateral position allowing access to the plantar lateral left heel. Upon adequate exposure of the heel, a 3 cm linear longitudinal incision was made just proximal to the ulceration. The incision was deepened to the level of the bone. All necrotic bone and tissue were then carefully resected and passed from the operative field. The wound was irrigated with copious amounts of sterile normal saline and Bacitracin using a pulse lavage. The ulceration was then debrided of all fibrotic tissue utilizing a 15 blade to good bleeding tissue. The incision was closed utilizing 3-0 Vicryl, 4-0 Vicryl, and 3-0 Prolene in a running interlocking suture pattern. Next, attention was then directed to the dorsal aspect of the patient's left foot, where a 4 cm linear longitudinal incision was made between the third and fourth metatarsal heads. The incision was deepened to the level of the metatarsal heads. The fourth metatarsal head was necrotic and was resected and passed from the operative field. Next, an oblique osteotomy was performed just proximal to the neck of the fourth metatarsal, and all bone was resected and passed from the operative field. Attention was then directed to the proximal phalanx, where the base of the proximal phalanx was resected and passed from the operative field. Next, attention was then directed to the third metatarsal upon removal of all soft tissue attachments. All necrotic tissue and bone were then carefully resected with a similar oblique osteotomy. The wound was also irrigated with pulse lavage and Bacitracin. The deep closure was performed utilizing 3-0 Vicryl, superficial closure with 4-0 Vicryl, and skin was closed with 3-0 Prolene in an interlocking suture pattern. The plantar ulcerations were then carefully debrided full thickness of all necrotic and fibrotic tissue. Both plantar wounds were packed with Gelfoam and Thrombin. A bulky compressive dressing was placed about the patient's left foot, and the pneumatic ankle tourniquet was released with prompt hyperemic response noted to all digits of the left foot. Next, a pneumatic tourniquet was placed on the calf of the patient's right foot. The right foot was then scrubbed, draped, and prepped in the usual aseptic manner. Next, an Esmarch bandage was used to exsanguinate the patient's right foot and the pneumatic ankle tourniquet was then inflated to 250 mmHg, which provided adequate hemostasis throughout the entire procedure. Next, a 4 cm linear longitudinal incision was made over the dorsal aspect of the patient's fifth metatarsal. Upon adequate exposure of the bone, an oblique osteotomy was performed in the shaft of the fifth metatarsal and the fifth metatarsal was then carefully resected and passed from the operative field. The wound was then debrided of all necrotic tissue, tendon and fat all were passed from the operative field. The wound was irrigated with pulse lavage and Bacitracin, and the incision was closed utilizing 3-0 Vicryl for deep closure, 4-0 Vicryl for superficial closure, and 3-0 Prolene for skin closure in a similar suture pattern. The plantar wound was packed with Gelfoam with Thrombin. A bulky compressive dressing was placed about the patient's right foot, and the pneumatic ankle tourniquet was released with prompt hyperemic response noted to all the digits of the right foot. DISCHARGE SUMMARY: The patient tolerated the procedure and anesthesia and was transferred to the recovery room with vital signs stable and vascular status intact to all digits of both feet. Following a period of postoperative monitoring, she is to be discharged to her room. She will continue all medications and diet, and will continue treatment by Wound Care. She is to be setup with followup for outpatient wound care upon discharge as well as Dr. Metcalf upon discharge. Job ID: [id number]
[2018-08-12] MEDS ORDERED: Potassium Chloride 20 MEQ TAB PO SCH (10:00)
[2018-08-12 10:24] LABS: Reticulocyte Count 3.8 % (0.5-1.5)
--- NOTE | 2018-08-12 10:25 | PRG ---
DATE OF SERVICE: 08/12/2018 SUBJECTIVE: A 43-year-old female being seen for acute kidney injury. The patient denied any nausea, vomiting or chest pain. OBJECTIVE: See above. CONSTITUTIONAL: Awake, alert, in no acute distress. VITAL SIGNS: Afebrile. Pulse 93, breathing 16, and blood pressure 112/68. GENERAL APPEARANCE AND MENTAL STATUS: Fair. HEAD/NECK: Normocephalic. Atraumatic. EYES: EOMI. No deformity. EARS: Clear. No ulcers. NOSE: Intact. No lesions. MOUTH: Clear. No discharge. THROAT: Clear. No exudate. LUNGS: Clear. No crackles. CARDIAC: S1, S2. No rub. ABDOMEN: Benign. Bowel sounds positive. GENITALIA/RECTUM: Olvera absent. BACK/EXTREMITIES: Edema 0+. NEUROLOGICAL: Alert and motor intact. SKIN: LYMPHATICS: LABORATORY DATA: Reviewed. Hemoglobin is 6.1. Potassium is pending. ASSESSMENT AND PLAN: 1. Chronic kidney disease stage 5 with acute kidney injury. No indication for dialysis. 2. Hypokalemia. Followup potassium today. Labs are ordered. 3. Hypomagnesemia, replace magnesium. 4. Anemia. Would recommend stat blood transfusion. Prognosis is very poor. Job ID: [id number]
[2018-08-12 10:39] LABS: Magnesium 1.2 mg/dL (1.6-2.6)
[2018-08-12 10:40] LABS: Iron 49 ug/dL (50-170); Iron Binding Capacity, Total 106 mcg/dL (265-497)
--- NOTE | 2018-08-12 10:48 | PRG ---
DATE OF SERVICE: 08/12/2018 SUBJECTIVE: The patient is seen and examined at the bedside. She had her surgery done last night. She is still somewhat drowsy. Her left eye seems to be doing better. OBJECTIVE: VITAL SIGNS: Blood pressure is 112/68, pulse is 93, temperature is 97.6, respirations 16, O2 saturation is 100% on room air. HEENT: Head is atraumatic and normocephalic. Skin looks pale. Sclerae are nonicteric. Conjunctivae are pale. Oral mucosa moist. NECK: Supple. LUNGS: Clear. HEART: S1, S2 normal. Systolic murmur at the right sternal border 2/6. ABDOMEN: Soft. Mildly tender in the epigastric area. No guarding. No masses. EXTREMITIES: No clubbing, cyanosis. There is 1 to 2+ peripheral edema similar on both sides. Both feet are dressed. NEUROLOGICAL EXAMINATION: She follows my commands. She moves her all 4 extremities. There are no any motor deficits. LABORATORY DATA: Labs showed white count of 6.9, hemoglobin 6.1, hematocrit 18.7, platelet count is 243,000. Sodium is 136, potassium 3.1, chloride 110, CO2 17, BUN 32, creatinine 3.71, calcium 8.1, random vancomycin 22.8. Microbiology, two blood cultures are negative. IMPRESSION: 1. Chronic nonhealing ulcers, bilateral feet .. 2. Osteomyelitis of the fifth metatarsal head, right foot, third and fourth metatarsal heads, left foot bases of fourth proximal phalanx left foot and calcaneus of the left foot, status post resection of the metatarsal heads three and four, left foot resection of the metatarsal head five right foot, partial resection of calcaneus, left foot, debridement of full-thickness ulcerations, plantar foot, bilateral per Dr. Aldrich. 3. Anemia. Hemoglobin is down to 6.0 this morning. She did not notice any black tarry stools. She feels weak and tired. I am going to transfuse her with 2 units of packed red blood cells. We will do additional workup with fecal occult blood test, retic count, LDH, and iron studies. 4. Diabetes mellitus type 2, controlled. 5. Diabetic nephropathy. 6. Neuropathy. 7. Hypomagnesemia. 8. Hypokalemia. 9. Chronic kidney disease stage 5. 10. Chronic venous stasis with ulcerations. 11. Anemia due to renal insufficiency. 12. Medical noncompliance. 13. Peripheral vascular disease. PLAN: Plan is to continue antibiotics, ceftriaxone, vancomycin, and Flagyl per Dr. eMtcalf. We are awaiting for the culture of the specimen sent to the lab by setup operator with 40 mEq of potassium p.o. and we will check her magnesium level. She was giving magnesium sulfate yesterday and we will start her on 5000 units of heparin for DVT prophylaxis. Job ID: [id number]
[2018-08-12] MEDS: HYDROcodone/Acetaminophen 5/325 mg Tablet PO PRN (15:45)
[2018-08-13] MEDS: Levothyroxine Sodium 125 MCG TAB PO SCH (05:26)
[2018-08-13] MEDS: metroNIDAZOLE 250 MG in Admixture Fee 1 EACH IVPB SCH ×3 (05:27→21:59)
[2018-08-13 08:24] LABS: Vancomycin, Random 18.7 ug/mL (See Comment)
[2018-08-13] MEDS: Saccharomyces boulardii 250 MG CAP PO SCH (08:56)
[2018-08-13] MEDS: Gabapentin 100 MG CAP PO SCH ×2 (08:56→20:40)
[2018-08-13 09:09] LABS: Hemoglobin 7.6 g/dL (12.0-16.0)
[2018-08-13 09:26] LABS: Anion Gap 14 mmol/L (10-20); BUN (Urea Nitrogen) 30 mg/dL (7.0-18.7); Calc. Creatinine Clearance 28 mL/min (70-130); Calcium 7.8 mg/dL (7.8-10.44); Carbon Dioxide 17 mmol/L (22-29); Chloride 109 mmol/L (98-107); Estimated GFR-MDRD 13; Glucose 160 mg/dL (70-105); Potassium 3.5 mmol/L (3.5-5.1); Sodium 136 mmol/L (136-145)
[2018-08-13] MEDS ORDERED: Carvedilol 3.125 MG TAB PO SCH (09:30)
[2018-08-13] MEDS ORDERED: Vancomycin HCl 500 MG in Sodium Chloride 0.9% 100 ML IVPB SCH (09:45)
--- NOTE | 2018-08-13 10:43 | PRG ---
DATE OF SERVICE: 08/13/2018 SUBJECTIVE: Patient was seen and examined at bedside and overnight events noted. Patient denies any shortness of breath or chest pain or palpitation. No history of nausea or vomiting or diarrhea or fever or chills or cramps. OBJECTIVE: GENERAL: This is a morbidly obese female, in no apparent distress. VITAL SIGNS: Temperature 98.8. Heart rate 98. Respiratory rate 18. Blood pressure 172/97. HEENT: Atraumatic, normocephalic. Oral mucosa is moist NECK: Supple. CARDIOVASCULAR: S1, S2 heard. Rate and rhythm regular. RESPIRATORY: Clear to auscultation. GASTROINTESTINAL: Abdomen is soft. MUSCULOSKELETAL: No tenderness. No edema. DERMATOLOGIC: No skin rash. NEUROLOGIC: Alert and awake and oriented X3. No focal neurologic deficits. Moving all the extremities. PSYCHIATRIC: Mood and affect normal. LABORATORY DATA: Potassium 3.5, BUN is 30, creatinine is 3.6. ASSESSMENT AND PLAN: 1. Chronic kidney disease, stage 5 . 2. Acute kidney injury, stable. 3. Hypomagnesemia, replace . 4. History of hypertension. 5. Chronic obstructive pulmonary disease. 6. No acute indication for dialysis. We will continue to monitor. Avoid nephrotoxins. Job ID: [id number]
[2018-08-13] MEDS ORDERED: Magnesium 2 GM/50 ML 2 GM in Premix Bag 1 BAG IVPB SCH (16:00)
--- NOTE | 2018-08-13 16:09 | PRG ---
DATE OF SERVICE: 08/13/2018 SUBJECTIVE: The patient is seen and examined at the bedside. She seems to be doing better. She has not much complaints to offer. OBJECTIVE: VITAL SIGNS: Blood pressure is 154/80, pulse is 80, temperature is 98.5, respirations 18, O2 saturation is 99% on room air. HEENT: Head is atraumatic and normocephalic. Skin is still palish, but better than what it was yesterday. Sclerae are nonicteric. Oral mucosa is moist. NECK: Supple. LUNGS: Clear. HEART: S1 and S2 normal. No S3. No S4. No any murmur. ABDOMEN: Soft, nontender, nondistended. EXTREMITIES: Both feet wrapped. Ulcerations on her both shins are healing. NEUROLOGIC: She is alert and oriented x4. There are no any motor deficits. She is able to move her all 4 extremities. LABORATORY DATA: Labs showed hemoglobin of 7.6, hematocrit 21.9. Sodium of 136, potassium 3.5, chloride 109, CO2 of 17, BUN 30, creatinine 3.68, glycemia is ranging from 121 to 190, magnesium 1.2, iron 49, total iron binding capacity 106%, saturation is 46, LDH 193. IMPRESSION: 1. Chronic nonhealing ulcers, bilateral feet. 2. Osteomyelitis of the 5th metatarsal head of right foot, 3rd and 4th metatarsal heads of left foot, bases of 4th proximal phalanx of left foot and calcaneus of the left foot, status post resection. 3. Anemia, status post transfusion of 2 units of packed red blood cells. Her hemoglobin is up to 7.6. Her LDH is normal. Her iron studies showed chronic anemia of chronic disease. Most likely, she will need transfusion on and off. I do not think she needs any further diagnostic workup done. 4. Diabetes mellitus type 2, controlled. 5. Diabetic neuropathy. 6. Diabetic nephropathy. 7. Hypomagnesemia. We will check her magnesium level again today. 8. Hypokalemia, replaced. 9. Chronic kidney disease, stage 5. 10. Chronic venous stasis with ulcerations. 11. Anemia due to renal insufficiency. 12. Medical noncompliance. 13. Peripheral vascular disease. PLAN: Microbiology. There are no any results from fruit packer. Operation posted. We are waiting for some cultures to come back. We will check her magnesium level and replace her magnesium if it is low. We will continue her current regimen, which is ceftriaxone and vancomycin. We will continue probiotics and will continue metronidazole. Job ID: [id number]
[2018-08-13] MEDS: Carvedilol 3.125 MG TAB PO SCH (16:52)
[2018-08-13] MEDS: cefTRIAXone\\ROCEPHIN 2 GM in Sodium Chloride 0.9% 100 ML IVPB SCH (20:40)
[2018-08-13] MEDS: Famotidine 20 MG TAB PO SCH (20:40)
[2018-08-14] MEDS: Levothyroxine Sodium 125 MCG TAB PO SCH (05:35)
[2018-08-14] MEDS: metroNIDAZOLE 250 MG in Admixture Fee 1 EACH IVPB SCH ×3 (05:35→21:51)
[2018-08-14 06:03] LABS: Hemoglobin 7.8 g/dL (12.0-16.0)
[2018-08-14 06:17] LABS: Anion Gap 12 mmol/L (10-20); BUN (Urea Nitrogen) 30 mg/dL (7.0-18.7); Calc. Creatinine Clearance 29 mL/min (70-130); Calcium 8.2 mg/dL (7.8-10.44); Carbon Dioxide 14 mmol/L (22-29); Chloride 113 mmol/L (98-107); Estimated GFR-MDRD 14; Glucose 132 mg/dL (70-105); Potassium 3.4 mmol/L (3.5-5.1); Sodium 136 mmol/L (136-145)
[2018-08-14] MEDS ORDERED: Potassium Chloride 20 MEQ TAB PO SCH (08:00)
[2018-08-14] MEDS: Saccharomyces boulardii 250 MG CAP PO SCH (08:31)
[2018-08-14] MEDS: Carvedilol 3.125 MG TAB PO SCH ×2 (08:31→16:58)
[2018-08-14] MEDS: Gabapentin 100 MG CAP PO SCH ×2 (08:31→21:07)
--- NOTE | 2018-08-14 10:59 | PRG ---
DATE OF SERVICE: 08/14/2018 SUBJECTIVE: Patient was seen and examined at bedside and overnight events noted. Patient denies any shortness of breath or chest pain or palpitation. No history of nausea or vomiting or diarrhea or fever or chills or cramps. OBJECTIVE: GENERAL: This is an obese female, in no apparent distress. VITAL SIGNS: Temperature 98.3. Heart rate 84. Respiratory rate 18. Blood pressure 129/67. HEENT: Atraumatic, normocephalic. Oral mucosa is moist NECK: Supple. CARDIOVASCULAR: S1, S2 heard. Rate and rhythm regular. RESPIRATORY: Clear to auscultation. GASTROINTESTINAL: Abdomen is soft. MUSCULOSKELETAL: No tenderness. No edema. DERMATOLOGIC: No skin rash. NEUROLOGIC: Alert and awake and oriented X3. No focal neurologic deficits. Moving all the extremities. PSYCHIATRIC: Mood and affect normal. LABORATORY DATA: Potassium is 3.4, BUN is 30, and creatinine 3.5. ASSESSMENT AND PLAN: 1. Acute kidney injury on chronic kidney stage 5 with slight improvement. 2. Hypokalemia, replace and monitor. 3. History of hypertension. 4. Edema. 5. Obesity. Monitor renal function closely. Avoid nephrotoxins. We will follow. Replace potassium. Job ID: [id number]
[2018-08-14 11:22] LABS: Vancomycin, Random 20.9 ug/mL (See Comment)
[2018-08-14] MEDS: Sodium Bicarbonate Tab 325 MG TAB PO SCH ×3 (12:18→21:07)
--- NOTE | 2018-08-14 15:41 | PRG ---
DATE OF SERVICE: 08/14/2018 SUBJECTIVE: The patient is seen and examined at the bedside. She is somewhat upset with me this morning, that I am waking her up and it is 8 o'clock. There was no any unexpected events overnight. OBJECTIVE: VITAL SIGNS: Blood pressure is 154/87, pulse is 79, temperature is 98.3, respirations 18, O2 saturation is 100% on room air. HEENT: Head is atraumatic and normocephalic. LUNGS: Clear. HEART: S1, S2 normal. No S3. No S4. ABDOMEN: Obese, soft, tender. EXTREMITIES: She has open areas, which are showing some erythema on her both shins, more on the right than on the left. This looks like venous stasis. Her both feet are wrapped. NEUROLOGICAL EXAMINATION: She follows my commands. She moves her all 4 extremities. LABORATORY DATA: Hemoglobin of 7.6, hematocrit 23.0. Sodium of 136, potassium 3.4, chloride 113, CO2 14, BUN of 30, creatinine 3.56. Glycemia is ranging from 161 to 177. Magnesium is 1.6 and random vancomycin is 20.9. Microbiology, no new results. IMPRESSION: 1. Chronic nonhealing ulcers, bilateral feet. 2. Osteomyelitis of the fifth metatarsal head of the right foot, third and fourth metatarsal heads of the left foot, bases of fourth proximal phalanx of left foot, and calcaneus of the left foot, status post resection. 3. Anemia, status post transfusion of 2 units of packed red blood cells. Hemoglobin is stable at 7.8. 4. Diabetes mellitus type 2. 5. Diabetic neuropathy. 6. Diabetic nephropathy. 7. Hypomagnesemia, replaced. 8. Hypokalemia. 9. Chronic kidney disease. 10. Metabolic acidosis secondary to chronic kidney disease. 11. Chronic venous stasis with ulcerations. 12. Anemia due to renal insufficiency. 13. Medical noncompliance. 14. Peripheral vascular disease. PLAN: We are awaiting for the final results from the surgical specimen. Hopefully, we will have culture results back on that, which would help us to guide us to design further treatment with antibiotics. For now, she is on ceftriaxone and vancomycin, and metronidazole was added by Dr. Metcalf. We will continue probiotics. We will continue wound care and PT. Job ID: [id number]
[2018-08-14] MEDS: HYDROcodone/Acetaminophen 5/325 mg Tablet PO PRN (18:21)
[2018-08-14] MEDS: cefTRIAXone\\ROCEPHIN 2 GM in Sodium Chloride 0.9% 100 ML IVPB SCH (19:56)
[2018-08-14] MEDS ORDERED: Vancomycin HCl 500 MG in Sodium Chloride 0.9% 100 ML IVPB SCH (21:00)
[2018-08-14] MEDS: Famotidine 20 MG TAB PO SCH (21:07)
[2018-08-15] MEDS: metroNIDAZOLE 250 MG in Admixture Fee 1 EACH IVPB SCH ×3 (05:10→21:35)
[2018-08-15] MEDS: Levothyroxine Sodium 125 MCG TAB PO SCH (05:10)
[2018-08-15 07:26] LABS: Anion Gap 12 mmol/L (10-20); BUN (Urea Nitrogen) 33 mg/dL (7.0-18.7); Calc. Creatinine Clearance 27 mL/min (70-130); Calcium 8.6 mg/dL (7.8-10.44); Carbon Dioxide 15 mmol/L (22-29); Chloride 115 mmol/L (98-107); Estimated GFR-MDRD 13; Glucose 122 mg/dL (70-105); Sodium 138 mmol/L (136-145)
[2018-08-15] MEDS: Gabapentin 100 MG CAP PO SCH ×2 (10:02→21:34)
[2018-08-15] MEDS: Saccharomyces boulardii 250 MG CAP PO SCH (10:02)
[2018-08-15] MEDS: Sodium Bicarbonate Tab 325 MG TAB PO SCH ×3 (10:02→21:35)
[2018-08-15] MEDS: Carvedilol 3.125 MG TAB PO SCH ×2 (10:02→18:21)
--- NOTE | 2018-08-15 10:44 | PRG ---
DATE OF SERVICE: 08/15/2018 SUBJECTIVE: Patient was seen and examined at bedside and overnight events noted. Patient denies any shortness of breath or chest pain or palpitation. No history of nausea or vomiting or diarrhea or fever or chills or cramps. OBJECTIVE: GENERAL: This is am obese female, in no apparent distress. VITAL SIGNS: Temperature 98.7. Heart rate 82. Respiratory rate 18. Blood pressure 142/79. HEENT: Atraumatic, normocephalic. Oral mucosa is moist NECK: Supple. CARDIOVASCULAR: S1, S2 heard. Rate and rhythm regular. RESPIRATORY: Clear to auscultation. GASTROINTESTINAL: Abdomen is soft. MUSCULOSKELETAL: No tenderness. No edema. DERMATOLOGIC: No skin rash. NEUROLOGIC: Alert and awake and oriented X3. No focal neurologic deficits. Moving all the extremities. PSYCHIATRIC: Mood and affect normal. LABORATORY DATA: Potassium 4.0, BUN is 33, creatinine is 3.8. ASSESSMENT AND PLAN: 1. Acute kidney injury on chronic kidney stage 5, stable. 2. Edema, controlled. 3. Hypertension. 4. Metabolic acidosis. Continue oral bicarb. 5. Hypokalemia, replace. 6. Obesity. No acute indications for dialysis. Continue supportive care. Avoid nephrotoxins. Continue antibiotics. Continue sodium bicarb. We will follow. Job ID: [id number]
--- NOTE | 2018-08-15 14:05 | PDOC.PN ---
- Subjective Encounter Start Date: 08/15/18 Encounter Start Time: 13:00 Subjective: awake, c/o pain in both LE wounds - Objective Resuscitation Status - Order Detail: 08/09/18 18:42 Resuscitation Status Routine Resuscitation Status: FULL: Full Resuscitation MAR Reviewed: Yes Vital Signs & Weight: Vital Signs (12 hours) Temp Pulse Resp BP Pulse Ox 08/15/18 12:10 98.1 F 82 18 144/84 H 99 08/15/18 08:00 99 08/15/18 07:52 97.9 F 88 18 157/87 H 99 08/15/18 04:00 98.7 F 82 18 142/79 H 100 Weight Admit Weight 198 lb 6.4 oz Weight 198 lb 6.4 oz I&O: 08/14/18 08/15/18 08/16/18 06:59 06:59 06:59 Intake Total 1991 2413 Balance 1991 2413 Result Diagrams: 08/15/18 06:28 08/15/18 06:28 Additional Labs: Accuchecks 08/15/18 08/15/18 08/14/18 11:38 05:16 20:16 POC Glucose 138 H 119 H 202 H 08/14/18 16:39 POC Glucose 143 H Phys Exam - Physical Examination HEENT: PERRLA, moist MMs Neck: no JVD, supple Respiratory: no wheezing, no rales Cardiovascular: RRR, no significant murmur Gastrointestinal: soft, no distention, positive bowel sounds Musculoskeletal: pulses present, edema present has multiple wounds b/l LE, both feet in dressing Neurological: non-focal, moves all 4 limbs Psychiatric: A&O x 3 Dx/Plan (1) Osteomyelitis Code(s): M86.9 - OSTEOMYELITIS, UNSPECIFIED Status: Acute Qualifiers: Osteomyelitis type: acute hematogenous Comment: left calcaneus, left 3,4 & 5 phalanges, right 5th metatarsal and phalanx. S/o resection of metatarsal heads of 3,4 & 5 left side, right 5th metatarsal resection and partial resection of left calcaneus by Dr.Albert Love Supervisor Aircraft [employer]aning (2) [id number] kidney injury Code(s): N17.9 - ACUTE KIDNEY FAILURE, UNSPECIFIED; N18.9 - CHRONIC KIDNEY DISEASE, UNSPECIFIED Status: Acute Qualifiers: Chronic kidney disease stage: stage 4 (severe) (3) Anemia of chronic disease Code(s): D63.8 - ANEMIA IN OTHER CHRONIC DISEASES CLASSIFIED ELSEWHERE Status : Chronic (4) Diabetes mellitus type 2, insulin dependent Code(s): E11.9 - TYPE 2 DIABETES MELLITUS WITHOUT COMPLICATIONS; Z79.4 - [facility] HOME (CURRENT) USE OF INSULIN Status: Chronic (5) Diabetic neuropathy Code(s): E11.40 - TYPE 2 DIABETES MELLITUS WITH DIABETIC NEUROPATHY, UNSP Status: Chronic Qualifiers: Diabetes mellitus type: type 2 (6) Dyslipidemia Code(s): E78.5 - HYPERLIPIDEMIA, UNSPECIFIED Status: Chronic (7) Hypertension Code(s): I10 - ESSENTIAL (PRIMARY) HYPERTENSION Status: Chronic Qualifiers: Hypertension type: essential hypertension (8) Hypothyroidism Code(s): E03.9 - HYPOTHYROIDISM, UNSPECIFIED Status: Chronic Qualifiers: Hypothyroidism type: unspecified Qualified Code(s): E03.9 - Hypothyroidism , unspecified (9) Physical deconditioning Code(s): R53.81 - OTHER MALAISE Status: Acute (10) Moderate protein-calorie malnutrition Code(s): E44.0 - MODERATE PROTEIN-CALORIE MALNUTRITION Status: Chronic - Plan is on ceftriaxone, vanc and flagyl, await opinion -: will need swing bed for dc plan -: continue coreg, synthroid, neurontin and sodium bicarb tabs -: prognosis guarded -: mobilize as tolerated * . Review of Systems - Medications/Allergies Allergies/Adverse Reactions: Allergies Allergy/AdvReac Type Severity Reaction Status Date / Time adhesive tape Allergy Mild Verified 09/12/16 04:35 Penicillins Allergy Verified 09/12/16 04:35 Medications: Current Medications Acetaminophen (Tylenol) 1,000 mg PO Q6H PRN PRN Reason: Mild Pain (1-3) Last Admin: 08/13/18 20:40 Dose: 1,000 mg Hydrocodone Bitart/Acetaminophen ([place] 5/325) 1 tab PO Q4H PRN PRN Reason: Moderate Pain (4-6) Last Admin: 08/14/18 18:21 Dose: 1 tab Carvedilol (Coreg) 3.125 mg PO BID-[facility] DARYN Last Admin: 08/15/18 10:02 Dose: 3.125 mg Clonidine (Catapres) 0.1 mg PO Q4H PRN PRN Reason: SBP Greater Than 180 Dextrose/Water (Dextrose 50%) 25 gm SLOW IVP PRN PRN PRN Reason: Hypoglycemia Famotidine (Pepcid) 20 mg PO QPM [facility] Last Admin: 08/14/18 21:07 Dose: 20 mg Gabapentin (Neurontin) 100 mg PO BID [facility] Last Admin: 08/15/18 10:02 Dose: 100 mg Glucagon (Glucagon) 1 mg IM PRN PRN PRN Reason: Hypoglycemia Hydralazine HCl (Apresoline) 10 mg SLOW IVP Q4H PRN PRN Reason: SBP > 180 and HR < 70 Dextrose/Water (D5w) 1,000 mls @ 0 mls/hr IV .Q0M PRN PRN Reason: Hypoglycemia Ceftriaxone Sodium 2 gm/ (Sodium Chloride) 100 mls @ 200 mls/hr IVPB Q24HR [facility] Last Admin: 08/14/18 19:56 Dose: 100 mls Vancomycin HCl 500 mg/ Sodium (Chloride) 100 mls @ 100 mls/hr IVPB .PENDING [facility] Metronidazole 250 mg/ (Miscellaneous Medication) 50 mls @ 100 mls/hr IVPB Q8HR [facility] Last Admin: 08/15/18 05:10 Dose: 50 mls Insulin Human Lispro (Humalog) 0 units SC .BEDTIME SLIDING SC PRN PRN Reason: Bedtime Correctional Scale Insulin Human Lispro (Humalog) 0 units SC .MILD SLIDING SCALE PRN PRN Reason: Mild Correctional Scale Last Admin: 08/12/18 05:48 Dose: 2 unit Levothyroxine Sodium (Synthroid) 125 mcg PO 0600 [facility] Last Admin: 08/15/18 05:10 Dose: 125 mcg Miscellaneous Medication (Pharmacy To Dose) 1 each IVPB ASDIR [facility] Hold Vancomycin For (Level >20) 0 each FS .AT DIALYSIS [facility] Ondansetron HCl (Zofran Odt) 4 mg PO Q6H PRN PRN Reason: Nausea/Vomiting Ondansetron HCl (Zofran) 4 mg IVP Q6H PRN PRN Reason: Nausea/Vomiting Saccharomyces Boulardii (Florastor) 250 mg PO DAILY [facility] Last Admin: 08/15/18 10:02 Dose: 250 mg Sodium Bicarbonate (Bicarbonate, Sodium) 650 mg PO TID [facility] Last Admin: 05/13/19 10:02 Dose: 650 mg Sodium Chloride (Flush - Normal Saline) 10 ml IVF Q12HR DARYN Last Admin: 08/15/18 10:03 Dose: 10 ml Sodium Chloride (Flush - Normal Saline) 10 ml IVF PRN PRN PRN Reason: Saline Flush Last Admin: 08/15/18 05:10 Dose: 10 ml
--- NOTE | 2018-08-15 17:50 | PRG ---
DATE OF SERVICE: 08/15/2018 SUBJECTIVE: Feeling better. Better spirits. No respiratory symptoms or abdominal pain. She is voiding in the bedside commode. OBJECTIVE: VITAL SIGNS: Normal. GENERAL: Awake, alert, and oriented. LUNGS: Clear. HEART: S1-S2, regular rate. ABDOMEN: Soft, not distended. The patient has had surgical debridement. LABORATORY DATA: Cultures have yielded MRSA and peptostreptococcus prevotii. White cell count 6.9, few days ago, hemoglobin is at 8, and platelets 243, creatinine is at 3.80. MRSA had a quite resistant phenotype. ASSESSMENT AND DISCUSSION: Type 2 diabetes, neuropathy, myopathy, nephropathy, stage 4-5 chronic lymphedema, chronic ulcers in the feet with osteomyelitis status post debridement. At this point, we will switch her to linezolid oral therapy by itself. Discontinue all other antimicrobials. Weekly CBC, chemistry, and C-reactive protein, wound care. End date of therapy will be in about 6 weeks. May have to discontinue linezolid because of adverse reactions, particularly in reference to gastrointestinal and hematologic once. Job ID: [id number]
[2018-08-15] MEDS: Famotidine 20 MG TAB PO SCH (21:35)
[2018-08-15] MEDS: Linezolid 600 MG TAB PO SCH (21:35)
[2018-08-16] MEDS: Levothyroxine Sodium 125 MCG TAB PO SCH (06:10)
[2018-08-16] MEDS: metroNIDAZOLE 250 MG in Admixture Fee 1 EACH IVPB SCH ×3 (06:10→22:27)
[2018-08-16] MEDS: Carvedilol 3.125 MG TAB PO SCH ×2 (08:21→15:59)
[2018-08-16] MEDS: Saccharomyces boulardii 250 MG CAP PO SCH (08:21)
[2018-08-16] MEDS: Sodium Bicarbonate Tab 325 MG TAB PO SCH ×3 (08:21→19:50)
[2018-08-16] MEDS: Gabapentin 100 MG CAP PO SCH ×2 (08:21→19:50)
[2018-08-16] MEDS: Linezolid 600 MG TAB PO SCH ×2 (08:23→19:52)
--- NOTE | 2018-08-16 12:56 | PDOC.PN ---
- Subjective Encounter Start Date: 08/16/18 Encounter Start Time: 12:15 Subjective: feels better, no complaints -: talks very minimal - Objective Resuscitation Status - Order Detail: 08/09/18 18:42 Resuscitation Status Routine Resuscitation Status: FULL: Full Resuscitation MAR Reviewed: Yes Vital Signs & Weight: Vital Signs (12 hours) Temp Pulse Resp BP Pulse Ox 08/16/18 08:00 98.2 F 86 16 149/88 H 99 Weight Admit Weight 198 lb 6.4 oz Weight 198 lb 6.4 oz I&O: 08/15/18 08/16/18 08/17/18 06:59 06:59 06:59 Intake Total 2413 1620 Balance 2413 1620 Result Diagrams: 08/15/18 06:28 08/15/18 06:28 Additional Labs: Accuchecks 08/16/18 08/16/18 08/15/18 11:52 04:37 20:24 POC Glucose 136 H 112 H 154 H 08/15/18 15:43 POC Glucose 123 H Phys Exam - Physical Examination HEENT: PERRLA, moist MMs Neck: no JVD, supple Respiratory: no wheezing, no rales Cardiovascular: RRR, no significant murmur Gastrointestinal: soft, no distention, positive bowel sounds Musculoskeletal: pulses present, edema present b/l foot in dressing Neurological: non-focal, moves all 4 limbs Dx/Plan (1) Osteomyelitis Code(s): M86.9 - OSTEOMYELITIS, UNSPECIFIED Status: Acute Qualifiers: Osteomyelitis type: acute hematogenous Comment: left calcaneus, left 3,4 & 5 phalanges, right 5th metatarsal and phalanx. S/o resection of metatarsal heads of 3,4 & 5 left side, right 5th metatarsal resection and partial resection of left calcaneus by Dr.Albert Love Supervisor Evaporator (2) [id number] kidney injury Code(s): N17.9 - ACUTE KIDNEY FAILURE, UNSPECIFIED; N18.9 - CHRONIC KIDNEY DISEASE, UNSPECIFIED Status: Acute Qualifiers: Chronic kidney disease stage: stage 4 (severe) (3) Anemia of chronic disease Code(s): D63.8 - ANEMIA IN OTHER CHRONIC DISEASES CLASSIFIED ELSEWHERE Status : Chronic (4) Diabetes mellitus type 2, insulin dependent Code(s): E11.9 - TYPE 2 DIABETES MELLITUS WITHOUT COMPLICATIONS; Z79.4 - [facility] (CURRENT) USE OF INSULIN Status: Chronic (5) Diabetic neuropathy Code(s): E11.40 - TYPE 2 DIABETES MELLITUS WITH DIABETIC NEUROPATHY, UNSP Status: Chronic Qualifiers: Diabetes mellitus type: type 2 (6) Dyslipidemia Code(s): E78.5 - HYPERLIPIDEMIA, UNSPECIFIED Status: Chronic (7) Hypertension Code(s): I10 - ESSENTIAL (PRIMARY) HYPERTENSION Status: Chronic Qualifiers: Hypertension type: essential hypertension (8) Hypothyroidism Code(s): E03.9 - HYPOTHYROIDISM, UNSPECIFIED Status: Chronic Qualifiers: Hypothyroidism type: unspecified Qualified Code(s): E03.9 - Hypothyroidism , unspecified (9) Physical deconditioning Code(s): R53.81 - OTHER MALAISE Status: Acute (10) Moderate protein-calorie malnutrition Code(s): E44.0 - MODERATE PROTEIN-CALORIE MALNUTRITION Status: Chronic - Plan hemostable -: is on zyvox, levaquin and flagyl -: likely to go home on zyvox only -: wound care per podiatry advice -: continue coreg, synthroid, neurontin and sodium bicarb * . Review of Systems - Medications/Allergies Allergies/Adverse Reactions: Allergies Allergy/AdvReac Type Severity Reaction Status Date / Time adhesive tape Allergy Mild Verified 09/12/16 04:35 Penicillins Allergy Verified 09/12/16 04:35 Medications: Current Medications Acetaminophen (Tylenol) 1,000 mg PO Q6H PRN PRN Reason: Mild Pain (1-3) Last Admin: 08/13/18 20:40 Dose: 1,000 mg Hydrocodone Bitart/Acetaminophen ([place] 5/325) 1 tab PO Q4H PRN PRN Reason: Moderate Pain (4-6) Last Admin: 08/14/18 18:21 Dose: 1 tab Carvedilol (Coreg) 3.125 mg PO BID- DARYN Last Admin: 08/16/18 08:21 Dose: 3.125 mg Clonidine (Catapres) 0.1 mg PO Q4H PRN PRN Reason: SBP Greater Than 180 Dextrose/Water (Dextrose 50%) 25 gm SLOW IVP PRN PRN PRN Reason: Hypoglycemia Famotidine (Pepcid) 20 mg PO QPM [facility]ARY[facility] Last Admin: 08/15/18 21:35 Dose: 20 mg Gabapentin (Neurontin) 100 mg PO BID [facility] Last Admin: 08/16/18 08:21 Dose: 100 mg Glucagon (Glucagon) 1 mg IM PRN PRN PRN Reason: Hypoglycemia Hydralazine HCl (Apresoline) 10 mg SLOW IVP Q4H PRN PRN Reason: SBP > 180 and HR < 70 Dextrose/Water (D5w) 1,000 mls @ 0 mls/hr IV .Q0M PRN PRN Reason: Hypoglycemia Metronidazole 250 mg/ (Miscellaneous Medication) 50 mls @ 100 mls/hr IVPB Q8HR [facility] Last Admin: 08/16/18 06:10 Dose: 50 mls Insulin Human Lispro (Humalog) 0 units SC .BEDTIME SLIDING SC PRN PRN Reason: Bedtime Correctional Scale Insulin Human Lispro (Humalog) 0 units SC .MILD SLIDING SCALE PRN PRN Reason: Mild Correctional Scale Last Admin: 08/12/18 05:48 Dose: 2 unit Levofloxacin (Levaquin) 250 mg PO 0600 [facility] Last Admin: 08/16/18 06:10 Dose: 250 mg Levothyroxine Sodium (Synthroid) 125 mcg PO 0600 [facility] Last Admin: 08/16/18 06:10 Dose: 125 mcg Linezolid (Zyvox) 600 mg PO Q12HR [facility] Last Admin: 08/16/18 08:23 Dose: 600 mg Hold Vancomycin For (Level >20) 0 each FS .AT DIALYSIS [facility] Ondansetron HCl (Zofran Odt) 4 mg PO Q6H PRN PRN Reason: Nausea/Vomiting Ondansetron HCl (Zofran) 4 mg IVP Q6H PRN PRN Reason: Nausea/Vomiting Saccharomyces Boulardii (Florastor) 250 mg PO DAILY [facility] Last Admin: 08/16/18 08:21 Dose: 250 mg Sodium Bicarbonate (Bicarbonate, Sodium) 650 mg PO TID [facility] Last Admin: 08/16/18 08:21 Dose: 650 mg Sodium Chloride (Flush - Normal Saline) 10 ml IVF Q12HR [facility] Last Admin: 08/16/18 08:32 Dose: 10 ml Sodium Chloride (Flush - Normal Saline) 10 ml IVF PRN PRN PRN Reason: Saline Flush Last Admin: 08/15/18 05:10 Dose: 10 ml
--- NOTE | 2018-08-16 15:36 | PRG ---
DATE OF SERVICE: SUBJECTIVE: Patient was seen and examined at bedside and overnight events noted. Patient denies any shortness of breath or chest pain or palpitation. No history of nausea or vomiting or diarrhea or fever or chills or cramps. OBJECTIVE: GENERAL: This is an obese female, in no acute distress. VITAL SIGNS: Temperature 98.2, pulse 86, respiratory rate 16, blood pressure 149/88. HEENT: Atraumatic, normocephalic. Oral mucosa is moist NECK: Supple. CARDIOVASCULAR: S1, S2 heard. Rate and rhythm regular. RESPIRATORY: Clear to auscultation. GASTROINTESTINAL: Abdomen is soft. MUSCULOSKELETAL: No tenderness. No edema. DERMATOLOGIC: No skin rash. NEUROLOGIC: Alert and awake and oriented X3. No focal neurologic deficits. Moving all the extremities. PSYCHIATRIC: Mood and affect normal. LABORATORY DATA: Addressed. ASSESSMENT AND PLAN: 1. Acute kidney injury. 2. Chronic kidney disease, stage 4. 3. Edema, controlled. 4. Hypertension. 5. Hypokalemia. 6. Obesity. Current renal function is stable. Monitor labs. Avoid nephrotoxins. Job ID: [id number]
[2018-08-16] MEDS: Famotidine 20 MG TAB PO SCH (19:49)
[2018-08-17] MEDS: Levothyroxine Sodium 125 MCG TAB PO SCH (06:29)
[2018-08-17] MEDS: metroNIDAZOLE 250 MG in Admixture Fee 1 EACH IVPB SCH ×2 (06:30→14:44)
[2018-08-17] MEDS: Sodium Bicarbonate Tab 325 MG TAB PO SCH ×3 (08:25→19:48)
[2018-08-17] MEDS: Saccharomyces boulardii 250 MG CAP PO SCH (08:25)
[2018-08-17] MEDS: Carvedilol 3.125 MG TAB PO SCH ×2 (08:25→16:38)
[2018-08-17] MEDS: Gabapentin 100 MG CAP PO SCH ×2 (08:25→19:48)
[2018-08-17] MEDS: Linezolid 600 MG TAB PO SCH ×2 (12:50→19:47)
--- NOTE | 2018-08-17 15:37 | PRG ---
DATE OF SERVICE: 08/17/2018 SUBJECTIVE: Patient was seen and examined at bedside and overnight events noted. Patient denies any shortness of breath or chest pain or palpitation. No history of nausea or vomiting or diarrhea or fever or chills or cramps. OBJECTIVE: GENERAL: This is a obese female, in no apparent distress. VITAL SIGNS: Temperature 98.4. Pulse 78. Respiratory rate 18. Blood pressure 145/79. HEENT: Atraumatic, normocephalic. Oral mucosa is moist NECK: Supple. CARDIOVASCULAR: S1, S2 heard. Rate and rhythm regular. RESPIRATORY: Clear to auscultation. GASTROINTESTINAL: Abdomen is soft. MUSCULOSKELETAL: No tenderness. No edema. DERMATOLOGIC: No skin rash. NEUROLOGIC: Alert and awake and oriented X3. No focal neurologic deficits. Moving all the extremities. PSYCHIATRIC: Mood and affect normal. LABORATORY DATA: Not done today. ASSESSMENT AND PLAN: 1. Chronic kidney disease, stage 4, stable. 2. Edema. 3. Hypertension, stable. 4. Hypokalemia, replace. Monitor. 5. Obesity. Monitor labs. Avoid nephrotoxins. Job ID: [id number]
[2018-08-17 16:28] VITALS: BP 165/84; TEMP 98
--- NOTE | 2018-08-17 16:53 | PDOC.PN ---
- Subjective Encounter Start Date: 08/17/18 Encounter Start Time: 09:25 Subjective: no new complaints -: says she wants to go home and not be placed - Objective Resuscitation Status - Order Detail: 08/09/18 18:42 Resuscitation Status Routine Resuscitation Status: FULL: Full Resuscitation MAR Reviewed: Yes Vital Signs & Weight: Vital Signs (12 hours) Temp Pulse Resp BP Pulse Ox 08/17/18 16:28 98.0 F 83 16 165/84 H 100 08/17/18 11:22 98.4 F 78 16 145/79 H 99 08/17/18 08:30 100 08/17/18 07:46 98.2 F 73 16 161/85 H 100 Weight Admit Weight 198 lb 6.4 oz Weight 198 lb 6.4 oz I&O: 08/16/18 08/17/18 08/18/18 06:59 06:59 06:59 Intake Total 1620 340 Balance 1620 340 Result Diagrams: 08/15/18 06:28 08/15/18 06:28 Additional Labs: Accuchecks 08/17/18 08/17/18 08/16/18 11:23 04:29 19:53 POC Glucose 167 H 156 H 89 08/16/18 16:29 POC Glucose 108 Phys Exam - Physical Examination HEENT: PERRLA, moist MMs Neck: no JVD, supple Respiratory: no wheezing, no rales Cardiovascular: RRR, no significant murmur Gastrointestinal: soft, no distention, positive bowel sounds Musculoskeletal: pulses present, edema present Neurological: non-focal, moves all 4 limbs Psychiatric: A&O x 3 Dx/Plan (1) Osteomyelitis Code(s): M86.9 - OSTEOMYELITIS, UNSPECIFIED Status: Acute Qualifiers: Osteomyelitis type: acute hematogenous Comment: left calcaneus, left 3,4 & 5 phalanges, right 5th metatarsal and phalanx. S/o resection of metatarsal heads of 3,4 & 5 left side, right 5th metatarsal resection and partial resection of left calcaneus by Dr.Albert Love Brushing Operator (2) [id number] kidney injury Code(s): N17.9 - ACUTE KIDNEY FAILURE, UNSPECIFIED; N18.9 - CHRONIC KIDNEY DISEASE, UNSPECIFIED Status: Resolved Qualifiers: Chronic kidney disease stage: stage 4 (severe) (3) Anemia of chronic disease Code(s): D63.8 - ANEMIA IN OTHER CHRONIC DISEASES CLASSIFIED ELSEWHERE Status : Chronic (4) Diabetes mellitus type 2, insulin dependent Code(s): E11.9 - TYPE 2 DIABETES MELLITUS WITHOUT COMPLICATIONS; Z79.4 - [facility] (CURRENT) USE OF INSULIN Status: Chronic (5) Diabetic neuropathy Code(s): E11.40 - TYPE 2 DIABETES MELLITUS WITH DIABETIC NEUROPATHY, UNSP Status: Chronic Qualifiers: Diabetes mellitus type: type 2 (6) Dyslipidemia Code(s): E78.5 - HYPERLIPIDEMIA, UNSPECIFIED Status: Chronic (7) Hypertension Code(s): I10 - ESSENTIAL (PRIMARY) HYPERTENSION Status: Chronic Qualifiers: Hypertension type: essential hypertension (8) Hypothyroidism Code(s): E03.9 - HYPOTHYROIDISM, UNSPECIFIED Status: Chronic Qualifiers: Hypothyroidism type: unspecified Qualified Code(s): E03.9 - Hypothyroidism , unspecified (9) Physical deconditioning Code(s): R53.81 - OTHER MALAISE Status: Acute (10) Moderate protein-calorie malnutrition Code(s): E44.0 - MODERATE PROTEIN-CALORIE MALNUTRITION Status: Chronic - Plan d/w , zyvox alone is sufficient to cover cultured organisms -: d/w CM , she has confirmed copay is only a $1.25 for zyvox for 6 -: -weeks. Counselled pt to get weekly cbc, cmp, sed rate, crp levels via HH -: and above results need to be faxed to office -: hemostable. HH with wound care and nursing has been arranged * . DC pt home as she does not want to be placed anywhere, she is fully oriented. Review of Systems - Medications/Allergies Allergies/Adverse Reactions: Allergies Allergy/AdvReac Type Severity Reaction Status Date / Time adhesive tape Allergy Mild Verified 09/12/16 04:35 Penicillins Allergy Verified 09/12/16 04:35 Medications: Current Medications Acetaminophen (Tylenol) 1,000 mg PO Q6H PRN PRN Reason: Mild Pain (1-3) Last Admin: 08/13/18 20:40 Dose: 1,000 mg Hydrocodone Bitart/Acetaminophen ([place] 5/325) 1 tab PO Q4H PRN PRN Reason: Moderate Pain (4-6) Last Admin: 08/14/18 18:21 Dose: 1 tab Carvedilol (Coreg) 3.125 mg PO BID-[facility] Last Admin: 08/17/18 16:38 Dose: 3.125 mg Clonidine (Catapres) 0.1 mg PO Q4H PRN PRN Reason: SBP Greater Than 180 Last Admin: 08/16/18 19:55 Dose: 0.1 mg Dextrose/Water (Dextrose 50%) 25 gm SLOW IVP PRN PRN PRN Reason: Hypoglycemia Famotidine (Pepcid) [address] [facility] Last Admin: 08/16/18 19:49 Dose: 20 mg Gabapentin (Neurontin) [address] [facility] Last Admin: 08/17/18 08:25 Dose: 100 mg Glucagon (Glucagon) 1 mg IM PRN PRN PRN Reason: Hypoglycemia Hydralazine HCl (Apresoline) 10 mg SLOW IVP Q4H PRN PRN Reason: SBP > 180 and HR < 70 Dextrose/Water (D5w) 1,000 mls @ 0 mls/hr IV .Q0M PRN PRN Reason: Hypoglycemia Metronidazole 250 mg/ (Miscellaneous Medication) 50 mls @ 100 mls/hr IVPB Q8HR [facility] Last Admin: 08/17/18 14:44 Dose: 50 mls Insulin Human Lispro (Humalog) 0 units SC .BEDTIME SLIDING SC PRN PRN Reason: Bedtime Correctional Scale Insulin Human Lispro (Humalog) 0 units SC .MILD SLIDING SCALE PRN PRN Reason: Mild Correctional Scale Last Admin: 08/12/18 05:48 Dose: 2 unit Levofloxacin (Levaquin) [address] [facility] Last Admin: 08/17/18 06:29 Dose: 250 mg Levothyroxine Sodium (Synthroid) [address] [facility] Last Admin: 08/17/18 06:29 Dose: 125 mcg Linezolid (Zyvox) [address] [facility] Last Admin: 08/17/18 12:50 Dose: 600 mg Ondansetron HCl (Zofran Odt) 4 mg PO Q6H PRN PRN Reason: Nausea/Vomiting Ondansetron HCl (Zofran) 4 mg IVP Q6H PRN PRN Reason: Nausea/Vomiting Saccharomyces Boulardii (Florastor) [address] [facility] Last Admin: 08/17/18 08:25 Dose: 250 mg Sodium Bicarbonate (Bicarbonate, Sodium) [address] [facility] Last Admin: 08/17/18 14:44 Dose: 650 mg Sodium Chloride (Flush - Normal Saline) [address] [facility] Last Admin: 08/17/18 08:25 Dose: 10 ml Sodium Chloride (Flush - Normal Saline) 10 ml IVF PRN PRN PRN Reason: Saline Flush Last Admin: 08/15/18 05:10 Dose: 10 ml
[2018-08-17] MEDS: Famotidine 20 MG TAB PO SCH (19:48)
--- NOTE | 2018-08-18 11:29 | DIS ---
DATE OF ADMISSION: 08/09/2018 DATE OF DISCHARGE: 08/17/2018 DISCHARGE DISPOSITION: To home with Home Health. PRIMARY DISCHARGE DIAGNOSES: Bilateral foot osteomyelitis, status post resection of metatarsal heads of left three, four, five, and right fifth metatarsal and partial resection of left calcaneus by Dr. 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 PROCEDURES DONE DURING HOSPITALIZATION: MRI of right foot showed osteomyelitis involving distal 5th metatarsal and metatarsal head and probable septic arthritis of the 5th metatarsophalangeal joint with abnormal signal changes within the phalanges of the right 5th toe. No evidence of drainable abscess was seen. MRI of the left foot showed findings suggestive of osteomyelitis involving calcaneus, 3rd, 4th, 5th digits. Lymphedema versus cellulitis of the left foot. The patient had resection of metatarsal heads three and four, left foot; resection of metatarsal head five, right foot; partial resection of calcaneus, left foot; debridement of full-thickness ulcerations on the plantar foot bilaterally, all of these procedures were done by Dr. Kate Aldrich, export freight manager on 08/11/2018. Blood cultures x2, no growth. Wound cultures grew MRSA and Peptostreptococcus prevotii. Discharge H and H of 8 and 23, H and H had dropped down to 6 and 18 on the . BUN and creatinine 33 and 3.8 on the . Admitting BUN and creatinine were 47 and 3.8 with serum bicarb of 20, ferritin 175. CRP was 4.0, albumin 3.0, serum iron 48, TIBC 105, percent saturation was 46, LDH 193. DISCHARGE MEDICATIONS: 1. Lasix 120 mg p.o. daily. 2. Humalog sliding scale three times daily. 3. Levothyroxine 125 mcg p.o. daily. 4. Coreg 3.125 mg p.o. twice daily. 5. Pepcid 20 mg p.o. q.p.m. 6. Neurontin 100 mg p.o. twice daily. 7. Zyvox 600 mg p.o. twice daily until September. 8. Florastor 250 mg p.o. daily. 9. Sodium bicarbonate 650 mg p.o. three times daily. ALLERGIES: ALLERGIC TO PENICILLIN AND ADHESIVE TAPE. DISCHARGE PLAN: The patient to follow up with Dr. Metcalf in 2 weeks. She also need to follow up with Dr. Kate Aldrich, export freight manager as advised. BRIEF COURSE DURING HOSPITALIZATION: The patient initially was admitted on the with bilateral foot ulcers suspicious for osteomyelitis. She has had initial x-rays and subsequent MRIs done, which confirmed bilateral foot osteomyelitis, which I have described above. She has had consultation with Dr. Kate Aldrich, export freight manager. The patient was taken to OR for debridement and amputations as described above in the operative note. She was on broad-spectrum IV antibiotics. Her wound cultures have grown MRSA and Peptostreptococcus prevotii. She has had consultation with Dr. Metcalf for Infectious Disease. The patient is known to be noncompliant with medications. She was counseled with regard to same. She also has chronic kidney disease and had acute kidney injury on top of it. The patient did not want to be placed in a fci to help or heal well. The patient has deconditioning, but is fully oriented and wants to go home come what may. Home Health with guardian along with wound care has been arranged. She was initially found to have had bedbugs and her house will have extermination services prior to Home Health arriving. She was counseled with regard to medication compliance. Please note, the patient needs weekly CBC, CRP, CMP, and sedimentation rate as the patient is on Zyvox and has a low H and H to see for any untoward events. Case Management also confirmed that her co-pay is only a dollar 25 cents for 6 weeks of Zyvox. A total of 35 minutes was spent on discharge plan. Please see a [id number] documentation for the day of discharge on [employer]. Job ID: [id number]
== END 2018-08-17 20:30 | disposition home health service (06) | DRG 617 ==
LOC: ERS 09:52 → T4-B 17:35
PROVIDERS: ADMIT Family Medicine; ATTEND Family Medicine
PROC: 0Y6N0ZB Detachment at Left Foot, Partial 2nd Ray, Open Approach (ICD-10-PCS; principal; 2018-08-11)
PROC: 0Y6N0ZC Detachment at Left Foot, Partial 3rd Ray, Open Approach (ICD-10-PCS; 2018-08-11)
PROC: 0Y6M0ZF Detachment at Right Foot, Partial 5th Ray, Open Approach (ICD-10-PCS; 2018-08-11)
PROC: 0QBM0ZZ Excision of Left Tarsal, Open Approach (ICD-10-PCS; 2018-08-11)
DX: E11.69 Type 2 diabetes mellitus with other specified complication (principal); M86.172 Other acute osteomyelitis, left ankle and foot; M86.171 Other acute osteomyelitis, right ankle and foot; I12.0 Hypertensive chronic kidney disease with stage 5 chronic kidney disease or end stage renal disease; E87.2 Acidosis; E44.0 Moderate protein-calorie malnutrition; E11.621 Type 2 diabetes mellitus with foot ulcer; L97.529 Non-pressure chronic ulcer of other part of left foot with unspecified severity; F41.9 Anxiety disorder, unspecified; F31.9 Bipolar disorder, unspecified; F20.9 Schizophrenia, unspecified; E11.22 Type 2 diabetes mellitus with diabetic chronic kidney disease; E11.42 Type 2 diabetes mellitus with diabetic polyneuropathy; E03.9 Hypothyroidism, unspecified; D63.1 Anemia in chronic kidney disease; N18.5 Chronic kidney disease, stage 5; E87.6 Hypokalemia; I87.8 Other specified disorders of veins; H10.32 Unspecified acute conjunctivitis, left eye; E83.42 Hypomagnesemia; E11.51 Type 2 diabetes mellitus with diabetic peripheral angiopathy without gangrene; N17.9 Acute kidney failure, unspecified; J44.9 Chronic obstructive pulmonary disease, unspecified; E66.9 Obesity, unspecified; K21.9 Gastro-esophageal reflux disease without esophagitis; Z88.0 Allergy status to penicillin; Z90.49 Acquired absence of other specified parts of digestive tract; Z91.14 Patient's other noncompliance with medication regimen; Z79.899 Other long term (current) drug therapy; Z68.21 Body mass index [BMI] 21.0-21.9, adult
CPT/HCPCS: 11042; 11045; 36415; 36416; 36430; 80048; 80053; 80202; 82550; 82728; 83540; 83550; 83605; 83615; 83735; 85007; 85014; 85018; 85025; 85027; 85046; 85652; 86140; 86850; 86900; 86901; 87040; 87070; 87076; 87077; 87186; 87205; 96365; 96366; 96367; J0692; J0696; J2001; J2250; J2405; J2704; J3010; J3370; J3475; J3490; J7050; P9016; S0020

== ENCOUNTER 2018-09-05 11:01 | Outpatient (CLI) | payer MEDICARE, MEDICAID ==
--- NOTE | 2018-09-05 10:33 | PRG ---
DATE OF SERVICE: 09/05/2018 HISTORY: Ms. Roxy Snow is a very pleasant 43-year-old, accompanied by her spouse, who presents [facility] for evaluation of multiple ulcerations of the right and left feet. Since the patient's last visit, Ms. Snow was admitted to [facility], where imaging of the right and left feet was obtained, evidence for osteomyelitis of the right and left feet. During the patient's hospital stay, Ms. Snow was seen in consultation by Dr. Keith Metcalf of Infectious Diseases. The patient also underwent a surgery by Dr. Aldrich, specifically resection of the 3rd and 4th metatarsal heads of the left foot and resection of the 5th metatarsal head of the right foot. In addition, the patient underwent partial resection of the left calcaneus. The patient states that she will see Dr. Aldrich tomorrow for suture removal. She states that she is taking Zyvox 600 mg p.o. b.i.d. as prescribed at the time of discharge from [facility]. The patient is presently not receiving assistance with dressing changes by Home Health. PHYSICAL EXAMINATION: VITAL SIGNS: Temperature 97.6, pulse 103, respirations 18, blood pressure 150/68. EXTREMITIES: An ulceration is present over the plantar surface of the right forefoot which measures approximately 0.8 x 0.9 cm. Two ulcerations are present over the plantar surface of the left foot, one over the plantar surface of the left forefoot which measures approximately 3.7 x 6.5 cm, and another over the left heel which measures approximately 3.5 x 2.7 cm. Granulation tissue is present within the margins of each wound. No purulent drainage is associated with any of the wounds. No cellulitis of the right or left foot is appreciated. Maceration of the skin of the left plantar forefoot is present on exam today. No significant edema of the right or left foot is present on today's exam. ASSESSMENT AND PLAN: 1. Ulcerations of right and left feet as described above. Arrangements will be made for the home delivery of dressing supplies. The patient is to receive dressing changes of [facility] every other day after cleansing and irrigation. The patient has been instructed to continue Zyvox as previously prescribed. I will see Ms. Snow again in 4 weeks. Tissue cultures of the left plantar forefoot wound were obtained today. A sample of granulation tissue within the left plantar forefoot wound was excised with the use of scissors and sent for aerobic and anaerobic cultures. 2. Diabetes mellitus. The patient has been reminded that for optimal wound healing, her blood glucoses should remain below 150. The patient refused Accu-Chek in clinic today. 3. Hypothyroidism. 4. Hypertension. 5. Migraine headaches. 6. Chronic kidney disease. 7. Carpal tunnel syndrome. 8. Anemia. Job ID: [id number]
[2018-09-05] MEDS ORDERED: Sodium Chloride 0.9% 15 ML NEB ONE (18:00)
== END 2018-09-05 11:02 | disposition home or self-care (01) ==
LOC: WCC 11:01
PROVIDERS: ATTEND Family Medicine
DX: E11.621 Type 2 diabetes mellitus with foot ulcer (principal); L97.529 Non-pressure chronic ulcer of other part of left foot with unspecified severity; L97.519 Non-pressure chronic ulcer of other part of right foot with unspecified severity; I12.9 Hypertensive chronic kidney disease with stage 1 through stage 4 chronic kidney disease, or unspecified chronic kidney disease; E11.22 Type 2 diabetes mellitus with diabetic chronic kidney disease; N18.9 Chronic kidney disease, unspecified; D63.1 Anemia in chronic kidney disease; G56.00 Carpal tunnel syndrome, unspecified upper limb; G43.909 Migraine, unspecified, not intractable, without status migrainosus; E03.9 Hypothyroidism, unspecified
CPT/HCPCS: 87070; 87077; 87205; 97602; A4218

== ENCOUNTER 2020-11-19 12:19 | Inpatient (IN) | payer MEDICARE, OTHER ==
[2020-11-19] MEDS ORDERED: methylPREDNISolone Sod Succ/PF 125 MG/2 ML VIAL ONE (12:39)
[2020-11-19] MEDS ORDERED: Famotidine/PF 20 mg/2ml Vial ONE (12:39)
[2020-11-19] MEDS ORDERED: Famotidine 20 MG TAB ONE (13:27)
[2020-11-19] MEDS ORDERED: predniSONE 20 MG TAB ONE (13:41)
[2020-11-19 14:06] LABS: #Eosinphils 0.1 thou/uL (0.0-0.7); #Lymphocytes 0.9 thou/uL (1.20-3.40); #Monocytes 0.8 thou/uL (0.11-0.59); #Neutrophils 12.9 thou/uL (1.40-6.50); %Basophils 0.2 % (0.0-1.0); %Eosinophils 0.5 % (0.0-10.0); %Monocytes 5.5 % (0.0-10.0); %Neutrophils 87.9 % (42.0-75.0); Hemoglobin 11.3 g/dL (12.0-16.0); Mean Corpuscular HGB CONC 32.4 g/dL (32.0-36.0); Mean Corpuscular Hemoglobin 29.6 pg (27.0-31.0); Mean Corpuscular Volume 91.5 fL (78.0-98.0); Mean Platelet Volume 7.6 fL (7.4-10.4); Platelet Count 247 thou/uL (130-400); RBC Distribution Width 13.8 % (11.5-14.5); Red Blood Cell (RBC) Count 3.81 mill/uL (4.20-5.40); White Blood Cell (WBC) Count 14.7 thou/uL (4.8-10.8)
[2020-11-19 14:29] LABS: ALT (SGPT) Less than 7 U/L (8-55); AST (SGOT) 14 U/L (5-34); Alkaline Phosphatase 76 U/L (40-110); Anion Gap 15 mmol/L (10-20); BUN (Urea Nitrogen) 47 mg/dL (7.0-18.7); Bilirubin, Total 1.1 mg/dL (0.2-1.2); Calc. Creatinine Clearance 0 mL/min (70-130); Carbon Dioxide 22 mmol/L (22-29); Chloride 99 mmol/L (98-107); Globulin 2.6 g/dL (2.4-3.5); Glucose 112 mg/dL (70-105); Potassium 4.5 mmol/L (3.5-5.1); Protein, Total 5.6 g/dL (6.0-8.3); Sodium 131 mmol/L (136-145)
[2020-11-19 14:52] LABS: CKMB 3.9 ng/mL (0-6.6)
[2020-11-19] MEDS ORDERED: Aspirin Chewable 81 MG TAB ONE (15:33)
[2020-11-19 17:36] LABS: Troponin I 0.551 ng/mL (< 0.028)
[2020-11-19] MEDS ORDERED: Ondansetron ODT 4 MG TAB PO PRN (19:47)
[2020-11-19] MEDS ORDERED: Ondansetron PF 4 MG/2 ML Vial IVP PRN (19:47)
[2020-11-19 20:30] LABS: Troponin I 0.721 ng/mL (< 0.028)
[2020-11-19] MEDS ORDERED: Heparin 25,000 units/D5W 500 ML IVPB SCH (22:45)
[2020-11-19] MEDS ORDERED: Heparin 10,000 UNITS/ 10 ML VIAL SLOW IVP SCH (22:45)
[2020-11-19] MEDS: Famotidine 20 MG TAB PO SCH (22:45)
[2020-11-19] MEDS: Acetaminophen 500 MG TAB PO PRN (22:45)
[2020-11-19] MEDS: Gabapentin 100 MG CAP PO SCH (22:46)
[2020-11-19 22:51] VITALS: BMI 38.7
[2020-11-19 23:04] LABS: Hemoglobin 9.5 g/dL (12.0-16.0); Platelet Count 180 thou/uL (130-400)
[2020-11-19] MEDS ORDERED: hydrALAZINE 20 MG/ML VIAL SLOW IVP PRN (23:15)
[2020-11-19] MEDS ORDERED: Amlodipine 5 MG TAB PO SCH (23:45)
[2020-11-20] MEDS: cloNIDine 0.1 MG TAB PO PRN ×2 (02:38→11:43)
[2020-11-20] MEDS: Acetaminophen 500 MG TAB PO PRN (04:14)
[2020-11-20 04:27] LABS: #Lymphocytes 0.5 thou/uL (1.20-3.40); #Monocytes 0.1 thou/uL (0.11-0.59); #Neutrophils 5.3 thou/uL (1.40-6.50); %Basophils 0.1 % (0.0-1.0); %Eosinophils 0.1 % (0.0-10.0); %Lymphocytes 8.4 % (21.0-51.0); %Monocytes 1.6 % (0.0-10.0); %Neutrophils 89.8 % (42.0-75.0); Hemoglobin 9.1 g/dL (12.0-16.0); Mean Corpuscular HGB CONC 34.8 g/dL (32.0-36.0); Mean Corpuscular Hemoglobin 31.8 pg (27.0-31.0); Mean Corpuscular Volume 91.1 fL (78.0-98.0); Mean Platelet Volume 8.2 fL (7.4-10.4); Platelet Count 156 thou/uL (130-400); RBC Distribution Width 13.6 % (11.5-14.5); Red Blood Cell (RBC) Count 2.86 mill/uL (4.20-5.40); White Blood Cell (WBC) Count 5.8 thou/uL (4.8-10.8)
[2020-11-20 04:44] LABS: Anion Gap 18 mmol/L (10-20); BUN (Urea Nitrogen) 54 mg/dL (7.0-18.7); Calc. Creatinine Clearance 11 mL/min (70-130); Calcium 9.1 mg/dL (7.8-10.44); Carbon Dioxide 21 mmol/L (22-29); Chloride 99 mmol/L (98-107); Glucose 270 mg/dL (70-105); Magnesium 1.8 mg/dL (1.6-2.6); Sodium 133 mmol/L (136-145)
[2020-11-20] MEDS: Levothyroxine Sodium 125 MCG TAB PO SCH (06:32)
[2020-11-20] MEDS ORDERED: Prevnar 13-Val Conj/PF 0.5 ML SYRINGE IM ONE (09:00)
[2020-11-20] MEDS ORDERED: Heparin 10,000 UNITS/ 10 ML VIAL ONE (09:08)
[2020-11-20] MEDS: Amlodipine 5 MG TAB PO SCH (09:25)
[2020-11-20] MEDS: Carvedilol 3.125 MG TAB PO SCH ×2 (09:25→18:12)
[2020-11-20] MEDS: Gabapentin 100 MG CAP PO SCH ×2 (09:25→21:35)
[2020-11-20 13:50] LABS: SARS-CoV-2 PCR NAA for Saliva Not Detected (NotDetected)
[2020-11-20 19:33] LABS: Troponin I 0.132 ng/mL (< 0.028)
[2020-11-20] MEDS: hydrALAZINE 25 MG TAB PO SCH (21:35)
[2020-11-20] MEDS: Famotidine 20 MG TAB PO SCH (21:36)
[2020-11-21] MEDS: Acetaminophen 500 MG TAB PO PRN (03:52)
[2020-11-21 04:30] LABS: #Lymphocytes 0.8 thou/uL (1.20-3.40); #Monocytes 0.4 thou/uL (0.11-0.59); #Neutrophils 3.4 thou/uL (1.40-6.50); %Basophils 0.9 % (0.0-1.0); %Eosinophils 0.5 % (0.0-10.0); %Monocytes 7.5 % (0.0-10.0); Hemoglobin 7.7 g/dL (12.0-16.0); Mean Corpuscular HGB CONC 34.2 g/dL (32.0-36.0); Mean Corpuscular Hemoglobin 31.3 pg (27.0-31.0); Mean Corpuscular Volume 91.6 fL (78.0-98.0); Mean Platelet Volume 7.8 fL (7.4-10.4); Platelet Count 140 thou/uL (130-400); RBC Distribution Width 13.6 % (11.5-14.5); Red Blood Cell (RBC) Count 2.46 mill/uL (4.20-5.40); White Blood Cell (WBC) Count 4.7 thou/uL (4.8-10.8)
[2020-11-21 04:57] LABS: Anion Gap 17 mmol/L (10-20); BUN (Urea Nitrogen) 39 mg/dL (7.0-18.7); Calc. Creatinine Clearance 14 mL/min (70-130); Calcium 9.1 mg/dL (7.8-10.44); Carbon Dioxide 24 mmol/L (22-29); Chloride 99 mmol/L (98-107); Glucose 162 mg/dL (70-105); Potassium 4.5 mmol/L (3.5-5.1); Sodium 135 mmol/L (136-145)
[2020-11-21] MEDS: Levothyroxine Sodium 125 MCG TAB PO SCH (05:42)
[2020-11-21] MEDS ORDERED: Carvedilol 6.25 MG TAB PO SCH (08:00)
[2020-11-21] MEDS ORDERED: Heparin 10,000 UNITS/ 10 ML VIAL ONE (08:25)
[2020-11-21 10:17] LABS: HBSAg Index 0.23 S/CO (0-0.99); Hep B Surf Ag Non-Reactive S/CO (NonReactive)
[2020-11-21] MEDS: hydrALAZINE 25 MG TAB PO SCH (10:37)
[2020-11-21] MEDS: Gabapentin 100 MG CAP PO SCH (10:37)
[2020-11-21 13:20] VITALS: TEMP 98.4
[2020-11-21 14:16] VITALS: BP 168/79
[2020-11-21] MEDS: Amlodipine 5 MG TAB PO SCH (14:16)
== END 2020-11-21 14:40 | disposition home or self-care (01) | DRG 915 ==
LOC: ERS 12:19 → ERHOLD 15:34 → 2NO 19:39 → OBSVTOIN 11-20 15:04
PROVIDERS: ADMIT Family Medicine; ATTEND Internal Medicine
PROC: 5A1D70Z Performance of Urinary Filtration, Intermittent, Less than 6 Hours Per Day (ICD-10-PCS; principal; 2020-11-20)
DX: T88.6XXA Anaphylactic reaction due to adverse effect of correct drug or medicament properly administered, initial encounter (principal); I21.A1 Myocardial infarction type 2; N18.6 End stage renal disease; G93.41 Metabolic encephalopathy; I12.0 Hypertensive chronic kidney disease with stage 5 chronic kidney disease or end stage renal disease; E66.01 Morbid (severe) obesity due to excess calories; E11.22 Type 2 diabetes mellitus with diabetic chronic kidney disease; F41.9 Anxiety disorder, unspecified; F31.9 Bipolar disorder, unspecified; Z20.822 Contact with and (suspected) exposure to COVID-19; E03.9 Hypothyroidism, unspecified; F39 Unspecified mood [affective] disorder; T36.8X5A Adverse effect of other systemic antibiotics, initial encounter; D63.1 Anemia in chronic kidney disease; Z99.2 Dependence on renal dialysis; Z90.49 Acquired absence of other specified parts of digestive tract; Z89.422 Acquired absence of other left toe(s); Z88.0 Allergy status to penicillin; Z79.899 Other long term (current) drug therapy; Z88.1 Allergy status to other antibiotic agents; Z68.38 Body mass index [BMI] 38.0-38.9, adult
CPT/HCPCS: 36415; 70450; 71045; 80048; 80053; 82553; 83605; 83735; 84443; 84484; 85025; 85730; 87340; 90935; 93005; G0257; G0378; J1644; J2930; J7512; S0028; U0003; U0005